=== PATIENT | female | born 1960 | race Caucasian/White ===

== ENCOUNTER 2020-03-23 11:30 | Emergency (ER) | payer OTHER ==
[2020-03-23 12:48] LABS: Urine Blood TRACE (NEG); Urine Glucose 2+ (NEG); Urine Protein 2+ (NEG); Urine Specific Gravity 1.015 (1.005-1.030)
[2020-03-23] MEDS ORDERED: NA CHLORIDE 0.9% 1,000 ML ONE ×2 (13:08→13:22)
[2020-03-23] MEDS ORDERED: INSULIN -REGULAR HUMAN 50 UNIT/0.5 ML ML ONE (13:08)
[2020-03-23] MEDS ORDERED: PROMETHAZINE INJ 25 MG/ML AMP ONE (13:21)
[2020-03-23 13:22] LABS: Urine Bacteria >50 /HPF (<20); Urine Culture Reflex Order NOT NEEDED; Urine RBC <5 /HPF (NONE SEEN)
[2020-03-23] MEDS ORDERED: PANTOPRAZOLE 40 MG INJ ONE (13:22)
[2020-03-23 13:23] LABS: Absolute Lymphocytes (CBC) 1.4 K/uL (0.7-4.9); Basophils % 0.9 % (0-1.3); Hematocrit 51.8 % (36.0-45.0); Lymphocytes % 16.9 % (15.3-44.8); MPV 9.2 fL (7.6-11.3); RBC Red Blood Cell Count 5.63 M/uL (3.86-4.86)
[2020-03-23] MEDS ORDERED: CEFTRIAXONE/SWI 1gm 1 GM/10 ML SYR ONE (13:41)
[2020-03-23 14:01] LABS: Albumin 3.9 g/dL (3.4-5.0); Bilirubin Direct 1.9 mg/dL (0-0.2); Bilirubin Total 2.8 mg/dL (0.2-1.0); Potassium 4.7 mmol/L (3.5-5.1); Protein, Total 9.5 g/dL (6.4-8.2)
--- OUTSIDE RECORDS SUMMARY | 2020-03-23 14:19 | XMS REPORT | Clinical Summary ---
:1960 Author Organization [facility] Address [address] [place] [address] Care Team Providers Name Role Phone Asked, Pcp Primary Care Provider Unavailable Allergies Active Allergy Reactions Severity Noted Date Comments Cyclobenzaprine 04/19/2017 Sulfa (Sulfonamide Antibiotics) 7 Tetracycline 04/19/2017 Abacavir 04/19/2017 Medications Medication Sig Dispensed Refills Start Date End Date Status sitagliptin Take by mouth 0 Acti ve phos/metformin HCl 2 (two) times (JANUMET ORAL) a day. sertraline Take 50 mg by 0 Activ e (ZOLOFT) 25 MG mouth daily. tablet amitriptyline Take 10 mg by 0 Ac tive (ELAVIL) 10 MG mouth daily. tablet Truvada 200-300 mg TAKE ONE 90 tablet 2 02/13/2020 08/11/20 Active per tablet TABLET BY 20 MOUTH ONCE DAILY WITH OR WITHOUT FOOD. STORE IN ORIGINAL CONTAINER AT ROOM TEMPERATURE. Reyataz 300 mg TAKE 1 CAPSULE 90 capsule 2 02/13/2020 05/13/20 Active capsule BY MOUTH DAILY 20 WITH BREAKFAST Norvir 100 mg TAKE ONE 30 tablet 0 03/10/2020 03/10/20 Activ e tablet TABLET BY 21 MOUTH ONCE DAILY WITH A MEAL. DO NOT BREAK, CHEW ORCRUSH TABLET. STORE AT ROOM TEMPERATURE. AVOID HIGH HUMIDITY. REYATAZ 300 mg TAKE 1 CAPSULE 90 capsule 2 02/18/2019 02/13/20 Discontinued capsule BY MOUTH DAILY 20 WITH BREAKFAST TRUVADA 200-300 mg TAKE ONE 90 tablet 2 02/18/2019 02/13/20 Discontinued per tablet TABLET BY 20 MOUTH ONCE DAILY WITH OR WITHOUT FOOD. STORE IN ORIGINAL CONTAINER AT ROOM TEMPERATURE. NORVIR 100 mg TAKE 1 TABLET 90 tablet 1 02/18/2019 10/10/20 D iscontinued tablet BY MOUTH DAILY 19 (Reor yasir) NORVIR 100 mg Take 1 tablet 90 tablet 1 10/10/2019 03/10/20 D iscontinued tablet (100 mg total) 20 by mouth daily for 180 days. Active Problems Problem Noted Date HIV (human immunodeficiency virus infection) 8 Encounters Date Type Specialty Care Team Description 03/19/2020 Travel 03/12/2020 Orders Only Infectious Diseases Danielle Jacobs Asy mptomatic HIV infection (HCC) (Primary Dx); paraffiner mellit us due to underlying condition with unspecified complications (HCC) 03/12/2020 Travel 03/05/2020 Refill Infectious Diseases Leoncio Uribe MD 02/13/2020 Refill Infectious Diseases Leoncio Uribe MD 10/10/2019 Orders Only Infectious Diseases Danielle Jacobs RN after 03/23/2019 Immunizations Name Administration Dates Next Due Influenza, Unspecified 01/06/2016, 09/30/2009, 10/31/2008, 1 , 07/23/2002, 08/05/1998 Pneumococcal Polysaccharide 12/26/2012, 11/15/2006, 07/23/20 02, 12/21/1997 Social History Tobacco Use Types Packs/Day Years Used Date Current Every Day Smoker Alcohol Use Drinks/Week oz/Week Comments Yes occassionally Sex Assigned at Date Recorded Not on file Job Start Date Occupation Industry Not on file Not on file Not on file Travel History Travel Start Travel End No recent travel history available. COVID-19 Exposure Response Date Recorded In the last month, have you been in contact with No / Unsure 03/19/2020 12:28 PM CDT someone who was confirmed or suspected to have Coronavirus / COVID-19? Last Filed Vital Signs Not on file Plan of Treatment Date Type Specialty Care Team Description 03/30/2020 Telemedicine Infectious Diseases Leoncio Uribe MD [address] [place], [place] [address] [phone] Health Maintenance Due Date Last Done Comments DIABETIC RETINAL EYE EXAM 1960 DIABETIC FOOT EXAM 1968 CERVICAL CANCER SCREENING 1979 BREAST CANCER SCREENING 2008 COLONOSCOPY SCREENING 2008 SHINGLES VACCINES (#1) 2008 INFLUENZA VACCINE 05/23/2020 01/06/2016, 09/30/2009, 2008, Additional history exists Procedures Procedure Name Priority Date/Time Associated Diagnosis Comme nts LIPID PANEL Routine 03/18/2020 9:59 Diabetes mellitus due Re sults for this AM CDT to underlying procedure are in condition with the results unspecified section. complications (H CC) Asymptomatic HIV infection (HCC) HIV 1 RNA, Routine 03/18/2020 9:59 Asymptomatic HIV Results for this QUANTITATIVE REAL AM CDT infection (HCC) procedu re are in TIME PCR the results section. COMPREHENSIVE Routine 03/18/2020 9:59 Asymptomatic HIV Result s for this METABOLIC PANEL AM CDT infection (HCC) procedure are in the results section. CBC WITH PLATELET AND Routine 03/18/2020 9:59 Asymptomatic HI V Results for this DIFFERENTIAL AM CDT infection (HCC) procedure ar e in the results section. T CELL LYMPHOCYTE Routine 03/18/2020 9:59 Asymptomatic HIV Re sults for this SUBSET PANEL 4 AM CDT infection (HCC) procedure are in the results section. after 03/23/2019 Results T cell Lymphocyte Subset Panel 4 (03/18/2020 9:59 AM CDT) Pathologist Sig nature CD4% 26 (L) 30 - 61 % [facility] [facility] CD4 absolute count 607 490 - 1,740 [facility] cells/uL [facility] [facility] CD8% 53 (H) 12 - 42 % [facility] [facility] CD8 absolute count 1,232 (H) 180 - 1,170 [facility] cells/uL [facility] [facility] CD4/CD8 ratio 0.49 (L) 0.86 - 5.00 [facility] II Lymphocytes, 2,321 850 - 3,900 [facility] absolute cells/uL [facility] [facility] Specimen Blood Narrative Performed At FASTING:YES [facility] FASTING: YES Resulting Agency Comment Performing Organization Information: Site ID: [id number] Name: [facility] Address: [address] [place] [address] Director: Dr. Vaibhav whittington Performing Organization Address City/State/Zipcode Phone Number [facility] II [address] [place] [address] HIV 1 RNA, QUANTITATIVE REAL TIME PCR (03/18/2020 9:59 AM CDT) [facility] HIV-1 RNA by PCR, 23 (H) NOT DETECTED [facility] copies/mL [facility] [facility] HIV-1 RNA by PCR, 1.36 (H) NOT DETECTED Log [facility] Comment: copies/mL [facility] This test was performed using Real-Time Polymerase Monica in Reaction. Reportable Range: 20 copies/mL to 10,000,000 copies/mL (1.30 log copies/mL to 7.00 log copies/mL). Specimen Narrative Performed At FASTING:YES [facility] FASTING: YES Resulting Agency Comment Performing Organization Information: Site ID: [id number] Name: [facility] Address: [address] [place] [id number] Director: Dr. Vaibhav whittington Performing Organization Address City/State/Zipcode Phone Number JOCE PIERRE[address] [place] [address] CBC with platelet and differential (03/18/2020 9:59 AM CDT) [facility] WBC 9.5 3.8 - 10.8 [facility] Thousand/uL [place] RBC 5.34 (H) 3.80 - 5.10 [facility] Million/uL [place] HGB 16.1 (H) 11.7 - 15.5 [facility] g/dL [place] HCT 47.6 (H) 35.0 - 45.0 % [facility] @Pay [place] MCV 89.1 80.0 - 100.0 fL [facility] MCH 30.1 27.0 - 33.0 pg [facility] [place] MCHC 33.8 32.0 - 36.0 [facility] g/dL [place] RDW 12.1 11.0 - 15.0 % [facility] [place] Platelet count 298 140 - 400 [facility] Thousand/uL [place] MPV 10.5 7.5 - 12.5 fL [facility] Neutrophils, absolute 6,470 1,500 - 7,800 [facility] cells/uL [place] Lymphocytes, absolute 2,176 850 - 3,900 [facility] cells/uL [place] Monocytes, absolute 542 200 - 950 [facility] cells/uL [place] Eosinophils, absolute 209 15 - 500 [facility] cells/uL [place] Basophils, absolute 105 0 - 200 [facility] cells/uL [place] Neutrophils 68.1 % [facility] [place] Lymphocytes 22.9 % [facility] [place] Monocytes 5.7 % [facility] [place] Eosinophils 2.2 % [facility] [place] Basophils + RC 1.1 % [facility] [place] Specimen Blood Narrative Performed At FASTING:YES [facility] FASTING: YES Resulting Agency Comment Performing Organization Information: Site ID: [id number] Name: [facility] [facility] Address: [address] [place] [phone] Director: Vaibhav Cantor Performing Organization Address City/State/Zipcode Phone Number JOCE PIERRE [place] [address] [place], [place] [id number] Lipid panel (03/18/2020 9:59 AM CDT) [facility] Cholesterol, total 204 (H) <200 mg/dL [facility] [place] HDL cholesterol 39 (L) > OR = 50 [facility] mg/dL [place] Triglycerides 259 (H) <150 mg/dL [facility] Comment: [place] If a non-fasting specimen was collected, consider repeat triglyceride testing on a fasting specimen if clinically indicated. Zev et al. J. of Clin. Lipidol. 2015;9:129-169. LDL cholesterol 125 (H) mg/dL (calc) [facility] calculated Comment: [place] Reference range: <100 Desirable range <100 mg/dL for primary prevention; <70 mg/dL for patients with CHD or diabetic patients with > or = 2 CHD risk factors. LDL-C is now calculated using the Carlyle-Rodrigo calculation, which is a validated novel method providi ng better accuracy than the Friedewald equation in the estimation of LDL-C. Carlyle HUANG et al. GALDINO. 2013;310(19): 8219-5295 (http://education.ServiceMax/faq/CCU063) Cholesterol/HDL 5.2 (H) <5.0 (calc) [facility] Non-HDL cholesterol 165 (H) <130 mg/dL [facility] Comment: (calc) [place] For patients with diabetes plus 1 major ASCVD risk factor, treating to a non-HDL-C goal of <100 mg/dL (LDL-C of <70 mg/dL) is considered a therapeutic option. Specimen Blood Narrative Performed At FASTING:YES [facility] FASTING: YES Resulting Agency Comment Performing Organization Information: Site ID: [id number] Name: [facility] Address: [address] [place] [phone] Director: Vaibhav Cantor Performing Organization Address City/State/Zipcode Phone Number [facility] [place] [address] [place] [address] Comprehensive metabolic panel (03/18/2020 9:59 AM CDT) Glucose 390 (H) 65 - 99 [facility] Comment: mg/dL [place] Fasting reference interval For someone without known diabetes, a glucose value >125 mg/dL indicates that they may have diabetes and this should be confirmed with a follow-up test. BUN 11 7 - 25 mg/dL [facility] [place] Creatinine 0.60 0.50 - 0.99 [facility] Comment: mg/dL [place] For patients >49 years of age, the reference limit for Creatinine is approximately 13% higher for people identified as -Kosovan. EGFR Non-Afr. 98 > OR = 60 [facility] [place] mL/min/1.73m [place] 2 EGFR 114 > OR = 60 [facility] [place] mL/min/1.73m [place] 2 BUN/creatinine NOT APPLICABLE 6 - 22 [facility] ratio (calc) [place] Sodium 133 (L) 135 - 146 [facility] mmol/L [place] Potassium 4.6 3.5 - 5.3 [facility] mmol/L [place] Chloride 95 (L) 98 - 110 [facility] mmol/L [place] CO2 25 20 - 32 [facility] mmol/L [place] Calcium 10.2 8.6 - 10.4 [facility] mg/dL [place] Protein 7.8 6.1 - 8.1 [facility] g/dL [place] Albumin, S 4.1 3.6 - 5.1 [facility] g/dL [place] Globulin, total 3.7 1.9 - 3.7 [facility] g/dL (calc) [place] Albumin/globulin 1.1 1.0 - 2.5 [facility] ratio (calc) [place] Total bilirubin 0.9 0.2 - 1.2 [facility] mg/dL [place] Alkaline 498 (H) 37 - 153 U/L [facility] phosphatase [place] AST 118 (H) 10 - 35 U/L [facility] [place] ALT 124 (H) 6 - 29 U/L [facility] [place] Specimen Blood Narrative Performed At FASTING:YES [facility] FASTING: YES Resulting Agency Comment Performing Organization Information: Site ID: [id number] Name: [facility] Address: [address] [place] [address] Director: Vaibhav Cantor Performing Organization Address City/State/Zipcode Phone Number [facility] [place] [address] [place] [address] after 03/23/2019 Insurance Payer Benefit Plan / Subscriber ID Effective Dates Phone Addre ss Type Group MEDICARE MEDICARE PART A xxxxxxxxxxx 2012-Present [facility], [place] Medicare AND B CIGNA CIGNA INDEMNITY xxxxxxxxxxx 2012-Present Indemnity Advance Directives For more information, please contact: [phone] Type Date Recorded Patient Demo Coordinator Explanati on Advance Directives, Living Will and Medical Power of Institutional Research Director
--- OUTSIDE RECORDS SUMMARY | 2020-03-23 14:20 | XMS REPORT ---
:1960 Author Organization [facility] t Address [facility] Vin[address] [place] [address] Care Team Providers Name Role Phone Asked, Pcp Primary Care Physician Unavailable Reynaldo SANTIAGO Attending Clinician Unavailable Edgar Uribe MD Attending Clinician Payers Payer Name Policy Policy Number Effective Expiration Source Type Date Date MEDICAREMEDICARE PART xxxxxxxxxxx 2012 Carlos Patricio AND 00:00:00 Buddhist Omkcyknbjkii85/1/2012 [place] x[facility]xx 2012 [place] INDEMNITYxxxxxxxxxxx1 00:00:00 Met jama 2011-Mago nity Problems Condition Condition Condition Status Onset Resolution Last Treating Co mments Source Name Details Category Date Date Treatment Clinician Date HIV (human HIV (human Disease Active [place] immunodefi immunodefi 04-19 Me thodi ciency ciency 00:00: st 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) Allergies, Adverse Reactions, Alerts Allergy Allergy Status Severity Reaction(s) Onset Inactive Treating Comm ents Source Name Type Date Date Clinician Cycloben Propensi Active [place] zaprine ty to 04-19 Methodi adverse 00:00: st reaction 00 s to drug Sulfa Propensi Active [place] (Sulfona ty to 04-19 Methodi mide adverse 00:00: st Antibiot reaction 00 ics) s to drug Tetracyc Propensi Active [place] line ty to 04-19 Methodi adverse 00:00: st reaction 00 s to drug Abacavir Propensi Active [place] ty to 04-19 Methodi adverse 00:00: st reaction 00 s to drug Social History Social Habit Start Date Stop Date Quantity Comments Source Sex Assigned At [place] Buddhist Exposure to Not sure [place] SARS-CoV-2 Buddhist (event) Alcohol intake 2017-04-19 2017-04-19 Current drinker of [place] 00:00:00 00:00:00 alcohol (finding) Methodi st Alcohol Comment 2017-04-19 2017-04-19 occassionally [place] 00:00:00 00:00:00 Buddhist Smoking Status Start Date Stop Date Source Current every day smoker 2017-04-19 00:00:00 Cynthia ston Buddhist Medications Ordered Filled Start Stop Current Ordering Indication Dosage Frequency Signature Comments Components Source Medication Medication Date Date Medication? Clinician (SIG) Name Name Norvir 100 2020- Yes TAKE ONE [place] mg tablet 5-10 03-19 TABLET BY Meth zackery 00:00: 23:[address] 00 :00 DAILY WITH A MEAL. DO NOT BREAK, CHEW ORCRUSH TABLET. STORE AT ROOM TEMPERATUR E. AVOID HIGH HUMIDITY. Truvada 2019- Yes TAKE ONE [place] 200-300 mg 4-23 10-20 TABLET BY Met hodi per tablet 00:00: 23:[address] 00 :00 DAILY WITH OR WITHOUT FOOD. STORE IN ORIGINAL CONTAINER AT ROOM TEMPERATUR E. Reyataz 300 2019- Yes TAKE 1 Cynthia ston mg capsule 02-12-22 CAPSULE BY Me thodi 00:00: 23:[address] 00 :00 DAILY WITH BREAKFAST NORVIR 100 2018-10- No 100mg QD Take 1 Cynthia ston mg tablet 2-19 tablet Methodi 00:00: 00:00 ([address] 00 :00 total) by mouth daily for 180 days. REYATAZ 300 2019- No TAKE 1 Cynthia ston mg capsule 02-18-23 CAPSULE BY Me thodi 00:00: 00:[address] 00 :00 DAILY WITH BREAKFAST TRUVADA 2019- No TAKE ONE [place] 200-300 mg 4-29 04-23 TABLET BY Met hodi per tablet 00:00: 00:[address] 00 :00 DAILY WITH OR WITHOUT FOOD. STORE IN ORIGINAL CONTAINER AT ROOM TEMPERATUR E. NORVIR 100 2019-0 2019- No TAKE 1 [place] mg tablet 02-1819 TABLET BY Meth zackery 00:00: 00:[address] 00 :00 DAILY sitagliptin Yes Q.5D Take by Cynthia khoury phos/metfor 4-15 mouth 2 Metho di min HCl 11:06: (two) st (JANUMET 50 times a ORAL) day. sertraline Yes 50mg QD Take 50 mg [place] (ZOLOFT) 25 4-15 by mouth Meth zackery MG tablet 11:06: daily. st 50 amitriptyli Yes 10mg QD Take 10 mg Strong ne (ELAVIL) 4-15 by mouth Meth zackery 10 MG 11:06: daily. st tablet 50 Immunizations Ordered Immunization Filled Immunization Date Status Commen ts Source Name Name Influenza, 2016-01-06 Completed [place] Unspecified 00:00:00 Buddhist Pneumococcal 2012-12-26 Completed Strong Polysaccharide 00:00:00 Buddhist Influenza, 2009-09-30 Completed [place] Unspecified 00:00:00 Buddhist Influenza, 2008-10-31 Completed [place] Unspecified 00:00:00 Buddhist Influenza, 2007-08-20 Completed [place] Unspecified 00:00:00 Buddhist Pneumococcal 2006-11-15 Completed [place] Polysaccharide 00:00:00 Buddhist Influenza, 2002-07-23 Completed [place] Unspecified 00:00:00 Buddhist Pneumococcal 2002-07-23 Completed [place] Polysaccharide 00:00:00 Buddhist Influenza, 1998-08-05 Completed [place] Unspecified 00:00:00 Buddhist Pneumococcal 1997-12-21 Completed [place] Polysaccharide 00:00:00 Buddhist Procedures Procedure Date / Time Performed Performing Clinician [facility] e T CELL LYMPHOCYTE SUBSET 2020-03-18 09:59:00 Leoncio Uribe PANEL 4 CBC WITH PLATELET AND 2020-03-18 09:59:00 Leoncio Uribe DIFFERENTIAL COMPREHENSIVE METABOLIC 2020-03-18 09:59:00 Leoncio Uribe PANEL HIV 1 RNA, QUANTITATIVE 2020-03-18 09:59:00 Leoncio Uribe REAL TIME PCR LIPID PANEL 2020-03-18 09:59:00 Leoncio Uribe odist Plan of Care Planned Activity Planned Date Details Comments Source Future Scheduled 2020-05-23 INFLUENZA VACCINE [place] [facility] Test 00:00:00 [code = INFLUENZA VACCINE] Future Scheduled 2008 BREAST CANCER [facility] thodist Test 00:00:00 SCREENING [code = BREAST CANCER SCREENING] Future Scheduled 2008 COLONOSCOPY SCREENING [place] [facility] Test 00:00:00 [code = COLONOSCOPY SCREENING] Future Scheduled 2008 SHINGLES VACCINES [place] [facility] Test 00:00:00 (#1) [code = SHINGLES VACCINES (#1)] Future Scheduled 1979 Screening for [facility] thodist Test 00:00:00 malignant neoplasm of cervix (procedure) [code = 012338250] Future Scheduled 1968 DIABETIC FOOT EXAM [place] Buddhist Test 00:00:00 [code = DIABETIC FOOT EXAM] Future Scheduled 1958 DIABETIC RETINAL EYE Cynthia ston Buddhist Test 00:00:00 EXAM [code = DIABETIC RETINAL EYE EXAM] Results Test Description Test Time Test Comments Results Result Comments Source Comprehensive metabolic panel 2020-03-20 11:16:00 Test Item Value Reference Range Interpretation Comme nts Glucose (test code = 390 mg/dL 65-99 H Fasting 2345-7) reference inter tatum For someone without known diabetes, a glu cosevalue >125 mg/dL [place] cates that they may havedi abetes and this should be confirmed with afollow-up test. BUN (test code = 11 mg/dL 05-16 3094-0) Creatinine (test code = 0.60 mg/dL 0.5-0.99 For patients >49 years of 2160-0) age, the refere nce limitfor Creati nine is approximately 1 3% higher for peopleident ified as -Mary Lou n. EGFR Non-Afr. Libyan 98 > OR = 60 (test code = 2775) mL/min/1.73m2 EGFR 114 > OR = 60 (test code = 21328-7) mL/min/1.73m2 BUN/creatinine ratio NOT APPLICABLE (calc) (test code = 3097-3) Sodium (test code = 133 mmol/L 135-146 L 2951-2) Potassium (test code = 4.6 mmol/L 3.5-5.3 2823-3) Chloride (test code = 95 mmol/L 98-110 L 2074-0) CO2 (test code = 25 mmol/L 20-32 2028-06) Calcium (test code = 10.2 mg/dL 8.6-10.4 26405-7) Protein (test code = 7.8 g/dL 6.1-8.1 5-2) Albumin, S (test code = 4.1 g/dL 3.6-5.1 1750-7) Globulin, total (test 3.7 1.9- 3.7 g/dL code = 61139-5) (calc) Albumin/globulin ratio 1.1 1.0- 2.5 (test code = 1759-0) (calc) Total bilirubin (test 0.9 mg/dL 0.2-1.2 code = 1974-) Alkaline phosphatase 498 U/L 37-153 H (test code = 6768-6) AST (test code = 118 U/L 10-35 H 192-8) ALT (test code = 124 U/L 6-29 H 174-6) JOSE (test code = JOSE) FASTING:YESFASTING: YES RAC (test code = RAC) Performing Organization Information: Site ID: RGA Name: [facility] Lab Address: [address] [place] [phone] Director: Vaibhav Cantor Lab Interpretation Abnormal (test code = 78591-5) [place] MethodistLipid [id number] 11:16:00 Test Item Value Reference Interpretation Comments Range Cholesterol, total 204 mg/dL <200 H (test code = 2092-3) HDL cholesterol 39 mg/dL > OR = 50 L (test code = 2084-9) Triglycerides (test 259 mg/dL <150 H If a no n-fasting code = 2571-8) specimen was collected, considerrepeat triglyceride testing on a fasting specime nif clinically indicated. Kev correa et al. J. of Cl in. Lipidol. 2015;9:129-169. LDL cholesterol 125 mg/dL (calc) H Reference ra nge: calculated (test <100 Desira ble code = 35165-8) range <100 m g/dL for primary prevention; <7 0 mg/dL for patie nts with CHD or diabetic patien ts with > or = 2 C HD risk factors. L DL-C is now calculat ed using the Carlyle-Wallace calculation, wh ich is a validated novel method providing hanna r accuracy than t he Puneet equa tion in the estimati on of LDL-C. Autumn n SS et al. GALDINO. 2013;310(19): 1198-7292 (http://educati on.Basic-Fit .HemaSource /faq/ANP052) Cholesterol/HDL 5.2 <5.0 (calc) H ratio (test code = 9830-1) Non-HDL cholesterol 165 <130 mg/dL H For didier ents with (test code = (calc) diabetes plus 1 54794-9) major ASCVD ris k factor, treatin g to a non-HDL-C goa l of <100 mg/dL (LDL -C of <70 mg/dL) i s considered a therapeutic opt ion. JOSE (test code = FASTING:YESFASTIN JOSE) G: YES RAC (test code = Performing RAC) Organization Information: Site ID: RGA Name: [facility] Address: [address] [place] [id number] Director: Vaibhav Cantor Lab Interpretation Abnormal (test code = 60438-8) [facility] with platelet and [id number] 11:16:00 Test Item Value Reference Range Interpretation Comments WBC (test code = 9.5 3.8- 10.8 6690-2) Thousand/uL RBC (test code = 789-8) 5.34 3.80- 5.10 H Million/uL HGB (test code = 718-7) 16.1 g/dL 11.7-15.5 H HCT (test code = 47.6 % 35-45 H 4544-3) MCV (test code = 787-2) 89.1 fL 80-100 MCH (test code = 785-6) 30.1 pg 27-33 MCHC (test code = 33.8 g/dL 32-36 786-4) RDW (test code = 788-0) 12.1 % 11-15 Platelet count (test 298 140- 400 code = 777-3) Thousand/uL MPV (test code = 776-5) 10.5 fL 7.5-12.5 Neutrophils, absolute 6470 1,500 - 7,800 (test code = 751-8) cells/uL Lymphocytes, absolute 2176 850- 3,900 (test code = 731-0) cells/uL Monocytes, absolute 542 200- 950 cells/uL (test code = 742-7) Eosinophils, absolute 209 15- 500 cells/uL (test code = 711-2) Basophils, absolute 105 0- 200 cells/uL (test code = 704-7) Neutrophils (test code 68.1 % = 770-8) Lymphocytes (test code 22.9 % = 736-9) Monocytes (test code = 5.7 % 5905-5) Eosinophils (test code 2.2 % = 713-8) Basophils + RC (test 1.1 % code = 706-2) JOSE (test code = JOSE) FASTING:YESFASTING: YES RAC (test code = RAC) Performing Organization Information: Site ID: RGA Name: [facility] Lab Address: [address] [place] [address] Director: Vaibhav Cantor Lab Interpretation Abnormal (test code = 83826-1) [place] MethodistHIV 1 RNA, QUANTITATIVE REAL TIME [id number] 11:16:00 Test Item Value Reference Range Interpretation Comments HIV-1 RNA by PCR, Qn 23 NOT DETECTED H (test code = 84193-0) copies/mL HIV-1 RNA by PCR, Qn 1.36 NOT DETECTED H This t est was (test code = 21631-0) Log copies/mL perfo rmed using Real-Time Polymerase ChainReaction. Reportable Range: 20 copies/mL to 10,000,000 copies/mL(1.30 log copies/mL t o 7.00 log copies/mL). JOSE (test code = JOSE) FASTING:YESFASTING : YES RAC (test code = RAC) Performing Organization Information: Site ID: IG Name: [facility] Lab Address: [address] [place] [address] Director: Dr. Vaibhav Cantor Lab Interpretation Abnormal (test code = 48818-7) [place] MethodistT cell Lymphocyte Subset Panel [id number] 11:16:00 Test Item Value Reference Range Interpretation Comments CD4% (test code = 26 % 30-61 L 8123-2) CD4 absolute count 607 490- 1,740 (test code = 27229-4) cells/uL CD8% (test code = 53 % 12-42 H 8101-8) CD8 absolute count 1232 180- 1,170 H (test code = 15181-9) cells/uL CD4/CD8 ratio (test 0.49 0.86-5.00 L code = 68183-1) Lymphocytes, absolute 2321 850- 3,900 (test code = 731-0) cells/uL JOSE (test code = JOSE) FASTING:YESFASTING: YES RAC (test code = RAC) Performing Organization Information: Site ID: IG Name: [facility] Lab Address: [address] [place] [phone] Director: Dr. Vaibhav Cantor Lab Interpretation Abnormal (test code = 43532-0) Tae Barriga
--- NOTE | 2020-03-23 14:53 | RAD REPORT ---
EXAM DESCRIPTION: US - Abdomen Exam Limited - 03/23/2020 2:43 pm CLINICAL HISTORY: ABD PAIN COMPARISON: No comparisons FINDINGS: The gallbladder demonstrates no gallstones. Small amount of gallbladder sludge likely pres ent. No pericholecystic fluid or gallbladder wall thickening. The common bile duct is upper limit of normal measuring 6-7 mm. The liver demonstrates no findings of intrahepatic biliary dilatation. IMPRESSION: Mild gallbladder sludge.
[2020-03-23 15:30] VITALS: TEMP 98.5
[2020-03-23 15:34] VITALS: O2SAT 95
[2020-03-23 15:35] VITALS: BP 137/68
--- NOTE | 2020-03-23 20:10 | ER ---
Nurse's Notes [facility] Name: Alexsandra Mauro Age: 59 yrs Sex: Female : 1960 Arrival Date: 03/23/2020 Time: 11:34 Bed 14 Private MD: Diagnosis: Diabetes mellitus due to underlying condition with hyperglycemia;Volume depletion;Generalized abdominal pain;Urinary tract infection, site not specified;Pancreatitis Presentation: 03/23 11:44 Chief complaint: Patient states: Sent by PCP for further evaluation of dehydration. Pt ss states, "I don't want to stay in the hospital, but she said my gallbladder is bad." Pt c/o abd burning and nausea x 4 days. Coronavirus screen: Proceed with normal triage. Patient denies a cough. Patient denies shortness of breath or difficulty breathing. Patient denies measured and/or subjective temperature greater than 100.4F prior to today's visit. Patient denies travel on a cruise ship or to a country the [facility] currently lists as an affected area. Patient denies contact with known and/or suspected case of COVID-19. Ebola Screen: Patient denies exposure to infectious person. Patient denies travel to an Ebola-affected area in the 21 days before illness onset. Initial Sepsis Screen: Does the patient meet any 2 criteria? No. Patient's initial sepsis screen is negative. Does the patient have a suspected source of infection? No. Patient's initial sepsis screen is negative. Risk Assessment: Do you want to hurt yourself or someone else? Patient reports no desire to harm self or others. Onset of symptoms was March 18, 2020. 11:44 Method Of Arrival: Ambulatory ss 11:44 Acuity: BRITTNY 3 ss Historical: - Allergies: 11:47 Sulfa (Sulfonamide Antibiotics); ss 11:47 TETRACYCLINES; ss - PMHx: 11:47 Diabetes - IDDM; HIV; in remission. 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 - Social history:: Smoking status: Patient reports the use of cigarette tobacco products, smokes two packs cigarettes per day. Screenin:51 Abuse screen: Denies threats or abuse. Nutritional screening: No deficits noted. ll1 Tuberculosis screening: No symptoms or risk factors identified. Fall Risk IV access (20 points). Total Fajardo Fall Scale indicates No Risk (0-24 pts). Assessment: 13:00 General: Appears in no apparent distress. Behavior is calm, cooperative, appropriate ll1 for age. Pain: Complains of pain in left upper quadrant and right upper quadrant Quality of pain is described as aching, Pain began 4 days Is intermittent. Neuro: No deficits noted. Cardiovascular: No deficits noted. Respiratory: No deficits noted. GI: Bowel sounds present X 4 quads. Abd is soft Abdomen is tender to palpation in right upper quadrant and left upper quadrant Reports upper abdominal pain, indigestion, nausea. 14:00 Reassessment: Patient appears in no apparent distress at this time. No changes from ll1 previously documented assessment. Patient and/or family updated on plan of care and expected duration. Pain level reassessed. Patient is alert, oriented x 3, equal unlabored respirations, skin warm/dry/pink. 14:30 Reassessment: Discharge pending ultrasound results. vc 15:00 Reassessment: Patient appears in no apparent distress at this time. Patient and/or vc family updated on plan of care and expected duration. Pain level reassessed. Patient is alert, oriented x 3, equal unlabored respirations, skin warm/dry/pink. Vital Signs: 11:44 BP 104 / 87; Pulse 89; Resp 17; Temp 98.5(TE); Pulse Ox 97% on R/A; Weight 79.38 kg; ss Height 5 ft. 6 in. (167.64 cm); 12:45 BP 151 / 71 LA Supine (auto/reg); Pulse 89; Resp 14; Pulse Ox 96% on R/A; dh3 12:48 BP 146 / 54 LA Sitting (auto/reg); Pulse 90; Resp 14; Pulse Ox 96% on R/A; dh3 12:52 BP 128 / 66 LA Standing (auto/reg); Pulse 104; Resp 14; Pulse Ox 95% on R/A; dh3 13:52 BP 137 / 68; Pulse 98; Resp 18; Pulse Ox 95% ; ll1 11:44 Body Mass Index 28.25 (79.38 kg, 167.64 cm) ED Course: 11:34 Patient arrived in ED. 1 11:45 Triage completed. ss 11:47 Arm band placed on right wrist. ss 11:56 Paz Bobby FNP-C is [facility]. snw 11:56 Luke Brandt MD is Attending Physician. snw 11:56 Ramona Ortega, JACK is Primary Nurse. ll1 12:25 Notified Nurse Practitioner and/or Physician Caustics Loader of POC Blood Sugar Notified 3 primary nurse of point of care results. 12:35 Placed in gown. Bed in low position. Call light in reach. Side rails up X 1. Warm jp3 blanket given. Verbal reassurance given. Pulse ox on. NIBP on. 12:35 Urine collected: clean catch specimen, clear, chas colored. jp3 12:50 Initial lab(s) drawn, by me, sent to lab. Inserted saline lock: 20 gauge in right jp3 antecubital area, using aseptic technique. Blood collected. Patient maintains SpO2 saturation greater than 95% on room air. 14:50 US Abdomen Limited In Process Unspecified. EDMS 15:15 No provider procedures requiring assistance completed. IV discontinued, intact, vc bleeding controlled, No redness/swelling at site. Pressure dressing applied. 15:19 Primary Nurse role handed off by Ramona Ortega RN vc 15:19 Toña Thornton RN is Primary Nurse. vc Administered Medications: 13:08 Drug: Insulin Regular Human 5 units {Co-Signature: zainab (Nery Grossman RN).} Route: Sub-Q; ll1 Site: right lower abdomen; 14:00 Follow up: Response: No adverse reaction; RASS: Alert and Calm (0) ll1 13:10 Drug: NS 0.9% 1000 ml Route: IV; Rate: 1 bolus; Site: right antecubital; ll1 13:58 Follow up: Response: No adverse reaction; RASS: Alert and Calm (0); IV Status: ll1 Completed infusion; IV Intake: 1000ml 13:10 Drug: Insulin Regular Human 5 units {Co-Signature: zainab (Nery Grossman RN).} Route: IVP; ll1 Site: right antecubital; 14:00 Follow up: Response: No adverse reaction; RASS: Alert and Calm (0) ll1 13:24 Drug: NS 0.9% 1000 ml Route: IV; Rate: 1 bolus; Site: right antecubital; ll1 13:25 Drug: ProTONIX 40 mg Route: IVP; Site: right antecubital; 1 14:01 Follow up: Response: No adverse reaction; RASS: Alert and Calm (0) ll1 14:01 Follow up: Response: No adverse reaction ll1 13:25 Drug: Phenergan 6.25 mg Route: IVP; Site: right antecubital; ll1 14:02 Follow up: Response: No adverse reaction 1 13:58 Drug: Rocephin 1 grams Route: IV; Rate: calculated rate; Site: right antecubital; 1 Intake: 13:58 IV: 1000ml; Total: 1000ml. 1 Outcome: 14:10 Discharge ordered by . jacques 15:15 Discharged to home ambulatory. vc 15:15 Condition: good 15:15 Discharge instructions given to patient, Instructed on discharge instructions, follow up and referral plans. medication usage, Demonstrated understanding of instructions, follow-up care, medications, Prescriptions given X 2. 15:19 Patient left the ED. vc Signatures: Dispatcher [employer] EDMS Paz Bobby, CARA-C KITCHEN CLERK-Csnw Raissa Hunt, RN RN Esperanza Phillips [facility] Spike Randall jp3 Toña Thornton RN RN José Miguel Henson fjRamona Zee RN RN [facility] Nery Grossman RN Corrections: (The following items were deleted from the chart) 13:01 12:50 Inserted saline lock: 20 gauge in right antecubital area, using aseptic dh3 technique. Blood collected. [facility] 13:01 12:50 Initial lab(s) drawn, by co, sent to lab. [place] [id number] 13:01 12:50 Patient maintains SpO2 saturation greater than 95% on room air. [email or web address]
--- NOTE | 2020-03-23 20:10 | EDPHYS ---
Physician Documentation [facility] Name: Alexsandra Mauro Age: 59 yrs Sex: Female : 1960 Arrival Date: 03/23/2020 Time: 11:34 Bed 14 Private MD: PRETTY Physician Luke Brandt HPI: 03/23 13:01 This 59 yrs old Female presents to ER via Ambulatory with complaints of snw DEHYDRATION, Abd Pain > 50 y/o. 13:01 Onset: The symptoms/episode began/occurred acutely, 4 day(s) ago, and became snw persistent. Associated signs and symptoms: Pertinent positives: abdominal pain, vomiting. It is unknown whether or not the patient has had similar symptoms in the past. The patient has been recently seen by a physician: the patient's primary care provider, Dr. Delcid. Historical: - Allergies: 11:47 Sulfa (Sulfonamide Antibiotics); ss 11:47 TETRACYCLINES; ss - PMHx: 11:47 Diabetes - IDDM; HIV; in remission. 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 - Social history:: Smoking status: Patient reports the use of cigarette tobacco products, smokes two packs cigarettes per day. ROS: 12:59 Constitutional: Negative for fever, chills, and weight loss, Eyes: Negative for injury, snw pain, redness, and discharge, ENT: Negative for injury, pain, and discharge, Neck: Negative for injury, pain, and swelling, Cardiovascular: Negative for chest pain, palpitations, and edema, Respiratory: Negative for shortness of breath, cough, wheezing, and pleuritic chest pain, Back: Negative for injury and pain, : Negative for injury, bleeding, discharge, and swelling, MS/Extremity: Negative for injury and deformity, Skin: Negative for injury, rash, and discoloration, Neuro: Negative for headache, weakness, numbness, tingling, and seizure, Psych: Negative for depression, anxiety, suicide ideation, homicidal ideation, and hallucinations. 12:59 Abdomen/GI: Positive for abdominal pain, nausea, vomiting, of the right upper quadrant and left upper quadrant. Exam: 12:58 Constitutional: This is a well developed, well nourished patient who is awake, alert, snw and in no acute distress. Head/Face: Normocephalic, atraumatic. Eyes: Pupils equal round and reactive to light, extra-ocular motions intact. Lids and lashes normal. Conjunctiva and sclera are non-icteric and not injected. Cornea within normal limits. Periorbital areas with no swelling, redness, or edema. ENT: Nares patent. No nasal discharge, no septal abnormalities noted. Tympanic membranes are normal and external auditory canals are clear. Oropharynx with no redness, swelling, or masses, exudates, or evidence of obstruction, uvula midline. Mucous membranes moist. Neck: Trachea midline, no thyromegaly or masses palpated, and no cervical lymphadenopathy. Supple, full range of motion without nuchal rigidity, or vertebral point tenderness. No Meningismus. Chest/axilla: Normal chest wall appearance and motion. Nontender with no deformity. No lesions are appreciated. Cardiovascular: Regular rate and rhythm with a normal S1 and S2. No gallops, murmurs, or rubs. Normal PMI, no JVD. No pulse deficits. Respiratory: Lungs have equal breath sounds bilaterally, clear to auscultation and percussion. No rales, rhonchi or wheezes noted. No increased work of breathing, no retractions or nasal flaring. Back: No spinal tenderness. No costovertebral tenderness. Full range of motion. MS/ Extremity: Pulses equal, no cyanosis. Neurovascular intact. Full, normal range of motion. Neuro: Awake and alert, GCS 15, oriented to person, place, time, and situation. Cranial nerves II-XII grossly intact. Motor strength 5/5 in all extremities. Sensory grossly intact. Cerebellar exam normal. Normal gait. Psych: Awake, alert, with orientation to person, place and time. Behavior, mood, and affect are within normal limits. 12:58 Abdomen/GI: Inspection: distension, Bowel sounds: normal, Palpation: moderate abdominal tenderness, in the right upper quadrant and left upper quadrant. 12:58 Skin: Appearance: Color: adina, Temperature: warm, Moisture: dry. Vital Signs: 11:44 BP 104 / 87; Pulse 89; Resp 17; Temp 98.5(TE); Pulse Ox 97% on R/A; Weight 79.38 kg; ss Height 5 ft. 6 in. (167.64 cm); 12:45 BP 151 / 71 LA Supine (auto/reg); Pulse 89; Resp 14; Pulse Ox 96% on R/A; dh3 12:48 BP 146 / 54 LA Sitting (auto/reg); Pulse 90; Resp 14; Pulse Ox 96% on R/A; dh3 12:52 BP 128 / 66 LA Standing (auto/reg); Pulse 104; Resp 14; Pulse Ox 95% on R/A; dh3 13:52 BP 137 / 68; Pulse 98; Resp 18; Pulse Ox 95% ; ll1 11:44 Body Mass Index 28.25 (79.38 kg, 167.64 cm) ss MDM: 11:58 Patient medically screened. tanner 14:11 Data reviewed: vital signs, nurses notes. Data interpreted: Pulse oximetry: on room air snw is 95 %. Interpretation: acceptable. Counseling: I had a detailed discussion with the patient and/or guardian regarding: the historical points, exam findings, and any diagnostic results supporting the discharge/admit diagnosis, the presence of at least one elevated blood pressure reading (>120/80) during this emergency department visit, lab results, the need for outpatient follow up, for definitive care, to return to the emergency department if symptoms worsen or persist or if there are any questions or concerns that arise at home. Response to treatment: the patient's symptoms have mildly improved after treatment. Special discussion: Based on the patient's Hx, exam, and Dx evaluation, there is no indication for emergent surgery or inpatient Tx. It is understood by the patient/guardian that if the Sx's persist or worsen they need to return immediately for re-evaluation. I have referred the patient to see his PCP for further evaluation of high blood pressure. Based on the history and exam findings, there is no indication for further emergent testing or inpatient evaluation. I discussed with the patient/guardian the need to see the primary care provider for further evaluation of the symptoms. 03/23 11:57 Order name: Urine Culture formerly [facility] 03/23 11:57 Order name: Urine Microscopic Only; Complete Time: 13:26 snw 03/23 12:35 Order name: Urine Dipstick--Ancillary (enter results); Complete Time: 12:49 bd 03/23 12:37 Order name: Basic Metabolic Panel; Complete Time: 14:19 snw 03/23 12:37 Order name: CBC with Diff; Complete Time: 13:26 snw 03/23 12:37 Order name: Hepatic Function; Complete Time: 14:19 snw 03/23 12:37 Order name: Lipase; Complete Time: 14:19 snw 03/23 12:40 Order name: Glucose, Ancillary Testing; Complete Time: 12:47 EDMS 03/23 14:09 Order name: Glucose, Ancillary Testing; Complete Time: 14:12 EDMS 03/23 14:19 Order name: US Abdomen Limited snw 03/23 11:57 Order name: Urine Dipstick-Ancillary (obtain specimen); Complete Time: 12:36 snw 03/23 11:57 Order name: Orthostatic Blood Pressure; Complete Time: 13:01 snw 03/23 11:57 Order name: FSBS; Complete Time: 12:36 snw 03/23 12:37 Order name: IV Saline Lock; Complete Time: 13:00 snw 03/23 12:37 Order name: Labs collected and sent; Complete Time: 13:01 snw Administered Medications: 13:08 Drug: Insulin Regular Human 5 units {Co-Signature: [email or web address] (Nery Grossman RN).} Route: Sub-Q; ll1 Site: right lower abdomen; 14:00 Follow up: Response: No adverse reaction; RASS: Alert and Calm (0) ll1 13:10 Drug: NS 0.9% 1000 ml Route: IV; Rate: 1 bolus; Site: right antecubital; ll1 13:58 Follow up: Response: No adverse reaction; RASS: Alert and Calm (0); IV Status: ll1 Completed infusion; IV Intake: 1000ml 13:10 Drug: Insulin Regular Human 5 units {Co-Signature: zainab (Nery Grossman RN).} Route: IVP; ll1 Site: right antecubital; 14:00 Follow up: Response: No adverse reaction; RASS: Alert and Calm (0) ll1 13:24 Drug: NS 0.9% 1000 ml Route: IV; Rate: 1 bolus; Site: right antecubital; ll1 13:25 Drug: ProTONIX 40 mg Route: IVP; Site: right antecubital; ll1 14:01 Follow up: Response: No adverse reaction; RASS: Alert and Calm (0) ll1 14:01 Follow up: Response: No adverse reaction 1 13:25 Drug: Phenergan 6.25 mg Route: IVP; Site: right antecubital; ll1 14:02 Follow up: Response: No adverse reaction 1 13:58 Drug: Rocephin 1 grams Route: IV; Rate: calculated rate; Site: right antecubital; ll1 Disposition: 15:20 Co-signature as Attending Physician, Luke Brandt MD I agree with the assessment and [facility] plan of care. Disposition: 03/23/20 14:10 Discharged to Home. Impression: Diabetes mellitus due to underlying condition with hyperglycemia, Volume depletion, Generalized abdominal pain, Urinary tract infection, site not specified, Pancreatitis. - Condition is Stable. - Discharge Instructions: Abdominal Pain, Adult, Dehydration, Adult, Diabetes and Sick Day Management, Urinary Tract Infection, Adult, Blood Glucose Monitoring, Adult, Rehydration, Adult. - Prescriptions for Augmentin 875- 125 mg Oral Tablet - take 1 tablet by ORAL route every 12 hours for 10 days; 20 tablet. Phenergan 25 mg Rectal Suppository - insert 1 suppository by RECTAL route every 6 hours As needed; 12 suppository. - Work release form, Medication Reconciliation Form, Thank You Letter, Antibiotic Education, Prescription Opioid Use form. - Follow up: Emergency Department; When: As needed; Reason: Worsening of condition. Follow up: Private Physician; When: 1 - 2 days; Reason: Recheck today's complaints, Continuance of care, Re-evaluation by your physician. Signatures: Dispatcher [employer] Luke Nava MD MD cha Therrien, Shelly, JELLY MAKER-C JELLY MAKER-Rossw Raissa Hunt RN RN ss Toña Thornton RN RN vc Lewis, Lynsay, RN RN [facility] Nery Grossman RN Corrections: (The following items were deleted from the chart) 14:53 14:10 03/23/2020 14:10 Discharged to Home. Impression: Diabetes mellitus due to snw underlying condition with hyperglycemia; Volume depletion; Generalized abdominal pain; Urinary tract infection, site not specified. Condition is Stable. Forms are Medication Reconciliation Form, Thank You Letter, Antibiotic Education, Prescription Opioid Use. Follow up: Emergency Department; When: As needed; Reason: Worsening of condition. Follow up: Private Physician; When: 1 - 2 days; Reason: Recheck today's complaints, Continuance of care, Re-evaluation by your physician. [email or web address] 15:19 14:53 03/23/2020 14:10 Discharged to Home. Impression: Diabetes mellitus due to vc underlying condition with hyperglycemia; Volume depletion; Generalized abdominal pain; Urinary tract infection, site not specified; Pancreatitis. Condition is Stable. Discharge Instructions: Abdominal Pain, Adult, Dehydration, Adult, Diabetes and Sick Day Management, Urinary Tract Infection, Adult, Blood Glucose Monitoring, Adult, Rehydration, Adult. Prescriptions for Augmentin 875-125 mg Oral Tablet - take 1 tablet by ORAL route every 12 hours for 10 days; 20 tablet, Phenergan 25 mg Rectal Suppository - insert 1 suppository by RECTAL route every 6 hours As needed; 12 suppository. and Forms are Medication Reconciliation Form, Thank You Letter, Antibiotic Education, Prescription Opioid Use, Work release form. Follow up: Emergency Department; When: As needed; Reason: Worsening of condition. Follow up: Private Physician; When: 1 - 2 days; Reason: Recheck today's complaints, Continuance of care, Re-evaluation by your physician. [email or web address]
== END 2020-03-23 15:19 | disposition home or self-care (01) ==
LOC: ER 11:30
DX: E86.9 Volume depletion, unspecified (principal); N39.0 Urinary tract infection, site not specified; E11.65 Type 2 diabetes mellitus with hyperglycemia; F17.210 Nicotine dependence, cigarettes, uncomplicated; Z21 Asymptomatic human immunodeficiency virus [HIV] infection status; Z88.1 Allergy status to other antibiotic agents; Z88.2 Allergy status to sulfonamides
CPT/HCPCS: 96361; 87088; 85025; 87086; 80048; 36415; 82947 ×2; 80076; 83690; 76705; 96375; 96372; 96374; 99284; J2550; C9113; J0696; J7030 ×2; 81003; 81015

== ENCOUNTER 2020-04-18 07:32 | Inpatient (IN) | payer OTHER ==
--- OUTSIDE RECORDS SUMMARY | 2020-04-18 07:38 | XMS REPORT | Clinical Summary ---
:1960 Author Organization [facility] Address [address] [place] [address] Care Team Providers Name Role Phone MD Farhana Primary Care Provider Allergies Active Allergy Reactions Severity Noted Date Comments Cyclobenzaprine Seizure 04/19/2017 Sulfa (Sulfonamide Unknown Reaction 04/19/2017 Antibiotics) Tetracycline Rash Low 04/19/2017 Tramadol Other (See Comments) 04/06/2020 Seizure s Abacavir Other (See Comments) 04/19/2017 "hospit alized after used first dose " Medications Medication Sig Dispensed Refills Start Date End Date Status ritonavir (NORVIR) Take 100 mg by 0 Active 100 mg tablet mouth daily. atazanavir (Reyataz) Take 300 mg by 0 Active 300 MG capsule mouth daily with breakfast. SITagliptin-metformin Take 1 tablet by 0 Active (Janumet) 50-1,000 mg mouth 2 (two) per tablet times a day with meals. emtricitabine-tenofov Take 1 tablet by 0 Active ir DF (TRUVADA) mouth daily. 200-300 mg per tablet insulin detemir U-100 Inject 30 Units 0 Active (LEVEMIR) 100 unit/mL under the skin injection every morning. multivitamin Take 1 tablet by 0 Active (THERAGRAN) tablet mouth daily. sertraline (ZOLOFT) Take 200 mg by 0 Active 100 MG tablet mouth daily. morPHINE Take 1 tablet (15 60 tablet 0 04/03/2020 05/03/2020 Active immediate-release 15 mg total) by MG tabletIndications: mouth every 4 acute pain (four) hours as needed for severe pain for up to 30 days .acute pain. Max Daily Amount: 90 mg morPHINE (MS Contin) Take 1 tablet (30 60 tablet 0 04/03/2020 05/03/2020 Active 30 MG 12 hr mg total) by tabletIndications: mouth 2 (two) chronic pain times a day for 30 days .chronic pain. Max Daily Amount: 60 mg ondansetron (ZOFRAN) Take 1 tablet (8 30 tablet 5 04/03/2020 0 05/03/2020 Active 8 MG tablet mg total) by mouth every 8 (eight) hours as needed for nausea or vomiting for up to 30 days. promethazine Take 1 tablet 60 tablet 2 04/03/2020 05/03/2020 A ctive (PHENERGAN) 12.5 MG (12.5 mg total) tablet by mouth every 6 (six) hours as needed for nausea or vomiting for up to 30 days. insulin ASPART Inject 6 units 5 pen 6 04/03/2020 Active (NovoLOG Flexpen tid with meals U-100 Insulin) 100 unit/mL (3 mL) insulin pen Additional Information Patient taking differently: Inject 6 units tid with meals (did not start due to insurance problems), Reported on 04/08/2020 11:13 AM pen needle, diabetic Inject 4 times a 100 each 1 04/03/2020 Active 32 gauge x 5/32" day needle aspirin (ECOTRIN) 81 Take 1 tablet 30 tablet 0 04/15/202004/23 4/ Active MG enteric coated (81 mg total) by 2020 tablet mouth daily for 30 days. clopidogreL (PLAVIX) Take 1 tablet 30 tablet 0 04/15/202004/23 4/ Active 75 mg tablet (75 mg total) by 2020 mouth daily for 30 days. amitriptyline Take 2 tablets 60 tablet 2 04/16/202005/16/ Active (ELAVIL) 50 MG (100 mg total) 2020 tablet by mouth nightly as needed for sleep for up to 30 days. gabapentin Take 1 capsule 30 capsule 5 04/16/2020 Ac tive (Neurontin) 100 mg (100 mg total) capsule by mouth nightly. HYDROcodone-acetamin Take 1 tablet by 90 tablet 0 04/17/2020 0 05/17/ Active ophen ([place]) 10-325 mouth every 6 2020 mg per (six) hours as tabletIndications: needed for chronic pain moderate pain for up to 30 days .chronic pain. Max Daily Amount: 4 tablets sitagliptin Take by mouth 2 0 03/25/ Di scontinued (Med phos/metformin HCl (two) times a 2019 List Cleanup) (JANUMET ORAL) day. sertraline (ZOLOFT) Take 50 mg by 0 03/25/ Discontinued (Med 25 MG tablet mouth daily. 2019 List Cleanup) amitriptyline Take 10 mg by 0 03/25/ Di scontinued (Med (ELAVIL) 10 MG mouth daily. [address] Cleanup) tablet REYATAZ 300 mg TAKE 1 CAPSULE 90 capsule 2 02/18/201902/12/ Discontinued capsule BY MOUTH DAILY 2019 WITH BREAKFAST TRUVADA 200-300 mg TAKE ONE TABLET 90 tablet 2 02/18/201901/22 3/ Discontinued per tablet BY MOUTH ONCE 2019 DAILY WITH OR WITHOUT FOOD. STORE IN ORIGINAL CONTAINER AT ROOM TEMPERATURE. NORVIR 100 mg tablet TAKE 1 TABLET BY 90 tablet 1 02/18/2019 1 12/11/ Discontinued MOUTH DAILY 2018 (Reorder ) NORVIR 100 mg tablet Take 1 tablet 90 tablet 1 10/10/2019 05 9/ Discontinued (100 mg total) 2019 by mouth daily for 180 days. Truvada 200-300 mg TAKE ONE TABLET 90 tablet 2 02/13/2020 06/0 3/ Discontinued (Med per tablet BY MOUTH ONCE 2019 List Cleanup) DAILY WITH OR WITHOUT FOOD. STORE IN ORIGINAL CONTAINER AT ROOM TEMPERATURE. Reyataz 300 mg TAKE 1 CAPSULE 90 capsule 2 02/13/2020 0603/ Discontinued (Med capsule BY MOUTH DAILY 2019 List Cleanup) WITH BREAKFAST Norvir 100 mg tablet TAKE ONE TABLET 30 tablet 0 03/10/2020/ Discontinued (Med BY MOUTH ONCE 2019 List C leanup) DAILY WITH A MEAL. DO NOT BREAK, CHEW ORCRUSH TABLET. STORE AT ROOM TEMPERATURE. AVOID HIGH HUMIDITY. amitriptyline Take 100 mg by 0 04/16/ D iscontinued (ELAVIL) 50 MG mouth daily. 2019 (R eorder) tablet HYDROcodone-acetamin Take 1 tablet by 90 tablet 0 04/03/2020 0 04/17/ Discontinued ophen ([place]) 10-325 mouth every 6 2019 (Reorder) mg per (six) hours as tabletIndications: needed for chronic pain moderate pain for up to 30 days .chronic pain. Max Daily Amount: 4 tablets insulin lispro Inject 0-7 Units 10 mL 12 04/03/2020 (Stop (HumaLOG) 100 under the skin 2019 Taking at unit/mL injection (three) times a Discharge) day with meals for 30 days. 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 Abdominal pain 04/09/2020 Respiratory insufficiency 04/05/2020 Malignant neoplasm of pancreas 04/02/2020 Chemotherapy induced neutropenia 04/02/2020 Pancreatic cancer 03/31/2020 History of CVA (cerebrovascular accident) 03/29/2020 Overweight (BMI 25.0-29.9) 03/29/2020 Diabetic ketoacidosis without coma associated with typ e 2 diabetes 03/24/2020 mellitus Acute pancreatitis 03/24/2020 Overview: Added automatically from request for walker sanchez [id number] HIV (human immunodeficiency virus infection) 8 Resolved Problems Problem Noted Date Resolved Date COVID-19 virus detected 04/05/2020 04/09/2020 Encounters Date Type Specialty Care Team Description 04/17/2020 Orders Only Oncology Karissa Alvarado MD 04/16/2020 Orders Only Oncology Karissa Alvarado MD 04/16/2020 Orders Only Oncology El Rahi, Malignant neopl asm Emili, RPH of pancreas, unspecified location of malignancy (HCC ) (Primary Dx) 04/16/2020 Documentation Medical Records Provider, Unknown 04/16/2020 Telephone Oncology Karissa Alvarado MD 04/15/2020 Anesthesia Event Gastroenterology Keysha Canas MD [facility], Owen Alvarado MD 04/15/2020 Surgery Gastroenterology Dax Mendez MD ERCP WITH FLUORO 04/06/2020 Telephone Gastroenterology Malia Stewart MA 04/06/2020 Telephone Oncology César Lugo RN 04/05/2020 Hospital Encounter General Internal Sixto Tyler Ma lignant neoplasm - Medicine DO Julian of pancreas, 04/15/2020 Gracie Julio unspecified MD [place] location of Joglekar, malignancy (HCC ) MD Breana (Primary Dx) 04/05/2020 Intake Access 04/04/2020 Hospital Encounter Hematology and Karissa Alvarado Mal[place] gnant neoplasm of pancreas, unspecified location of malignancy (HCC) (Primary Dx); Oncology Chemotherapy in duced neutropenia (HCC) 04/04/2020 Travel 04/03/2020 Orders Only Oncology Karissa Alvarado MD 03/26/2020 Surgery Gastroenterology Dax Mendez MD UPPER G I TRACT with FNA, ENDOSCOPIC , Eg d with biopsies 03/26/2020 Anesthesia Event Gastroenterology Diamond Washington MD Crawley, Teri, NP 03/24/2020 Hospital Encounter Oncology Kevin, Vaibhav Pancre atic adenocarcinoma (HCC) (Primary Dx); - B., DO Diabetic ketoacidosis without coma assoc iated with type 2 diabetes mellitus (HCC); 04/03/2020 Jean, Acute pancreati tis, unspecified complication status, unspecified pancreatitis type; Dwaine Transaminitis; MD Karen Hyponatremia; Bellglekdomingo, Malignant neopl asm of pancreas, unspecified location of malignancy (HCC) MD Nori Toussaint, Gracie Rodarte MD 03/24/2020 Documentation Infectious Diseases Danielle Jacobs RN 03/19/2020 Travel 03/12/2020 Orders Only Infectious Diseases Stephani Jacobs HIV infection (HCC) (Primary Dx); 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 due to underlying condition with unspecified complications (HCC) 03/12/2020 Travel 03/05/2020 Refill Infectious Diseases Leoncio Uribe MD 02/13/2020 Refill Infectious Diseases Leoncio Uribe MD 10/10/2019 Orders Only Infectious Diseases Danielle Jacobs RN after 04/18/2019 Immunizations Name Administration Dates Next Due Influenza, Unspecified 01/06/2016, 09/30/2009, 10/31/2008, 1 , 07/23/2002, 08/05/1998 Pneumococcal Polysaccharide 12/26/2012, 11/15/2006, 07/23/20 02, 12/21/1997 Family History Medical History Relation Name Comments Diabetes Maternal Grandmother Cervical cancer Mother Diabetes type II Mother Diabetes Son Relation Name Status Comments Maternal Grandmother Mother Son Alive Social History Tobacco Use Types Packs/Day Years Used Date Current Every Day Smoker Cigarettes 2 40 Smokeless Tobacco: Never Used Tobacco Cessation: Ready to Quit: Yes; C ounseling Given: Yes Comments: havs not smoked in 4-5 weeks Alcohol Use Drinks/Week oz/Week Comments Yes occassionally [...] Coronavirus / COVID-19? Last Filed Vital Signs Vital Sign Reading Time Taken Comments Blood Pressure 129/59 04/15/2020 2:55 PM CDT Pulse 84 04/15/2020 2:55 PM CDT Temperature 36.5 C (97.7 F) 04/15/2020 2:55 PM CDT Respiratory Rate 20 04/15/2020 2:55 PM CDT Oxygen Saturation 97% 04/15/2020 2:55 PM CDT Inhaled Oxygen Concentration - - Weight 81.6 kg (180 lb) 04/05/2020 9:00 PM CDT Height 167.6 cm (5' 6") 04/05/2020 9:00 PM CDT Body Mass Index 29.05 04/05/2020 9:00 PM CDT Plan of Treatment Date Type Specialty Care Team Description 04/27/2020 Infusion Oncology Karissa Alvarado MD [address] [address] [phone] 04/29/2020 Nurse Only Oncology Karissa Alvarado MD [address] [address] 0 [phone] Health Maintenance Due Date Last Done Comments DIABETIC RETINAL EYE EXAM 1958 DIABETIC FOOT EXAM 1968 BREAST CANCER SCREENING 2008 COLONOSCOPY SCREENING 2008 SHINGLES VACCINES (#1) 2008 INFLUENZA VACCINE 05/23/2020 01/06/2016, 09/30/2009, 2008, Additional history exists CERVICAL CANCER SCREENING 03/26/2023 03/26/2020, 03/26/2020 Implants Implanted Type Area Audiology Director Device Shelf Model / Identifier Expiration Serial / Date Lot Port Injctbl Smart Port Ct W/ Dtchd Plyurthn Cath 8fr - [id number] Implantable N/A: ANGIODYNAMICS 07/22/2022 [id number] [id number] / Implanted: 03/31/2020 at [facility] (Quantity not on file) Inf usion Ports N/A INC / or Accessories [id number] Stent Bili Advnx Cntrbnd Mode 10fr 7cm - [id number] Surgical N/A: BS ENDOSCOPY 02/24/2022 [id number] / Implanted: 03/26/2020 at [facility] (Quantity not on file) Stents N/A / [id number] Stent Pncrtc Geenen Soft Flex 5fr 3cm W/No Intrnl Flap - [id number] Surgical N/A: COOK ENDOSCOPY 11/12/2022 [id number] / Implanted: 03/26/2020 at [facility] (Quantity not on file) Stents N/A / [id number] Stent Bili Wallflex Mode [id number] Ncvrd - [id number] Surgical N/A: [facility] ENDOSCOPY 02/16/2022 [id number] / Implanted: 04/15/2020 at [facility] (Quantity not on file) Stents N/A / [id number] Procedures Procedure Name Priority Date/Time Associated Diagnosis Comme nts POC GLUCOSE Routine 04/15/2020 2:30 Results for this PM CDT procedure are i n the results section. CA AN ELECTIVE Routine 04/15/2020 1:30 Results f or this ENDOTRACHEAL AIRWAY PM CDT procedur e are in the results section. US UPPER GI TRACT, 04/15/2020 1:21 Malignant neoplasm ENDOSCOPIC PM CDT of pancreas, unspecified location of malignancy (HCC) ERCP WITH FLUORO 04/15/2020 1:21 Malignant neoplasm PM CDT of pancreas, unspecified location of malignancy (HCC) POC GLUCOSE Routine 04/15/2020 12:38 Results for this PM CDT procedure are i n the results section. ESTIMATED GFR Routine 04/15/2020 4:48 Results fo r this AM CDT procedure are i n the results section. BASIC METABOLIC PANEL Routine 04/15/2020 4:48 Re sults for this AM CDT procedure are i n the results section. CBC WITH PLATELET AND Routine 04/15/2020 4:48 Re sults for this DIFFERENTIAL AM CDT procedure are i n the results section. PARTIAL THROMBOPLASTIN Routine 04/15/2020 4:48 R esults for this TIME (PTT) AM CDT procedure are i n the results section. POC GLUCOSE Routine 04/14/2020 8:38 Results for this PM CDT procedure are i n the results section. POC GLUCOSE Routine 04/14/2020 4:20 Results for this PM CDT procedure are i n the results section. POTASSIUM LEVEL Routine 04/14/2020 1:20 Results for this PM CDT procedure are i n the results section. POC GLUCOSE Routine 04/14/2020 12:40 Results for this PM CDT procedure are i n the results section. POC GLUCOSE Routine 04/14/2020 8:55 Results for this AM CDT procedure are i n the results section. PARTIAL THROMBOPLASTIN Routine 04/14/2020 4:37 R esults for this TIME (PTT) AM CDT procedure are i n the results section. ESTIMATED GFR Routine 04/14/2020 4:37 Results fo r this AM CDT procedure are i n the results section. CBC HEMOGRAM Routine 04/14/2020 4:37 Results for this AM CDT procedure are i n the results section. BASIC METABOLIC PANEL Routine 04/14/2020 4:37 Re sults for this AM CDT procedure are i n the results section. MAGNESIUM LEVEL Routine 04/14/2020 4:37 Results for this AM CDT procedure are i n the results section. PARTIAL THROMBOPLASTIN Routine 04/13/2020 10:48 R esults for this TIME (PTT) PM CDT procedure are i n the results section. URINALYSIS, AUTOMATED Routine 04/13/2020 10:15 Re sults for this WITH MICROSCOPY PM CDT procedure ar e in the results section. POC GLUCOSE Routine 04/13/2020 10:08 Results for this PM CDT procedure are i n the results section. POC GLUCOSE Routine 04/13/2020 6:04 Results for this PM CDT procedure are i n the results section. AMMONIA LEVEL Routine 04/13/2020 4:38 Results fo r this PM CDT procedure are i n the results section. PARTIAL THROMBOPLASTIN Routine 04/13/2020 4:30 R esults for this TIME (PTT) PM CDT procedure are i n the results section. POC GLUCOSE Routine 04/13/2020 12:07 Results for this PM CDT procedure are i n the results section. LACTIC ACID LEVEL Routine 04/13/2020 11:31 Result s for this AM CDT procedure are i n the results section. POC GLUCOSE Routine 04/13/2020 8:25 Results for this AM CDT procedure are i n the results section. PARTIAL THROMBOPLASTIN Timed 04/13/2020 8:15 R esults for this TIME (PTT) AM CDT procedure are i n the results section. CBC HEMOGRAM Routine 04/13/2020 8:15 Results for this AM CDT procedure are i n the results section. ESTIMATED GFR Routine 04/13/2020 4:00 Results fo r this AM CDT procedure are i n the results section. BASIC METABOLIC PANEL Routine 04/13/2020 4:00 Re sults for this AM CDT procedure are i n the results section. PARTIAL THROMBOPLASTIN Routine 04/13/2020 12:14 R esults for this TIME (PTT) AM CDT procedure are i n the results section. POC GLUCOSE Routine 04/12/2020 8:48 Results for this PM CDT procedure are i n the results section. POC GLUCOSE Routine 04/12/2020 5:34 Results for this PM CDT procedure are i n the results section. PARTIAL THROMBOPLASTIN Routine 04/12/2020 4:25 R esults for this TIME (PTT) PM CDT procedure are i n the results section. POC GLUCOSE Routine 04/12/2020 12:01 Results for this PM CDT procedure are i n the results section. POC GLUCOSE Routine 04/12/2020 8:38 Results for this AM CDT procedure are i n the results section. POC GLUCOSE Routine 04/12/2020 7:22 Results for this AM CDT procedure are i n the results section. ESTIMATED GFR Routine 04/12/2020 3:46 Results fo r this AM CDT procedure are i n the results section. ANTI XA, LOW MOLECULAR STAT 04/12/2020 3:46 R esults for this WEIGHT AM CDT procedure are i n the results section. MAGNESIUM LEVEL Routine 04/12/2020 3:46 Results for this AM CDT procedure are i n the results section. CBC HEMOGRAM Routine 04/12/2020 3:46 Results for this AM CDT procedure are i n the results section. BASIC METABOLIC PANEL Routine 04/12/2020 3:46 Re sults for this AM CDT procedure are i n the results section. POC GLUCOSE Routine 04/12/2020 1:02 Results for this AM CDT procedure are i n the results section. POC GLUCOSE Routine 04/11/2020 8:54 Results for this PM CDT procedure are i n the results section. POC GLUCOSE Routine 04/11/2020 6:51 Results for this PM CDT procedure are i n the results section. POC GLUCOSE Routine 04/11/2020 6:22 Results for this PM CDT procedure are i n the results section. POC GLUCOSE Routine 04/11/2020 5:41 Results for this PM CDT procedure are i n the results section. POC GLUCOSE Routine 04/11/2020 12:28 Results for this PM CDT procedure are i n the results section. POC GLUCOSE Routine 04/11/2020 7:40 Results for this AM CDT procedure are i n the results section. POC GLUCOSE Routine 04/10/2020 9:13 Results for this PM CDT procedure are i n the results section. POC GLUCOSE Routine 04/10/2020 5:08 Results for this PM CDT procedure are i n the results section. POC GLUCOSE Routine 04/10/2020 4:27 Results for this PM CDT procedure are i n the results section. POC GLUCOSE Routine 04/10/2020 12:15 Results for this PM CDT procedure are i n the results section. POC GLUCOSE Routine 04/10/2020 4:09 Results for this AM CDT procedure are i n the results section. POC GLUCOSE Routine 04/09/2020 10:17 Results for this PM CDT procedure are i n the results section. POC GLUCOSE Routine 04/09/2020 5:04 Results for this PM CDT procedure are i n the results section. POC GLUCOSE Routine 04/09/2020 2:04 Results for this PM CDT procedure are i n the results section. POC GLUCOSE Routine 04/09/2020 9:43 Results for this AM CDT procedure are i n the results section. ESTIMATED GFR Routine 04/09/2020 4:26 Results fo r this AM CDT procedure are i n the results section. HC COMPLETE BLD COUNT Routine 04/09/2020 4:26 Re sults for this W/AUTO DIFF AM CDT procedure are i n the results section. BASIC METABOLIC PANEL Routine 04/09/2020 4:26 Re sults for this AM CDT procedure are i n the results section. POC GLUCOSE Routine 04/08/2020 10:23 Results for this PM CDT procedure are i n the results section. POC GLUCOSE Routine 04/08/2020 9:48 Results for this PM CDT procedure are i n the results section. POC GLUCOSE Routine 04/08/2020 9:12 Results for this PM CDT procedure are i n the results section. POC GLUCOSE Routine 04/08/2020 6:44 Results for this PM CDT procedure are i n the results section. POC GLUCOSE Routine 04/08/2020 4:43 Results for this PM CDT procedure are i n the results section. CT ANGIOGRAM ABDOMEN STAT 04/08/2020 4:04 Res ults for this PELVIS W AND OR WO PM CDT procedure are in CONTRAST the results section. LACTIC ACID LEVEL Routine 04/08/2020 1:44 Result s for this PM CDT procedure are i n the results section. POC GLUCOSE Routine 04/08/2020 12:14 Results for this PM CDT procedure are i n the results section. POC GLUCOSE Routine 04/08/2020 9:04 Results for this AM CDT procedure are i n the results section. CT ABDOMEN PELVIS W Routine 04/08/2020 8:36 Resu lts for this CONTRAST AM CDT procedure are i n the results section. ESTIMATED GFR Routine 04/08/2020 5:08 Results fo r this AM CDT procedure are i n the results section. COMPREHENSIVE METABOLIC Routine 04/08/2020 5:08 Results for this PANEL AM CDT procedure are i n the results section. CBC WITH PLATELET AND Routine 04/08/2020 5:08 Re sults for this DIFFERENTIAL AM CDT procedure are i n the results section. POC GLUCOSE Routine 04/07/2020 9:46 Results for this PM CDT procedure are i n the results section. POC GLUCOSE Routine 04/07/2020 4:43 Results for this PM CDT procedure are i n the results section. POC GLUCOSE Routine 04/07/2020 2:02 Results for this PM CDT procedure are i n the results section. POC GLUCOSE Routine 04/07/2020 12:35 Results for this PM CDT procedure are i n the results section. POC GLUCOSE Routine 04/07/2020 8:31 Results for this AM CDT procedure are i n the results section. POC GLUCOSE Routine 04/07/2020 6:28 Results for this AM CDT procedure are i n the results section. MANUAL DIFFERENTIAL Routine 04/07/2020 5:25 Resu lts for this AM CDT procedure are i n the results section. ESTIMATED GFR Routine 04/07/2020 5:25 Results fo r this AM CDT procedure are i n the results section. COMPREHENSIVE METABOLIC Routine 04/07/2020 5:25 Results for this PANEL AM CDT procedure are i n the results section. CBC WITH PLATELET AND Routine 04/07/2020 5:25 Re sults for this DIFFERENTIAL AM CDT procedure are i n the results section. POC GLUCOSE Routine 04/06/2020 10:49 Results for this PM CDT procedure are i n the results section. POC GLUCOSE Routine 04/06/2020 9:42 Results for this PM CDT procedure are i n the results section. POC GLUCOSE Routine 04/06/2020 6:08 Results for this PM CDT procedure are i n the results section. BLOOD CULTURE, AEROBIC & Routine 04/06/2020 12:40 Results for this ANAEROBIC PM CDT procedure are i n the results section. BLOOD CULTURE, AEROBIC & Routine 04/06/2020 12:30 Results for this ANAEROBIC PM CDT procedure are i n the results section. URINE CULTURE Routine 04/06/2020 12:18 Results fo r this PM CDT procedure are i n the results section. URINALYSIS SCREEN AND Routine 04/06/2020 12:13 Re sults for this MICROSCOPY, WITH REFLEX PM CDT proc edure are in TO CULTURE the results section. CLOSTRIDIUM DIFFICILE Routine 04/06/2020 12:13 Re sults for this TOXIN PM CDT procedure are i n the results section. POC GLUCOSE Routine 04/06/2020 11:00 Results for this AM CDT procedure are i n the results section. HEMOGLOBIN A1C Routine 04/06/2020 10:49 Results f or this AM CDT procedure are i n the results section. POC GLUCOSE Routine 04/06/2020 8:57 Results for this AM CDT procedure are i n the results section. MANUAL DIFFERENTIAL Routine 04/06/2020 4:11 Resu lts for this AM CDT procedure are i n the results section. CBC WITH PLATELET AND Routine 04/06/2020 4:11 Re sults for this DIFFERENTIAL AM CDT procedure are i n the results section. ESTIMATED GFR Routine 04/06/2020 4:00 Results fo r this AM CDT procedure are i n the results section. COMPREHENSIVE METABOLIC Routine 04/06/2020 4:00 Results for this PANEL AM CDT procedure are i n the results section. COVID-19 QUALITATIVE PCR Routine 04/05/2020 11:15 Results for this PM CDT procedure are i n the results section. POC GLUCOSE Routine 04/05/2020 10:47 Results for this PM CDT procedure are i n the results section. XR CHEST 1 VW PORTABLE STAT 04/05/2020 9:47 R esults for this PM CDT procedure are i n the results section. MANUAL DIFFERENTIAL STAT 04/05/2020 9:36 Resu lts for this PM CDT procedure are i n the results section. ESTIMATED GFR STAT 04/05/2020 9:36 Results fo r this PM CDT procedure are i n the results section. TYPE AND SCREEN STAT 04/05/2020 9:36 Results for this PM CDT procedure are i n the results section. FIBRINOGEN STAT 04/05/2020 9:36 Results for this PM CDT procedure are i n the results section. LACTATE DEHYDROGENASE STAT 04/05/2020 9:36 Re sults for this (LD) ISOENZYMES PM CDT procedure ar e in the results section. TRIGLYCERIDES STAT 04/05/2020 9:36 Results fo r this PM CDT procedure are i n the results section. LDH STAT 04/05/2020 9:36 Results for this PM CDT procedure are i n the results section. D-DIMER STAT 04/05/2020 9:36 Results for this PM CDT procedure are i n the results section. FERRITIN LEVEL STAT 04/05/2020 9:36 Results f or this PM CDT procedure are i n the results section. INTERLEUKIN 6 STAT 04/05/2020 9:36 Results fo r this PM CDT procedure are i n the results section. C-REACTIVE PROTEIN STAT 04/05/2020 9:36 Resul ts for this PM CDT procedure are i n the results section. CREATINE KINASE, TOTAL STAT 04/05/2020 9:36 R esults for this (CPK) PM CDT procedure are i n the results section. IGG SUBCLASSES STAT 04/05/2020 9:36 Results f or this PM CDT procedure are i n the results section. PROCALCITONIN STAT 04/05/2020 9:36 Results fo r this PM CDT procedure are i n the results section. MYOGLOBIN STAT 04/05/2020 9:36 Results for this PM CDT procedure are i n the results section. B NATRIURETIC PEPTIDE STAT 04/05/2020 9:36 Re sults for this PM CDT procedure are i n the results section. TROPONIN STAT 04/05/2020 9:36 Results for this PM CDT procedure are i n the results section. PARTIAL THROMBOPLASTIN STAT 04/05/2020 9:36 R esults for this TIME (PTT) PM CDT procedure are i n the results section. PROTHROMBIN TIME WITH STAT 04/05/2020 9:36 Re sults for this INR PM CDT procedure are i n the results section. COMPREHENSIVE METABOLIC STAT 04/05/2020 9:36 Results for this PANEL PM CDT procedure are i n the results section. CBC WITH PLATELET AND STAT 04/05/2020 9:36 Re sults for this DIFFERENTIAL PM CDT procedure are i n the results section. ECG 12-LEAD STAT 04/05/2020 9:18 Results for this PM CDT procedure are i n the results section. POC GLUCOSE Routine 04/03/2020 6:05 Results for this PM CDT procedure are i n the results section. POC GLUCOSE Routine 04/03/2020 11:47 Results for this AM CDT procedure are i n the results section. POC GLUCOSE Routine 04/03/2020 9:23 Results for this AM CDT procedure are i n the results section. ESTIMATED GFR Routine 04/03/2020 4:45 Results fo r this AM CDT procedure are i n the results section. BASIC METABOLIC PANEL Routine 04/03/2020 4:45 Re sults for this AM CDT procedure are i n the results section. HC COMPLETE BLD COUNT Routine 04/03/2020 4:45 Re sults for this W/AUTO DIFF AM CDT procedure are i n the results section. POC GLUCOSE Routine 04/02/2020 8:56 Results for this PM CDT procedure are i n the results section. POC GLUCOSE Routine 04/02/2020 5:02 Results for this PM CDT procedure are i n the results section. POC GLUCOSE Routine 04/02/2020 12:07 Results for this PM CDT procedure are i n the results section. POC GLUCOSE Routine 04/02/2020 8:04 Results for this AM CDT procedure are i n the results section. POC GLUCOSE Routine 04/02/2020 4:50 Results for this AM CDT procedure are i n the results section. TYPE AND SCREEN Routine 04/02/2020 4:45 Results for this AM CDT procedure are i n the results section. HC COMPLETE BLD COUNT Routine 04/02/2020 4:45 Re sults for this W/AUTO DIFF AM CDT procedure are i n the results section. ESTIMATED GFR Routine 04/02/2020 4:37 Results fo r this AM CDT procedure are i n the results section. BASIC METABOLIC PANEL Routine 04/02/2020 4:37 Re sults for this AM CDT procedure are i n the results section. POC GLUCOSE Routine 04/02/2020 2:38 Results for this AM CDT procedure are i n the results section. POC GLUCOSE Routine 04/02/2020 12:39 Results for this AM CDT procedure are i n the results section. POC GLUCOSE Routine 04/01/2020 10:29 Results for this PM CDT procedure are i n the results section. POC GLUCOSE Routine 04/01/2020 8:55 Results for this PM CDT procedure are i n the results section. POC GLUCOSE Routine 04/01/2020 6:58 Results for this PM CDT procedure are i n the results section. POC GLUCOSE Routine 04/01/2020 6:37 Results for this PM CDT procedure are i n the results section. POC GLUCOSE Routine 04/01/2020 4:32 Results for this PM CDT procedure are i n the results section. POC GLUCOSE Routine 04/01/2020 2:34 Results for this PM CDT procedure are i n the results section. POC GLUCOSE Routine 04/01/2020 11:59 Results for this AM CDT procedure are i n the results section. POC GLUCOSE Routine 04/01/2020 11:23 Results for this AM CDT procedure are i n the results section. POC GLUCOSE Routine 04/01/2020 10:31 Results for this AM CDT procedure are i n the results section. POC GLUCOSE Routine 04/01/2020 7:24 Results for this AM CDT procedure are i n the results section. ESTIMATED GFR Routine 04/01/2020 5:15 Results fo r this AM CDT procedure are i n the results section. COMPREHENSIVE METABOLIC Routine 04/01/2020 5:15 Results for this PANEL AM CDT procedure are i n the results section. HC COMPLETE BLD COUNT Routine 04/01/2020 5:15 Re sults for this W/AUTO DIFF AM CDT procedure are i n the results section. POC GLUCOSE Routine 03/31/2020 9:00 Results for this PM CDT procedure are i n the results section. POC GLUCOSE Routine 03/31/2020 5:15 Results for this PM CDT procedure are i n the results section. IR PORT PLACEMENT Routine 03/31/2020 3:49 Result s for this PM CDT procedure are i n the results section. POC GLUCOSE Routine 03/31/2020 2:25 Results for this PM CDT procedure are i n the results section. POC GLUCOSE Routine 03/31/2020 7:56 Results for this AM CDT procedure are i n the results section. ESTIMATED GFR Routine 03/31/2020 6:14 Results fo r this AM CDT procedure are i n the results section. LIPASE LEVEL Routine 03/31/2020 6:14 Results for this AM CDT procedure are i n the results section. COMPREHENSIVE METABOLIC Routine 03/31/2020 6:14 Results for this PANEL AM CDT procedure are i n the results section. POC GLUCOSE Routine 03/30/2020 8:56 Results for this PM CDT procedure are i n the results section. POC GLUCOSE Routine 03/30/2020 6:33 Results for this PM CDT procedure are i n the results section. POC GLUCOSE Routine 03/30/2020 12:25 Results for this PM CDT procedure are i n the results section. POC GLUCOSE Routine 03/30/2020 8:02 Results for this AM CDT procedure are i n the results section. ESTIMATED GFR Routine 03/30/2020 4:00 Results fo r this AM CDT procedure are i n the results section. PHOSPHORUS LEVEL Routine 03/30/2020 4:00 Results for this AM CDT procedure are i n the results section. MAGNESIUM LEVEL Routine 03/30/2020 4:00 Results for this AM CDT procedure are i n the results section. BASIC METABOLIC PANEL Routine 03/30/2020 4:00 Re sults for this AM CDT procedure are i n the results section. POC GLUCOSE Routine 03/29/2020 9:21 Results for this PM CDT procedure are i n the results section. POC GLUCOSE Routine 03/29/2020 6:36 Results for this PM CDT procedure are i n the results section. POC GLUCOSE Routine 03/29/2020 5:17 Results for this PM CDT procedure are i n the results section. POC GLUCOSE Routine 03/29/2020 4:38 Results for this PM CDT procedure are i n the results section. POC GLUCOSE Routine 03/29/2020 1:10 Results for this PM CDT procedure are i n the results section. POC GLUCOSE Routine 03/29/2020 9:48 Results for this AM CDT procedure are i n the results section. POC GLUCOSE Routine 03/29/2020 7:38 Results for this AM CDT procedure are i n the results section. POC GLUCOSE Routine 03/28/2020 8:55 Results for this PM CDT procedure are i n the results section. POC GLUCOSE Routine 03/28/2020 5:56 Results for this PM CDT procedure are i n the results section. POC GLUCOSE Routine 03/28/2020 12:09 Results for this PM CDT procedure are i n the results section. POC GLUCOSE Routine 03/28/2020 8:11 Results for this AM CDT procedure are i n the results section. ESTIMATED GFR Routine 03/28/2020 4:31 Results fo r this AM CDT procedure are i n the results section. COMPREHENSIVE METABOLIC Routine 03/28/2020 4:31 Results for this PANEL AM CDT procedure are i n the results section. HC COMPLETE BLD COUNT Routine 03/28/2020 4:31 Re sults for this W/AUTO DIFF AM CDT procedure are i n the results section. POC GLUCOSE Routine 03/27/2020 8:46 Results for this PM CDT procedure are i n the results section. POC GLUCOSE Routine 03/27/2020 5:42 Results for this PM CDT procedure are i n the results section. POC GLUCOSE Routine 03/27/2020 12:52 Results for this PM CDT procedure are i n the results section. POC GLUCOSE Routine 03/27/2020 12:50 Results for this PM CDT procedure are i n the results section. POC GLUCOSE Routine 03/27/2020 11:09 Results for this AM CDT procedure are i n the results section. POC GLUCOSE Routine 03/27/2020 9:13 Results for this AM CDT procedure are i n the results section. POC GLUCOSE Routine 03/27/2020 8:05 Results for this AM CDT procedure are i n the results section. POC GLUCOSE Routine 03/27/2020 6:05 Results for this AM CDT procedure are i n the results section. COMPREHENSIVE METABOLIC Routine 03/27/2020 5:00 Results for this PANEL AM CDT procedure are i n the results section. ESTIMATED GFR Routine 03/27/2020 5:00 Results fo r this AM CDT procedure are i n the results section. MAGNESIUM LEVEL Routine 03/27/2020 5:00 Results for this AM CDT procedure are i n the results section. PHOSPHORUS LEVEL Routine 03/27/2020 5:00 Results for this AM CDT procedure are i n the results section. LIPASE LEVEL Routine 03/27/2020 5:00 Results for this AM CDT procedure are i n the results section. AMYLASE LEVEL Routine 03/27/2020 5:00 Results fo r this AM CDT procedure are i n the results section. HC COMPLETE BLD COUNT Routine 03/27/2020 5:00 Re sults for this W/AUTO DIFF AM CDT procedure are i n the results section. POC GLUCOSE Routine 03/27/2020 3:51 Results for this AM CDT procedure are i n the results section. POC GLUCOSE Routine 03/27/2020 2:08 Results for this AM CDT procedure are i n the results section. POC GLUCOSE Routine 03/26/2020 11:55 Results for this PM CDT procedure are i n the results section. POC GLUCOSE Routine 03/26/2020 11:08 Results for this PM CDT procedure are i n the results section. POC GLUCOSE Routine 03/26/2020 9:58 Results for this PM CDT procedure are i n the results section. POC GLUCOSE Routine 03/26/2020 9:05 Results for this PM CDT procedure are i n the results section. POC GLUCOSE Routine 03/26/2020 7:48 Results for this PM CDT procedure are i n the results section. POC GLUCOSE Routine 03/26/2020 5:34 Results for this PM CDT procedure are i n the results section. POC GLUCOSE Routine 03/26/2020 4:36 Results for this PM CDT procedure are i n the results section. POC GLUCOSE Routine 03/26/2020 3:39 Results for this PM CDT procedure are i n the results section. POC GLUCOSE Routine 03/26/2020 1:35 Results for this PM CDT procedure are i n the results section. POC GLUCOSE Routine 03/26/2020 12:38 Results for this PM CDT procedure are i n the results section. SURGICAL PATHOLOGY Routine 03/26/2020 11:09 Resul ts for this REQUEST AM CDT procedure are i n the results section. POC GLUCOSE Routine 03/26/2020 10:31 Results for this AM CDT procedure are i n the results section. POC GLUCOSE Routine 03/26/2020 9:30 Results for this AM CDT procedure are i n the results section. POC GLUCOSE Routine 03/26/2020 9:28 Results for this AM CDT procedure are i n the results section. FL > 1 HOUR Routine 03/26/2020 9:18 Acute pancreatitis, Resu lts for this AM CDT unspecified procedure are i n complication status, the res ults unspecified section. pancreatitis type CYTOLOGY Routine 03/26/2020 9:06 Results for this (NON-GYNECOLOGICAL) AM CDT procedur e are in REQUEST the results section. CYTOLOGY Routine 03/26/2020 8:34 Results for this (NON-GYNECOLOGICAL) AM CDT procedur e are in REQUEST the results section. POC GLUCOSE Routine 03/26/2020 8:33 Results for this AM CDT procedure are i n the results section. CA AN ELECTIVE Routine 03/26/2020 8:13 Results f or this ENDOTRACHEAL AIRWAY AM CDT procedur e are in the results section. ERCP WITH STENT 03/26/2020 7:53 Acute pancreatitis, PLACEMENT AM CDT unspecified complication status, unspecified pancreatitis type US UPPER GI TRACT, 03/26/2020 7:53 Acute pancreatitis , ENDOSCOPIC AM CDT unspecified complication status, unspecified pancreatitis type POC GLUCOSE Routine 03/26/2020 7:32 Results for this AM CDT procedure are i n the results section. POC GLUCOSE Routine 03/26/2020 5:33 Results for this AM CDT procedure are i n the results section. PROTHROMBIN TIME WITH Routine 03/26/2020 4:15 Re sults for this INR AM CDT procedure are i n the results section. HC COMPLETE BLD COUNT Routine 03/26/2020 4:15 Re sults for this W/AUTO DIFF AM CDT procedure are i n the results section. ESTIMATED GFR Routine 03/26/2020 4:00 Results fo r this AM CDT procedure are i n the results section. COMPREHENSIVE METABOLIC Routine 03/26/2020 4:00 Results for this PANEL AM CDT procedure are i n the results section. VITAMIN D 25 HYDROXY Routine 03/26/2020 4:00 Res ults for this LEVEL AM CDT procedure are i n the results section. POC GLUCOSE Routine 03/26/2020 3:41 Results for this AM CDT procedure are i n the results section. MRI THORACIC SPINE WO Routine 03/26/2020 3:13 Re sults for this CONTRAST AM CDT procedure are i n the results section. POC GLUCOSE Routine 03/26/2020 2:19 Results for this AM CDT procedure are i n the results section. POC GLUCOSE Routine 03/26/2020 12:22 Results for this AM CDT procedure are i n the results section. POC GLUCOSE Routine 03/25/2020 10:17 Results for this PM CDT procedure are i n the results section. POC GLUCOSE Routine 03/25/2020 8:14 Results for this PM CDT procedure are i n the results section. POC GLUCOSE Routine 03/25/2020 6:28 Results for this PM CDT procedure are i n the results section. POC GLUCOSE Routine 03/25/2020 5:36 Results for this PM CDT procedure are i n the results section. POC GLUCOSE Routine 03/25/2020 4:31 Results for this PM CDT procedure are i n the results section. POC GLUCOSE Routine 03/25/2020 3:06 Results for this PM CDT procedure are i n the results section. POC GLUCOSE Routine 03/25/2020 2:18 Results for this PM CDT procedure are i n the results section. POC GLUCOSE Routine 03/25/2020 1:23 Results for this PM CDT procedure are i n the results section. IONIZED CALCIUM Timed 03/25/2020 12:00 Results for this PM CDT procedure are i n the results section. PHOSPHORUS LEVEL Timed 03/25/2020 12:00 Results for this PM CDT procedure are i n the results section. MAGNESIUM LEVEL Timed 03/25/2020 12:00 Results for this PM CDT procedure are i n the results section. POC GLUCOSE Routine 03/25/2020 11:51 Results for this AM CDT procedure are i n the results section. VITAMIN D 1,25 DIHYDROXY Routine 03/25/2020 11:22 Results for this LEVEL, SERUM AM CDT procedure are i n the results section. HEMOGLOBIN A1C Routine 03/25/2020 11:00 Results f or this AM CDT procedure are i n the results section. POC GLUCOSE Routine 03/25/2020 10:55 Results for this AM CDT procedure are i n the results section. POC GLUCOSE Routine 03/25/2020 10:18 Results for this AM CDT procedure are i n the results section. LIPID PANEL Routine 03/25/2020 9:16 Results for this AM CDT procedure are i n the results section. POC GLUCOSE Routine 03/25/2020 9:02 Results for this AM CDT procedure are i n the results section. POC GLUCOSE Routine 03/25/2020 8:29 Results for this AM CDT procedure are i n the results section. POC GLUCOSE Routine 03/25/2020 8:01 Results for this AM CDT procedure are i n the results section. POC GLUCOSE Routine 03/25/2020 7:27 Results for this AM CDT procedure are i n the results section. POC GLUCOSE Routine 03/25/2020 6:42 Results for this AM CDT procedure are i n the results section. POC GLUCOSE Routine 03/25/2020 5:52 Results for this AM CDT procedure are i n the results section. VENOUS BLOOD GAS Routine 03/25/2020 4:45 Results for this AM CDT procedure are i n the results section. POC GLUCOSE Routine 03/25/2020 4:40 Results for this AM CDT procedure are i n the results section. POC GLUCOSE Routine 03/25/2020 3:46 Results for this AM CDT procedure are i n the results section. ESTIMATED GFR Routine 03/25/2020 3:20 Results fo r this AM CDT procedure are i n the results section. PHOSPHORUS LEVEL Routine 03/25/2020 3:20 Results for this AM CDT procedure are i n the results section. MAGNESIUM LEVEL Routine 03/25/2020 3:20 Results for this AM CDT procedure are i n the results section. BETA HYDROXYBUTYRATE Routine 03/25/2020 3:20 Res ults for this AM CDT procedure are i n the results section. CANCER ANTIGEN 19-9 Routine 03/25/2020 3:20 Resu lts for this AM CDT procedure are i n the results section. CARCINOEMBRYONIC ANTIGEN Routine 03/25/2020 3:20 Results for this (CEA) AM CDT procedure are i n the results section. AMYLASE LEVEL Routine 03/25/2020 3:20 Results fo r this AM CDT procedure are i n the results section. LIPASE LEVEL Routine 03/25/2020 3:20 Results for this AM CDT procedure are i n the results section. LACTIC ACID LEVEL Routine 03/25/2020 3:20 Result s for this AM CDT procedure are i n the results section. COMPREHENSIVE METABOLIC Routine 03/25/2020 3:20 Results for this PANEL AM CDT procedure are i n the results section. HC COMPLETE BLD COUNT Routine 03/25/2020 3:20 Re sults for this W/AUTO DIFF AM CDT procedure are i n the results section. POC GLUCOSE Routine 03/25/2020 3:09 Results for this AM CDT procedure are i n the results section. POC GLUCOSE Routine 03/25/2020 1:47 Results for this AM CDT procedure are i n the results section. POC GLUCOSE Routine 03/25/2020 12:38 Results for this AM CDT procedure are i n the results section. URINALYSIS SCREEN AND STAT 03/25/2020 12:25 Re sults for this MICROSCOPY, WITH REFLEX AM CDT proc edure are in TO CULTURE the results section. URINE CULTURE STAT 03/25/2020 12:25 Results fo r this AM CDT procedure are i n the results section. POC GLUCOSE Routine 03/24/2020 11:43 Results for this PM CDT procedure are i n the results section. ESTIMATED GFR STAT 03/24/2020 11:28 Results fo r this PM CDT procedure are i n the results section. BASIC METABOLIC PANEL STAT 03/24/2020 11:28 Re sults for this PM CDT procedure are i n the results section. POC GLUCOSE Routine 03/24/2020 10:35 Results for this PM CDT procedure are i n the results section. US GALLBLADDER STAT 03/24/2020 9:30 Results f or this PM CDT procedure are i n the results section. POC GLUCOSE Routine 03/24/2020 9:26 Results for this PM CDT procedure are i n the results section. CA CRITICAL CARE, E/M Routine 03/24/2020 9:19 Re sults for this 30-74 MINUTES PM CDT procedure are in the results section. LACTIC ACID LEVEL, Timed 03/24/2020 9:09 Resul ts for this SEPSIS - NOW AND REPEAT PM CDT proc edure are in 2X EVERY 3 HOURS the results section. ESTIMATED GFR STAT 03/24/2020 8:13 Results fo r this PM CDT procedure are i n the results section. BASIC METABOLIC PANEL STAT 03/24/2020 8:13 Re sults for this PM CDT procedure are i n the results section. POC GLUCOSE Routine 03/24/2020 8:12 Results for this PM CDT procedure are i n the results section. POC GLUCOSE Routine 03/24/2020 7:15 Results for this PM CDT procedure are i n the results section. CT ABDOMEN PELVIS W STAT 03/24/2020 6:51 Resu lts for this CONTRAST PM CDT procedure are i n the results section. XR CHEST 1 VW PORTABLE STAT 03/24/2020 5:54 R esults for this PM CDT procedure are i n the results section. POC GLUCOSE Routine 03/24/2020 5:43 Results for this PM CDT procedure are i n the results section. POC GLUCOSE Routine 03/24/2020 5:21 Results for this PM CDT procedure are i n the results section. HEMOGLOBIN A1C STAT 03/24/2020 5:17 Results f or this PM CDT procedure are i n the results section. PHOSPHORUS LEVEL STAT 03/24/2020 5:17 Results for this PM CDT procedure are i n the results section. MAGNESIUM LEVEL STAT 03/24/2020 5:17 Results for this PM CDT procedure are i n the results section. LACTIC ACID LEVEL, Timed 03/24/2020 5:17 Resul ts for this SEPSIS - NOW AND REPEAT PM CDT proc edure are in 2X EVERY 3 HOURS the results section. BLOOD CULTURE, AEROBIC & Routine 03/24/2020 5:00 Results for this ANAEROBIC PM CDT procedure are i n the results section. POC GLUCOSE Routine 03/24/2020 4:35 Results for this PM CDT procedure are i n the results section. VENOUS BLOOD GAS Routine 03/24/2020 4:31 Results for this PM CDT procedure are i n the results section. BETA HYDROXYBUTYRATE STAT 03/24/2020 4:31 Res ults for this PM CDT procedure are i n the results section. LACTIC ACID LEVEL, Timed 03/24/2020 4:31 Resul ts for this SEPSIS - NOW AND REPEAT PM CDT proc edure are in 2X EVERY 3 HOURS the results section. ECG 12-LEAD STAT 03/24/2020 4:23 Results for this PM CDT procedure are i n the results section. ESTIMATED GFR STAT 03/24/2020 3:05 Results fo r this PM CDT procedure are i n the results section. LIPASE LEVEL STAT 03/24/2020 3:05 Results for this PM CDT procedure are i n the results section. COMPREHENSIVE METABOLIC STAT 03/24/2020 3:05 Results for this PANEL PM CDT procedure are i n the results section. HC COMPLETE BLD COUNT STAT 03/24/2020 3:05 Re sults for this W/AUTO DIFF PM CDT procedure are i n the results section. LIPID PANEL Routine 03/18/2020 9:59 Diabetes mellitus Result s for this AM CDT due to underlying procedure are in condition with the results unspecified section. complications (H CC) Asymptomatic HIV infection (HCC) HIV 1 RNA, QUANTITATIVE Routine 03/18/2020 9:59 Asymptomatic HIV Results for this REAL TIME PCR AM CDT infection (HCC) procedure a re in the results section. COMPREHENSIVE METABOLIC Routine 03/18/2020 9:59 Asymptomatic HIV Results for this PANEL AM CDT infection (HCC) procedure ar e in the results section. CBC WITH PLATELET AND Routine 03/18/2020 9:59 Asymptomatic HI V Results for this DIFFERENTIAL AM CDT infection (HCC) procedure ar e in the results section. T CELL LYMPHOCYTE SUBSET Routine 03/18/2020 9:59 Asymptomatic HIV Results for this PANEL 4 AM CDT infection (HCC) procedure ar e in the results section. after 04/18/2019 Results POC glucose (04/15/2020 2:30 PM CDT)Only the most recent of148 resultswithin the time period is included. Pathologist Sig nature POC glucose 194 (H) 65 - 99 mg/dL [facility] Comment: HOSPITAL Stem Shaper Name: Anant Tracie Device ID: [id number] Chartable: [facility] Notified RN Specimen Blood Performing Organization Address City/State/Zipcode Phone Number [facility] DEPARTMENT OF PATHOLOGY AND [address] [place] [address] [phone] GENOMIC MEDICINE [address] [address] Airway (04/15/2020 1:30 PM CDT) Narrative Performed At Keysha Canas MD 04/15/2020 1:31 PM Airway Date/Time: 04/15/2020 1:30 PM Performed by: Keysha Canas MD Authorized by: Keysha Canas MD Location: OR Urgency: Elective Difficult Airway: No Anesthesiologist: Keysha Canas M D Performed by: anesthesiologist Preoxygenated with 100% O2: Yes C-spine Precautions Maintained Throughou t: Yes Mask Ventilation: Not attempted Final Airway Type: Endotracheal airway Final Endotracheal Airway: ETT Cuffed: Yes Technique Used: Direct laryngoscopy Devices/Methods Used in Placement: Int ubating stylet Insertion Site: Oral Blade Type: Marcos Laryngoscope Blade/Videolaryngoscope Sergey de Size: 2 ETT Size (mm): 7.0 Cuff at minimum occlusion pressure: Yes Measured from: Teeth ETT to Teeth (cm): 20 Placement Verified by: CO2 detection, di rect visualization and equal breath sounds Laryngoscopic view: Grade I - full vie w of glottis Rapid Sequence Induction (RSI): No Modified RSI: No Number of Attempts at Approach: 1 THIS CASE OCCURRED DURING THE COVID PANDEMIC. GUMS, TEETH PROTECTED. DENTITION UNCHANGED. Estimated GFR (04/15/2020 4:48 AM CDT)Only the most recent of21 resultswithin the time period is included. Pathologist [facility] Estimated GFR >=90 mL/min/1.73 [facility] Comment: [address] Catergory Units Interpretation G1 >=90 Normal or high G2 60-89 Mildly decreased G3a 45-59 Mildly to moderately decreas ed G3b 30-44 Moderately to severely decre ased G4 15-29 Severely decreased G5 <15 Kidney failure The eGFR was calculated using the Chronic Kidney Disea se Epidemiology Collaboration (CKD-EPI) equation. Interpretation is based on recommendations of the National Kidney Foundation-Kidney Disease Outcomes Reymundo lity Initiative (NKF-KDOQI) published in 2014. Specimen Performing Organization Address City/[facility]/Zipcode Phone Number [facility] DEPARTMENT OF PATHOLOGY AND [address] [place], [place] [address] [phone] [address] Partial thromboplastin time, activated (04/15/2020 4:48 AM CDT)Only the most recent of8 resultswithin the time period is included. [facility] PTT 39.3 (H) 23.0 - 36.0 [facility] Comment: [facility] PTT therapeutic range for unfractionated heparin is 61.0-112.0 seconds which corresponds to Anti-Xa 0.3-0.7 U/ml. Specimen Blood Performing Organization Address City/[facility]/Zipcode Phone Number [facility] DEPARTMENT OF PATHOLOGY AND [address] [place] [address] [phone] [address] CBC with platelet and differential (04/15/2020 4:48 AM CDT)Only the most recent of15 resultswithin the time period is included. [facility] WBC 10.99 4.50 - 11.00 [facility] RBC 4.05 (L) 4.20 - 5.50 [facility] HGB 11.8 (L) 12.0 - 16.0 [facility] g/dL HOSPITAL HCT 37.5 37.0 - 47.0 % MCV 92.6 82.0 - 100.0 [facility] MCH 29.1 27.0 - 34.0 pg MCHC 31.5 31.0 - 37.0 [facility] gdL HOSPITAL RDW - SD 45.7 37.0 - 55.0 [facility] MPV 9.3 8.8 - 13.2 [facility] Platelet count 288 150 - 400 k/uL Nucleated RBC 0.00 /100 WBC Neutrophils 62.4 39.0 - 69.0 % Lymphocytes 24.0 (L) 25.0 - 45.0 % Monocytes 9.3 0.0 - 10.0 % Eosinophils 2.8 0.0 - 5.0 % Basophils 0.5 0.0 - 1.0 % Immature granulocytes 1.0Comment: 0.0 - 1.0 % [facility] "[facility] granulocytes" (promyelocytes , myelocytes, metamyelocytes ) Specimen Blood Performing Organization Address City/State/Zipcode Phone Number [facility] DEPARTMENT OF PATHOLOGY AND [address] [place] [phone] [facility]IC[facility] [address] [address] Basic metabolic panel (04/15/2020 4:48 AM CDT)Only the most recent of10 results within the time period is included. Pathologist Sig nature Sodium 141 135 - 148 mEq/L [facility] L Potassium 3.5 3.5 - 5.0 mEq/L [facility] Chloride 106 98 - 112 mEq/L CO2 21 (L) 24 - 31 mEq/L Anion gap 14@ANIO 7 - 15 mEq/L BUN 5 (L) 8 - 23 mg/dL Creatinine 0.55 0.50 - 0.90 mg/dL [facility] Glucose 94 65 - 99 mg/dL Calcium 7.9 (L) 8.8 - 10.2 mg/dL [facility] Specimen Blood Performing Organization Address [facility] Phone Number [facility] DEPARTMENT OF PATHOLOGY AND [address] [place] [address] [phone] [address] Potassium level (04/14/2020 1:20 PM CDT) Pathologist Sig nature Potassium 3.4 (L) 3.5 - 5.0 mEq/L [facility] Specimen Blood Performing Organization Address [facility] Phone Number [facility] DEPARTMENT OF PATHOLOGY AND [address] [place] [address] [phone] [address] CBC hemogram (04/14/2020 4:37 AM CDT)Only the most recent of3 resultswithin the time period is included. Pathologist Sig nature WBC 10.25 4.50 - 11.00 k/uL RBC 3.97 (L) 4.20 - 5.50 m/uL HGB 11.6 (L) 12.0 - 16.0 g/dL HCT 36.9 (L) 37.0 - 47.0 % MCV 92.9 82.0 - 100.0 fL MCH 29.2 27.0 - 34.0 pg MCHC 31.4 31.0 - 37.0 g/dL RDW - SD 46.4 37.0 - 55.0 fL MPV 9.1 8.8 - 13.2 fL Platelet count 284 150 - 400 k/uL Nucleated RBC 0.00 /100 WBC Specimen Blood Performing Organization Address [facility] Phone Number [facility] DEPARTMENT OF PATHOLOGY AND [address] [place] [address] [phone] [address] Magnesium level (04/14/2020 4:37 AM CDT)Only the most recent of7 resultswithin the time period is included. Pathologist Sig nature Magnesium 1.6 1.6 - 2.4 mg/dL [facility] Specimen Blood Performing Organization Address [facility]/Zipcode Phone Number [facility] DEPARTMENT OF PATHOLOGY AND [address] [place] [address] [phone] [address] Urinalysis, automated with microscopy (04/13/2020 10:15 PM CDT) Pathologist Sig nature Color, UA Yellow Appearance, UA Clear Specific gravity, UA 1.011 1.001 - 1.035 pH, UA 6.0 5.0 - 8.5 Protein, UA Negative Negative Glucose, UA Negative Negative Ketones, UA 1+ (A) Negative Bilirubin, UA Negative Negative Blood, UA Negative Negative Nitrite, UA Negative Negative Urobilinogen, UA <2.0 <2.0 Leukocyte esterase, Negative Negative [facility] Epithelial cells, UA 1 /HPF WBC, UA 2 0 - 4 /HPF RBC, UA 1 0 - 5 /HPF Bacteria, UA None seen None seen Yeast, UA None seen Yeast with None seen [facility] pseudohyphae, [facility] Specimen Urine - Urine, clean catch Performing Organization Address [facility] Phone Number [facility] DEPARTMENT OF PATHOLOGY AND [address] [place] [address] [phone] [address] Ammonia level (04/13/2020 4:38 PM CDT) Pathologist Sig nature Ammonia 29 11 - 51 umol/L Specimen Blood Performing Organization Address City/[facility]/Zipcode Phone Number [facility] DEPARTMENT OF PATHOLOGY AND [address] [place] [address] [phone] [address] Lactic acid level (04/13/2020 11:31 AM CDT)Only the most recent of3 results within the time period is included. Pathologist Sig nature Lactic acid 2.2 0.5 - 2.2 mmol/L [facility] Specimen Blood Performing Organization Address City/[facility]/Zipcode Phone Number [facility] DEPARTMENT OF PATHOLOGY AND [address] [place], [place] [phone] [facility] [address] [place] [address] Anti Xa, low molecular weight (04/12/2020 3:46 AM CDT) Heparin name Haydee Anti Xa, low 0.92 0.60 - 1.00 [facility] molecular weight Comment: U/mL HOSPITAL Specimen must be drawn at least 4 hours post dose foll owing a minimum of 3 doses. Therapeutic Range: 0.60 - 1.00 U/mL Specimen Blood Performing Organization Address City/State/Zipcode Phone Number [facility] DEPARTMENT OF PATHOLOGY AND [address] [place], [place] [phone] [facility] [address] [place] [address] CTA Abdomen Pelvis W And Or Wo Contrast (04/08/2020 4:04 PM CDT) Specimen Narrative Performed At EXAMINATION: CT ANGIOGRAM ABDOMEN PELV IS W AND OR WO CONTRAST RADIANT CLINICAL HISTORY: SMA obstruction TECHNIQUE: Multiple CT angiographic images of the abdo men and pelvis were obtained during intravenous administration of con trast. Multiple computerized reformatted images as well as 3-D volume rendered images were also obtained. Precontrast images of the abdomen were also obtained.Automatic exposure cont rol or iterative reconstruction techniques used to reduce dose. COMPARISON: 03/24/2020 IMPRESSION: Abdomen/Pelvis: 1.Due to CTA technique, solid organs of upper abdomen not fully assessed. Please refer to recent CT abdomen study da haim 04/08/2020 regarding findings including pancreatic uncinate proce ss mass with abnormal soft tissue encasing the SMA, a nd occlusion of the SMV. CTA: 1.Extensive aortoiliac vascular calcifications are not ed. No significant underlying aneurysm or stenosis. Celiac axis is patent with mild proximal stenosis. Bilateral renal arteries are patent without significant proximal narrowing. 2.SMA is also patent without significant proximal sten osis, despite extensive soft tissue encasement. 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 [facility]-[id number] Procedure Note Interface, Radiology Results Incoming - 04/08/2020 4:24 PM CDT EXAMINATION: CT ANGIOGRAM ABDOMEN PELVIS W AND OR WO CONTRAST CLINICAL HISTORY: SMA obstruction TECHNIQUE: Multiple CT angiographic imag es of the abdomen and pelvis were obtained during intravenous administration of contrast. Multiple computerized reformatted images as well as 3-D volume rendered images were also obtained. Precontrast images of the abdomen were also obtained.Automatic exposure control or iterative reconstruction techniques used to reduce dose. COMPARISON: 03/24/2020 IMPRESSION: Abdomen/Pelvis: 1.Due to CTA technique, solid organs of upper abdomen not fully assessed. Please refer to recent CT abdomen study dated 04/08/2020 regarding findings including pancreatic uncinate process mass with abnormal soft tissue encasing the SMA, and occlusion of the SMV. CTA: 1.Extensive aortoiliac vascular calcific ations are noted. No significant underlying aneurysm or stenosis. Celiac axis is patent with mild proximal stenosis. Bilateral renal arteries are patent without significant proximal narrowing. 2.SMA is also patent without significant proximal stenosis, despite extensive soft tissue encasement. 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 [facility]-[id number] Performing Organization Address City/State/Zipcode Phone Number [facility] [address] [place] [address] CT Abdomen Pelvis W Contrast (04/08/2020 8:36 AM CDT)Only the most recent of2 resultswithin the time period is included. 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 Alvarado by Dr. Davila at 04/08/2020 11:03 AM. Narrative Performed At EXAMINATION: CT ABDOMEN PELVIS W CONTR AST [facility] CLINICAL HISTORY: 59 yearsFemale Abd pain gastroente ritis or colitis suspected, pancreatic adenocarcinoma. TECHNIQUE: Multiple axial images of the abdomen and pe lvis were obtained following intravenous administration of iodinated cont rast. Oral contrast was administered. Sagittal and coronal comput erized reformatted images were also obtained. CT imaging wa s performed with iterative reconstruction techniques and /or automated exposure control to reduce radiation dos e. COMPARISON: CT abdomen pelvis 03/24/2020 , 02/03/2005 IMPRESSION: LOWER CHEST: Visualized lower thorax: Lung bases: No significant pleural effusion. Linear atelectasis in the lung bases. Lower mediastinum: Cardiac size is normal. No pericard ial effusion. Atherosclerotic coronary calcification. Partially vi sualized central access catheter at the superior cavoatri al junction. ABDOMEN: Upper abdominal organs: Liver: There is mild focal hypoenhancement in hepatic segment 4B adjacent to the gallbladder fossa, possibly focal fatt y deposition, similar to prior. A common bile duct stent is present. Trace pneumobilia within the central hepatic ducts. Gallbladder: Mild gallbladder wall enhancement and hollie ma. Trace pericholecystic fluid. Spleen: Mildly enlarged, measures 13 cm in craniocaudal dimension. Pancreas: Redemonstrated is an ill-defined hypoenhanci ng mass in the pancreatic head/uncinate process spanning approximatel y 3.5 x 3.2 cm (series 2, image 61). The mass appears to occlude the portosplenic confluence and superior mesenteric vein, similar to prior. Additionally, there is encasement of the sup erior mesenteric artery which is attenuated and possibly occluded (sagi ttal series 602B, image 84), incompletely evaluated on this nonangiograp hic examination. The superior mesenteric artery reconstitutes distally. Increased peripancreatic infla mmatory fat stranding. Adrenal Glands: Normal. Kidneys: 1.4 cm intermediate attenuation lesion in the right anterior superior kidney, likely a cyst. No hydronephrosis. No renal or ureteral calculi. Bowel and mesentery: Large and small bowel are normal in caliber. There is mild increased mesenteric inflammatory fat strandin g throughout the small bowel mesentery extending into the right paracol ic gutter. No significant ascites. No free intraperitoneal gas. Vasculature: Abdominal aorta is of normal caliber. As previously noted, pancreatic mass occludes the portal splenic confluence and central superior mesenteric vein. There is also suspected incr eased encasement of the superior mesenteric artery with possible severe stenosis or occlusion of the superior mesenteric artery (series 2, image 63). Moderate calcified and non-hannah cified atherosclerotic disease of the abdominal aorta and branch vessels. Lymph nodes: No abdominal or retroperito ramona lymphadenopathy. PELVIS: Urinary bladder: Normal. Lymph nodes: No pelvic lymphadenopathy. MUSCULOSKELETAL: No suspicious lytic or blastic osseous lesions. The osuna perficial soft tissues are unremarkable. Age appropriate degenerative changes of the spine. SUMMARY: 1. 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 Increased peripancreatic and mesenteric inflammatory fat stranding may be sequela of pancreati tis, treatment-related changes, or mesenteric ischemia from superior mesenteric artery stenosis/occlusion. Further evaluati on with CT angiogram of the abdomen and pelvis and correlation with serum lactate is recommended, if indicated cli nically. Examination added to critical results queue for report receipt tracking. Findings of possible superior mesenteric artery stenos is or occlusion and recommendation for stat CT angiogram were discusse d by phone with nurse Fanta by Dr. Davila at 04/08/2020 8:45 AM. [facility]-[id number] Procedure Note Hm Interface, Radiology Results Incoming - 04/08/2020 8:59 AM CDT EXAMINATION: CT ABDOMEN PELVIS W CONTRAST CLINICAL HISTORY: 59 yearsFemale Abd elena n gastroenteritis or colitis suspected, pancreatic adenocarcinoma. TECHNIQUE: Multiple axial images of the abdomen and pelvis were obtained following intravenous administration of iodinated contrast. Oral contrast was administered. Sagittal and coronal computerized reformatted images were also obtained. CT imaging was performed with iterative reconstruction techniques and/or automated exposure control to reduce radiation dose. COMPARISON: CT abdomen pelvis 03/24/2020, 02/03/2005 IMPRESSION: LOWER CHEST: Visualized lower thorax: Lung bases: No significant pleural effus ion. Linear atelectasis in the lung bases. Lower mediastinum: Cardiac size is beatrice l. No pericardial effusion. Atherosclerotic coronary calcification. Partially visualized central access catheter at the superior cavoatrial junction. ABDOMEN: Upper abdominal organs: Liver: There is mild focal hypoenhanceme nt in hepatic segment 4B adjacent to the gallbladder fossa, possibly focal fatty deposition, similar to prior. A common bile duct stent is present. Trace pneumobilia within the central hepatic ducts. Gallbladder: Mild gallbladder wall enhan cement and edema. Trace pericholecystic fluid. Spleen: Mildly enlarged, measures 13 cm in craniocaudal dimension. Pancreas: Redemonstrated is an ill-defin ed hypoenhancing mass in the pancreatic head/uncinate process spanning approximately 3.5 x 3.2 cm (series 2, image 61). The mass appears to occlude the portosplenic confluence and superior mesenteric vein, similar to prior. Additionally, there is encasem ent of the superior mesenteric artery which is attenuated and possibly occluded (sagittal series 602B, image 84), incompletely evaluated on this nonangiographic examination. The superior mesenteric artery reconstitutes distally. Increased peripa ncreatic inflammatory fat stranding. Adrenal Glands: Normal. Kidneys: 1.4 cm intermediate attenuation lesion in the right anterior superior kidney, likely a cyst. No hydronephrosis. No renal or ureteral calculi. Bowel and mesentery: Large and small bow el are normal in caliber. There is mild increased mesenteric inflammatory fat stranding throughout the small bowel mesentery extending into the right paracolic gutter. No significant ascites. No free intraperitoneal gas. Vasculature: Abdominal aorta is of beatrice l caliber. As previously noted, pancreatic mass occludes the portal splenic confluence and central superior mesenteric vein. There is also suspected increased encasement of the superior mesenteric artery with possible severe stenosis or occlusion of the superior mesenteric artery (series 2, image 63). Moderate calcified and non-calcified atherosclerotic disease of the abdominal aorta and branch vessels. Lymph nodes: No abdominal or retroperito ramona lymphadenopathy. PELVIS: Urinary bladder: Normal. Lymph nodes: No pelvic lymphadenopathy. MUSCULOSKELETAL: No suspicious lytic or blastic osseous l esions. The superficial soft tissues are unremarkable. Age appropriate degenerative changes of the spine. SUMMARY: 1. 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 Increased peripancreatic and mesenteric inflammatory fat stranding may be sequel a of pancreatitis, treatment-related changes, or mesenteric ischemia from superior mesenteric artery stenosis/occlusion. Further evaluation with CT angiogram of the abdomen and pelvis and correlation with serum lactate is recommended, if indicated cli nically. Examination added to critical results qu eue for report receipt tracking. 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 Davila at 04/08/2020 8:45 AM. [id number] Performing Organization Address City/State/Zipcode Phone Number [facility] [address] [place] [address] Comprehensive metabolic panel (04/08/2020 5:08 AM CDT)Only the most recent of12 resultswithin the time period is included. Sodium 135 135 - 148 [facility] mEq/L [facility] Potassium 3.4 (L) 3.5 - 5.0 [facility] mEq/L [facility] Chloride 99 98 - 112 [facility] mEq/L [facility] CO2 25 24 - 31 mEq/L Anion gap 11@ANIO 7 - 15 mEq/L BUN 6 (L) 8 - 23 mg/dL Creatinine 0.46 (L) 0.50 - 0.90 [facility] mg/dL [facility] Glucose 132 (H) 65 - 99 mg/dL Calcium 8.4 (L) 8.8 - 10.2 [facility] mg/dL [facility] Protein 6.0 (L) 6.3 - 8.3 [facility] Comment: g/dL HOSPITAL - 4.6-7.0 g/dL 1 week 4.4-7.6 g/dL 7 months-1year 5.1-7.3 g/dL 1-2 years 5.6-7.5 g/dL >3 years 6.0-8.0 g/dL 18-150 6.3-8.3 g/dL Albumin 2.2 (L) 3.5 - 5.0 [facility] g/dL [facility] A/G ratio 0.6 (L) 0.7 - 3.8 Alkaline phosphatase 240 (H) 35 - 104 U/L AST 18 10 - 35 U/L ALT 22 5 - 50 U/L Total bilirubin 0.5 0.0 - 1.2 [facility] mg/dL [facility] Specimen Blood Performing Organization Address City/State/Zipcode Phone Number [facility] DEPARTMENT OF PATHOLOGY AND [address] [place], [place] [phone] [facility] [address] [address] Manual differential (04/07/2020 5:25 AM CDT)Only the most recent of3 results within the time period is included. Manual differential PERFORMED Neutrophils 82.0 (H) 39.0 - 69.0 % Lymphocytes 13.0 (L) 25.0 - 45.0 % Monocytes 4.0 0.0 - 10.0 % Eosinophils 1.0 0.0 - 5.0 % Basophils 0.0 0.0 - 1.0 % Metamyelocytes 0 % Promyelocytes 0 % Platelet slide review Joanna adequate Anisocytosis Moderate Specimen Performing Organization Address City/[facility]/Zipcode Phone Number [facility] DEPARTMENT OF PATHOLOGY AND [address] [place] [address] [phone] [address] Blood culture, aerobic & anaerobic (04/06/2020 12:40 PM CDT)Only the most recent of3 resultswithin the time period is included. Blood culture No growth after 5 days of incubation. [facility] JUDAISM isolate Comment: HOSPITAL Specimen Information Specimen Source: Blood Specimen Site: Antecubital, left Specimen Blood - Antecubital, left Performing Organization Address City/[facility] Phone Number [facility] DEPARTMENT OF PATHOLOGY AND [address] [place] [address] [phone] [address] Urine culture (04/06/2020 12:18 PM CDT)Only the most recent of2 resultswithin the time period is included. Pathologist Sig nature Urine culture SEE COMMENTComment: [facility] Bacteriuria screen HOSPITAL negative. Specimen Performing Organization Address City/[facility] Phone Number [facility] DEPARTMENT OF PATHOLOGY AND [address] [place] [address] [phone] [address] Urinalysis screen and microscopy, with reflex to culture (04/06/2020 12:13 PM CDT)Only the most recent of2 resultswithin the time period is included. Specimen site Random void Color, UA Straw Appearance, UA Clear Specific gravity, UA 1.010 1.001 - 1.035 pH, UA 6.0 5.0 - 8.5 Protein, UA Negative Negative Glucose, UA 3+ (A) Negative Ketones, UA Negative Negative Bilirubin, UA Negative Negative Blood, UA Negative Negative Nitrite, UA Negative Negative Urobilinogen, UA <2.0 <2.0 Leukocyte esterase, Negative Negative [facility] Epithelial cells, UA 4 /HPF WBC, UA 1 0 - 4 /HPF RBC, UA 1 0 - 5 /HPF Bacteria, UA Few None seen Yeast, UA None seen Yeast with None seen [facility] pseudohyphae, HOSPITAL Specimen Urine Performing Organization Address City/[facility] Phone Number [facility] DEPARTMENT OF PATHOLOGY AND [address] [place] [phone] C difficile toxin (04/06/2020 12:13 PM CDT) Clostridium No Clostridium difficle toxin present JOHANN GAMBOA JUDAISM difficile toxin Comment: HOSPITAL Specimen Information Specimen Source: Stool Specimen Site: Nonpreserved Specimen Stool - Nonpreserved Performing Organization Address [facility] Phone Number [facility] DEPARTMENT OF PATHOLOGY AND [address] [place] [phone] Hemoglobin A1c (04/06/2020 10:49 AM CDT)Only the most recent of3 resultswithin the time period is included. Hemoglobin A1C 12.2 (H) 4.0 - 5.6 % [facility] Comment: HOSPITAL HbA1c cutoffs for diagnosing diabetes: 4.0% - 5.6% = normal 5.7% - 6.4% = increased risk for diabetes (prediabetes )9 >=6.5% = diabetes9 Goals for glycemic control (ADA 2016) < 7.0% Target for non adults with diabetes. More or less stringent targets may be appropriate for individual patients. <7.5% Target for Children and adolescents with type 1 diabetes. Specimen Performing Organization Address City/[facility]/Zipcode Phone Number [facility] DEPARTMENT OF PATHOLOGY AND [address] [place] [phone] COVID-19 qualitative PCR (04/05/2020 11:15 PM CDT) Interpretation Negative results do not prec lude 2019-nCoV infection and should not be used as the sole basis for treatment or other patient management decisions. Negative results must be combined with clinical observations, patient history, and epidemiological [place] information. [facility] COVID-19 qualitative Not-Detected Not-Detecte [place] PCR [facility] d [facility] See link below for [place] PCR PDF Lab JUDAISM ReportComment: Case HOSPITAL Number: [id number] Specimen Performing Organization Address City/[facility]/Zipcode Phone Number [facility] DEPARTMENT OF PATHOLOGY AND [address] [place], [place] [phone] [facility] [address] [place] [address] XR Chest 1 Vw Portable (04/05/2020 9:47 PM CDT)Only the most recent of2 results within the time period is included. Specimen Narrative Performed At EXAMINATION: XR CHEST 1 VW PORTABLE [facility] CLINICAL HISTORY: COVID COMPARISON: 03/24/2020 IMPRESSION: Cardiomediastinal silhouette is within n ormal limits. Right chest port is in place with tip projecting over superior vena cava. Diffuse hazy interstitial infiltrates are seen, sugges tive of mild to moderate vascular congestion/edema. Hazy airspace opac ity of the lung bases may reflect confluent edema versus areas of supe rimposed infectious or inflammatory pneumonitis. Small left pleural effusion. No pneumothorax. No other significant interval change. [facility]-[id number] Procedure Note Hm Interface, Radiology Results Incoming - 04/05/2020 9:56 PM CDT EXAMINATION: XR CHEST 1 VW PORTABLE CLINICAL HISTORY: COVID- COMPARISON: 03/24/2020 IMPRESSION: Cardiomediastinal silhouette is within n ormal limits. Right chest port is in place with tip pr ojecting over superior vena cava. Diffuse hazy interstitial infiltrates ar e seen, suggestive of mild to moderate vascular congestion/edema. Hazy airspace opacity of the lung bases may reflect confluent edema versus areas of superimposed infectious or inflammatory pneumonitis. Small left pleural effusion. No pneumothorax. No other significant interval change. [facility]-[id number] Performing Organization Address City/[facility]/Zipcode Phone Number [facility] [address] [place] [address] Procalcitonin (04/05/2020 9:36 PM CDT) Procalcitonin 0.08 (H) <=0.07 ng/mL [facility] Comment: INTERPRETIVE INFORMATION: Procalcitonin Procalcitonin > 2.00 ng/mL: Procalcitonin levels above 2.00 ng/mL on the first day of ICU admission represent a high risk for progress ion to severe sepsis and/or septic shock. Procalcitonin < 0.50 ng/mL: Procalcitonin levels below 0.50 ng/mL on the first day of ICU admission represent a low risk for progressi on to severe sepsis and/or septic shock. If the procalcitonin measurement is performed shortly after the systemic infection process has started (usually less t [place] 6 hours), these values may still be low. As various non- infectious conditions are known to induce procalcitonin as well, procalcitonin levels between 0.5 ng/mL and 2.00 ng/mL should be reviewed carefully to take into account the specific c linical background and condition(s) of the individual patient. Performed at: [facility] [address] [facility] [address] Specimen Serum Performing Organization Address City/[facility]/Zipcode Phone Number [facility] [address] [place] [address] [facility] [address] [place] [address] Myoglobin (04/05/2020 9:36 PM CDT) Pathologist Sig nature Myoglobin <21 (A) 21 - 72 ng/mL Specimen Blood Performing Organization Address City/[facility]/Zipcode Phone Number [facility] DEPARTMENT OF PATHOLOGY AND [address] [place], [place] [address] GENOM[address] [address] Troponin (04/05/2020 9:36 PM CDT) Troponin 0.006 0.000 - 0.040 [facility] Comment: ng/mL HOSPITAL In patients suspected of having a myocardial infarctio n, along with all other appropriate clinical measures and actions includ ing ECG and other diagnostics as appropriate, measure Ultra TnI at 0 hrs and at 3 hrs. Myocardial infarction VERY LIKELY The 0 hr TnI level is > 0.10 ng/mL Myocardial infarction LIKELY The 0 hr TnI level is > 0.04 ng/mL and 3 hr level is i ncreased or decreased by at least 0.020 ng/mL Myocardial infarction VERY UNLIKELY Both the 0 hr and 3 hr TnI levels <= 0.04 ng/mL(within normal limits) OR 0 hr is > 0.04 ng/mL and 3 hr is increased OR decreased by less than 0.020 ng/mL Specimen Blood Performing Organization Address City/State/Zipcode Phone Number [facility] DEPARTMENT OF PATHOLOGY AND [address] [place], [place] [address] [address] [place] [address] [address] IgG subclasses (04/05/2020 9:36 PM CDT) Pathologist [facility] Immunoglobulin G 397 240 - 1,118 HM [facility] subclass 1 Comment: mg/dL REFERENCE INTERVAL: Immunoglobulin G Subclass 1 Access complete set of age- and/or gender-specific ref erence intervals for this test in the [facility] Test [employer] ([facility]). Immunoglobulin G 175 124 - 549 HM [facility] subclass 2 Comment: mg/dL REFERENCE INTERVAL: Immunoglobulin G Subclass 2 Access complete set of age- and/or gender-specific ref erence intervals for this test in the [facility] Test [employer] ([facility]). Immunoglobulin G 46 21 - 134 HM [facility] subclass 3 Comment: mg/dL REFERENCE INTERVAL: Immunoglobulin G Subclass 3 Access complete set of age- and/or gender-specific ref erence intervals for this test in the [facility] Test Di rectory ([facility]). Immunoglobulin G 13 1 - 123 HM [facility] subclass 4 Comment: mg/dL The total IgG (mg/dL) can be derived by the sum of the subclasses IgG1, IgG2, IgG3 and IgG4 values. However, a confirmat ory and more precise total IgG is available by the nephelometric me thod of total IgG (Test # [id number]). REFERENCE INTERVAL: Immunoglobulin G Subclass 4 Access complete set of age- and/or gender-specific ref erence intervals for this test in the [facility] Test Di rectory ([facility]). Performed by [facility], [address] [place] [address] [email or web address], Brandan Jack MD, Lab. Director Specimen Serum Performing Organization Address City/[facility]/Zipcode Phone Number [facility] [address] [place] [address] [facility] [address] [place] [address] Interleukin 6 (04/05/2020 9:36 PM CDT) Pathologist [facility] Interleukin 6 52 (H) 0 - 5 pg/mL [facility] Comment: HOSPITAL This test was developed and its performance characteri stics determined by the Department of Pathology and Genomic Medicine, [facility]. Interleukin 6 is tested by [facility] 2 by one-step immunoenzymatic assay. It has not been cleared or appr phyllis by FDA. The laboratory is regulated under CLIA as qualified to per form high-complexity testing. This test is used for clinical purposes. It s hould not be regarded as investigational or for research. Specimen Blood Performing Organization Address City/[facility]/Zipcode Phone Number [facility] DEPARTMENT OF PATHOLOGY AND [address] [place] [address] [phone] [address] Prothrombin time with INR (04/05/2020 9:36 PM CDT)Only the most recent of2 resultswithin the time period is included. Pathologist [facility] Prothrombin time 14.0 11.5 - 14.5 [facility] INR 1.1 [place] Comment: [facility] International Normalized Ratio (INR) is a therapeu [facility] monitoring tool for patients who are stable on oral anticoagulant therapy. An INR of 2.0-3.0 is suggested for deep vein thrombosis/pulmonary embolism. Specimen Blood Performing Organization Address City/[facility]/Zipcode Phone Number [facility] DEPARTMENT OF PATHOLOGY AND [address] [place] [address] [phone] [place] [address] Fibrinogen (04/05/2020 9:36 PM CDT) Pathologist Sig nature Fibrinogen 550 (H) 200 - 450 mg/dL [facility] Specimen Blood Performing Organization Address [facility] Phone Number [facility] DEPARTMENT OF PATHOLOGY AND [address] [place] [address] [phone] [address] D-dimer (04/05/2020 9:36 PM CDT) D-dimer 0.97 (H) 0.00 - 0.40 [facility] Comment: ug/mL [facility]OSPITAL Units are ug/ml Fibrinogen Equivalent Unit. When combined with low clinical probability, D-dimer r esults of less than 0.5 ug/ml FEU have a good negative pred ictive value in excluding PE or DVT. For D-dimer results greater than 0.5 ug/ml FEU furth er testing is indicated if PE or DVT is suspected clini joslyn. Elevated D-dimer results have been reported in DVT, PE , and DIC cases and may indicate the presence of a clot. D-dimer results may be elevated due to old age, pregna ncy, inflammatory diseases, trauma, post-operative states, sepsis, and malignancies. Specimen Blood Performing Organization Address [facility] Phone Number [facility] DEPARTMENT OF PATHOLOGY AND [address] [place] [address] [address] Type and screen (04/05/2020 9:36 PM CDT)Only the most recent of2 resultswithin the time period is included. Pathologist Sig nature ABO grouping O Rh type POS Antibody screen (gel) NEG Specimen Blood Performing Organization Address City/[facility]/Zipcode Phone Number [facility] DEPARTMENT OF PATHOLOGY AND [address] [place] [address] [phone] [address] C-reactive protein (04/05/2020 9:36 PM CDT) Pathologist Sig nature CRP 4.32 (H) 0.00 - 0.50 mg/dL [facility] Specimen Blood Performing Organization Address City/[facility] Phone Number [facility] DEPARTMENT OF PATHOLOGY AND [address] [place] [address] [phone] [address] Triglycerides (04/05/2020 9:36 PM CDT) Pathologist Sig [facility] Triglycerides 107 <150 mg/dL Specimen Blood Performing Organization Address City/[facility] Phone Number [facility] DEPARTMENT OF PATHOLOGY AND [address] [place] [address] [phone] [address] B natriuretic peptide (04/05/2020 9:36 PM CDT) Pathologist [facility] BNP 100 0 - 100 pg/mL Specimen Blood Performing Organization Address [facility] Phone Number [facility] DEPARTMENT OF PATHOLOGY AND [address] [place] [address] [phone] [address] Lactate dehydrogenase (LD) isoenzymes (04/05/2020 9:36 PM CDT) Pathologist Sig [facility] LD total 223 105 - 230 U/L [facility] Comment: This specimen is Hemolyzed. This may cause the results to be falsely increased. LD-1 13 (L) 14 - 27 % HM [facility] LD-2 27 (L) 29 - 42 % HM [facility] LD-3 21 18 - 30 % HM [facility] LD-4 12 8 - 15 % HM [facility] LD-5 27 (H) 6 - 23 % HM [facility] Comment: Performed by [employer] [facility], [address] [place] [address] [email or web address], Brandan Jack MD - Lab. Director Specimen Serum Performing Organization Address [facility] Phone Number [facility] [address] [place] [address] [facility] [address] [place] [address] LDH (04/05/2020 9:36 PM CDT) Pathologist Sig [facility] LDH 304 (H) 87 - 225 U/L Specimen Blood Performing Organization Address City/[facility]/Zipcode Phone Number [facility] DEPARTMENT OF PATHOLOGY AND [address] [place] [phone] [facility] [address] [place] [address] Ferritin level (04/05/2020 9:36 PM CDT) Pathologist Sig nature Ferritin level 538 (H) 13 - 150 ng/mL Specimen Blood Performing Organization Address City/[facility] Phone Number [facility] DEPARTMENT OF PATHOLOGY AND [address] [place] [address] [phone] [address] Creatine kinase, total (CPK) (04/05/2020 9:36 PM CDT) Pathologist Sig [facility] Creatine kinase 76 26 - 192 U/L [facility] Specimen Blood Performing Organization Address [facility] Phone Number [facility] DEPARTMENT OF PATHOLOGY AND [address] [place] [address] [phone] [address] ECG 12 lead (04/05/2020 9:18 PM CDT)Only the most recent of2 resultswithin the time period is included. Pathologist Sig nature Ventricular rate 73 [facility] Atrial rate 73 [facility] CA interval 136 [facility] QRSD interval 98 [facility] QT interval 390 [facility] QTC interval 429 [facility] P axis 1 40 [facility] QRS axis 1 4 [facility] T wave axis 73 [facility] EKG impression Normal sinus HM MUSE rhythm-Normal ECG-In automated comparison with ECG of 24-MAR-2020 16:23,-No significant change was found- Specimen Narrative Performed At This result has an attachment that is no t available. Performing Organization Address [facility] Phone Number [facility] MUSE [address] [place] [address] IR Port Placement (03/31/2020 3:49 PM CDT) Specimen Narrative Performed At Port catheter placement 03/31/2020 [facility] Indication: Chemotherapy Pre-Procedure Diagnosis: Pancreatic canc er Post-procedure Diagnosis: Pancreatic can cer Stem Shaper: Martín Duffy Deputy Fire Marshal: None Anesthesia/Sedation: Level of anesthesia: Moderate Sedation Medications used: Fentanyl and Versed, 1 % Lidocaine Anesthesia administration: Pulse oximetry, heart rate, and blood pressure were continuously monitored by a radiology nu rse and the performing provider. Duration of intra-service lxbq-re-ornk a nesthesia/sedation: 25 minutes Radiation Exposure: 3 mGy (ka, r) Estimate blood loss: <5 mL Blood adminis tered: None Complications: None Implants/Grafts: 8 [employer] Smart Port Specimen: None Procedure: Informed consent was obtained and the patient placed s upine. A timeout was performed. Preliminary ultrasound of the right int ernal jugular was performed (see findings below). The right chest was pr epped and draped in standard sterile fashion. Using real-time ultrasound guidance a 21-gauge needle was used to access the right internal jugular vein. An image was stored i n the electronic medical record. The needle was exchanged for a transit ion sheath under fluoroscopic guidance. A port pocket was created inferior to the right clavic le. The catheter was tunneled from the port pocket to the venous access site. The length to the superior atrial caval junction was measured, an d the catheter cut to length. The catheter was then deployed through a peel-away sheath. Positioning was c onfirmed with fluoroscopy. The catheter was flushed and packed with a heparin (100 units/mL) solution. The port pocket was closed in layers with subcutaneous 3-0 Vicryl suture. The skin was closed with running 4-0 Monocryl suture and dermabond. The venous access site was closed with Derm abond. A sterile dressing was applied. Findings: Patent right internal jugular vein as demonstrated by normal ultrasound compressibility. Impression: Successful right internal jugular vein p ort catheter placement. Procedure Note Interface, Radiology Results Incoming - 03/31/2020 5:20 PM CDT Port catheter placement 03/31/2020 Indication: Chemotherapy Pre-Procedure Diagnosis: Pancreatic canc er Post-procedure Diagnosis: Pancreatic can cer Stem Shaper: Martín Duffy Deputy Fire Marshal: None Anesthesia/Sedation: Level of anesthesia: Moderate Sedation Medications used: Fentanyl and Versed, 1 % Lidocaine Anesthesia administration: Pulse oximetr y, heart rate, and blood pressure were continuously monitored by a radiology nurse and the performing provider. Duration of intra-service niot-wj-caqe a nesthesia/sedation: 25 minutes Radiation Exposure: 3 mGy (ka, r) Estimate blood loss: <5 mL Blood adminis tered: None Complications: None Implants/Grafts: 8 [employer] Smart Port Specimen: None Procedure: Informed consent was obtained and the pa tient placed supine. A timeout was performed. Preliminary ultrasound of the right internal jugular was performed (see findings below). The right chest was prepped and draped in standard sterile fashion. Using real-time ultrasound guidance a 21 -gauge needle was used to access the right internal jugular vein. An image was stored in the electronic medical record. The needle was exchanged for a transition sheath under fluoroscopic guidance. A port pocket was created inferior to th e right clavicle. The catheter was tunneled from the port pocket to the venous access site. The length to the superior atrial caval junction was measured, and the catheter cut to length. The catheter was then deployed through a peel-away sheath. Pos itioning was confirmed with fluoroscopy. The catheter was flushed and packed with a heparin (100 units/mL) solution. The port pocket was closed in layers wit h subcutaneous 3-0 Vicryl suture. The skin was closed with running 4-0 Monocryl suture and dermabond. The venous access site was closed with Dermabond. A sterile dressing was applied. Findings: Patent right internal jugular vein as de monstrated by normal ultrasound compressibility. Impression: Successful right internal jugular vein p ort catheter placement. Performing Organization Address [facility] Phone Number [facility] [address] [place] [address] Lipase level (03/31/2020 6:14 AM CDT)Only the most recent of4 resultswithin the time period is included. Pathologist Sig [facility] Lipase 95 (H) 13 - 60 U/L Specimen Blood Performing Organization Address [facility] Phone Number [facility] DEPARTMENT OF PATHOLOGY AND [address] [place] [phone] GENOMIC [address] [address] Phosphorus level (03/30/2020 4:00 AM CDT)Only the most recent of5 resultswithin the time period is included. Pathologist Sig [facility] Phosphorus 3.0 2.4 - 4.5 mg/dL [facility] Specimen Blood Performing Organization Address [facility]/State/Zipcode Phone Number [facility] DEPARTMENT OF PATHOLOGY AND [address] [place] [address] [phone] [address] Amylase level (03/27/2020 5:00 AM CDT)Only the most recent of2 resultswithin the time period is included. Pathologist Sig nature Amylase 30 28 - 100 U/L Specimen Blood Performing Organization Address City/[facility]/Zipcode Phone Number [facility] DEPARTMENT OF PATHOLOGY AND [address] [place] [phone] Surgical pathology request (03/26/2020 11:09 AM CDT) [facility] DEPARTMENT OF PATHOLOGY AND GENOMIC MEDICINE Surgical pathology See link below [facility] DEPARTMENT OF report for PDF Lab PATHOLOGY AND Report GENOMIC MEDICINE Result status This is Final [facility] DEPARTMENT OF Report for PATHOLOGY AND [id number] GENOMIC MEDICINE Specimen Performing Organization Address [facility] Phone Number [facility] DEPARTMENT OF PATHOLOGY AND [address] [place] [address] 0 GENOMIC MEDICINE [place] > 1 Hour (03/26/2020 9:18 AM CDT) Specimen Narrative Performed At EXAMINATION: [place] > 1 HOUR [facility] LOCATION: [place] [address] ENDOSCOPY ROOM 8 PROCEDURE: ERCP w/STENT PLACEMENT SCHEDULED TIME: 0800 START TIME: 0755 END TIME: 18 FLUORO TIME: 1.5 MINS DOSE (mGy): 17 mGy # OF IMAGES: 11 IMPRESSION: Fluoroscopy was requested in the [facility] Suite. Separate endoscopy report will be issued by the physic lola performing the procedure. Procedure Note Interface, Radiology Results Incoming - 03/30/2020 11:03 AM CDT EXAMINATION: [place] > 1 HOUR LOCATION: [place] [address] ENDOSCOPY ROOM 8 PROCEDURE: ERCP w/STENT PLACEMENT SCHEDULED TIME: 0800 START TIME: 0755 END TIME: 18 FLUORO TIME: 1.5 MINS DOSE (mGy): 17 mGy # OF IMAGES: 11 IMPRESSION: Fluoroscopy was requested in the [facility] Suite. Separate endoscopy report will be issued by the physician performing the procedure. Performing Organization Address City/State/Zipcode Phone Number [facility] [address] [place] [phone] Cytology (non-gynecological) request (03/26/2020 9:06 AM CDT)Only the most recent of2 resultswithin the time period is included. [facility] DEPARTMENT OF PATHOLOGY AND GENOMIC MEDICINE Cytology See link below [facility] DEPARTMENT OF (non-gynecological) for PDF Lab PATHOLOGY AND report Report GENOMIC MEDICINE Result status This is Final [facility] DEPARTMENT OF Report for PATHOLOGY AND [id number] GENOMIC MEDICINE Specimen Performing Organization Address City/State/Zipcode Phone Number [facility] DEPARTMENT OF PATHOLOGY AND [address] [place], [place] [address] GENOMIC MEDICINE Airway (03/26/2020 8:13 AM CDT) Narrative Performed At Diamond Washington MD 03/26/20 8:14 AM Airway Date/Time: 03/26/2020 8:04 AM Performed by: Diamond Washintgon M D Authorized by: Diamond Washington MD Location: Endoscopy Urgency: Elective Difficult Airway: No Anesthesiologist: Diamond Washington MD Performed by: anesthesiologist Preoxygenated with 100% O2: Yes C-spine Precautions Maintained Throughou t: No Mask Ventilation: Not attempted Final Airway Type: Endotracheal airway Final Endotracheal Airway: ETT Cuffed: Yes Technique Used: Direct laryngoscopy Devices/Methods Used in Placement: Int ubating stylet Insertion Site: Oral Blade Type: Kin Laryngoscope Blade/Videolaryngoscope Sergey de Size: 3 ETT Size (mm): 7.0 Cuff at minimum occlusion pressure: Yes Measured from: Lips ETT to Lips (cm): 21 Placement Verified by: CO2 detection, di rect visualization and equal breath sounds Laryngoscopic view: Grade I - full vie w of glottis Rapid Sequence Induction (RSI): No Modified RSI: No Number of Attempts at Approach: 1 Vitamin D 25 hydroxy level (03/26/2020 4:00 AM CDT) Vitamin D, 35.8 30.0 - 150.0 SALE[facility] JUDAISM 25-hydroxy Comment: ng/mL HOSPITAL This assay reports the sum of 25-hydroxy vitamin D3 an d 25-hydroxy vitamin D2. Reference range: 0-17 years: Deficiency: less than 20ng/mL Optimum level: greater than or equal to 20 ng/mL. 18 years and older: Deficiency: less than 20ng/mL Insufficiency: 20-29 ng/mL Optimum Level: 30-80 ng/mL The assay reportable range is 3.4 155.9 ng/mL. Level s higher than 150 ng/mL may be associated with toxicity. If toxicity is clinically suspected and the reported r esult is >155.9 ng/mL,contact lab for alternative methods to obtain a definitive level. If separate quantitation of 25-hydroxy vitamin D3 and 25-hydroxy vitamin D2 is needed, please contact lab for alternative methods. Specimen Blood Performing Organization Address City/State/Zipcode Phone Number [facility] DEPARTMENT OF PATHOLOGY AND [address] [place], [place] [address] GENOMIC MEDICINE [address] [place] [address] MRI Thoracic Spine Wo Contrast (03/26/2020 3:13 AM CDT) Specimen Narrative Performed At This result has an attachment that is no t available. EXAMINATION: MRI THORACIC SPINE WO CONTRAST [facility] CLINICAL HISTORY: t12 fracture COMPARISON: None. FINDINGS: Multiplanar multisequence MR images of t he thoracic spine obtained without IV contrast. There is a chronic compression deformity of the T12 vertebral body with 40% height loss and some slight angulation of the posterior wall. There is no significant canal stenosis at this level. No associated marrow edema. The normal thoracic kyphosis is maintain ed. There are no subluxations. Remaining vertebral body heights within normal limits. No acute marrow signal abnormalities are present. There are some scattered s hallow disc bulges but without canal or foraminal stenosis. The visualized spinal cord is normal in signal and volume. Paravertebral soft tissues are unremarkable. IMPRESSION: Chronic compression fracture of the T12 vertebral body . [id number] Procedure Note Interface, Radiology Results Incoming - 03/26/2020 7:42 AM CDT EXAMINATION: MRI THORACIC SPINE WO CONTRAST CLINICAL HISTORY: t12 fracture COMPARISON: None. FINDINGS: Multiplanar multisequence MR images of t he thoracic spine obtained without IV contrast. There is a chronic compression deformity of the T12 vertebral body with 40% height loss and some slight angulation of the posterior wall. There is no significant canal stenosis at this level. No associated marrow edema. The normal thoracic kyphosis is maintain ed. There are no subluxations. Remaining vertebral body heights within normal limits. No acute marrow signal abnormalities are present. There are some scattered shallow disc bulges but without canal or foraminal stenosis. The visualized spinal cord is normal in signal and volume. Paravertebral soft tissues are unremarkable. IMPRESSION: Chronic compression fracture of the T12 vertebral body. [id number] Performing Organization Address City/[facility]/Zipcode Phone Number [facility] [address] [place] [phone] Ionized calcium (03/25/2020 12:00 PM CDT) Pathologist [facility] nature pH 7.44 Ionized calcium 1.15 1.11 - 1.32 mmol/L Specimen Blood Performing Organization Address [facility]/Zipcode Phone Number [facility] DEPARTMENT OF PATHOLOGY AND [address] [place] [address] [phone] [address] Vitamin D 1,25 dihydroxy level, serum (03/25/2020 11:22 AM CDT) Pathologist [facility] Vit D, 53.57 18.00 - [place] 1,25-Dihydroxy Comment: 78.00 pg/mL JUDAISM This test was developed and its performance lawanda acteristics determined by HOSPITAL the Department of Pathology and Genomic Medicine, [facility]. Serum 1,25 Dihydroxy Vitamin D is tested by LC-MS/MS. It has not been cleared or approved by FDA. The laboratory is reg ulated under CLIA as qualified to perform high-complexity testing. This jennifer t is used for clinical purposes. It should not be regarded as investigational or for research. Specimen Blood Performing Organization Address [facility] Phone Number [facility] DEPARTMENT OF PATHOLOGY AND [address] [place] [address] [phone] [address] Lipid panel (03/25/2020 9:16 AM CDT)Only the most recent of2 resultswithin the time period is included. Cholesterol 188 <200 mg/dL Triglycerides 122 <150 mg/dL HDL cholesterol 51 >40 mg/dL LDL cholesterol 106 (H)Comment: <100 mg/dL [place] Result obtained by JUDAISM direct [facility] measurement [facility] Comment: JUDAISM Total Cholesterol (mg/dL) HOSPIT AL <200 Desirable 200-239 Borderline-high >=240 High Triglycerides (mg/dL) <150 Normal 150-199 Borderline-high 200-499 High >=500 Very high HDL Cholesterol (mg/dL) <40 Low (male) <40 Low (female) LDL Cholesterol (mg/dL) <100 Optimal 100-129 Near or above optimal 130-159 Borderline-high 160-189 High >=190 Very high Risk Catergories that modify LDL goals. Risk Catergories LDL goal (mg/d L) CHD and CHD risk equivalent <100 (10-year risk >20%) Multiple (2+) risk factors <130 (10-year risk =<20%) 0-1 risk factors <160 (<10-year risk) Defining levels of lipids in metabolic syndrome Triglycerides >=150 mg/dL HDL Cholesterol Men <40 mg /dL Women <40 mg/ dL Non-HDL cholesterol is a second target for therapy in persons with high triglycerides (>=200 mg/dL) Specimen Blood Performing Organization Address City/[facility] Phone Number [facility] DEPARTMENT OF PATHOLOGY AND [address] [place] [phone] Venous blood gas (03/25/2020 4:45 AM CDT)Only the most recent of2 resultswithin the time period is included. [facility] pH, venous 7.37 7.32 - 7.42 pCO2, venous 41 (L) 45 - 51 mmHg pO2, venous 41 (H) 25 - 40 mmHg Base excess, venous -1 -2 - 2 meq/L O2 saturation, 79 (H) 40 - 70 % [facility] Bicarbonate, venous 23.3 21.0 - 28.0 [facility] mmol/L HOSPITAL Specimen Blood Performing Organization Address City/[facility] Phone Number [facility] DEPARTMENT OF PATHOLOGY AND [address] [place] [phone] Beta hydroxybutyrate (03/25/2020 3:20 AM CDT)Only the most recent of2 results within the time period is included. [facility] Beta hydroxybutyrate 0.19 0.02 - 0.27 [facility] mmol/L HOSPITAL Specimen Serum Performing Organization Address City/[facility]/Zipcode Phone Number [facility] DEPARTMENT OF PATHOLOGY AND [address] [place] [address] Cancer antigen 19-9 (03/25/2020 3:20 AM CDT) CA 19-9 753 (H) 0 - 35 U/mL [facility] Comment: HOSPITAL The [employer] Dominic 8000 CA19-9 immunoassay was used. Results obtained with different assay methods or kits should not be used interchangeably and may be differen t. Specimen Blood Performing Organization Address [facility] Phone Number [facility] DEPARTMENT OF PATHOLOGY AND [address] [place] [phone] Carcinoembryonic antigen (CEA) (03/25/2020 3:20 AM CDT) CEA 33.3 (H) 0.0 - 3.8 [facility] Comment: ng/mL [facility] Reference range for heavy smokers: 0.0 - 5.5 ng/mL The SYEDA Dominic 8000 CEA immunoassay was used. Results obtained with different assay methods or kits should not be used interchangeably and may be differen t. Specimen Serum Performing Organization Address [facility] Phone Number [facility] DEPARTMENT OF PATHOLOGY AND [address] [place] [phone] US Gallbladder (03/24/2020 9:30 PM CDT) Specimen Narrative Performed At EXAMINATION: US GALLBLADDER [facility] CLINICAL HISTORY: pancreatitis COMPARISON: None. FINDINGS: Gallbladder: The gallbladder is without evidence of ca lculi. The gallbladder wall is not thickened and th ere is no pericholecystic fluid. CBD: 5 mm , within normal limits. Portal vein: The portal vein demonstrates normal hepat opetal flow. The portal vein measures 9 mm. IMPRESSION: Normal gallbladder ultrasound examinatio n. [facility]-[id number] Procedure Note Interface, Radiology Results Incoming - 03/24/2020 9:53 PM CDT EXAMINATION: US GALLBLADDER CLINICAL HISTORY: pancreatitis COMPARISON: None. FINDINGS: Gallbladder: The gallbladder is without evidence of calculi. The gallbladder wall is not thickened and there is no pericholecystic fluid. CBD: 5 mm , within normal limits. Portal vein: The portal vein demonstrate s normal hepatopetal flow. The portal vein measures 9 mm. IMPRESSION: Normal gallbladder ultrasound examinatio dana [facility]-[id number] Performing Organization Address City/[facility]/Zipcode Phone Number [facility] [address] [place] [address] CRITICAL CARE (03/24/2020 9:19 PM CDT) Narrative Performed At Vaibhav Brown DO 03/27/2020 12 :20 PM Critical Care Performed by: Evelyn Andrea PA Authorized by: Vaibhav Brown DO Critical care provider statement: Critical care time (minutes): 35 Critical care time was exclusive of: Separately b illable procedures and treating other patients Critical care was necessary to treat or prevent imminent or life-threatening deterioration of the fo llowing conditions: Metabolic crisis Critical care was time spent personal ly by me on the following activities: Blood draw for specimens, development of treatment plan with patient or surrogate, discussions with p [facility] provider, evaluation of patient's response to treatment, examination of patien t, discussions with consultants, ordering and review of labo ratory studies, ordering and performing treatments and interventions, ordering and review of radiographic studies, pulse oximetry, re-evaluation of patient's condition and review of old charts Cristopher 'yes' if you are taking over critical care for this patient from another provider.: no Lactic acid level, SEPSIS - Now and repeat 2x every 3 hours (03/24/2020 9:09 PM CDT)Only the most recent of3 resultswithin the time period is included. Pathologist Sig nature Lactic acid 1.5 0.5 - 2.2 mmol/L [facility] Specimen Blood Performing Organization Address City/[facility]/Zipcode Phone Number [facility] DEPARTMENT OF PATHOLOGY AND [address] [place], [place] [phone] GENOMIC MEDICINE [address] [address] T cell Lymphocyte Subset Panel 4 (03/18/2020 9:59 AM CDT) Pathologist Sig nature CD4% 26 (L) 30 - 61 % [employer] [facility] CD4 absolute count 607 490 - 1,740 [facility] cells/uL [facility] CD8% 53 (H) 12 - 42 % [facility] CD8 absolute count 1,232 (H) 180 - 1,170 [facility] cells/uL [facility] CD4/CD8 ratio 0.49 (L) 0.86 - 5.00 [facility] Lymphocytes, 2,321 850 - 3,900 [facility] absolute cells/uL [facility] Specimen Blood Narrative Performed At FASTING:YES [facility] FASTING: YES Resulting Agency Comment Performing Organization Information: Site ID: [id number] Name: [facility] Address: [address] [place] [phone] Director: Dr. Vaibhav whittington Performing Organization Address City/[facility]/Zipcode Phone Number [facility] [employer] [facility] [place] [address] HIV 1 RNA, QUANTITATIVE REAL TIME PCR (03/18/2020 9:59 AM CDT) HIV-1 RNA by PCR, 23 (H) NOT [...] Performing Organization Information: Site ID: [id number] Name: [facility] Address: [address] [place] [id number] Director: Dr. 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
--- OUTSIDE RECORDS SUMMARY | 2020-04-18 07:43 | XMS REPORT | Continuity of Care Document ---
:1960 Author Organization [facility] t Address [address] [place] [address] Care Team Providers Name Role Phone Farhana JOHNSON Primary Care Physician Christiano JOHNSON Attending Clinician Cynthia Watkins [facility] Attending Clinician Unavailable Provider Attending Clinician Unavailable Julian Tyler DO Attending Clinician Cayden Julio MD Attending Clinician Dario JOHNSON Attending Clinician Amari Canas MD Attending Clinician Christiano Gomez MD Attending Clinician Andrea JOHNSON Attending Clinician Terry MILLER Attending Clinician Unavailable Parish SANTIAGO Attending Clinician Unavailable Sadie Brown DO Attending Clinician Karen Jean MD Attending Clinician Loretta Washington MD Attending Clinician Erlin MIKE Attending Clinician Reynaldo RN Attending Clinician Unavailable Edgar Uribe MD Attending Clinician JAYSON Admitting Clinician Unavailable BRADY Admitting Clinician Unavailable Payers Payer Name Policy Policy Number Effective Expiration Source Type Date Date MEDICAREMEDICARE PART xxxxxxxxxxx 2012 Carlos Patricio AND 00:00:00 [place] Ucajqsteurer2012 [place] x[place]xx 2001 Tae INDEMNITYxxxxxxxxxxx1 00:00:00 Met yun -Magdi toro Problems Condition Condition Condition Status Onset Resolution Last Treating Co mments Source Name Details Category Date Date Treatment Clinician Date 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 Abdominal Abdominal Disease Active Cynthia ston pain pain 04-09 Methodi 00:00: st 00 Respirator Respirator Disease Active [facility] y y 04-05 Methodi insufficie insufficie 00:00: st ncy ncy 00 Malignant Malignant Disease Active Cynthia ston neoplasm neoplasm 04-02 Method i of of 00:00: st pancreas pancreas 00 Chemothera Chemothera Disease Active [facility] py induced py induced 04-02 Me thodi neutropeni neutropeni 00:00: st a a 00 Pancreatic Pancreatic Disease Active [facility] cancer cancer 03-31 Methodi 00:00: st 00 History of History of Disease Active [facility] CVA CVA 03-29 Methodi (cerebrova (cerebrova 00:00: st scular scular 00 accident) accident) Overweight Overweight Disease Active [facility] (BMI (BMI 03-29 Methodi 25.0-29.9) 25.0-29.9) 00:00: st 00 Diabetic Diabetic Disease Active [place] ketoacidos ketoacidos 03-24 Me thodi is without is without 00:00: st coma coma 00 associated associated with type with type 2 diabetes 2 diabetes mellitus mellitus Acute Acute Disease Active Overview: [place] pancreatit pancreatit 03-24 Added Me thodi is is 00:00: automatic st ally from request for surgery [id number] 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 00:00: st 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) COVID-19 COVID-19 Disease Resolve 2020-04-09 2020-04-09 Strong virus virus d 6- 00:00:00 08:39:44 Method i detected detected 00:00: st 00 Allergies, Adverse Reactions, Alerts Allergy Allergy Status Severity Reaction(s) Onset Inactive Treating Comm ents Source Name Type Date Date Clinician Tramadol Propensi Active Other (See Seizures [place] ty to Comments) 04-06 Methodi adverse 00:00: st reaction 00 s to drug Cycloben Propensi Active Seizure [place] zaprine ty to 04-19 Methodi adverse 00:00: st reaction 00 s to drug Sulfa Propensi Active Unknown [place] (Sulfona ty to Reaction 04-19 Method i mide adverse 00:00: st Antibiot reaction 00 ics) s to drug Tetracyc Propensi Active Rash [place] line ty to 04-19 Methodi adverse 00:00: st reaction 00 s to drug Abacavir Propensi Active Other (See "hospital [place] ty to Comments) 04-19 ized Methodi adverse 00:00: after st reaction 00 used s to first drug dose" Family History Family Member Diagnosis Comments Start Date Stop Date Source Maternal grandmother Diabetes [place]anda[place] Natural mother Cervical cancer [place] Natural mother Diabetes type II [place] Natural son Diabetes [place] Metho dist Social History Social Habit Start Date Stop Date Quantity Comments Source History of Cigarette Smoker [place] tobacco use Mandaen Sex Assigned At [place] Mandaen Exposure to Not sure [place] SARS-CoV-2 Mandaen (event) Cigarettes smoked 2020-04-16 2020-04-16 [place] current (pack per 00:00:00 00:00:[address] day) - Reported Cigarette 2020-04-16 2020-04-16 [place] pack-years 00:00:00 00:00:00 Mandaen Alcohol intake 2020-04-16 2020-04-16 Current drinker of Bright Pattern hugo 00:00:00 00:00:00 alcohol (finding) Methodi st Tobacco Comment 2020-04-15 2020-04-15 havs not smoked in [place] 00:00:00 00:00:00 4-5 weeks Mandaen Alcohol Comment 2017-04-19 2017-04-19 occassionally [place] 00:00:00 00:00:00 Mandaen Smoking Status Start Date Stop Date Source Current every day smoker 2020-04-16 00:00:00 Cynthia ston Mandaen Medications Ordered Filled Start Stop Current Ordering Indication Dosage Frequency Signature Comments Components Source Medication Medication Date Date Medication? Clinician (SIG) Name Name HYDROcodone 2020-0 2020- Yes chronic 1{tbl} Q6H Take 1 Strong -acetaminop 6-26 07-26 pain tablet by Me martin holliday (Branch) 00:00: 23:[address] 10-325 mg 00 :00 every 6 per tablet (six) hours as needed for moderate pain for up to 30 days .chronic pain. Max Daily Amount: 4 tablets amitriptyli 2020-0 2020- No 100mg QD Take 100 Strong ne (ELAVIL) 6-25 06-25 mg by Method i 50 MG 22:43: 00:[address] tablet 41 :00 daily. gabapentin 2020-0 Yes 100mg QD Take 1 [place] (Neurontin) 6-25 capsule Metho di 100 mg 00:00: ([address] capsule 00 total) by mouth nightly. amitriptyli 2020-0 2020- Yes 100mg QD Take 2 Ho usdanae ne (ELAVIL) 6-25 07-25 tablets Meth zackery 50 MG 00:00: 23:59 ([address] tablet 00 :00 total) by mouth nightly as needed for sleep for up to 30 days. ritonavir 2020-0 Yes 100mg QD Take 100 Cynthia ston (NORVIR) 6-24 mg by Methodi 100 mg 18:38: mouth st tablet 45 daily. atazanavir 2020-0 Yes 300mg QD Take 300 [place] (Reyataz) 6-24 mg by Methodi 300 MG 18:38: mouth st capsule 45 daily with breakfast. SITagliptin 2020-0 Yes 1{tbl} Q.5D Take 1 [place] -metformin 6-24 tablet by Meth zackery (Janumet) 18:38: mouth 2 st 50-1,000 mg 45 (two) per tablet times a day with meals. emtricitabi 2020-0 Yes 1{tbl} QD Take 1 [place] ne-tenofovi 6-24 tablet by Met hodi r DF 18:38: mouth st (TRUVADA) 45 daily. 200-300 mg per tablet insulin 2020-0 Yes 30U QD Inject 30 [place] detemir 6-24 Units Methodi U-100 18:38: under the st (LEVEMIR) 45 skin every 100 unit/mL morning. injection multivitami 2020-0 Yes 1{tbl} QD Take 1 [place] n 6-24 tablet by Methodi (THERAGRAN) 18:38: mouth st tablet 45 daily. sertraline 2020-0 Yes 200mg QD Take 200 [place] (ZOLOFT) 6-24 mg by Methodi 100 MG 18:38: mouth st tablet 45 daily. aspirin 2019-0 2020- Yes 81mg QD Take 1 Tae (ECOTRIN) 04-15-24 tablet (81 Met hodi 81 MG 00:00: 23:59 mg total) st enteric 00 :00 by mouth coated daily for tablet 30 days. clopidogreL 2019-0 2020- Yes 75mg QD Take 1 Cynthia ston (PLAVIX) 75 04-15- tablet (75 M ethodi mg tablet 00:00: 23:59 mg total) st 00 :00 by mouth daily for 30 days. insulin 2019-0 Yes Inject 6 [place] ASPART 6-12 units tid Methodi (NovoLOG 00:00: with meals st Flexpen 00 U-100 Insulin) 100 unit/mL (3 mL) insulin pen pen needle, 0 Yes Inject 4 [place] diabetic 32 6-12 times a Metho di gauge x 00:00: day st 5/32" 00 needle morPHINE 2019-0 2019- Yes acute pain 15mg Q4H Take 1 Strong immediate-r 04-03 tablet (15 M ethodi elease 15 00:00: 23:59 mg total) st MG tablet 00 :00 by mouth every 4 (four) hours as needed for severe pain for up to 30 days .acute pain. Max Daily Amount: 90 mg morPHINE 2019-0 2020- Yes chronic 30mg Q.5D Take 1 Cynthia ston (MS Contin) 04-03- pain tablet (30 M ethodi 30 MG 12 hr 00:00: 23:59 mg total) st tablet 00 :00 by mouth 2 (two) times a day for 30 days .chronic pain. Max Daily Amount: 60 mg ondansetron 2019-0 2020- Yes 8mg Q8H Take 1 Cynthia ston (ZOFRAN) 8 04-03- tablet (8 Met hodi MG tablet 00:00: 23:59 mg total) st 00 :00 by mouth every 8 (eight) hours as needed for nausea or vomiting for up to 30 days. promethazin 2019- 2020- Yes 12.5mg Q6H Take 1 [place] e 04-03 tablet Methodi (PHENERGAN) 00:00: 23:59 (12.5 mg s t 12.5 MG 00 :00 total) by tablet mouth every 6 (six) hours as needed for nausea or vomiting for up to 30 days. HYDROcodone 2019- No chronic 1{tbl} Q6H Take 1 Strong -acetaminop 04-03 pain tablet by Me martin holliday (Branch) 00:00: 00:[address] 10-325 mg 00 :00 every 6 per tablet (six) hours as needed for moderate pain for up to 30 days .chronic pain. Max Daily Amount: 4 tablets insulin 2019- No 0U [id number] Inject 0-7 Strong lispro 04-03 [id number] Units Metho di (HumaLOG) 00:00: 00:[address] 100 unit/mL 00 :00 skin 3 injection (three) times a day with meals for 30 days. sertraline 2019- No 50mg QD Take 50 mg Strong (ZOLOFT) 25 03-25 by mouth Met hodi MG tablet 09:05: 00:[address] 49 :00 sitagliptin 2019- 2020- No Q.5D Take by Carlos arias phos/metfor 03-25 mouth 2 Meth zackery min HCl 09:02: 00:00 (two) st (JANUMET 54 :00 times a ORAL) day. amitriptyli 2019-2019- No 10mg QD Take 10 mg Strong ne (ELAVIL) 03-25 by mouth Met hodi 10 MG 09:01: 00:[address] tablet 08 :00 Norvir 100 2019-2019- No TAKE ONE [place] mg tablet 03-10 TABLET BY Meth zackery 00:00: 00:[address] 00 :00 DAILY WITH A MEAL. DO NOT BREAK, CHEW ORCRUSH TABLET. STORE AT ROOM TEMPERATUR E. AVOID HIGH HUMIDITY. Truvada 2019-2019- No TAKE ONE [place] 200-300 mg 02-12 TABLET BY Met rangel per tablet 00:00: 00:[address] 00 :00 DAILY WITH OR WITHOUT FOOD. [facility] 2019- No TAKE 1 Cynthia ston mg capsule 02-12 CAPSULE BY thodi 00:00: 00:[address] 00 :00 DAILY WITH BREAKFAST NORVIR 100 2018-10- No 100mg QD Take 1 Cynthia ston mg tablet 12-11- tablet Methodi 00:00: 00:00 ([address] 00 :00 total) by mouth daily for 180 days. REYATAZ 300 2019- No TAKE 1 Cynthia ston mg capsule 02-18 CAPSULE BY Me salazar 00:00: 00:[address] 00 :00 DAILY WITH BREAKFAST TRUVADA 2019- No TAKE ONE [place] 200-300 mg 02-18 TABLET BY Met rangel per tablet 00:00: 00:[address] 00 :00 DAILY WITH OR WITHOUT FOOD. STORE IN ORIGINAL CONTAINER AT ROOM [facility] E. NORVIR 100 No TAKE 1 [place] mg tablet 02-18 TABLET BY Meth zackery 00:00: 00:[address] 00 :00 DAILY Immunizations Ordered Immunization Filled Immunization Date Status Commen ts Source Name Name Influenza, 2016-01-06 Completed [place] Unspecified 00:00:00 Mandaen Pneumococcal 2012-12-26 Completed [place] Polysaccharide 00:00:00 Mandaen Influenza, 2009-09-30 Completed [place] Unspecified 00:00:00 Mandaen Influenza, 2008-10-31 Completed [place] Unspecified 00:00:00 Mandaen Influenza, 2007-08-20 Completed [place] Unspecified 00:00:00 Mandaen Pneumococcal 2006-11-15 Completed [place] Polysaccharide 00:00:00 Mandaen Influenza, 2002-07-23 Completed [place] Unspecified 00:00:00 Mandaen Pneumococcal 2002-07-23 Completed [place] Polysaccharide 00:00:00 Mandaen Influenza, 1998-08-05 Completed [place] Unspecified 00:00:00 Mandaen Pneumococcal 1997-12-21 Completed [place] Polysaccharide 00:00:00 Mandaen Vital Signs Vital Name Observation Time Observation Value Comments Source Systolic blood 2020-04-15 14:55:00 129 mm[Hg] [place] pressure Diastolic blood 2020-04-15 14:55:00 59 mm[Hg] [place] pressure Heart rate 2020-04-15 14:55:00 84 /min Tae Barriga Body temperature 2020-04-15 14:55:00 36.5 Leidy [place] Respiratory rate 2020-04-15 14:55:00 20 /min [place] Oxygen saturation in 2020-04-15 14:55:00 97 /min Tae Barriga Arterial blood by Pulse oximetry Body height 2020-04-05 21:00:00 167.6 cm Tae Barriga Body weight 2020-04-05 21:00:00 81.647 kg Tae Barriga BMI 2020-04-05 21:00:00 29.05 kg/m2 Tae Barriga Procedures Procedure Date / Time Performing Clinician Source Performed POC GLUCOSE 2020-04-15 14:30:00 Eloise Tyler odist Julian PA AN ELECTIVE ENDOTRACHEAL 2020-04-15 13:30:36 Keysha Canas AIRWAY ERCP WITH FLUORO 2020-04-15 13:21:00 Dax Mendez hodist US UPPER GI TRACT, 2020-04-15 13:21:00 Dax Mendez ethodist ENDOSCOPIC POC GLUCOSE 2020-04-15 12:38:00 Eloise Tyler odist Julian PARTIAL THROMBOPLASTIN TIME 2020-04-15 04:48:00 Gracie Julio (PTT) [place] CBC WITH PLATELET AND 2020-04-15 04:48:00 Jory Smith DIFFERENTIAL Christi BASIC METABOLIC PANEL 2020-04-15 04:48:00 Jory Smith Christi ESTIMATED GFR 2020-04-15 04:48:00 Jory Smith Christi POC GLUCOSE 2020-04-14 20:38:00 Eloise Tyler odist Julian POC GLUCOSE 2020-04-14 16:20:00 Eloise Tyler odist Julian POTASSIUM LEVEL 2020-04-14 13:20:00 Caroline Barriga M ethodist POC GLUCOSE 2020-04-14 12:40:00 Eloise Tylre odist Julian POC GLUCOSE 2020-04-14 08:55:00 Eloise Tyler odlexie Julian MAGNESIUM LEVEL 2020-04-14 04:37:00 Caroline Barriga ethodist BASIC METABOLIC PANEL 2020-04-14 04:37:00 Gracie Julio [place]anda[place] CBC HEMOGRAM 2020-04-14 04:37:00 Gracie Julio odist [place] ESTIMATED GFR 2020-04-14 04:37:00 Gracie Julio Meth odist [place] PARTIAL THROMBOPLASTIN TIME 2020-04-14 04:37:00 Gracie Julio (PTT) [place] PARTIAL THROMBOPLASTIN TIME 2020-04-13 22:48:00 Breana Bishop (PTT) URINALYSIS, AUTOMATED WITH 2020-04-13 22:15:00 Chandni Barriga MICROSCOPY POC GLUCOSE 2020-04-13 22:08:00 Breana Bishop odist POC GLUCOSE 2020-04-13 18:04:00 Breana Bishop odist AMMONIA LEVEL 2020-04-13 16:38:00 Gracie Julio odist [place] PARTIAL THROMBOPLASTIN TIME 2020-04-13 16:30:00 Gracie Julio (PTT) [place] POC GLUCOSE 2020-04-13 12:07:00 Gracie Julio odist [place] LACTIC ACID LEVEL 2020-04-13 11:31:00 Gracie Julio Me thodist [place] POC GLUCOSE 2020-04-13 08:25:00 Gracie Julio Meth odist [place] CBC HEMOGRAM 2020-04-13 08:15:00 Gracie Julio Meth odist [place] PARTIAL THROMBOPLASTIN TIME 2020-04-13 08:15:00 Gracie Julio (PTT) [place] BASIC METABOLIC PANEL 2020-04-13 04:00:00 Gracie Julio Mandaen [place] ESTIMATED GFR 2020-04-13 04:00:00 Gracie Julio Meth odist [place] PARTIAL THROMBOPLASTIN TIME 2020-04-13 00:14:00 Nori, Gracie Strong Mandaen (PTT) [place] POC GLUCOSE 2020-04-12 20:48:00 Nori Gracie Strong Meth odist [place] POC GLUCOSE 2020-04-12 17:34:00 NoriGracie cisneros Strong Meth odist [place] PARTIAL THROMBOPLASTIN TIME 2020-04-12 16:25:00 NoriGracie cisneros Strong Mandaen (PTT) [place] POC GLUCOSE 2020-04-12 12:01:00 Nori Gracie Tae Meth odist [place] POC GLUCOSE 2020-04-12 08:38:00 NoriGracie Strong Meth odist [place] POC GLUCOSE 2020-04-12 07:22:00 Nori Gracie Tae Meth odist [place] BASIC METABOLIC PANEL 2020-04-12 03:46:00 Gracie Julio n [place]anda[place] CBC HEMOGRAM 2020-04-12 03:46:00 Nori Graciekaiser Santana odist [place] MAGNESIUM LEVEL 2020-04-12 03:46:00 Caroline Barriga M ethodist ANTI XA, LOW MOLECULAR 2020-04-12 03:46:00 Gracie Julio on Mandaen WEIGHT [place] ESTIMATED GFR 2020-04-12 03:46:00 Nori Gracie Tae Meth odist [place] POC GLUCOSE 2020-04-12 01:02:00 Nori Gracie Strong Meth odist [place] POC GLUCOSE 2020-04-11 20:54:00 Nori Gracie Tae Meth odist [place] POC GLUCOSE 2020-04-11 18:51:00 Nori Gracie Tae Meth odist [place] POC GLUCOSE 2020-04-11 18:22:00 NoriGracie Strong Meth odist [place] POC GLUCOSE 2020-04-11 17:41:00 Nori Gracie Strong Meth odist [place] POC GLUCOSE 2020-04-11 12:28:00 Nori Gracie Strong Meth odist [place] POC GLUCOSE 2020-04-11 07:40:00 Nori Gracie Strong Meth odist [place] POC GLUCOSE 2020-04-10 21:13:00 Nori Gracie Strong Meth odist [place] POC GLUCOSE 2020-04-10 17:08:00 Gracie Julio Meth odist [place] POC GLUCOSE 2020-04-10 16:27:00 Gracie Julio Meth odist [place] POC GLUCOSE 2020-04-10 12:15:00 Gracie Julio Meth odist [place] POC GLUCOSE 2020-04-10 04:09:00 Gracie Julio Meth odist [place] POC GLUCOSE 2020-04-09 22:17:00 Gracie Julio Meth odist [place] POC GLUCOSE 2020-04-09 17:04:00 Gracie Julio Meth odist [place] POC GLUCOSE 2020-04-09 14:04:00 Gracie Julio Meth odist [place] POC GLUCOSE 2020-04-09 09:43:00 Gracie Julio Meth odist [place] BASIC METABOLIC PANEL 2020-04-09 04:26:00 Eloise Tyler Mandaen Julian HC COMPLETE BLD COUNT 2020-04-09 04:26:00 Eloise Tyler W/AUTO DIFF Julian ESTIMATED GFR 2020-04-09 04:26:00 Eloise Tyler Meth odist Julian POC GLUCOSE 2020-04-08 22:23:00 Eloise Tyler Meth odist Julian POC GLUCOSE 2020-04-08 21:48:00 Eloise Tyler Meth odist Julian POC GLUCOSE 2020-04-08 21:12:00 Eloise Tyler Meth odist Julian POC GLUCOSE 2020-04-08 18:44:00 Eloise Tyler Meth odist Julian POC GLUCOSE 2020-04-08 16:43:00 Eloise Tyler Meth odist Julian CT ANGIOGRAM ABDOMEN PELVIS 2020-04-08 16:04:06 Eloise Tyler W AND OR WO CONTRAST Julian LACTIC ACID LEVEL 2020-04-08 13:44:00 Eloise Tyler Me thodist Julian POC GLUCOSE 2020-04-08 12:14:00 Eloise Tyler Meth odist Julian POC GLUCOSE 2020-04-08 09:04:00 Eloise Tyler Meth odist Julian CT ABDOMEN PELVIS W 2020-04-08 08:36:39 Harmony Davenport CONTRAST CBC WITH PLATELET AND 2020-04-08 05:08:00 Marybel Thomason Mandaen DIFFERENTIAL COMPREHENSIVE METABOLIC 2020-04-08 05:08:00 Marybel Thomason Mandaen PANEL ESTIMATED GFR 2020-04-08 05:08:00 Marybel Thomason BetinaRosalio Strong Me thodist POC GLUCOSE 2020-04-07 21:46:00 Jayson Eloise Tae Meth odist Julian POC GLUCOSE 2020-04-07 16:43:00 Jayson Eloise Strong Meth odist Julian POC GLUCOSE 2020-04-07 14:02:00 Jayson Eloise Strong Meth odist Julian POC GLUCOSE 2020-04-07 12:35:00 Jayson Eloise Strong Meth odist Julian POC GLUCOSE 2020-04-07 08:31:00 Jayson Eloise Strong Meth odist Julian POC GLUCOSE 2020-04-07 06:28:00 Jayson Eloise Tae Meth odist Julian CBC WITH PLATELET AND 2020-04-07 05:25:00 Marybel Thomason Mandaen DIFFERENTIAL COMPREHENSIVE METABOLIC 2020-04-07 05:25:00 Marybel Thomason Mandaen PANEL ESTIMATED GFR 2020-04-07 05:25:00 Marybel Thomason Me thodist MANUAL DIFFERENTIAL 2020-04-07 05:25:00 Marybel Thomason Mandaen POC GLUCOSE 2020-04-06 22:49:00 Eloise Tyler Meth odist Julian POC GLUCOSE 2020-04-06 21:42:00 Eloise Tyler Meth odist Julian POC GLUCOSE 2020-04-06 18:08:00 Eloise Tyler Meth odist Julian BLOOD CULTURE, AEROBIC & 2020-04-06 12:40:00 Cynthia Shaver ANAEROBIC Mela Pacheco BLOOD CULTURE, AEROBIC & 2020-04-06 12:30:00 Cynthia Shaver ANAEROBIC Mela Pacheco URINE CULTURE 2020-04-06 12:18:00 Tae Shaver CLOSTRIDIUM DIFFICILE TOXIN 2020-04-06 12:13:00 Tae Shaver URINALYSIS SCREEN AND 2020-04-06 12:13:00 Lavell Shaver MICROSCOPY, WITH REFLEX TO Mela Pacheco CULTURE POC GLUCOSE 2020-04-06 11:00:00 Eloise Tyler Meth odist Julian HEMOGLOBIN A1C 2020-04-06 10:49:00 Marybel Thomason Me thodist POC GLUCOSE 2020-04-06 08:57:00 Eloise Tyler Meth odist Julian CBC WITH PLATELET AND 2020-04-06 04:11:00 Marybel Thomason Mandaen DIFFERENTIAL MANUAL DIFFERENTIAL 2020-04-06 04:11:00 Marybel Thomason Mandaen COMPREHENSIVE METABOLIC 2020-04-06 04:00:00 Marybel Thomason Mandaen PANEL ESTIMATED GFR 2020-04-06 04:00:00 Marybel Thomason Me thodist COVID-19 QUALITATIVE PCR 2020-04-05 23:15:00 Marybel Thomasonston Mandaen POC GLUCOSE 2020-04-05 22:47:00 Eloise Tyler Meth odist Julian XR CHEST 1 VW PORTABLE 2020-04-05 21:47:21 Marybel Thomason Mandaen CBC WITH PLATELET AND 2020-04-05 21:36:00 Marybel Thomason Mandaen DIFFERENTIAL COMPREHENSIVE METABOLIC 2020-04-05 21:36:00 Marybel Thomason Mandaen PANEL PROTHROMBIN TIME WITH INR 2020-04-05 21:36:00 Marybel Thomason Mandaen PARTIAL THROMBOPLASTIN TIME 2020-04-05 21:36:00 Marybel Thomason (PTT) TROPONIN 2020-04-05 21:36:00 Marybel Thomason Me thodist B NATRIURETIC PEPTIDE 2020-04-05 21:36:00 Marybel Thomason Mandaen MYOGLOBIN 2020-04-05 21:36:00 Marybel Thomason Me thodist PROCALCITONIN 2020-04-05 21:36:00 Marybel Thomaosn Me thodist IGG SUBCLASSES 2020-04-05 21:36:00 Marybel Thomason Me thodist CREATINE KINASE, TOTAL 2020-04-05 21:36:00 Marybel Thomasonmichael Barriga (CPK) C-REACTIVE PROTEIN 2020-04-05 21:36:00 Marybel Thomason Mandaen INTERLEUKIN 6 2020-04-05 21:36:00 Marybel Thomason Me thodist FERRITIN LEVEL 2020-04-05 21:36:00 Marybel Thomason Me thodist D-DIMER 2020-04-05 21:36:00 Marybel Thomason Me thodist LDH 2020-04-05 21:36:00 Marybel Thomason Me thodist TRIGLYCERIDES 2020-04-05 21:36:00 Marybel Thomason Ms thodist LACTATE DEHYDROGENASE (LD) 2020-04-05 21:36:00 Marybel Thomason Mandaen ISOENZYMES FIBRINOGEN 2020-04-05 21:36:00 Marybel Thomason Me thodist TYPE AND SCREEN 2020-04-05 21:36:00 Marybel Thomason Ms thodist ESTIMATED GFR 2020-04-05 21:36:00 Marybel Thomason Me thodist MANUAL DIFFERENTIAL 2020-04-05 21:36:00 Marybel ThomasonRosalio Barriga ECG 12-LEAD 2020-04-05 21:18:20 Marybel Thomason Me thodist POC GLUCOSE 2020-04-03 18:05:00 Gracie Julio odlexie [place] POC GLUCOSE 2020-04-03 11:47:00 Gracie Julio Meth odist [place] POC GLUCOSE 2020-04-03 09:23:00 Gracie Julio odlexie Rodarte HC COMPLETE BLD COUNT 2020-04-03 04:45:00 Gracie Julio W/AUTO DIFF [place] BASIC METABOLIC PANEL 2020-04-03 04:45:00 Gracie Julio ESTIMATED GFR 2020-04-03 04:45:00 NoriGracie cisneros Meth odist [place] POC GLUCOSE 2020-04-02 20:56:00 Gracie Julio Meth odist [place] POC GLUCOSE 2020-04-02 17:02:00 Gracie Julio Meth odist [place] POC GLUCOSE 2020-04-02 12:07:00 Gracie Julio Meth odist [place] POC GLUCOSE 2020-04-02 08:04:00 Dario Breana Strong Meth odist POC GLUCOSE 2020-04-02 04:50:00 Dario Breana Santana odist HC COMPLETE BLD COUNT 2020-04-02 04:45:00 Breana Bishop W/AUTO DIFF TYPE AND SCREEN 2020-04-02 04:45:00 Dario Breana Strong Meth odist BASIC METABOLIC PANEL 2020-04-02 04:37:00 Breana Bishop ESTIMATED GFR 2020-04-02 04:37:00 Dario Breana Strong Meth odist POC GLUCOSE 2020-04-02 02:38:00 DarioBreana Meth odist POC GLUCOSE 2020-04-02 00:39:00 Dario Breana Strong Meth odist POC GLUCOSE 2020-04-01 22:29:00 Dario Breana Strong Meth odist POC GLUCOSE 2020-04-01 20:55:00 DarioBreana Meth odist POC GLUCOSE 2020-04-01 18:58:00 Dario Breana Strong Meth odist POC GLUCOSE 2020-04-01 18:37:00 Ariel Jeandebbie Strong Met hodist Natvarlal POC GLUCOSE 2020-04-01 16:32:00 Ariel Jeanhernanreena Strong Met hodist Natvarlal POC GLUCOSE 2020-04-01 14:34:00 Dwaine Jean Met hodist Natvarlal POC GLUCOSE 2020-04-01 11:59:00 Dwaine Jean Met hodist Natvarlal POC GLUCOSE 2020-04-01 11:23:00 Dwaine Jean Met hodist Natvarlal POC GLUCOSE 2020-04-01 10:31:00 Dwaine Jean Met hodist Natvarlal POC GLUCOSE 2020-04-01 07:24:00 Dwaine Jean Met hodist Natvarlal HC COMPLETE BLD COUNT 2020-04-01 05:15:00 Dwaine Jean on Mandaen W/AUTO DIFF Natvarlal COMPREHENSIVE METABOLIC 2020-04-01 05:15:00 Dwaine Jean Cynthia khoury Mandaen PANEL Natvarlal ESTIMATED GFR 2020-04-01 05:15:00 Dwaine Jean Met hodist Natvarlal POC GLUCOSE 2020-03-31 21:00:00 Dwaine Jean Met hodist Natvarlal POC GLUCOSE 2020-03-31 17:15:00 Dwaine Jean Met hodist Natvarlal IR PORT PLACEMENT 2020-03-31 15:49:00 Christiano Harmony Strong Me thodist POC GLUCOSE 2020-03-31 14:25:00 Dwaine Jean Met hodist Natvarlal POC GLUCOSE 2020-03-31 07:56:00 Dwaine Jean Met hodist Natvarlal COMPREHENSIVE METABOLIC 2020-03-31 06:14:00 Dwaine Jeanmichael khoury Mandaen PANEL Natvarlal LIPASE LEVEL 2020-03-31 06:14:00 Dwaine Jean Met hodist Natvarlal ESTIMATED GFR 2020-03-31 06:14:00 Dwaine Jean Met hodist Natvarlal POC GLUCOSE 2020-03-30 20:56:00 Dwaine Jean Met hodist Natvarlal POC GLUCOSE 2020-03-30 18:33:00 Dwaine Jean Met hodist Natvarlal POC GLUCOSE 2020-03-30 12:25:00 Dwaine Jean Met hodist Natvarlal POC GLUCOSE 2020-03-30 08:02:00 Dwaine Jean Met hodist Natvarlal BASIC METABOLIC PANEL 2020-03-30 04:00:00 Caden Villasenor Mandaen MAGNESIUM LEVEL 2020-03-30 04:00:00 Caden Villasenor Meth odist PHOSPHORUS LEVEL 2020-03-30 04:00:00 Caden Villasenor Met hodist ESTIMATED GFR 2020-03-30 04:00:00 Caden Villasenor Meth odist POC GLUCOSE 2020-03-29 21:21:00 Dwaine Jean Met hodist Natvarlal POC GLUCOSE 2020-03-29 18:36:00 Dwaine Jean Met hodist Natvarlal POC GLUCOSE 2020-03-29 17:17:00 Dwaine Jean Met hodist Natvarlal POC GLUCOSE 2020-03-29 16:38:00 Dwaine Jean Met hodist Natvarlal POC GLUCOSE 2020-03-29 13:10:00 Dwaine Jean Met hodist Natvarlal POC GLUCOSE 2020-03-29 09:48:00 Dwaine Jean Met hodist Natvarlal POC GLUCOSE 2020-03-29 07:38:00 Dwaine Jean Strong Met hodist Natvarlal POC GLUCOSE 2020-03-28 20:55:00 Dwaine Jean Strong Met hodist Natvarlal POC GLUCOSE 2020-03-28 17:56:00 Dwaine Jean Met hodist Natvarlal POC GLUCOSE 2020-03-28 12:09:00 Dwaine Jean Met hodist Natvarlal POC GLUCOSE 2020-03-28 08:11:00 Dwaine Jean Strong Met hodist Natvarlal HC COMPLETE BLD COUNT 2020-03-28 04:31:00 Jean, Dwaine agarwal Mandaen W/AUTO DIFF Natvarlal COMPREHENSIVE METABOLIC 2020-03-28 04:31:00 Dwaine Jean ston Mandaen PANEL Natvarlal ESTIMATED GFR 2020-03-28 04:31:00 Dwaine Jean Strong Met [facility]odist Natvarlal POC GLUCOSE 2020-03-27 20:46:00 JeanDwaine marie Strong Met hodist Natvarlal POC GLUCOSE 2020-03-27 17:42:00 Dwaine Jean Met hodist Natvarlal POC GLUCOSE 2020-03-27 12:52:00 Dwaine Jean Met hodist Natvarlal POC GLUCOSE 2020-03-27 12:50:00 Dwaine Jean Met hodist Natvarlal POC GLUCOSE 2020-03-27 11:09:00 Dwaine Jean Met hodist Natvarlal POC GLUCOSE 2020-03-27 09:13:00 Dwaine Jean Met hodist Natvarlal POC GLUCOSE 2020-03-27 08:05:00 Dwaine Jean Met [facility]odist Natvarlal POC GLUCOSE 2020-03-27 06:05:00 Vaibhav Brown ethodist HC COMPLETE BLD COUNT 2020-03-27 05:00:00 JeanDwaine marie Lisa on Mandaen W/AUTO DIFF Natvarlal AMYLASE LEVEL 2020-03-27 05:00:00 Jus Kade Sumnerchang Strong Eren ethodist LIPASE LEVEL 2020-03-27 05:00:00 Kade Luu Eren ethodist PHOSPHORUS LEVEL 2020-03-27 05:00:00 Caden Villasenor Met hodist MAGNESIUM LEVEL 2020-03-27 05:00:00 Caden Villasenor Meth odist ESTIMATED GFR 2020-03-27 05:00:00 Caden Villasenor Meth odist COMPREHENSIVE METABOLIC 2020-03-27 05:00:00 Caden iVllasenor Mandaen PANEL POC GLUCOSE 2020-03-27 03:51:00 Dwaine Jean Met hodist Natvarlal POC GLUCOSE 2020-03-27 02:08:00 Dwaine Jean Met hodist Natvarlal POC GLUCOSE 2020-03-26 23:55:00 Dwaine Jean Met hodist Natvarlal POC GLUCOSE 2020-03-26 23:08:00 Dwaine Jean Met hodist Natvarlal POC GLUCOSE 2020-03-26 21:58:00 Dwaine Jean Met hodist Natvarlal POC GLUCOSE 2020-03-26 21:05:00 Dwaine Jean Met hodist Natvarlal POC GLUCOSE 2020-03-26 19:48:00 Dwaine Jean Met hodist Natvarlal POC GLUCOSE 2020-03-26 17:34:00 Dwaine Jean Met hodist Natvarlal POC GLUCOSE 2020-03-26 16:36:00 Dwaine Jean Met hodist Natvarlal POC GLUCOSE 2020-03-26 15:39:00 Dwaine Jean Met hodist Natvarlal POC GLUCOSE 2020-03-26 13:35:00 Dwaine Jean Met hodist Natvarlal POC GLUCOSE 2020-03-26 12:38:00 Dwaine Jean Met hodist Natvarlal SURGICAL PATHOLOGY REQUEST 2020-03-26 11:09:00 Dwaine Jean Mandaen Natvarlal POC GLUCOSE 2020-03-26 10:31:00 Dwaine Jean Met hodist Natvarlal POC GLUCOSE 2020-03-26 09:30:00 Dwaine Jean Met hodist Natvarlal POC GLUCOSE 2020-03-26 09:28:00 Dwaine Jean Met hodist Natvarlal FL > 1 HOUR 2020-03-26 09:18:00 Dwaine Jean Met hodist Natvarlal CYTOLOGY 2020-03-26 09:06:00 Vaibhav Brown ethodist (NON-GYNECOLOGICAL) REQUEST CYTOLOGY 2020-03-26 08:34:00 Dwaine Jean Met [facility]odist (NON-GYNECOLOGICAL) REQUEST Natvarlal POC GLUCOSE 2020-03-26 08:33:00 Dwaine Jean Met hodist Natvarlal PA AN ELECTIVE ENDOTRACHEAL 2020-03-26 08:13:16 Guillermo [place] AIRWAY Loretta US UPPER GI TRACT, 2020-03-26 07:53:00 Dax Mendez ethodist ENDOSCOPIC ERCP WITH STENT PLACEMENT 2020-03-26 07:53:00 Dax Mendez uston Mandaen POC GLUCOSE 2020-03-26 07:32:00 Dwaine Jean Met hodist Natvarlal POC GLUCOSE 2020-03-26 05:33:00 Vaibhav Brown ethodist HC COMPLETE BLD COUNT 2020-03-26 04:15:00 Brady Dwaine Gonzalez on Mandaen W/AUTO DIFF Natvarlal PROTHROMBIN TIME WITH INR 2020-03-26 04:15:00 Jory Smith Mandaen Christi VITAMIN D 25 HYDROXY LEVEL 2020-03-26 04:00:00 Stacie Booth Mandaen COMPREHENSIVE METABOLIC 2020-03-26 04:00:00 Brady Dwaine Gonzalezu ston Mandaen PANEL Natvarlal ESTIMATED GFR 2020-03-26 04:00:00 Stacie Booth Met hodist POC GLUCOSE 2020-03-26 03:41:00 Vaibhav Brown ethodist MRI THORACIC SPINE WO 2020-03-26 03:13:00 Dwaine Jean on Mandaen CONTRAST Natvarlal POC GLUCOSE 2020-03-26 02:19:00 Brady Dwaine Strong Met hodist Natvarlal POC GLUCOSE 2020-03-26 00:22:00 Jean, Dwaine Strong Met hodist Natvarlal POC GLUCOSE 2020-03-25 22:17:00 Jean, Dwaine Strong Met hodist Natvarlal POC GLUCOSE 2020-03-25 20:14:00 Brady Amandoreena Strong Met hodist Natvarlal POC GLUCOSE 2020-03-25 18:28:00 Dwaine Jean Met hodist Natvarlal POC GLUCOSE 2020-03-25 17:36:00 Brady Arielhernanreena Strong Met hodist Natvarlal POC GLUCOSE 2020-03-25 16:31:00 Brady Arielhernanreena Strong Met hodist Natvarlal POC GLUCOSE 2020-03-25 15:06:00 Brady Arielhernanreena Strong Met hodist Natvarlal POC GLUCOSE 2020-03-25 14:18:00 Vaibhav Brown ethodist POC GLUCOSE 2020-03-25 13:23:00 Vaibhav Brown ethodist MAGNESIUM LEVEL 2020-03-25 12:00:00 Cristian George ethodist Cindy PHOSPHORUS LEVEL 2020-03-25 12:00:00 Cristian George Mandaen Cindy IONIZED CALCIUM 2020-03-25 12:00:00 Cristian George ethodist Cindy POC GLUCOSE 2020-03-25 11:51:00 Dwaine Jean Met hodist Natvarlal VITAMIN D 1,25 DIHYDROXY 2020-03-25 11:22:00 [facility] LEV[facility], SERUM Natvarlal HEMOGLOBIN A1C 2020-03-25 11:00:00 Dwaine Jean Met hodist Natvarlal POC GLUCOSE 2020-03-25 10:55:00 Dwaine Jean Strong Met hodist Natvarlal POC GLUCOSE 2020-03-25 10:18:00 Dwaine Jean Met hodist Natvarlal LIPID PANEL 2020-03-25 09:16:00 Dwaine Jean Strong Met hodist Natvarlal POC GLUCOSE 2020-03-25 09:02:00 Dwaine Jean Met hodist Natvarlal POC GLUCOSE 2020-03-25 08:29:00 Dwaine Jean Strong Met hodist Natvarlal POC GLUCOSE 2020-03-25 08:01:00 Dwaine Jean Met hodist Natvarlal POC GLUCOSE 2020-03-25 07:27:00 Dwaine Jean Met hodist Natvarlal POC GLUCOSE 2020-03-25 06:42:00 Dwaine Jean Strong Met hodist Natvarlal POC GLUCOSE 2020-03-25 05:52:00 Vaibhav Brown ethodist VENOUS BLOOD GAS 2020-03-25 04:45:00 Tae Wagner Met hodist [place] POC GLUCOSE 2020-03-25 04:40:00 Vaibhav Brown ethodist POC GLUCOSE 2020-03-25 03:46:00 Vaibhav Brown ethodist HC COMPLETE BLD COUNT 2020-03-25 03:20:00 Laith Monk W/AUTO DIFF COMPREHENSIVE METABOLIC 2020-03-25 03:20:00 Laith Monk Tae Mandaen PANEL LACTIC ACID LEVEL 2020-03-25 03:20:00 Holger Monkdejah Meehantierney Lisa on Mandaen LIPASE LEVEL 2020-03-25 03:20:00 Holger Monkdejah Meehantierney Tae Mandaen AMYLASE LEVEL 2020-03-25 03:20:00 Laith Monk Eddiehéctor Tae Mandaen CARCINOEMBRYONIC ANTIGEN 2020-03-25 03:20:00 Dax Mendez Mandaen (CEA) CANCER ANTIGEN 19-9 2020-03-25 03:20:00 Dax Mendez Mandaen BETA HYDROXYBUTYRATE 2020-03-25 03:20:00 Tae Wagner Mandaen [place] MAGNESIUM LEVEL 2020-03-25 03:20:00 Tae Wagner Meth odist Santane PHOSPHORUS LEVEL 2020-03-25 03:20:00 Tae Wagner Met hodlexie Waite ESTIMATED GFR 2020-03-25 03:20:00 LachoHolgerdejah Strong Mandaen POC GLUCOSE 2020-03-25 03:09:00 Vaibhav Brown ethodist POC GLUCOSE 2020-03-25 01:47:00 Dwaine Jean Met hodist Natvarlal POC GLUCOSE 2020-03-25 00:38:00 Dwaine Jean Met hodist Natvarlal URINE CULTURE 2020-03-25 00:25:00 Vaibhav Brown ethodist URINALYSIS SCREEN AND 2020-03-25 00:25:00 Vaibhav Brown Mandaen MICROSCOPY, WITH REFLEX TO CULTURE POC GLUCOSE 2020-03-24 23:43:00 Dwaine Jean Met hodist Natvarlal BASIC METABOLIC PANEL 2020-03-24 23:28:00 Dwaine Jean on Mandaen Natvarlal ESTIMATED GFR 2020-03-24 23:28:00 Dwaine Jean Met hodist Natvarlal POC GLUCOSE 2020-03-24 22:35:00 Vaibhav Brown ethodist US GALLBLADDER 2020-03-24 21:30:00 Evelyn Andrea Meth odist [place] POC GLUCOSE 2020-03-24 21:26:00 Dwaine Jean Met jama Natsrinivas PA CRITICAL CARE, E/M 30-74 2020-03-24 21:19:39 Evelyn Andrea MINUTES [place] LACTIC ACID LEVEL, SEPSIS - 2020-03-24 21:09:00 Evelyn Andrea NOW AND REPEAT 2X EVERY 3 [place] HOURS BASIC METABOLIC PANEL 2020-03-24 20:13:00 Vaibhav Brown ESTIMATED GFR 2020-03-24 20:13:00 Vaibhav Brown ethodist POC GLUCOSE 2020-03-24 20:12:00 Dwaine Jean Met jama Natvarlal POC GLUCOSE 2020-03-24 19:15:[address] ABDOMEN PELVIS W 2020-03-24 18:51:40 Evelyn Andrea CONTRAST [place] XR CHEST 1 VW PORTABLE 2020-03-24 17:54:30 Evelyn Andreaist [place] POC GLUCOSE 2020-03-24 17:43:00 Vaibhav Brown ethodist POC GLUCOSE 2020-03-24 17:21:00 Vaibhav Brown ethodist LACTIC ACID LEVEL, SEPSIS - 2020-03-24 17:17:00 Evelyn Andrea NOW AND REPEAT 2X EVERY 3 [place] HOURS MAGNESIUM LEVEL 2020-03-24 17:17:00 Evelyn Andrea odist [place] PHOSPHORUS LEVEL 2020-03-24 17:17:00 Evelyn Andrea Met jama [place] HEMOGLOBIN A1C 2020-03-24 17:17:00 Evelyn Andrea odist [place] BLOOD CULTURE, AEROBIC & 2020-03-24 17:00:00 Evelyn Andrea ANAEROBIC [place] POC GLUCOSE 2020-03-24 16:35:00 Vaibhav Brown ethodist LACTIC ACID LEVEL, SEPSIS - 2020-03-24 16:31:00 Evelyn Andrea NOW AND REPEAT 2X EVERY 3 [place] HOURS BETA HYDROXYBUTYRATE 2020-03-24 16:31:00 Evelyn Andrea VENOUS BLOOD GAS 2020-03-24 16:31:00 Evelyn Andrea ECG 12-LEAD 2020-03-24 16:23:40 Vaibhav Brown ethodist HC COMPLETE BLD COUNT 2020-03-24 15:05:00 Vaibhav Brown W/AUTO DIFF COMPREHENSIVE METABOLIC 2020-03-24 15:05:00 Vaibhav Brown [place] Manda[place] PANEL LIPASE LEVEL 2020-03-24 15:05:00 Vaibhav Brown ethodist ESTIMATED GFR 2020-03-24 15:05:00 Vaibhav Brown T CELL LYMPHOCYTE SUBSET 2020-03-18 09:59:00 Leoncio Uribe Mandaen PANEL 4 CBC WITH PLATELET AND 2020-03-18 09:59:00 Leoncio Uribe Mandaen DIFFERENTIAL COMPREHENSIVE METABOLIC 2020-03-18 09:59:00 Leoncio Uribe Mandaen PANEL HIV 1 RNA, QUANTITATIVE 2020-03-18 09:59:00 Leoncio Uribe REAL TIME PCR LIPID PANEL 2020-03-18 09:59:00 Leoncio Uribe odlexie Plan of Care Planned Activity Planned Date Details Comments Source Future Scheduled 2023-03-26 Screening for [facility] thodist Test 00:00:00 malignant neoplasm of cervix (procedure) [code = 677302141] Future Scheduled 2020-05-23 [place] VACCINE [place] 00:00:00 [code = INFLUENZA VACCINE] Future Scheduled 2008 BREAST CANCER [facility] thodist Test 00:00:00 SCREENING [code = BREAST CANCER SCREENING] Future Scheduled 2008 COLONOSCOPY SCREENING [facility] Mandaen Test 00:00:00 [code = COLONOSCOPY SCREENING] Future Scheduled 2008 SHINGLES VACCINES [place] Test 00:00:00 (#1) [code = SHINGLES VACCINES (#1)] Future Scheduled 1968 DIABETIC FOOT EXAM [place]anda[place] Test 00:00:00 [code = DIABETIC FOOT EXAM] Future Scheduled 1958 DIABETIC RETINAL EYE Cynthia ston Mandaen Test 00:00:00 EXAM [code = DIABETIC RETINAL EYE EXAM] Encounters Start End Encounter Admission Attending Care Care Encounter Source Date/Time Date/Time Type Type Clinicians Facility Department ID 2020-04-05 2020-04-15 Inpatient MCCARTAN, [facility] [id number] [place] 00:00:00 00:00:00 ELOISE [address] 2020-04-04 2020-04-04 Outpatient DAVENPORT, [facility] [id number] [place] 00:00:00 00:00:00 HARMONY [address] 2020-03-24 2020-04-03 Inpatient NORI, [facility] 012 [id number] [place] 00:00:00 00:00:00 GRACIE [address] Results Test Description Test Time Test Comments Results Result Comments Source POC glucose 2020-04-15 14:31:28 Test Item Value Reference Range Interpretation [facility]me [facility] POC glucose (test code = 194 mg/dL 65-99 H Ope rator Name: Anant Quispe 94884-6) ID: [id number] hartable: REPLACED BY [facility] Notified cmm programmer Interpretation (test code = Abnormal 37565-0) [place] [id number] 13:30:36Keysha Canas MD 04/15/2020 1:31 PMAirwayDate/Time: 04/15/2020 1:30 PMPerformed by: Keysha Canas MDAuthorized by: Keysha Canas MD Location: ORUrgency: ElectiveDifficult Airway: No Anesthesiologist: Keysha Canas, MDPerformed by: anesthesiologistPreoxygenated with 100% O2: Yes C-spine Precautions Maintained Throughout: Yes Mask Ventilation: Not attemptedFinal Airway Type: Endotracheal airwayFinal Endotracheal Airway: ETTCuffed: Yes Technique Used: Direct laryngoscopyDevices/Methods Used in Placement: Intubating styletInsertion Site: OralBlade Type: MillerLaryngoscope Blade/Videolaryngoscope Blade Size: 2ETT Size (mm): 7.0Cuff at minimum occlusion pressure: Yes Measured from: TeethETT to Teeth (cm): 20Placement Verified by: CO2 detection, direct visualization and equal breath sounds Laryngoscopic view: Grade I - full view of glottisRapid Sequence Induction (RSI): No Modified RSI: No Number of Attempts at Approach: 1 THIS CASE OCCURRED DURING THECOVID PANDEMIC. GUMS, TEETH PROTECTED. DENTITION UNCHANGED. Strong MethodistBasic metabolic [id number] 07:37:53 Test Item Value Reference Range Interpretation Comments Sodium (test code = 2951-2) 141 135- 148 mEq/L Potassium (test code = 2823-3) 3.5 3.5- 5.0 mEq/L Chloride (test code = 2075-0) 106 98- 112 mEq/L CO2 (test code = 2027-9) 21 24- 31 mEq/L L Anion gap (test code = 75846-1) 14@ANIO 7- 15 mEq/L BUN (test code = 3094-0) 5 mg/dL 8-23 L Creatinine (test code = 2160-0) 0.55 mg/dL 0.5-0.9 Glucose (test code = 2345-7) 94 mg/dL 65-99 Calcium (test code = 17015-3) 7.9 mg/dL 8.8-10.2 L Lab Interpretation (test code = Abnormal 71370-3) Strong MethodistEstimated [id number] 07:37:52 Test Item Value Reference Range Interpretation Comments Estimated GFR (test >=90 mL/min/1.73 m2 Caterg ory Units code = 5488) InterpretationG 1 >=90 Normal or highG2 60-89 Mildly njsifpskdS6k 45-59 Mildly to mode rately rdbjsghlyW7r 30-44 Moderately to severely decreasedG4 15-29 Severely decre asedG5 <15 Kidn ey failureThe eGFR was calculated layo g the Chronic Kidney Disease Epidemiology Co llaboration (CKD-EPI) equat ion. Interpretation is based on recommendations of the National Kidney Foundation-Kidn ey Disease Outcomes Qualit y Initiative (NKF-KDOQI) pub lished in 2014. Tae MethodistPartial thromboplastin time, [id number] 06:32:29 Test Item Value Reference Range Interpretation Comments PTT (test code = 39.3 23.0- 36.0 sec H PTT thera peutic range 04812-3) for unfractiona haim heparin is61.0- 112.0 seconds which corresponds to Anti-Xa0.3-0.7 U/ml. Lab Interpretation Abnormal (test code = 80605-6) Tae MethodistCBC with platelet and [id number] 06:19:20 Test Item Value Reference Range Interpretation Comments WBC (test code = 99353-5) 10.99 4.50- 11.00 k/uL RBC (test code = 32880-5) 4.05 m/uL 4.2-5.5 L HGB (test code = 718-7) 11.8 g/dL 12-16 L HCT (test code = 4544-3) 37.5 % 37-47 MCV (test code = 787-2) 92.6 fL 82-100 MCH (test code = 785-6) 29.1 pg 27-34 MCHC (test code = 786-4) 31.5 g/dL 31-37 RDW - SD (test code = 45.7 fL 37-55 86045-8) MPV (test code = 00938-0) 9.3 fL 8.8-13.2 Platelet count (test code 288 150- 400 k/uL = 81551-6) Nucleated RBC (test code 0.00 /100 WBC = 41758-1) Neutrophils (test code = 62.4 % 39-69 24218-2) Lymphocytes (test code = 24.0 % 25-45 L 41562-1) Monocytes (test code = 9.3 % 0-10 08993-7) Eosinophils (test code = 2.8 % 0-5 99212-6) Basophils (test code = 0.5 % 0-1 61742-5) Immature granulocytes 1.0 % 0-1 "Immat ure (test code = 77833-2) granul ocytes" (promyelocytes, myelocytes, metamyelocytes) Lab Interpretation (test Abnormal code = 61616-9) Tae MethodistPotassium [id number] 15:28:20 Test Item Value Reference Range Interpretation Comments Potassium (test code = 2823-3) 3.4 3.5- 5.0 mEq/L L Lab Interpretation (test code = Abnormal 53888-8) Tae MethodistMagnesium [id number] 06:11:07 Test Item Value Reference Range Interpretation Comments Magnesium (test code = 78935-9) 1.6 mg/dL 1.6-2.4 [facility] [id number] 05:29:25 Test Item Value Reference Range Interpretation Comments WBC (test code = 03846-9) 10.25 4.50- 11.00 k/uL RBC (test code = 40065-5) 3.97 m/uL 4.2-5.5 L HGB (test code = 718-7) 11.6 g/dL 12-16 L HCT (test code = 4544-3) 36.9 % 37-47 L MCV (test code = 787-2) 92.9 fL 82-100 MCH (test code = 785-6) 29.2 pg 27-34 MCHC (test code = 786-4) 31.4 g/dL 31-37 RDW - SD (test code = 92309-5) 46.4 fL 37-55 MPV (test code = 69663-8) 9.1 fL 8.8-13.2 Platelet count (test code = 284 150- 400 k/uL 23501-9) Nucleated RBC (test code = 0.00 /100 WBC 06986-3) Lab Interpretation (test code = Abnormal 89489-1) Gust[facility] MethodistUrinalysis, automated with gmzdnlesnt1372-12-16 23:47:36 Test Item Value Reference Range Interpretation Comments Color, UA (test code = 5778-6) Yellow Appearance, UA (test code = 5767-9) Clear Specific gravity, UA (test code = 1.011 1.001-1.035 5811-5) pH, UA (test code = 5803-2) 6.0 5.0-8.5 Protein, UA (test code = 14792-3) Negative Negative Glucose, UA (test code = 77002-5) Negative Negative Ketones, UA (test code = 2514-8) 1+ Negative A Bilirubin, UA (test code = 5770-3) Negative Negative Blood, UA (test code = 5794-3) Negative Negative Nitrite, UA (test code = 5802-4) Negative Negative Urobilinogen, UA (test code = <2.0 <2.0 01724-3) Leukocyte esterase, UA (test code = Negative Negative 5799-2) Epithelial cells, UA (test code = 1 /HPF 5787-7) WBC, UA (test code = 5821-4) 2 0- 4 /HPF RBC, UA (test code = 02970-4) 1 0- 5 /HPF Bacteria, UA (test code = 97485-3) None seen None seen Yeast, UA (test code = 35050-6) None seen Yeast with pseudohyphae, UA (test None seen code = 49810-7) Lab Interpretation (test code = Abnormal 05164-4) Strong MethodistAmmonia [id number] 17:57:31 Test Item Value Reference Range Interpretation Comments Ammonia (test code = 1841-6) 29 umol/L 11-51 Guston MethodistLactic acid [id number] 17:16:11 Test Item Value Reference Range Interpretation Comments Lactic acid (test code = 94222-7) 2.2 mmol/L 0.5-2.2 Guston MethodistAnti Xa, low molecular [id number] 05:04:32 Test Item Value Reference Range Interpretation Comments Heparin name (test Lovenox code = 87417-6) Anti Xa, low molecular 0.92 U/mL 0.6-1 Speci men must be drawn weight (test code = at least 4 hours post 04512-0) dose following aminimum of 3 doses.Therapeut ic Range: 0.60 - 1.00 U/mL Guston MethodistBlood culture, aerobic & [id number] 15:03:04 Test Item Value Reference Range Interpretation Comments Blood culture No growth Specimen isolate (test after 5 days InformationSpe [facility] code = 600-7) of Source: BloodS pecimen incubation. Site: Antecubit al, left Guston MethodistCTA Abdomen Pelvis W And Or Wo [id number] 16:21:06Hm Interface, Radiology Results 04/08/2020 4:24 PM CDTEXAMINATION: CT ANGIOGRAM ABDOMENPELVIS W AND OR WO CONTRASTCLINICAL HISTORY: SMA obstructionTECHNIQUE: Multiple CT angiographic images of the abdomen and pelvis were obtained during intravenous administration of contrast. Multiple co mputerized reformatted images as well as 3-D volume rendered images were also obtained. Precontrastimages of the abdomen were also obtained.Automatic exposure control or iterative reconstruction techniques used to reduce dose.COMPARISON: 03/24/2020IMPRESSION:Abdomen/Pelvis:1.Due to CTA technique, fuentes d organs of upper abdomen not fully assessed. Please refer to recent CT abdomen study dated 04/08/2020 regarding findings including pancreatic uncinate process mass with abnormal soft tissue encasing the SMA, and occlusion of the SMV.CTA: 1.Extensive aortoiliac vascular calcifications are noted. No significant underlying aneurysm or stenosis. Celiac axis is patent with mild proximal stenosis. Bilateral renal arteries are patent without significant proximal narrowing.2.SMA is also patent without significant proximal stenosis, despite extensive soft tissue encasement. 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 [facility]-[id number] MethodistCT Abdomen Pelvis W Contrast 2020-04-08 08:56:46Addendum by Barbara Davila MD on 04/08/2020 11:04 AM ADDENDUM #1 Findings ofpossible superior mesenteric artery stenosis or occlusion and recommendation for CT angiogram were discussed by phone with Dr. Davenport by Dr. Davila at 04/08/2020 11:03 AM. [facility], Radiology Results 04/08/2020 8:59 AM CDTEXAMINATION: CT ABDOMEN PELVIS W CONTRASTCLINICAL HISTORY: 59 yearsFemale Abd pain gastroenteritis or colitis suspected, pancreatic adenocarcinoma.TECHNIQUE: Multipleaxial images of the abdomen and pelvis were obtained following intravenous administration of iodinated contrast. Oral contrast was administered. Sagittal and coronal computerized reformatted images were also obtained. CT imaging was performed with iterative reconstruction techniques and/or automated exposure control to reduce radiation dose. COMPARISON: CT abdomen pelvis 03/24/2020, 02/03/2005IMPRESSION:LOWER CHEST:Visualized lower thorax:Lung bases: No significant pleural effusion. Linear atelectasis in the lung bases.Lower mediastinum: Cardiac size is normal. No pericardial effusion. Atherosclerotic coronary calcification. Partially visualized central access catheter at the superior cavoatrial junction.ABDOMEN:Upper abdominal organs: Liver: There is mild focal hypoenhancement in hepatic ubhorfv2D adjacent to the gallbladder fossa, possibly focal fatty deposition, similar to prior. A common bile duct stent is present. Trace pneumobilia within the central hepatic ducts.Gallbladder: Mild gallbladder wall enhancement and edema. Trace pericholecystic fluid. Spleen: Mildly enlarged, measures 13 cm in craniocaudal dimension.Pancreas: Redemonstrated is an ill-defined hypoenhancing mass in the pancreatic head/uncinate process spanning approximately 3.5 x 3.2 cm (series 2, image 61). The mass appears to occlude the portosplenic confluence and superior mesenteric vein, similar to prior. Additionally, there is encasement of the superior mesenteric artery which is attenuated and possibly occluded (sagittal series 602B, image 84), incompletely evaluated on this nonangiographic examination. The superior mesenteric artery reconstitutes distally. Increased peripancreatic inflammatory fat stranding.Adrenal Glands: Normal.Kidneys: 1.4 cm intermediate attenuation lesion in the right anterior superior kidney, likely a cyst. No hydronephrosis. No renal or ureteral calculi.Bowel and mesentery: Large and small bowel are normal in caliber. There is mild increased mesenteric inflammatory fat stranding throughout the small bowel mesentery extending into the right paracolic gutter. No significant ascites. Nofree intraperitoneal gas.Vasculature: Abdominal aorta is of normal caliber. As previously noted, panc reatic mass occludes the portal splenic confluence and central superior mesenteric vein. There is also suspected increased encasement of the superior mesenteric artery with possible severe stenosis or occlusion of the superior mesenteric artery (series 2, image 63). Moderate calcified and non-calcified atherosclerotic disease of the abdominal aorta and branch vessels.Lymph nodes: No abdominal or retroperitoneal lymphadenopathy. PELVIS:Urinary bladder: Normal.Lymph nodes: No pelvic lymphadenopathy.MUSCULOSKELETAL: No suspicious lytic or blastic osseous lesions. The superficial soft tissues are unremarkable. Age appropriate degenerative changes of the spine.SUMMARY:1. 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 Increased peripancreatic and mes enteric inflammatory fat stranding may be sequela of pancreatitis, treatment- related changes, or mesenteric ischemia from superior mesenteric artery stenosis/occlusion. Further evaluation with CT angiogram of the abdomen and pelvis and correlation with serum lactate is recommended, if indicated clinica lly.Examination added to critical results queue for report receipt tracking. 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 Davila at 04/08/2020 8:45 AM.[facility]-[id number] MethodistComprehensive metabolic [id number] 06:42:47 Test Item Value Reference Range Interpretation Comments Sodium (test code = 135 135- 148 mEq/L 2951-2) Potassium (test code = 3.4 3.5- 5.0 mEq/L L 2823-3) Chloride (test code = 99 98- 112 mEq/L 2075-0) CO2 (test code = 2027-9) 25 24- 31 mEq/L Anion gap (test code = 11@ANIO 7- 15 mEq/L 11825-0) BUN (test code = 3094-0) 6 mg/dL 8-23 L Creatinine (test code = 0.46 mg/dL 0.5-0.9 L 2160-0) Glucose (test code = 132 mg/dL 65-99 H 2345-7) Calcium (test code = 8.4 mg/dL 8.8-10.2 L 87747-0) Protein (test code = 6.0 g/dL 6.3-8.3 L -[place] n 2885-2) 4.6-7.0 g/dL1 week 4.4-7 .6 g/dL7 months-1y ear 5.1-7 .3 g/dL1-2 years 5.6-7 .5 g/dL>3 years 6.0-8 .0 g/jP35-538 6.3-8 .3 g/dL Albumin (test code = 2.2 g/dL 3.5-5 L 1751-7) A/G ratio (test code = 0.6 0.7-3.8 L 1759-0) Alkaline phosphatase 240 U/L 35-104 H (test code = 6768-6) AST (test code = 1920-8) 18 U/L 10-35 ALT (test code = 1742-6) 22 U/L 5-50 Total bilirubin (test 0.5 mg/dL 0-1.2 code = 1975-2) Lab Interpretation (test Abnormal code = 24380-5) Strong MethodistLactate dehydrogenase (LD) escampopcm9032-82-63 00:50:01 Test Item Value Reference Range Interpretation Comments LD total (test code = 223 U/L 105-230 [place] [address]-0) Hemolyzed. This may cause the resul ts to be falsely increased. LD-1 (test code = 2536-1) 13 % 14-27 L LD-2 (test code = 2539-5) 27 % 29-42 L LD-3 (test code = 2542-9) 21 % 18-30 LD-4 (test code = 2545-2) 12 % 8-15 LD-5 (test code = 2548-6) 27 % 6-23 H Pe rformed by [facility], [address] [place] [id number] [email or web address] , Brandan Jack MD - Lab. Director Lab Interpretation (test Abnormal code = 90704-5) [facility] hbskrgcagg3288-77-80 16:01:20 Test Item Value Reference Range Interpretation Comments Immunoglobulin G 397 mg/dL 240-1118 REFERENCE I NTERVAL: subclass 1 (test code Immuno globulin G = 2466-1) Subclass 1Acces s complete set of age- and/or gender-s pecific reference inter vals for this test i n the [facility] Test Directory (gamigo). Immunoglobulin G 175 mg/dL 124-549 REFERENCE I NTERVAL: subclass 2 (test code Immuno globulin G = 2467-9) Subclass 2Acces s complete set of age- and/or gender-s pecific reference inter vals for this test i n the [facility] (gamigo). Immunoglobulin G 46 mg/dL 21-134 REFERENCE I NTERVAL: subclass 3 (test code Immuno globulin G = 2468-7) Subclass 3Acces s complete set of age- and/or gender-s pecific reference inter vals for this test i n the [facility] Test [facility] (gamigo). Immunoglobulin G 13 mg/dL 1-123 The total I gG (mg/dL) subclass 4 (test code can be derived by the = 2469-5) sum of the subc lasses IgG1, IgG2, IgG 3 and IgG4 values. Carlos johnston, a confirmatory and more precise to trev IgG is available by the nephelometric m ethod of total IgG (T est # [id number]).REFER ENCE INTERVAL: Immunoglobulin G Subclass 4Acces s complete set of age- and/or gender-s pecific reference inter vals for this test i n the [facility] Test Directory (gamigo).Dinorah chowdary by [facility],[address] [place], [place] [address] cld .[email or web address].[facility], Brandan Cantu MD, Lab. Direct or Tae MethodistManual hevrgkfnwjle2360-31-84 10:08:49 Test Item Value Reference Range Interpretation Comments Manual differential (test code = PERFORMED 62585-5) Neutrophils (test code = 82.0 % 39-69 H 48876-3) Lymphocytes (test code = 13.0 % 25-45 L 00179-2) Monocytes (test code = 95326-5) 4.0 % 0-10 Eosinophils (test code = 1.0 % 0-5 71812-1) Basophils (test code = 27375-8) 0.0 % 0-1 Metamyelocytes (test code = 0 % 740-1) Promyelocytes (test code = 0 % 783-1) Platelet slide review (test code Joanna adequate = 68029-8) Anisocytosis (test code = 702-1) Moderate Lab Interpretation (test code = Abnormal 57456-9) Guston JnpuvmfciXegqubbuswyny1661-64-18 08:42:01 Test Item Value Reference Interpretation Comments Range Procalcitonin 0.08 ng/mL <=0.07 H INTERPRETIVE I NFORMATION: (test code = ProcalcitoninPr ocalcitonin > 31011-6) 2.00 ng/mL: Pr ocalcitonin levels above 2. 00 ng/mL on the first day of ICU admission repre sent a high risk for progre ssion to severe sepsis a nd/or septic shock.Procalcit onin < 0.50 ng/mL: Procalc itonin levels below 0.50 ng/m L on the first day of ICU adm ission represent a low risk for progression to severe sepsis and/or septic s hock.If the procalcitonin m easurement is performed short ly after the systemic infect ion process has started (us ually less than 6 hours), these values may still be lo w. As various non-infectious conditions are known to induce procalcitonin as well, procal citonin levels between 0.5 ng/ mL and 2.00 ng/mL should be reviewed carefully to ta ke into account the [facility] clinical background and condition(s) of the huiu al patient.Perform ed at: [facility] [address] [facility] [address] Lab Interpretation Abnormal (test code = 56765-9) [facility] difficile agzas0543-91-69 01:02:03 Test Item Value Reference Interpretation Comments Range Clostridium No Clostridium Specimen difficile toxin difficle toxin Informatio nSpecimen (test code = present Source: StoolSp ecimen 1085) Site: Nonpreser alee Guston MethodistUrinalysis screen and microscopy, with reflex to culture 2020-04-06 16:22:44 Test Item Value Reference Range Interpretation Comments Specimen site (test code = Random void 0158795) Color, UA (test code = 5778-6) Straw Appearance, UA (test code = Clear 5767-9) Specific gravity, UA (test code = 1.010 1.001-1.035 5811-5) pH, UA (test code = 5803-2) 6.0 5.0-8.5 Protein, UA (test code = 41992-8) Negative Negative Glucose, UA (test code = 72032-4) 3+ Negative A Ketones, UA (test code = 2514-8) Negative Negative Bilirubin, UA (test code = Negative Negative 5770-3) Blood, UA (test code = 5794-3) Negative Negative Nitrite, UA (test code = 5802-4) Negative Negative Urobilinogen, UA (test code = <2.0 <2.0 17174-8) Leukocyte esterase, UA (test code Negative Negative = 5799-2) Epithelial cells, UA (test code = 4 /HPF 5787-7) WBC, UA (test code = 5821-4) 1 0- 4 /HPF RBC, UA (test code = 35390-9) 1 0- 5 /HPF Bacteria, UA (test code = Few None seen 13812-1) Yeast, UA (test code = 58283-2) None seen Yeast with pseudohyphae, UA (test None seen code = 24216-6) Lab Interpretation (test code = Abnormal 07984-5) Tae OdonnellistUrine jyzpqaj4732-82-62 16:03:24 Test Item Value Reference Range Interpretation Comments Urine culture (test SEE COMMENT Bacteriu jeff screen code = 1941460) negative. Tae OdonnellistInterleukin 15:42:36 Test Item Value Reference Range Interpretation Comments Interleukin 6 (test 52 pg/mL 0-5 H This jennifer t was developed code = 28136-6) and its perf ormance characteristics determined by arun reyes Department of P athology and [facility] critical access hospital, [facility]. Inter leukin 6 is tested by simplify[employer] Access 2 by one-step immunoenzymatic assay. It has not been cleared or approved by FDA. The laboratory is r egulated under CLIA as q ualified to perform high-complexity testing. This t est is used for clinic al purposes. It sh ould not be regarded as investigational or for research. Lab Interpretation Abnormal (test code = 34715-5) Tae BarrigaHemoglobin [id number] 12:11:29 Test Item Value Reference Range Interpretation Comments Hemoglobin A1C (test 12.2 % 4-5.6 H HbA1c c utoffs for code = 36816-5) diagnosing diabetes:4.0% - 5.6% = normal5.7% - 6.4% = increased risk for diabetes (prediabetes)9> =6.5% = skdlhokg8Akfa s for glycemic contro l (ADA 2016)< 7.0% Ta rget for non adults with peg betes. More or less stringent targe ts may be appropriate for individual didier ents. <7.5% Target for Children and adolescents wit h type 1 diabetes. Lab Interpretation (test Abnormal code = 07932-2) Strong BlasistCOVID-19 qualitative [id number] 04:35:13 Test Item Value Reference Range Interpretation Comments Interpretation (test Negative results do code = 8098017) not preclude 2019-nCoV infection and should not be used as the sole basis for treatment or other patient management decisions. Negative results must be combined with clinical observations, patient history, and epidemiological information. COVID-19 qualitative Not-Detected Not-Detected PCR result (test code = 34034-3) COVID-19 qualitative See link below for C ase Number: PCR (test code = PDF Lab Report [id number]) Guston MethodistType and hdvprz8930-88-03 23:09:00 Test Item Value Reference Range Interpretation Comments ABO grouping (test code = 883-9) O Rh type (test code = 99909-6) POS Antibody screen (gel) (test code = NEG 890-4) Guston OfltqgwbgNypfkdrsb3475-41-44 22:57:36 Test Item Value Reference Range Interpretation Comments Myoglobin (test code = 2639-3) <21 21-72 A Lab Interpretation (test code = Abnormal 08547-7) Guston MethodistB natriuretic vspqdqq5287-96-27 22:52:03 Test Item Value Reference Range Interpretation Comments BNP (test code = 21596-4) 100 pg/mL 0-100 Guston XlflfsrghGpewxyvn4815-74-14 22:51:48 Test Item Value Reference Range Interpretation Comments Troponin (test code 0.006 ng/mL 0-0.04 In patie nts suspected = 92705-0) of having a leigh cardial infarction, boo gee with all other appro priate clinical measur es and actions includi ng ECG and other diagn ostics as appropriate, measure Ultra TnI at 0 hrs and at 3 hrs.Myocar dial infarction VERY LIKELYThe 0 hr TnI level is > 0.10 ng/mL -------- -------- -------- --------Myocard ial infarction LIKE LYThe 0 hr TnI level is > 0.04 ng/mL and 3 hr level is increased or de creased by at least 0.0 20 ng/mL -------- -------- -------- ---Myocardial infarction VERY UNLIKELYBoth th e 0 hr and 3 hr TnI le vels <= 0.04 ng/mL(with in normal limits) OR 0 hr is > 0.04 ng/mL and 3 hr is increased OR decreased by le ss than 0.020 ng/mL Guston MethodistFerritin adjtz4330-16-90 22:50:46 Test Item Value Reference Range Interpretation Comments Ferritin level (test code = 2276-4) 538 ng/mL 13-150 H Lab Interpretation (test code = Abnormal 51817-3) Srtong TbqlvadivWRK9982-25-02 22:43:51 Test Item Value Reference Range Interpretation Comments LDH (test code = 46599-6) 304 U/L 87-225 H Lab Interpretation (test code = Abnormal 99556-3) Guston ClmwjnqjbBkswjdqnmntjz1376-57-91 22:43:51 Test Item Value Reference Range Interpretation Comments Triglycerides (test code = 2571-8) 107 mg/dL <150 Guston BlasistC-reactive wcgqzba7938-72-22 22:43:51 Test Item Value Reference Range Interpretation Comments CRP (test code = 1988-5) 4.32 mg/dL 0-0.5 H Lab Interpretation (test code = Abnormal 72860-5) Guston MethodistCreatine kinase, total (CPK)2020-04-05 22:43:49 Test Item Value Reference Range Interpretation Comments Creatine kinase (test code = 2157-6) 76 U/L 26-192 Guston ZirwtjkkvBahuixxbme5329-01-88 22:36:01 Test Item Value Reference Range Interpretation Comments Fibrinogen (test code = 85087-4) 550 mg/dL 200-450 H Lab Interpretation (test code = Abnormal 13743-2) Guston UbfhchkqrB-zyrfi3642-57-14 22:34:09 Test Item Value Reference Range Interpretation Comments D-dimer (test code = 0.97 0.00- 0.40 ug/mL H Uni ts are ug/ml 22759-6) FEU Fibrinogen Equivalent Unit .When combined with l ow clinical probability, D- dimer results of less than 0.5 ug/ml FEU h ave a good negative predictive valu e in excluding PE or DVT. For D-dimer re sults greater than 0. 5 ug/ml FEU furth er testing is [place] cated if PE or DVT is suspected clinically.Elev ated D-dimer results have been reported i n DVT, PE, and DI C cases and may indicate the presence of a c lot. D-dimer results may be elevated due to old age, pregna ncy, inflammatory diseases, traum a, post-operative states, sepsis, and malignancies. Lab Interpretation Abnormal (test code = 52788-0) Strong MethodistProthrombin time with [id number] 22:30:59 Test Item Value Reference Range Interpretation Comments Prothrombin time (test 14.0 11.5- 14.5 sec code = 5902-2) INR (test code = 1.1 [facility] 28424-9) Normalized Rati o (INR) is a therapeutic m onitoring tool for patien ts who are stable on oral anticoagulant t herapy. An INR of 2.0-3.0 is suggested for d eep vein thrombosis/pulm onary embolism. Strong MethodistECG 12 hgjw6616-37-39 22:10:04 Test Item Value Reference Range Interpretation Comments Ventricular rate (test 73 code = 253) Atrial rate (test code 73 = 255) PA interval (test code 136 = 266) QRSD interval (test 98 code = 260) QT interval (test code 390 = 264) QTC interval (test code 429 = 265) P axis 1 (test code = 40 267) QRS axis 1 (test code = 4 268) T wave axis (test code 73 = 270) EKG impression (test Normal sinus code = 273) rhythm-Normal ECG-In automated comparison with ECG of 24-MAR-2020 16:23,-No significant change was found- Tae BarrigaXR Chest 1 Vw Cvcppilr7597-53-83 21:53:02Hm Interface, Radiology Results Incoming - 04/05/2020 9:56 PM CDTEXAMINATION: XR CHEST 1 VW PORTABLECLINICAL HISTORY: COVID-19COMPARISON: 03/24/2020IMPRESSION:Cardiomediastinal silhouette is within normal limits.Right chest port is in place with tip projecting over superior vena cava.Diffuse hazy interstitial infiltrates are seen, suggestive of mild to moderate vascular congestion/edema. Hazy airspace opacity of the lung bases may reflect confluent edema versus areas of superimposed infectious or inflammatory pneumonitis. Small left pleural effusion. No pneumothorax.No other significant interval janett flores.[facility]-[id number] MethodistIR Port Ucglbnfbd4639-13-10 17:17:30Hm Interface, Radiology Results 03/31/2020 5:20 PM CDTPort catheter placement 03/31/2020Indication: ChemotherapyPre-Procedure Diagnosis: Pancreatic cancerPost-procedure Diagnosis: Pancreatic cancerOperator: Martín DuffySchedule Supervisor: NoneAnesthesia/Sedation:Level of anesthesia: Moderate Sedation Medications used: Fentanyl and Versed, 1% LidocaineAnesthesia administration: Pulse oximetry, heart rate, and blood pressure were continuously monitored by a radiology nurse and the performing provider.Duration of intra-service ehja-qh-guay anesthesia/sedation: 25 minutesRadiation Exposure: 3 mGy (ka, r)Estimate blood loss: <5 mL Blood administered: NoneComplications: NoneImplants/Grafts: 8 FrenchAngioDynamics Smart PortSpecimen: NoneProcedure:Informed consent was obtained and the patient placedsupine. A timeout was performed. Preliminary ultrasound of the right internal jugular was performed (see findings below). The right chest was prepped and draped in standard sterile fashion.Using real-time ultrasound guidance a 21-gauge needle was used to access the right internal jugular vein. An image was stored in the electronic medical record. The needle was exchanged for a transition sheath underfluoroscopic guidance.A port pocket was created inferior to the right clavicle. The catheter was tunneled from the port pocket to the venous access site. The length to the superior atrial caval junction was measured, and the catheter cut to length. The catheter was then deployed through a peel-away she ath. Positioning was confirmed with fluoroscopy. The catheter was flushed and packed with a heparin (100 units/mL) solution.The port pocket was closed in layers with subcutaneous 3-0 Vicryl suture. Theskin was closed with running 4-0 Monocryl suture and dermabond. The venous access site was closed with Dermabond. A sterile dressing was applied.Findings:Patent right internal jugular vein as demonstrated by normal ultrasound compressibility.Impression:Successful right internal jugular vein port catheter placement.Tae MethodistCytology (non- gynecological) dvcjgxi3091-02-68 11:14:45 Test Item Value Reference Range Interpretation Comments Case number (test code = [id number]) Cytology See link below for (non-gynecological) PDF Lab Report report (test code = 1178) Result status (test code This is Final Report = [id number]) for [id number] Tae MethodistLipase ojlzo5823-48-35 08:13:26 Test Item Value Reference Range Interpretation Comments Lipase (test code = 3040-3) 95 U/L 13-60 H Lab Interpretation (test code = Abnormal 69257-5) Tae OdonnellistFL > 1 [id number] 11:00:31Hm Interface, Radiology Results 03/30/2020 11:03 AM CDTEXAMINATION: FL > 1 HOURLOCATION: [facility] ENDOSCOPY ROOM 8PROCEDURE: ERCP w/STENT PLACEMENTSCHEDULED TIME: 0800START TIME: 0755END TIME: 0918FLUORO TIME: 1.5 MINSDOSE (mGy): 17 mGy# OF IMAGES: 11IMPRESSION:Fluoroscopy was requested in the Endoscopy Suite. Separate endoscopy report will be issued by the physician performing the procedure.Tae BarrigaPhosphorus [id number] 06:04:51 Test Item Value Reference Range Interpretation Comments Phosphorus (test code = 2777-1) 3.0 mg/dL 2.4-4.5 Guston BlasistSurgical pathology npmeefx8103-23-32 13:58:24 Test Item Value Reference Range Interpretation Comments Case number (test code = [id number]) Surgical pathology See link below for report (test code = PDF Lab Report [id number]) Result status (test code This is Final Report = [id number]) for [id number] Tae MethodistVitamin D 1,25 dihydroxy level, dhhpz7749-69-30 12:31:13 Test Item Value Reference Range Interpretation Comments Vit D, 53.57 pg/mL This test was d eveloped 1,25-Dihydroxy and its perfo rmance (test code = characteristics determined 50090-9) by the [facility] nt [facility] Pathology [facility]. Serum 1,25 Dihydroxy Vitamin D is tested by LC -MS/MS. It has not been cl eared or approved by FDA . The laboratory is r egulated under CLIA as q ualified to perform high-co mplexity testing. This t est is used for clinical pu rposes. It should not be r egarded as investigational or for research. Tae OdonnellistAmylase [id number] 06:34:37 Test Item Value Reference Range Interpretation Comments Amylase (test code = 1798-8) 30 U/L 28-100 Tae OdonnellZzozimrojBogcgk3851-60-29 08:13:16Diamond Washington MD 03/26/2020 8:14 AMAirwayDate/Time: 03/26/2020 8:04 AMPerformed by: Diamond Washington MDAuthorized by: Diamond Washington MD Location: EndoscopyUrgency: ElectiveDifficult Airway: No Anesthesiologist: Diamond Washington MDPerformed by: anesthesiologistPreoxygenated with 100% O2: Yes C-spine Precautions Maintained Throughout: No Mask Ventilation: Not attemptedFinal Airway Type: Endotracheal airwayFinal Endotracheal Airway: ETTCuffed: Yes Technique Used: Direct laryngoscopyDevices/Methods Used in Placement: Intubating styletInsertion Site: OralBlade Type: MacintoshLaryngoscope Blade/Videolaryngoscope Blade Size: 3ETT Size (mm): 7.0Cuff at minimum occlusion pressure: Yes Measured from: LipsETT to Lips (cm): 21Placement Verified by:CO2 detection, direct visualization and equal breath sounds Laryngoscopic view: Grade I - full view of glottisRapid Sequence Induction (RSI): No Modified RSI: No Number of Attempts at Approach: [address] [place] [address] BlasistMRI Thoracic Spine Wo Nzsllblu7720-28-64 07:39:22Hm Interface, Radiology Results 03/26/2020 7:42 AM CDTEXAMINATION: MRI THORACIC SPINE WO CONTRASTCLINICAL HISTORY: t12 fractureCOMPARISON: None.FINDINGS:Multiplanar multisequence MR images of the thoracic spine obtained without IV contrast.There is a chronic compression deformity of theT12 vertebral body with 40% height loss and some slight angulation of the posterior wall. There is no significant canal stenosis at this level. No associated marrow edema.The normal thoracic kyphosis is maintained. There are no subluxations. Remaining vertebral body heights within normal limits. No acute marrow signal abnormalities are present. There are some scattered shallow disc bulges but withoutcanal or foraminal stenosis. The visualized spinal cord is normal in signal and volume. Paravertebral soft tissues are unremarkable.IMPRESSION:Chronic compression fracture of the T12 vertebral body.HMTW-[id number] MethodistVitamin D 25 hydroxy lhcvu7389-34-06 06:27:57 Test Item Value Reference Range Interpretation Comments Vitamin D, 35.8 ng/mL 30-150 This assay repo rts the 25-hydroxy (test sum of 25-h ydroxy code = 1988-12) vitamin D3 an d 25-hydroxy kwaku min D2. Reference range :0-17 years:Deficienc y: less than 20ng/mLOpt imum level: greater than or equal to 20 ng/ mL.18 years and older:Deficienc y: less than 20ng/mLInsuffic iency: 20-29 ng/mLOpti mum Level: 30-80 ng /mLThe assay reportabl e range is 3.4 155.9 n g/mL. Levels higher t [place] 150 ng/mL may be as sociated with toxicity.I f toxicity is cli nically suspected and t he reported result is >155.9 ng/mL,co ntact lab for alternative methods to obtain a def initive level.If separa te quantitation of 25-hydroxy kwaku min D3 and 25-hydroxy vitamin D2 is needed, p flores contact lab for alternative met hods. Tae MethodistIonized wsvmlah7884-48-69 13:24:10 Test Item Value Reference Range Interpretation Comments pH (test code = 2753-2) 7.44 Ionized calcium (test code = 1.15 mmol/L 1.11-1.32 ) Guston MethodistLipid eowuq7255-11-78 11:45:20 Test Item Value Reference Interpretation Comments Range Cholesterol (test 188 mg/dL <200 code = 2092-3) Triglycerides (test 122 mg/dL <150 code = 2571-8) HDL cholesterol 51 mg/dL >40 (test code = 2084-9) LDL cholesterol 106 mg/dL <100 H Result obtai stevie by direct (test code = 2088-1) LDL juanjo surement Lipid panel SeeBelow Total Cholester ol (mg/dL) interpretation (test < 200 code = 15622-0) Desirable 200-239 Borderline -high >=240 Hi gh Triglyceri john (mg/dL) <150 No rmal 150-199 Borderline-high 200-499 High >=500 Very high HDL Choles terol (mg/dL) <40 Low (male) < 40 Low (female) L DL Cholesterol (mg /dL) <100 Optimal 1 00-129 Near or above o ptimal 130-159 Borderline-high 160-189 High >=190 Very high Risk Cat ergories that modify LDL goals.Risk Catergories LDL goal (mg/dL )CHD and CHD risk equiva lent <100 (10-year risk >20%)Multiple ( 2+) risk factors < 130 (10-year risk = <20%)0-1 risk factors <160 (<10-ye ar risk) Defining levels of lipids in metabolic syndromeTriglyc erides > =150 mg/dLHDL Choles terol Men <40 mg/dL Women <40 mg/dL Non-HDL cholest kareem is a second target f or therapy in personswith high triglycerides ( >=200 mg/dL) Lab Interpretation Abnormal (test code = 35294-8) Guston MethodistVenous blood [id number] 04:51:14 Test Item Value Reference Range Interpretation Comments pH, venous (test code = 2746-6) 7.37 7.32-7.42 pCO2, venous (test code = 2020-) 41 45- 51 mmHg L pO2, venous (test code = 2705-2) 41 25- 40 mmHg H Base excess, venous (test code = -1 meq/L -2-2 1927-3) O2 saturation, venous (test code 79 % 40-70 H = 2711-0) Bicarbonate, venous (test code = 23.3 mmol/L 21-28 04474-8) Lab Interpretation (test code = Abnormal 33092-4) [facility] CenterCarcinoembryonic antigen (CEA)2020-03-25 04:22:30 Test Item Value Reference Range Interpretation Comments CEA (test code = 33.3 ng/mL 0-3.8 H Reference r piedad for 2039-03) heavy smokers: 0.0 - 5.5 ng/mLThe TopCoderas 8000 CEA immunoassay was used. Results obtaine d with different assay methods or kits should not be used interchangeably and may be differen t. Lab Interpretation Abnormal (test code = 11968-9) Tae OdonnellistCancer antigen [id number] 04:21:41 Test Item Value Reference Range Interpretation Comments CA 19-9 (test code = 753 U/mL 0-35 H The Bravo he Dominic 8000 1006) CA19-9 immunoas say was used. Results o btained with different assay methods or kits should not be used interchangeably and may be different. Lab Interpretation Abnormal (test code = 88103-7) Tae MethodistBeta lqltuxfrxnxwnma7272-69-60 04:15:39 Test Item Value Reference Range Interpretation Comments Beta hydroxybutyrate (test code = 0.19 mmol/L 0.02-0.27 6873-4) Guston MandaenLactic acid level, SEPSIS - Now and repeat 2x every 3 hours 2020-03-25 04:09:21 Test Item Value Reference Range Interpretation Comments Lactic acid (test code = 97454-7) 1.5 mmol/L 0.5-2.2 Strong BlasistUS Hhhrunhjyyq4768-27-36 21:50:05Hm Interface, Radiology Results 03/24/2020 9:53 PM CDTEXAMINATION: US GALLBLADDERCLINICAL HISTORY: pancreatitisCOMPARISON: None.FINDINGS:Gallbladder: The gallbladder is without evidence of calculi. The gallbladder wall is not thickened and there is no pericholecystic fluid.CBD: 5 mm , within normal limits.Portal vein: The portal vein demonstrates normal hepatopetal flow. The portal vein measures 9 mm.IMPRESSION:Normal gallbladder ultrasound examination.[facility]-7DS0821YBLWtrzndu MethodistCRITICAL HSIA1988-56-44 21:19:39Vaibhav Brown DO 03/27/2020 12:20 PMCritical CarePerformed by: Evelyn Andrea, PAAuthorized by: Vaibhav Brown DO Critical care provider statement: Critical care time (minutes): 35 Critical care time was exclusive of: Separately billable procedures and treating other patients Critical care was necessary to treat or prevent imminent or life-threatening deterioration of the following conditions: Metabolic crisis Critical care was time spent personally by me on the following activities: Blood draw for specimens, development of treatment plan with patient or surrogate, discussions with primary provider, evaluation of patient's response to treatment, examination of patient, discussions with consultants, ordering and review of laboratory studies, ordering and performing treatments and interventions, ordering and review of radiographic studies, pulse oximetry, re-evaluation of patient's condition and review of old charts Cristopher 'yes' if you are taking over critical care for this patient from another provider.: Almaz BarrigaHIV 1 RNA, QUANTITATIVE REAL TIME [id number] 11:16:00 Test Item Value Reference Range Interpretation Comments HIV-1 RNA by PCR, Qn 23 NOT DETECTED H (test code = 16905-5) copies/mL HIV-1 RNA by PCR, Qn 1.36 NOT DETECTED H This t est was (test code = 48695-8) Log copies/mL perfo rmed using Real-Time Polymerase ChainReaction. Reportable Range: 20 copies/mL to 10,000,000 copies/mL(1.30 log copies/mL t o 7.00 log copies/mL). JOSE (test code = JOSE) FASTING:YESFASTING : YES RAC (test code = RAC) Performing Organization Information: Site ID: [id number] Name: [facility] Address: [address] [place] [id number] Director: Dr. Vaibhav Cantor Lab Interpretation Abnormal (test code = 59233-1) [facility] cell Lymphocyte Subset Panel [id number] 11:16:00 Test Item Value Reference Range Interpretation Comments CD4% (test code = 26 % 30-61 L 8123-2) CD4 absolute count 607 490- 1,740 (test code = 64340-6) cells/uL CD8% (test code = 53 % 12-42 H 8101-8) CD8 absolute count 1232 180- 1,170 H (test code = 76140-4) cells/uL CD4/CD8 ratio (test 0.49 0.86-5.00 L code = 02596-4) Lymphocytes, absolute 2321 850- 3,900 (test code = 731-0) cells/uL JOSE (test code = JOSE) FASTING:YESFASTING: YES RAC (test code = RAC) Performing Organization Information: Site ID: [id number] Name: [facility] Address: [address] [place] [id number] Director: Dr. Vaibhav Cantor Lab Interpretation Abnormal (test code = 65734-1) Guston Mandaen
[2020-04-18 08:16] LABS: Urine Blood NEGATIVE (NEG); Urine Glucose NEGATIVE (NEG); Urine Protein NEGATIVE (NEG); Urine Specific Gravity 1.015 (1.005-1.030); Urine pH 6.5 (5.0-7.0)
[2020-04-18 08:16] LABS: Absolute Lymphocytes (CBC) 1.5 K/uL (0.7-4.9); Basophils % 0.2 % (0-1.3); Hematocrit 38.5 % (36.0-45.0); Lymphocytes % 12.1 % (15.3-44.8); MPV 7.2 fL (7.6-11.3); RBC Red Blood Cell Count 4.33 M/uL (3.86-4.86)
[2020-04-18] MEDS ORDERED: NA CHLORIDE 0.9% 500 ML ONE ×2 (08:49→09:55)
[2020-04-18 09:03] LABS: Urine Bacteria <20 /HPF (<20); Urine RBC <5 /HPF (NONE SEEN)
[2020-04-18 09:04] LABS: Urine Culture Reflex Order NOT NEEDED
[2020-04-18 09:14] LABS: BUN Blood Urea Nitrogen 13 mg/dL (7-18); Bicarbonate 28 mmol/L (21-32); Glucose Level 88 mg/dL (74-106); Sodium Level 137 mmol/L (136-145)
[2020-04-18 09:16] LABS: Potassium 2.4 mmol/L (3.5-5.1)
[2020-04-18] MEDS ORDERED: D50W 25 GM/50 ML SYRINGE/VIAL IV ONE (10:00)
[2020-04-18] MEDS ORDERED: POTASSIUM CL SA 10 MEQ TAB PO ONE ×2 (10:06→21:35)
[2020-04-18] MEDS ORDERED: KCL 20 MEQ/100 mL IVPB 20 MEQ/100 ML BAG IV ONE (10:06)
--- NOTE | 2020-04-18 11:19 | RAD REPORT ---
EXAM DESCRIPTION: RAD - Chest Single View - 04/18/2020 9:13 am CLINICAL HISTORY: hypoglycemia, weakness Chest pain. COMPARISON: No comparisons FINDINGS: Portable technique limits examination quality. Mild bilateral interstitial lung opacities are present. The heart is normal in size. Right port joni ter has tip in the SVC. IMPRESSION: Mild to moderate bilateral interstitial pneumonia versus interstitial pulmonary edema.
--- NOTE | 2020-04-18 11:33 | ER ---
Nurse's Notes [facility] Name: Alexsandra Mauro Age: 59 yrs Sex: Female : 1960 Arrival Date: 04/18/2020 Time: 07:31 Bed 6 Private MD: Diagnosis: Pneumonia, unspecified organism;Chronic obstructive pulmonary disease, unspecified;Hypoglycemia, unspecified Presentation: 04/18 07:00 Chief complaint: EMS states: Toned out by family for low blood sugar, BGL read low on jl7 arrival, gave 1 amp and came up to 138. Coronavirus screen: Proceed with normal triage. Patient denies a cough. Patient reports shortness of breath or difficulty breathing. Patient denies measured and/or subjective temperature greater than 100.4F prior to today's visit. Patient denies travel on a cruise ship or to a country the [facility] currently lists as an affected area. Patient denies contact with known and/or suspected case of COVID-19. Ebola Screen: No symptoms or risks identified at this time. Initial Sepsis Screen: Does the patient meet any 2 criteria? No. Patient's initial sepsis screen is negative. Does the patient have a suspected source of infection? No. Patient's initial sepsis screen is negative. Risk Assessment: Do you want to hurt yourself or someone else? Patient reports no desire to harm self or others. Onset of symptoms was April 18, 2020. Transition of care: patient was not received from another setting of care. 07:00 Method Of Arrival: EMS: [place] [address] 07:00 Acuity: BRITTNY 3 jl7 Triage Assessment: 16:11 General: Appears. jl7 Historical: - Allergies: 08:16 Sulfa (Sulfonamide Antibiotics); jl7 08:16 TETRACYCLINES; jl7 - Home Meds: 17:24 aspirin 81 mg Oral TbEC [Active]; Novolog 100 unit/mL Sub-Q soln [Active]; Truvada oral jl7 oral [Active]; Levemir 100 unit/mL subcutaneous soln [Active]; Janumet oral oral [Active]; Reyataz oral oral [Active]; Norvir Soft Gelatin Oral [Active]; sertraline oral oral [Active]; [place]bee Oral [Active]; clopidogrel oral oral [Active]; Amitriptyline Oral [Active]; - PMHx: 08:16 Depression; Diabetes - IDDM; HIV; in remission. Wants to keep completely confidential; jl7 pancreatic cancer; - PSHx: 08:16 c section; fibrous tumors removed from neck; Hernia repair; jl7 - Immunization history:: Adult Immunizations unknown. - Social history:: Smoking status: unknown. - Family history:: not pertinent. - Hospitalizations: : No recent hospitalization is reported. Screenin:00 Abuse screen: Denies threats or abuse. Denies injuries from another. Nutritional jl7 screening: No deficits noted. Tuberculosis screening: No symptoms or risk factors identified. Fall Risk Fall in past 12 months (25 points). No secondary diagnosis (0 pts). IV access (20 points). Ambulatory Aid- None/Bed Rest/Nurse Assist (0 pts). Gait- Weak (10 pts.). Mental Status- Overestimates/Forgets Limitations (15 pts.). Total Fajardo Fall Scale indicates High Risk Score (45 or more points). Fall prevention measures have been instituted. Side Rails Up X 2 Placed Close to Nursing Station Frequent Obs/Assessments Occuring As available patient and family educated on Fall Prevention Program and Strategies. Assessment: 08:00 Reassessment: bedbug noted in bed with pt, bedbug placed in cup, pt clothes removed and jl7 placed in belongings bad, bed sheets changed. 08:47 Reassessment: Pt provided juice, cracker and peanut butter. at bedside. jl7 10:45 Reassessment: Diet tray delivered. jl7 12:00 Reassessment: Patient appears in no apparent distress at this time. No changes from jl7 previously documented assessment. Patient and/or family updated on plan of care and expected duration. Pain level reassessed. Patient is alert, oriented x 3, equal unlabored respirations, skin warm/dry/pink. 13:02 Reassessment: Patient appears in no apparent distress at this time. Patient and/or jl7 family updated on plan of care and expected duration. Pain level reassessed. Patient is alert, oriented x 3, equal unlabored respirations, skin warm/dry/pink. Patient states feeling better. 14:00 Reassessment: Patient appears in no apparent distress at this time. Patient and/or jl7 family updated on plan of care and expected duration. Pain level reassessed. Patient is alert, oriented x 3, equal unlabored respirations, skin warm/dry/pink. Patient states feeling better. 14:00 Pain: Denies pain. jl7 15:45 Reassessment: FSBS 78, ERD notified, see MAR for orders. jl7 15:55 Reassessment: JACK Murillo in ICU requesting to hold the pt in ER until they clear the 7 private room in ICU out for the pt to have a private room due to the bedbug noted this morning. JACK Murillo reports she will call when the room is ready. 17:00 Reassessment: Pt requesting pain medication, reports pain "In my back and abdomen where jl7 the cancer is." ERP notified, see MAR for orders. Vital Signs: 07:00 BP 100 / 52; Pulse 70; Resp 15; Temp 97.2; Pulse Ox 89% on R/A; jl7 07:30 BP 96 / 46; Pulse 63; Resp 17; Pulse Ox 94% on 3 lpm NC; jl7 08:18 BP 129 / 59; Pulse 68; Resp 16 S; Pulse Ox 93% on 3 lpm NC; jl7 08:47 BP 147 / 63; Pulse 70; Resp 15 S; Pulse Ox 93% on 3 lpm NC; jl7 09:30 BP 103 / 60; Pulse 64; Resp 15 S; Pulse Ox 99% on R/A; jl7 10:22 BP 114 / 55; Pulse 65; Resp 15; Pulse Ox 99% ; jl7 11:00 BP 114 / 65; Pulse 78; Resp 15; Pulse Ox 98% 3 lpm ; jl7 12:00 BP 125 / 71; Pulse 77; Resp 15 S; Pulse Ox 100% on 3 lpm NC; jl7 12:25 Temp 97.6(O); dh3 13:00 BP 119 / 59; Pulse 67; Resp 14; Pulse Ox 100% ; jl7 14:00 BP 121 / 61; Pulse 68; Resp 16 S; Pulse Ox 99% on 3 lpm NC; jl7 15:00 BP 122 / 58; Pulse 75; Resp 20 S; Pulse Ox 97% on 3 lpm NC; jl7 15:33 BP 129 / 62; Pulse 91; Resp 19 S; Pulse Ox 99% on 3 lpm NC; jl7 16:11 BP 125 / 51; Pulse 81; Resp 15; Pulse Ox 100% on 3 lpm NC; jl7 17:00 BP 125 / 63; Pulse 80; Resp 21; Pulse Ox 96% ; jl7 17:39 BP 122 / 54; Pulse 76; Resp 22; Pulse Ox 97% on 3 lpm NC; jl7 ED Course: 07:30 Patient has correct armband on for positive identification. Placed in gown. Bed in low jl7 position. Call light in reach. Side rails up X2. site monitor on. Pulse ox on. NIBP on. Warm blanket given. Cleaned of incontinence. Linen changed. 07:30 One-on-one care X 30 minutes. jl7 07:30 Initial lab(s) drawn, by ED staff, sent to lab. Urine collected: straight cath jl7 specimen, cloudy. Straight cath inserted, using sterile technique, 14 Fr. Specimen obtained. Returned cloudy urine. Patient tolerated well. Maintain EMS IV. Dressing intact. Good blood return noted. Site clean \\T\\ dry. Gauge \\T\\ site: 20 left AC. 07:31 Patient arrived in ED. iw 07:33 Nahid Mae MD is Attending Physician. rn 08:02 Mariia Flor RN is Primary Nurse. jl7 08:15 Triage completed. jl7 08:16 Arm band placed on right wrist. jl7 09:13 Chest Single View XRAY In Process Unspecified. EDMS 10:17 Inserted saline lock: 22 gauge in left forearm, using aseptic technique. jl7 11:31 Prince Abdul MD is Hospitalizing Provider. rn 15:00 No provider procedures requiring assistance completed. jl7 15:37 Patient admitted, IV remains in place. intact, No redness/swelling at site. jl7 Administered Medications: 08:47 Drug: NS 0.9% 500 ml Route: IV; Rate: bolus; Site: left antecubital; jl7 09:15 Follow up: Response: No adverse reaction; IV Intake: 500ml jl7 09:30 Follow up: Response: No adverse reaction; IV Status: Completed infusion; IV Intake: jl7 500ml 10:14 Drug: Potassium Chloride 20 mEq Route: IV; Rate: calculated rate; Site: left forearm; jl7 11:15 Follow up: Response: No adverse reaction; IV Status: Completed infusion jl7 10:14 Drug: NS 0.9% 500 ml Route: IV; Rate: bolus; Site: right forearm; jl7 11:00 Follow up: Response: No adverse reaction; IV Status: Completed infusion; IV Intake: jl7 500ml 10:15 Drug: D50W 50 ml Route: IVP; Site: left forearm; jl7 11:00 Follow up: Response: Blood sugar is elevated jl7 12:00 Drug: Potassium Chloride 40 mEq Route: PO; jl7 13:00 Follow up: Response: No adverse reaction jl7 14:15 Drug: LevaQUIN 750 mg Volume: 150 ml; Route: IVPB; Infused Over: 90 mins; Site: left jl7 forearm; 15:55 Follow up: Response: No adverse reaction; IV Status: Completed infusion jl7 16:00 Drug: D5-1/2 NS 1000 ml Route: IV; Rate: 150 ml/hr; Site: left forearm; jl7 16:59 Follow up: Response: No adverse reaction; IV Status: Infusion continued upon admission jl7 16:59 Drug: Higbee 5 mg-325 mg 1 tabs Route: PO; jl7 17:27 Follow up: Response: No adverse reaction; Pain is decreased jl7 Intake: 09:15 IV: 500ml; Total: 500ml. jl7 09:30 IV: 500ml; Total: 1000ml. jl7 11:00 IV: 500ml; Total: 1500ml. jl7 Outcome: 11:32 Decision to Hospitalize by Provider. rn 18:06 Admitted to ICU accompanied by nurse, accompanied by tech, via stretcher, room 8, with jl7 oxygen, on monitor, with chart, Report called to JACK Murillo 18:06 Condition: stable 18:06 Discharge instructions given to patient, family, Instructed on the need for admit, Demonstrated understanding of instructions. 18:07 Patient left the ED. jl7 Signatures: Dispatcher [employer] EDMS Belen Epps RN RN iw Nieto, Roman, MD MD rn Leal, Jahala, RN RN jl7 Herrera, [facility] Corrections: (The following items were deleted from the chart) 08:18 07:30 BP 129 / 59; Pulse 68bpm; Resp 16bpm; Spontaneous; Pulse Ox 93% 3 lpm Nasal jl7 Cannula; jl7 16:11 15:33 BP 129 / 6; Pulse 91bpm; Resp 19bpm; Spontaneous; Pulse Ox 99% 3 lpm Nasal jl7 Cannula; jl7
--- NOTE | 2020-04-18 11:33 | EDPHYS ---
Physician Documentation [facility] Name: Alexsandra Mauro Age: 59 yrs Sex: Female : 1960 Arrival Date: 04/18/2020 Time: 07:31 Bed 6 Private MD: ED Physician Nahid Mae HPI: 04/18 07:44 This 59 yrs old Female presents to ER via Unassigned with complaints of low rn blood sugar. 07:44 The patient or guardian reports hypoglycemia. Onset: The symptoms/episode rn began/occurred this morning. Current symptoms: In the emergency department the patient's symptoms have improved. The patient has experienced similar episodes in the past. Per EMS, 911 called by family for decreased responsiveness and appeared like having trouble breathing, glucose read "low", given 1 amp glucose, improved mental status and now more alert. Patient undergoing treatment for recently diagnosed pancreatic cancer, and denies any new pain or symptoms regarding that. Reports has had numerous episodes of low blood sugar in past, takes insulin, and not eating as much lately. . Historical: - Allergies: 08:16 Sulfa (Sulfonamide Antibiotics); jl7 08:16 TETRACYCLINES; jl7 - Home Meds: 17:24 aspirin 81 mg Oral TbEC [Active]; Novolog 100 unit/mL Sub-Q soln [Active]; Truvada oral jl7 oral [Active]; Levemir 100 unit/mL subcutaneous soln [Active]; Janumet oral oral [Active]; Reyataz oral oral [Active]; Norvir Soft Gelatin Oral [Active]; sertraline oral oral [Active]; [place] Oral [Active]; clopidogrel oral oral [Active]; Amitriptyline Oral [Active]; - PMHx: 08:16 Depression; Diabetes - IDDM; HIV; in remission. Wants to keep completely confidential; jl7 pancreatic cancer; - PSHx: 08:16 c section; fibrous tumors removed from neck; Hernia repair; jl7 - Immunization history:: Adult Immunizations unknown. - Social history:: Smoking status: unknown. - Family history:: not pertinent. - Hospitalizations: : No recent hospitalization is reported. ROS: 07:44 Constitutional: Negative for fever, chills, and weight loss, Eyes: Negative for injury, rn pain, redness, and discharge, Neck: Negative for injury, pain, and swelling, Cardiovascular: Negative for chest pain, palpitations, and edema, Respiratory: Negative for shortness of breath, cough, wheezing, and pleuritic chest pain, Abdomen/GI: Negative for vomiting, diarrhea, and constipation, MS/Extremity: Negative for injury and deformity, Skin: Negative for injury, rash, and discoloration, Neuro: Negative for headache, numbness, tingling, and seizure. Exam: 07:44 Constitutional: This is a well developed, well nourished patient who is awake, alert, rn and in no acute distress. Head/Face: Normocephalic, atraumatic. ENT: dry MM Cardiovascular: Regular rate and rhythm. No pulse deficits. Respiratory: + tachypnea with diminished breath sounds at bases Abdomen/GI: soft, mild epigastric tenderness, no rebound Skin: Warm, dry, no evidence of cellulitis. MS/ Extremity: Pulses equal, no cyanosis. Neurovascular intact. Full, normal range of motion. Equal circumference. Neuro: Awake and alert, GCS 15, oriented to person, place, time, and situation. 08:02 ECG was reviewed by the Attending Physician. rn Vital Signs: 07:00 BP 100 / 52; Pulse 70; Resp 15; Temp 97.2; Pulse Ox 89% on R/A; jl7 07:30 BP 96 / 46; Pulse 63; Resp 17; Pulse Ox 94% on 3 lpm NC; jl7 08:18 BP 129 / 59; Pulse 68; Resp 16 S; Pulse Ox 93% on 3 lpm NC; jl7 08:47 BP 147 / 63; Pulse 70; Resp 15 S; Pulse Ox 93% on 3 lpm NC; jl7 09:30 BP 103 / 60; Pulse 64; Resp 15 S; Pulse Ox 99% on R/A; jl7 10:22 BP 114 / 55; Pulse 65; Resp 15; Pulse Ox 99% ; jl7 11:00 BP 114 / 65; Pulse 78; Resp 15; Pulse Ox 98% 3 lpm ; jl7 12:00 BP 125 / 71; Pulse 77; Resp 15 S; Pulse Ox 100% on 3 lpm NC; jl7 12:25 Temp 97.6(O); dh3 13:00 BP 119 / 59; Pulse 67; Resp 14; Pulse Ox 100% ; jl7 14:00 BP 121 / 61; Pulse 68; Resp 16 S; Pulse Ox 99% on 3 lpm NC; jl7 15:00 BP 122 / 58; Pulse 75; Resp 20 S; Pulse Ox 97% on 3 lpm NC; jl7 15:33 BP 129 / 62; Pulse 91; Resp 19 S; Pulse Ox 99% on 3 lpm NC; jl7 16:11 BP 125 / 51; Pulse 81; Resp 15; Pulse Ox 100% on 3 lpm NC; jl7 17:00 BP 125 / 63; Pulse 80; Resp 21; Pulse Ox 96% ; jl7 17:39 BP 122 / 54; Pulse 76; Resp 22; Pulse Ox 97% on 3 lpm NC; 7 MDM: 07:33 Patient medically screened. rn 09:47 ED course: Pt eating, feels better, more alert, getting potassium and fluids, will rn recheck glucose, family member in room states looks better, at baseline. . 11:29 Differential diagnosis: hypoglycemic episode, viral syndrome, COVID, pneumonia, COPD. rn 11:30 Data reviewed: vital signs, nurses notes, lab test result(s), EKG, radiologic studies, rn plain films, and as a result, I will admit patient. Counseling: I had a detailed discussion with the patient and/or guardian regarding: the historical points, exam findings, and any diagnostic results supporting the discharge/admit diagnosis, lab results, radiology results, the need for further work-up and treatment in the hospital. Response to treatment: the patient's symptoms have mildly improved after treatment, and as a result, I will admit patient. Admission orders: after a detailed discussion of the patient's condition and case, the admit orders are written by me. ED course: Pt with bilateral infiltrates on CXR, elevated WBC, increased oxygen requirement, admitted to [facility] for Pneumonia, hypoglycemia. . 11:33 ED course: Pt states tested for COVID 1 week ago and neg.. rn 04/18 07:36 Order name: CBC with Diff; Complete Time: 08:34 rn 04/18 07:36 Order name: Basic Metabolic Panel; Complete Time: 09:46 rn 04/18 07:36 Order name: Urine Microscopic Only; Complete Time: 09:16 rn 04/18 07:43 Order name: glucometer results - FOR PT WITH NO ID; Complete Time: 14:49 ds4 04/18 08:09 Order name: Urine Dipstick--Ancillary (enter results); Complete Time: 08:34 eb 04/18 10:08 Order name: Glucose, Ancillary Testing; Complete Time: 11:00 EDFL 04/18 08:35 Order name: Chest Single View XRAY; Complete Time: 11:21 04/18 11:15 Order name: Glucose, Ancillary Testing; Complete Time: 11:21 EDFL 04/18 11:29 Order name: COVID-19 04/18 11:29 Order name: Blood Culture Adult (2) 04/18 14:46 Order name: CT; Complete Time: 14:49 EDMS 04/18 16:00 Order name: Glucose, Ancillary Testing [facility] 04/18 17:48 Order name: Hemoglobin A1c [facility] 04/18 07:36 Order name: IV Start; Complete Time: 08:39 04/18 07:36 Order name: Urine Dipstick-Ancillary (obtain specimen); Complete Time: 08:39 04/18 07:36 Order name: Glucose Level; Complete Time: 07:40 04/18 07:36 Order name: EKG; Complete Time: 07:36 04/18 07:36 Order name: EKG - Nurse/Tech; Complete Time: 08:39 04/18 07:36 Order name: PO challenge; Complete Time: 08:47 04/18 09:53 Order name: Diet Regular; Complete Time: 09:53 jl7 EC:02 Rate is 68 beats/min. Rhythm is regular. QRS [place] is Normal. [place] interval is normal. QRS rn interval is normal. QT interval is normal. No Q waves. T waves are Normal. No ST changes noted. Clinical impression: NSR w/ Non-specific ST/T Changes. Interpreted by me. Reviewed by me. Administered Medications: 08:47 Drug: NS 0.9% 500 ml Route: IV; Rate: bolus; Site: left antecubital; jl7 09:15 Follow up: Response: No adverse reaction; IV Intake: 500ml jl7 09:30 Follow up: Response: No adverse reaction; IV Status: Completed infusion; IV Intake: jl7 500ml 10:14 Drug: Potassium Chloride 20 mEq Route: IV; Rate: calculated rate; Site: left forearm; jl7 11:15 Follow up: Response: No adverse reaction; IV Status: Completed infusion jl7 10:14 Drug: NS 0.9% 500 ml Route: IV; Rate: bolus; Site: right forearm; jl7 11:00 Follow up: Response: No adverse reaction; IV Status: Completed infusion; IV Intake: jl7 500ml 10:15 Drug: D50W 50 ml Route: IVP; Site: left forearm; jl7 11:00 Follow up: Response: Blood sugar is elevated jl7 12:00 Drug: Potassium Chloride 40 mEq Route: PO; jl7 13:00 Follow up: Response: No adverse reaction jl7 14:15 Drug: LevaQUIN 750 mg Volume: 150 ml; Route: IVPB; Infused Over: 90 mins; Site: left jl7 forearm; 15:55 Follow up: Response: No adverse reaction; IV Status: Completed infusion jl7 16:00 Drug: D5-1/2 NS 1000 ml Route: IV; Rate: 150 ml/hr; Site: left forearm; jl7 16:59 Follow up: Response: No adverse reaction; IV Status: Infusion continued upon admission jl7 16:59 Drug: [place] 5 mg-325 mg 1 tabs Route: PO; jl7 17:27 Follow up: Response: No adverse reaction; Pain is decreased jl Disposition: 04/18/20 11:32 Hospitalization ordered by Prince Chantell for Inpatient Admission. Preliminary diagnosis are Pneumonia, unspecified organism, Chronic obstructive pulmonary disease, unspecified, Hypoglycemia, unspecified. - Bed requested for Intensive Care Unit. - Status is Inpatient Admission. 7 - Condition is Stable. - Problem is new. - Symptoms have improved. Signatures: Dispatcher [employer] EDOtto Norwood, RN RN Nahid Haro MD MD rn Leal, Jahala, RN RN jl7 Botello, Elizabeth eb Corrections: (The following items were deleted from the chart) 11:30 07:44 Constitutional: This is a well developed, well nourished patient who is awake, rn alert, and in no acute distress. Head/Face: Normocephalic, atraumatic. ENT: dry MM Cardiovascular: Regular rate and rhythm. No pulse deficits. Respiratory: No increased work of breathing, no retractions or nasal flaring. Abdomen/GI: soft, mild epigastric tenderness, no rebound Skin: Warm, dry, no evidence of cellulitis. MS/ Extremity: Pulses equal, no cyanosis. Neurovascular intact. Full, normal range of motion. Equal circumference. Neuro: Awake and alert, GCS 15, oriented to person, place, time, and situation. rn 12:01 11:32 Hospitalization Ordered by Prince Chantell JOHNSON for Inpatient Admission. Preliminary eb diagnosis is Pneumonia, unspecified organism; Chronic obstructive pulmonary disease, unspecified; Hypoglycemia, unspecified. Bed requested for Telemetry/MedSurg (Inpatient). Status is Inpatient Admission. Condition is Stable. Problem is new. Symptoms have improved. rn 12:26 12:01 04/18/2020 11:32 Hospitalization Ordered by Prince Chantell JOHNSON for Inpatient eb Admission. Preliminary diagnosis is Pneumonia, unspecified organism; Chronic obstructive pulmonary disease, unspecified; Hypoglycemia, unspecified. Bed requested for Telemetry/MedSurg (Inpatient). Status is Inpatient Admission. Condition is Stable. Problem is new. Symptoms have improved. eb 14:55 12:26 04/18/2020 11:32 Hospitalization Ordered by Prince Chantell JOHNSON for Inpatient em Admission. Preliminary diagnosis is Pneumonia, unspecified organism; Chronic obstructive pulmonary disease, unspecified; Hypoglycemia, unspecified. Bed requested for Telemetry/MedSurg (Inpatient). Status is Inpatient Admission. Condition is Stable. Problem is new. Symptoms have improved. eb 15:11 14:55 04/18/2020 11:32 Hospitalization Ordered by Prince Chantell JOHNSON for Inpatient eb Admission. Preliminary diagnosis is Pneumonia, unspecified organism; Chronic obstructive pulmonary disease, unspecified; Hypoglycemia, unspecified. Bed requested for Intensive Care Unit. Status is Inpatient Admission. Condition is Stable. Problem is new. Symptoms have improved. em 18:07 15:11 04/18/2020 11:32 Hospitalization Ordered by Prince Chantell JOHNSON for Inpatient jl7 Admission. Preliminary diagnosis is Pneumonia, unspecified organism; Chronic obstructive pulmonary disease, unspecified; Hypoglycemia, unspecified. Bed requested for Intensive Care Unit. Status is Inpatient Admission. Condition is Stable. Problem is new. Symptoms have improved. eb
[2020-04-18] MEDS ORDERED: Levofloxacin 750mg IV 750 MG/150 ML BAG IV ONE (11:48)
--- NOTE | 2020-04-18 14:02 | P.HP ---
Certification for Inpatient Patient admitted to: Inpatient With expected LOS: >2 Midnights Practitioner: I am a practitioner with admitting privileges, knowledge of patient current condition, hospital course, and medical plan of care. Services: Services provided to patient in accordance with Admission requirements found in Title 42 Section 412.3 of the Code of Federal Regulations Patient History Date of Service: 04/18/20 Reason for admission: altered mental status History of Present Illness: Patient is a 59 year old female known past medical history of HIV (TO KEEP STRICTLY CONFIDENTIAL), type 2 diabetes mellitus, COPD and a recent diagnosis of pancreatic cancer 3 weeks ago during a hospitalization at [facility]. She presented with abdominal pain at the time. She underwent chemotherapy the following week. She presents to the ER after she became a minimally responsive the morning of admission. Patient went to bed last night slightly lethargic. Her blood glucose at the time was 60. She was fed and went back to sleep. She woke up this morning very lethargic. She was mainly moaning and groaning. EMS was called and she was brought to the ER. She takes Levemir 30 units in the morning. I talked to the son who is very knowledgeable about her medical condition. He states that patient is no longer on 6 units of Rupal Log pre meals. Son (Sal) can be contacted at [phone]. Patient is also being tested for Corvette 19. She tested positive 3 weeks ago but a subsequent test (rapid test) during her hospitalization at [facility] was negative. Allergies Sulfa (Sulfonamide Antibiotics) Allergy (Verified 04/18/20 14:10) Hives tetracycline Allergy (Verified 04/18/20 14:10) Hives Review of Systems is unable to be obtained Physical Examination - Physical Exam General: Confused, Obese, Other (Severely lethargic, very pale) HEENT: Atraumatic, Normocephalic, EOMI Neck: Supple Respiratory: Crackles/rales, Other (Bilateral crackles. No wheezing.) Cardiovascular: Normal pulses, Regular rate/rhythm, Normal S1 S2 Gastrointestinal: Normal bowel sounds, Soft and benign, Non-distended, No ascites Musculoskeletal: No clubbing, No swelling, No contractures, No erythema, No tenderness, No warmth Integumentary: Other (Cold extremities bilaterally) - Studies Laboratory Data (last 24 hrs) 04/18/20 07:30: Sodium 137, Potassium 2.4 L*, BUN 13, Creatinine 0.48 L, Glucose 88 04/18/20 07:30: WBC 12.2 H, Hgb 12.6, Hct 38.5, Plt Count 418 H Assessment and Plan - Problems (Diagnosis) (1) Metabolic encephalopathy Current Visit: Yes Status: Acute (2) Hypoglycemia Current Visit: Yes Status: Acute (3) Pancreatic cancer Current Visit: Yes Status: Acute (4) Type 2 diabetes mellitus Current Visit: Yes Status: Acute (5) COPD (chronic obstructive pulmonary disease) Current Visit: Yes Status: Acute - Advance Directives Does patient have a Living Will: No Does patient have a Durable POA for Healthcare: No Physician Review Additional Text: ASSESSMENT 59-year-old female with unknown past medical history of type 2 diabetes mellitus, COPD and recent diagnosis of pancreatic cancer status post chemotherapy. She presents to the hospital with metabolic encephalopathy secondary to hypoglycemia. She received dextrose challenge in the ER which brought up her blood glucose in the low 100s. She still very lethargic and was unable to contribute to the HPI portion of this note during our encounter. She is being retested for covert 19. Her chest x-ray showed bilateral interstitial infiltrates. Doing well on room air. Metabolic encephalopathy Persistent hypoglycemia Type 2 diabetes mellitus on Levemir Pancreatic cancer on chemotherapy Status post vascular stent in Plavix Recent diagnosis of cold at 19 Plan: Admit to ICU for frequent blood glucose check Start cautious D 10 infusion Avoid excessive volume repletion due to possible diagnosis of COVID 19 CT CHEST AND ABDOMEN to assess progression of pancreatic cancer Recommend oncology consult. I discussed with oncologist Dr. ford. Nothing to do. Recommends managing her condition as in non-cancerous patient Resume home medication including Plavix Swallow evaluation, physical therapy, occupational therapy
--- NOTE | 2020-04-18 14:45 | RAD REPORT ---
EXAM DESCRIPTION: CT - Chest Abdomen Pelvis W Cont - 04/18/2020 2:25 pm CLINICAL HISTORY: Chest and abdomen pain. Pancreatic cancer with obstruction COMPARISON: Abdomen Exam Limited dated 03/23/2020; Chest Single View dated 04/18/2020; Lumbar Spine Wo Con dated 08/26/2019 TECHNIQUE: Approximately 100 mL nonionic IV contrast was administered to the patient. All CT scans are performed using dose optimization technique as appropriate and may include automated exposure control or mA/KV adjustment according to patient size. FINDINGS: Moderate interstitial lung opacities are present bilaterally.Minimal pleural fluid seen.No intrathoracic adenopathy. Advanced fatty liver is noted. Pneumobilia is seen with near the gallbladder which appears contracted . A stent is present in the common duct. The spleen, adrenal glands and kidneys show no acute process . Irregular pancreatic mass is present in the region of the pancreatic head/ uncinate process measuri ng 2.5 x 2.6 cm abutting the superior mesenteric artery. The superior mesenteric vein appears attenua haim. Mild free fluid is seen surrounding the liver splenic margins. Small amount of fluid is also present inferior pelvis. No bowel obstruction evident. No free intraperitoneal air. Normal appendix. No lytic or blastic bone lesion. IMPRESSION: Moderate bilateral interstitial lung opacities are present suggesting interstitial pneum onia. Irregular mass involving the pancreas compatible with malignancy. Common bile duct stent is in place with mild pneumobilia present. Prominent diffuse fatty liver. No significant biliary obstruction. Mild free fluid in the upper abdomen.
[2020-04-18] MEDS ORDERED: D50W 25 GM/50 ML SYRINGE/VIAL IV PRN (15:42)
[2020-04-18] MEDS ORDERED: D5 0.45 NS 1,000 ML IV ONE (15:59)
[2020-04-18] MEDS ORDERED: HYDROCODONE/APAP 5/325 MG TAB ONE (17:03)
[2020-04-18] MEDS: DEXTROSE 10%-WATER 500 ML IV SCH ×2 (18:27→23:01)
[2020-04-19] MEDS: HYDROCODONE/APAP 10/325 TAB PO PRN ×2 (03:05→10:25)
[2020-04-19] MEDS: PROMETHAZINE 25 MG TABLET PO PRN ×2 (03:06→10:25)
[2020-04-19 05:13] VITALS: BMI 29.8
[2020-04-19] MEDS ORDERED: POTASSIUM CL SA 10 MEQ TAB PO ONE ×2 (06:01→09:00)
--- NOTE | 2020-04-19 07:53 | P.PN ---
Subjective Date of Service: 04/19/20 Chief Complaint: altered mental status Subjective: No new changes Physical Examination - Vital Signs Temperature: 98.3 F Blood Pressure: 115/57 Pulse: 73 Respirations: 17 Pulse Ox (%): 95 - Physical Exam General: Alert, In no apparent distress HEENT: Atraumatic, Normocephalic Neck: Supple, 2+ carotid pulse no bruit Respiratory: Clear to auscultation bilaterally, Normal air movement Cardiovascular: Normal pulses, Regular rate/rhythm, Normal S1 S2 Gastrointestinal: Normal bowel sounds, Non-distended Musculoskeletal: No clubbing, No swelling - Studies Laboratory Data (last 24 hrs) 04/18/20 07:30: Sodium 137, Potassium 2.4 L*, BUN 13, Creatinine 0.48 L, Glucose 88 04/18/20 07:30: WBC 12.2 H, Hgb 12.6, Hct 38.5, Plt Count 418 H Assessment And Plan Physician Review: Patient Assessed, Agree with Above Assessment and Plan Physician Review Additional Text: ASSESSMENT 59-year-old female with unknown past medical history of type 2 diabetes mellitus, COPD and recent diagnosis of pancreatic cancer status post chemotherapy. She presents to the hospital with metabolic encephalopathy secondary to hypoglycemia. She received dextrose challenge in the ER which brought up her blood glucose in the low 100s. She still very lethargic and was unable to contribute to the HPI portion of this note during our encounter. She is being retested for covert 19. Her chest x-ray showed bilateral interstitial infiltrates. Doing well on room air. Metabolic encephalopathy Persistent hypoglycemia Type 2 diabetes mellitus on Levemir Pancreatic cancer on chemotherapy Status post vascular stent in Plavix Recent diagnosis of covid 19 Hypokalemia Plan:
[2020-04-19 09:04] LABS: BUN Blood Urea Nitrogen 5 mg/dL (7-18); Bicarbonate 28 mmol/L (21-32); Glucose Level 177 mg/dL (74-106); Potassium 3.8 mmol/L (3.5-5.1); Sodium Level 136 mmol/L (136-145)
[2020-04-19 09:11] VITALS: O2SAT 99
--- NOTE | 2020-04-19 10:20 | EKG ---
Test Date: 2020-04-18 Test Time: 07:57:35 Topper Packer: BART MEASUREMENT RESULTS: Intervals: Rate: 68 AK: 130 QRSD: 124 QT: 426 QTc: 452 [place]: P: 2 AK: 130 QRS: 5 T: 124 INTERPRETIVE STATEMENTS: Normal sinus rhythm Nonspecific intraventricular conduction delay Nonspecific ST and T wave abnormality Abnormal ECG No previous ECG available for comparison Electronically Signed On 04-19-20 10:19:05 CDT by En Mckeon
--- NOTE | 2020-04-19 12:01 | P.DS ---
Admission Date: 04/18/20 Discharge Date: 04/19/20 Reason for Admission: altered mental status Brief History of Present Illness: istory of Present Illness: Patient is a 59 year old female known past medical history of HIV (TO KEEP STRICTLY CONFIDENTIAL), type 2 diabetes mellitus, COPD and a recent diagnosis of pancreatic cancer 3 weeks ago during a hospitalization at [facility]. She presented with abdominal pain at the time. She underwent chemotherapy the following week. She presents to the ER after she became a minimally responsive the morning of admission. Patient went to bed last night slightly lethargic. Her blood glucose at the time was 60. She was fed and went back to sleep. She woke up this morning very lethargic. She was mainly moaning and groaning. EMS was called and she was brought to the ER. She takes Levemir 30 units in the morning. I talked to the son who is very knowledgeable about her medical condition. He states that patient is no longer on 6 units of NovoLog pre meals. Son (Sal) can be contacted at [phone]. Patient is also being tested for Corvette 19. She tested positive 3 weeks ago but a subsequent test (rapid test) during her hospitalization at [facility] was negative. Hospital Course: Patient with history of HIV on medication, recently diagnosed pancreatic cancer on chemotherapy, admits to a history of chronic diarrhea, poor appetite since been started on chemo; presented for hypoglycemia with altered mental status. She received D 10 and glucose improved. She admits to taking double dose of Levemir which was discontinued. She will be restarted on a Janumet. Need for close glucose monitoring was discussed. She was also started on Megace as well as potassium supplementation as she presented with severely low potassium on presentation. Patient is doing much better will be discharged home today. Vital Signs/Physical Exam: Temp Pulse Resp BP Pulse Ox 98.3 F 75 16 105/46 L 96 04/19/20 07:53 04/19/20 08:00 04/19/20 10:25 04/19/20 08:00 04/19/20 10:25 General: Alert, In no apparent distress, Oriented x3 HEENT: Atraumatic, Normocephalic Neck: Supple, 2+ carotid pulse no bruit, JVD not distended Respiratory: Clear to auscultation bilaterally, Normal air movement Cardiovascular: No edema, Normal pulses, Regular rate/rhythm, Normal S1 S2 Gastrointestinal: Normal bowel sounds, Soft and benign, Non-distended Musculoskeletal: No clubbing, No swelling Integumentary: No breakdown, No significant lesion, No tenderness/swelling Neurological: Normal speech, Normal strength at 5/5 x4 extr Laboratory Data at Discharge: WBC 12.2 K/uL (4.3-10.9) H 04/18/20 07:30 Hgb 12.6 g/dL (12.0-15.0) 04/18/20 07:30 Hct 38.5 % (36.0-45.0) 04/18/20 07:30 Plt Count 418 K/uL (152-406) H 04/18/20 07:30 Sodium 136 mmol/L (136-145) 04/19/20 08:44 Potassium 3.8 mmol/L (3.5-5.1) 04/19/20 08:44 BUN 5 mg/dL (7-18) L 04/19/20 08:44 Creatinine 0.42 mg/dL (0.55-1.3) L 04/19/20 08:44 Glucose 177 mg/dL (74-106) H 04/19/20 08:44 Home Medications: Amitriptyline [Elavil*] 50 mg PO BID 04/18/20 Aspirin [Aspirin EC 81 MG] 81 mg PO DAILY 04/18/20 Atazanavir Sulfate [Reyataz] 300 mg PO DAILY 04/18/20 Cholecalciferol (Vitamin D3) [Vitamin D3] 50,000 unit PO DAILY 04/18/20 Clopidogrel Bisulfate [Plavix] 75 mg PO DAILY 04/18/20 Hydrocodone 10/APAP 325 [[place] 10/325*] 1 tab PO Q6H PRN 04/18/20 Imodium 2 tab PO Q6HP PRN 04/18/20 Multivitamin [Daily Multiple Vitamin] 1 tab PO DAILY 04/18/20 Omeprazole Magnesium [Prilosec Otc] 1 tab PO DAILY 04/18/20 Promethazine Suppos [Phenergan] 2 supp RC Q6H 04/18/20 Ritonavir [Norvir] 100 mg PO DAILY 04/18/20 Sertraline [Zoloft*] 100 mg PO BID 04/18/20 Sitagliptin Phos/Metformin HCl [Janumet 50-1,000 mg Tablet] 1 each PO BID 04/18/20 Travadol 1 tab PO DAILY 04/18/20 Megestrol [Megace] 40 mg PO BID #60 tab 04/19/20 Potassium Chloride 10 meq PO DAILY #10 tablet.er 04/19/20 New Medications: Megestrol [Megace] 40 mg PO BID #60 tab Potassium Chloride 10 meq PO DAILY #10 tablet.er Patient Discharge Instructions: follow with PCP in 1 week. -monitor glucose closely Diet: Regular Activity: Ad tej Time spent managing pt's care (in minutes): 35
[2020-04-19 12:36] VITALS: BP 109/48
[2020-04-19 13:15] VITALS: TEMP 98.1
[2020-04-20 12:56] LABS: C.diff Antigen/Toxin Ag neg : Tox neg (NEG : NEG)
== END 2020-04-19 13:00 | disposition home health service (06) | DRG 917 ==
LOC: ER 07:32 → ERHOLD 11:33 → 3RD-ICU 15:46
PROVIDERS: ADMIT Internal Medicine; ATTEND Internal Medicine
DX: T38.3X1A Poisoning by insulin and oral hypoglycemic [antidiabetic] drugs, accidental (unintentional), initial encounter (principal); G93.41 Metabolic encephalopathy; C25.9 Malignant neoplasm of pancreas, unspecified; E11.649 Type 2 diabetes mellitus with hypoglycemia without coma; E87.6 Hypokalemia; E66.9 Obesity, unspecified; J44.9 Chronic obstructive pulmonary disease, unspecified; Z86.19 Personal history of other infectious and parasitic diseases; Z88.1 Allergy status to other antibiotic agents; Z68.29 Body mass index [BMI] 29.0-29.9, adult; Z79.82 Long term (current) use of aspirin; Z79.02 Long term (current) use of antithrombotics/antiplatelets; Z79.891 Long term (current) use of opiate analgesic; Z79.4 Long term (current) use of insulin; Z11.59 Encounter for screening for other viral diseases
CPT/HCPCS: 36415; 51702; 71045; 71260; 74177; 80048; 81003; 81015; 82947; 83036; 84132; 85025; 87040; 87324; 87449; 93005; 96361; 96365; 96366; 96367; 96375; 97112; 97116; 97161; 97530; 99285; J7040; J7799; Q0169; Q9967; U0002

== ENCOUNTER 2020-07-02 06:52 | Emergency (ER) | payer OTHER ==
--- OUTSIDE RECORDS SUMMARY | 2020-07-02 06:57 | XMS REPORT | Clinical Summary ---
:1960 Author Organization [facility] Address [address] [place] [address] Care Team Providers Name Role Phone MD Farhana Primary Care Provider Allergies Active Allergy Reactions Severity Noted Date Comments Cyclobenzaprine Seizure 04/19/2017 Sulfa (Sulfonamide Unknown Reaction 04/19/2017 Antibiotics) Tetracycline Rash Low 04/19/2017 Tramadol Other (See Comments) 04/06/2020 Seizure s Abacavir Other (See Comments) 04/19/2017 "hospit alized after used first dose " Medications Medication Sig Dispensed Refills Start Date End Date Status ritonavir (NORVIR) 100 Take 100 mg by 0 Active mg tablet mouth daily. multivitamin Take 1 tablet by 0 Active (THERAGRAN) tablet mouth daily. insulin ASPART (NovoLOG Inject 6 units 5 pen 6 04/03/2020 Active Flexpen U-100 Insulin) tid with meals 100 unit/mL (3 mL) insulin pen Additional Information Patient taking differently: Inject 6 units tid with meals (did not start due to insurance problems), Reported on 04/08/2020 11:13 AM pen needle, Inject 4 times a 100 each 1 04/03/2020 Active diabetic 32 gauge x day " needle gabapentin Take 1 capsule 30 capsule 5 04/16/2020 Ac tive (Neurontin) 100 mg (100 mg total) by capsule mouth nightly. pantoprazole Take 1 tablet (40 60 tablet 1 05/09/2020 Active (Protonix) 40 MG EC mg total) by mouth tablet 2 (two) times a day. pancrelipase, Take 1 capsule by 90 capsule 5 05/19/202005/19/ Active itmcix-spabutir-kcj mouth 3 (three) 2020 lase, (Creon) times a day with 24,000-76,000 meals. -120,000 unit capsule,delayed release(DR/EC) capsule insulin detemir Inject 18 Units 10 mL 3 05/26/2020 Active U-100 (LEVEMIR) 100 under the skin unit/mL every morning. injectionIndication s: Type 2 diabetes mellitus without complication, with long-term current use of insulin (HCC) potassium chloride Take 1 tablet (20 60 tablet 11 05/27/2020/ Active (K-DUR) 20 MEQ CR mEq total) by 2020 tabletIndications: mouth 2 (two) Edema, unspecified times a day. type furosemide (Lasix) Take 1 tablet (40 30 tablet 2 06/02/2020 Active 40 mg tablet mg total) by mouth daily. HYDROcodone-acetami Take 1 tablet by 90 tablet 0 06/02/2020/ Active nophen ([place]) mouth every 2019 10-325 mg per (six) hours as tabletIndications: needed for chronic pain moderate pain for up to 30 days .chronic pain. Max Daily Amount: 4 tablets atazanavir Take 1 capsule 30 capsule 2 06/02/202008/31/ Ac tive (Reyataz) 300 MG (300 mg total) by 2019 capsule mouth daily with breakfast for 90 days. emtricitabine-tenof Take 1 tablet by 30 tablet 2 06/02/2020/ Active ovir DF (TRUVADA) mouth daily for 0 200-300 mg per days. tablet SITagliptin-metform Take 1 tablet by 180 tablet 3 06/02/2020 0 06/02/ Active in (Janumet) 50-500 mouth 2 (two) 2020 mg per times a day with tabletIndications: meals. Type 2 diabetes mellitus without complication, with long-term current use of insulin (HCC) furosemide (LASIX) TAKE 1 TABLET BY 20 tablet 0 06/14/2020 Active 20 mg MOUTH EVERY DAY tabletIndications: Edema, unspecified type apixaban (Eliquis) Take 1 tablet (5 60 tablet 5 06/23/2020 Active 5 mg tablet mg total) by mouth 2 (two) times a day. sertraline (ZOLOFT) Take 2 tablets 60 tablet 11 06/27/2020 Active 100 MG tablet (200 mg total) by mouth daily. sitagliptin Take by mouth 2 0 03/25/ Di scontinued (Med phos/metformin HCl (two) times a day. 20 20 List Cleanup) (JANUMET ORAL) sertraline (ZOLOFT) Take 50 mg by 0 03/25/ Discontinued (Med 25 MG tablet mouth daily. 2019 List Cleanup) amitriptyline Take 10 mg by 0 03/25/ Di scontinued (Med (ELAVIL) 10 MG mouth daily. [address] Cleanup) tablet REYATAZ 300 mg TAKE 1 CAPSULE BY 90 capsule 2 02/18/201902/12 / Discontinued capsule MOUTH DAILY WITH 2019 BREAKFAST TRUVADA 200-300 mg TAKE ONE TABLET BY 90 tablet 2 02/18/2019 0 02/12/ Discontinued per tablet MOUTH ONCE DAILY 2019 WITH OR WITHOUT FOOD. STORE IN ORIGINAL CONTAINER AT ROOM TEMPERATURE. NORVIR 100 mg TAKE 1 TABLET BY 90 tablet 1 02/18/201910/10/ Discontinued tablet MOUTH DAILY 2018 (Reorder ) NORVIR 100 mg Take 1 tablet (100 90 tablet 1 10/10/201903/10/ Discontinued tablet mg total) by mouth 2019 daily for 180 days. Truvada 200-300 mg TAKE ONE TABLET BY 90 tablet 2 02/13/2020 0 03/25/ Discontinued (Med per tablet MOUTH ONCE DAILY [address] Cleanup) WITH OR WITHOUT FOOD. STORE IN ORIGINAL CONTAINER AT ROOM TEMPERATURE. Reyataz 300 mg TAKE 1 CAPSULE BY 90 capsule 2 02/13/202003/25 / Discontinued (Med capsule MOUTH DAILY WITH 2019 Lis t Cleanup) BREAKFAST Norvir 100 mg TAKE ONE TABLET BY 30 tablet 0 03/10/202003/25/ Discontinued (Med tablet MOUTH ONCE DAILY 2019 Lis t Cleanup) WITH A MEAL. DO NOT BREAK, CHEW ORCRUSH TABLET. STORE AT ROOM TEMPERATURE. AVOID HIGH HUMIDITY. amitriptyline Take 100 mg by 0 04/16/ D iscontinued (ELAVIL) 50 MG mouth daily. 2020 (R eorder) tablet atazanavir Take 300 mg by 0 06/02/ Disc ontinued (Reyataz) 300 MG mouth daily with 2020 (Reorder) capsule breakfast. SITagliptin-metform Take 1 tablet by 0 / Discontinued in (Janumet) mouth 2 (two) 2019 50-1,000 mg per times a day with tablet meals. emtricitabine-tenof Take 1 tablet by 0 / Discontinued ovir DF (TRUVADA) mouth daily. 2019 (Reorder) 200-300 mg per tablet insulin detemir Inject 30 Units 0 Discontinued U-100 (LEVEMIR) 100 under the skin 2020 (Reorder) unit/mL injection every morning. sertraline (ZOLOFT) Take 200 mg by 0 06/23 / Discontinued 100 MG tablet mouth daily. 2019 (Re order) morPHINE Take 1 tablet (15 60 tablet 0 04/03/202005/09/ D iscontinued immediate-release mg total) by mouth 202 0 (Stop Taking at 15 MG every 4 (four) Disch arge) tabletIndications: hours as needed acute pain for severe pain for up to 30 days .acute pain. Max Daily Amount: 90 mg HYDROcodone-acetami Take 1 tablet by 90 tablet 0 04/03/2020 Discontinued nophen ([place]) mouth every 6 2019 ( Reorder) 10-325 mg per (six) hours as tabletIndications: needed for chronic pain moderate pain for up to 30 days .chronic pain. Max Daily Amount: 4 tablets morPHINE (MS Take 1 tablet (30 60 tablet 0 04/03/202005/09/ Discontinued Contin) 30 MG 12 hr mg total) by mouth 2 020 (Stop Taking at tabletIndications: 2 (two) times a Discharge) chronic pain day for 30 days .chronic pain. Max Daily Amount: 60 mg ondansetron Take 1 tablet (8 30 tablet 5 04/03/2020 Discontinued (ZOFRAN) 8 MG mg total) by mouth 2019 (Stop Taking at tablet every 8 (eight) Disc harge) hours as needed for nausea or vomiting for up to 30 days. promethazine Take 1 tablet 60 tablet 2 04/03/2020 Di scontinued (PHENERGAN) 12.5 MG (12.5 mg total) by 2 020 (Stop Taking at tablet mouth every 6 Discha rge) (six) hours as needed for nausea or vomiting for up to 30 days. insulin lispro Inject 0-7 Units 10 mL 12 04/03/2020 Discontinued (HumaLOG) 100 under the skin 2019 (Stop Taking at unit/mL injection (three) times a Discharge) day with meals for 30 days. aspirin (ECOTRIN) Take 1 tablet (81 30 tablet 0 04/15/2020/ Discontinued 81 MG enteric mg total) by mouth 2019 (Stop Taking at coated tablet daily for 30 days. Discharge) clopidogreL Take 1 tablet (75 30 tablet 0 04/15/202005/09/ Discontinued (PLAVIX) 75 mg mg total) by mouth 2019 (Stop Taking at tablet daily for 30 days. D ischarge) amitriptyline Take 2 tablets 60 tablet 2 04/16/202005/09/ Discontinued (ELAVIL) 50 MG (100 mg total) by 2019 (Stop Taking at tablet mouth nightly as Dis charge) needed for sleep for up to 30 days. HYDROcodone-acetami Take 1 tablet by 90 tablet 0 04/17/2020/ Discontinued nophen ([place]) mouth every 6 2019 ( Reorder) 10-325 mg per (six) hours as tabletIndications: needed for chronic pain moderate pain for up to 30 days .chronic pain. Max Daily Amount: 4 tablets linaCLOtide Take 145 mcg by 0 05/19/ Di scontinued (LINZESS) 145 mcg mouth daily before 0 capsule breakfast. tiZANidine Take 2 mg by mouth 0 05/19/ Discontinued (ZANAFLEX) 2 MG every 8 (eight) 2019 (Reorder) tablet hours as needed for muscle spasms. potassium chloride Take by mouth 0 05/26/ Discontinued (KAYCIEL) 20 mEq/15 daily. 2020 mL solution amoxicillin Take 250 mg by 0 05/09/ Dis continued (AMOXIL) 250 MG mouth 3 (three) 2019 (Stop Taking at capsule times a day. Dischar ge) megestroL (MEGACE) Take 20 mg by 0 05/19/ Discontinued 20 MG tablet mouth daily. [address] 1 patch on 30 patch 0 05/10/202006/03/ Di scontinued (LIDODERM) 5 % the skin daily for 2019 30 days. Remove & Discard patch within 12 hours or as directed by QUEtiapine Take 1 tablet (25 30 tablet 0 05/09/202006/08/ (SEROqueL) 25 MG mg total) by mouth 2020 tablet nightly for 30 days. apixaban (Eliquis follow package 74 tablet 0 05/09/202006/23/ Discontinued DVT-PE Treat 30D instructions 2020 Start) 5 mg (74 tabs) tablets,dose pack insulin detemir Inject 25 Units 7.5 mL 0 05/09/2020 Discontinued U-100 (LEVEMIR) 100 under the skin 2019 (Reorder) unit/mL injection every morning for 30 days. tiZANidine Take 1 tablet (2 60 tablet 2 05/19/202005/19/ D iscontinued (ZANAFLEX) 2 MG mg total) by mouth 2019 tablet every 8 (eight) hours as needed for muscle spasms. tiZANidine Take 1 tablet (4 60 tablet 2 05/19/202006/18/ E xpired (Zanaflex) 4 MG mg total) by mouth 2019 tablet every 8 (eight) hours as needed for muscle spasms for up to 30 days. furosemide (Lasix) Take 1 tablet (20 20 tablet 0 05/26/2020/ Discontinued 20 mg tablet mg total) by mouth 2019 (Reorder) daily. potassium chloride Take 1 tablet (20 60 tablet 11 05/26/2020/ Discontinued (K-DUR) 20 MEQ CR mEq total) by 2019 (Reorder) tablet mouth 2 (two) times a day. SITagliptin-metform Take 1 tablet by 180 tablet 3 05/26/2020 0 Discontinued in (Janumet) 50-500 mouth 2 (two) 2019 (Reorder) mg per times a day with tabletIndications: meals. Type 2 diabetes mellitus without complication, with long-term current use of insulin (HCC) furosemide (Lasix) Take 1 tablet (20 20 tablet 0 05/27/2020/ Discontinued 20 mg mg total) by mouth 2019 tabletIndications: daily. Edema, unspecified type sertraline (ZOLOFT) Take 2 tablets 60 tablet 11 06/23/2020 090 5/ Discontinued 100 MG tablet (200 mg total) by 2019 (Reorder) mouth daily. Hospital, Clinic, or Ordered Dose Route Frequency Start Date End D ate Status Other Facility Administered Medication potassium chloride 20 mEq oral once 05/19/2020 05/19/2020 Ended (K-DUR) CR tablet 20 mEqIndications: Malignant neoplasm of pancreas, unspecified location of malignancy (HCC) potassium chloride 20 20 mEq IV every 1 hour 06/02/202005/23 Ended mEq in 100 mL IVPB (FOR CENTRAL LINE ONLY)Indications: Hypokalemia Active Problems Problem Noted Date Type 2 diabetes mellitus, with long-term current use o f insulin 05/26/2020 Duodenal stenosis 05/04/2020 Overview: Added automatically from request for walker sanchez [id number] Occlusion of superior mesenteric artery 04/09/2020 Abdominal pain 04/09/2020 Respiratory insufficiency 04/05/2020 Malignant neoplasm of pancreas 04/02/2020 Chemotherapy induced neutropenia 04/02/2020 Pancreatic cancer 03/31/2020 History of CVA (cerebrovascular accident) 03/29/2020 Overweight (BMI 25.0-29.9) 03/29/2020 Acute pancreatitis 03/24/2020 Overview: Added automatically from request for walker sanchez [id number] HIV (human immunodeficiency virus infection) 8 Resolved Problems Problem Noted Date Resolved Date Dehydration 05/04/2020 05/09/2020 COVID-19 virus detected 04/05/2020 04/09/2020 DKA (diabetic ketoacidoses) 03/24/2020 05/09/2020 Encounters Date Type Specialty Care Team Description 07/02/2020 Hospital Encounter Radiology Harmony Davenport MD 07/01/2020 Travel 06/25/2020 Nurse Only Oncology Harmony Davenport Malignant ne oplasm MD of pancreas, unspecified location of malignancy (HCC ) (Primary Dx) 06/25/2020 Travel 06/24/2020 Social Work Oncology Lucia Mercado, MAX 06/23/2020 Hospital Encounter Hematology and Harmony Davenport Canc eled (Patient) Oncology 06/23/2020 Office Visit Oncology Harmony Davenport Malignant ne oplasm MD of pancreas, unspecified location of malignancy (HCC ) (Primary Dx) 06/23/2020 Infusion Oncology Harmony Davenport Malignant ne gerber of pancreas, unspecified location of malignancy (HCC) (Primary Dx); Chemotherapy in duced neutropenia (HCC) 06/23/2020 Travel 06/22/2020 Travel 06/16/2020 Travel 06/14/2020 Refill Oncology Hramony Davenport, Edema, unspe cified MD type 06/10/2020 Orders Only Oncology Harmony Davenport Malignant ne gerber JOHNSON of pancreas, unspecified location of malignancy (HCC ) (Primary Dx) 06/10/2020 Travel 06/10/2020 Telephone Oncology César Lugo RN 06/04/2020 Nurse Only Oncology Harmony Davenport, Malignant ne oplasm MD of pancreas, unspecified location of malignancy (HCC ) (Primary Dx) 06/04/2020 Telephone Gastroenterology Denisha Gustafson MA 06/04/2020 Telephone Oncology Harmony Davenport MD 06/04/2020 Travel 06/03/2020 Orders Only Oncology Harmony Davenport, Malignant ne oplasm MD of pancreas, unspecified location of malignancy (HCC ) (Primary Dx) 06/03/2020 Social Work Oncology Lucia Mercado LCSW 06/02/2020 Hospital Encounter Procedural Cardiology Arturo Davenport, Abnormal findings on diagnostic imaging of limbs ; Malignant neopl asm of pancreas, unspecified location of malignancy (HCC); Edema, unspecif ied type 06/02/2020 Office Visit Oncology Harmony Davenport Malignant ne oplasm MD of pancreas, unspecified location of malignancy (HCC ) (Primary Dx) 06/02/2020 Infusion Oncology Harmony Davenport Malignant ne oplasm of pancreas, unspecified location of malignancy (HCC) (Primary Dx); Hypokalemia; Chemotherapy in duced neutropenia (HCC) 06/02/2020 Orders Only Internal Medicine Xavier, Type 2 peg Arthur MA mellitus withou t complication, w ith long-term curre nt use of insulin (HCC) 06/02/2020 Orders Only Infectious Diseases Danielle Jacobs RN 06/02/2020 Oncology Oncology Denice Lin RN 06/02/2020 Refill Oncology Harmony Davenport MD 06/02/2020 Orders Only Oncology Harmony Davenport MD 06/02/2020 Travel 05/27/2020 Orders Only Oncology Parish, Abdiaziz, unspecif ied JACK Lindsey type (Primary D x) 05/26/2020 Telephone Consult Endocrinology Dany Type 2 di abetes Nallely mellitus withou t [place] complication, w ith long-term curre nt use of insulin (HCC) (Primary Dx) 05/26/2020 Nurse Triage Endocrinology Patti Strong MA 05/26/2020 Travel 05/26/2020 Telephone Oncology Harmony Davenport MD 05/26/2020 Orders Only Oncology Harmony Davenport, Malignant ne oplasm of pancreas, unspecified location of malignancy (HCC) (Primary Dx); Edema, unspecif ied type; Abnormal findin gs on diagnostic imaging of limbs 05/26/2020 Orders Only Oncology Harmony Davenport MD 05/21/2020 Nurse Only Oncology Harmony Davenport, Malignant ne oplasm MD of pancreas, unspecified location of malignancy (HCC ) (Primary Dx) 05/21/2020 Travel 05/20/2020 Telephone Consult Gastroenterology Dax Mendez MD Malig nant neoplasm of other parts of pancreas (HCC) (Primary Dx); Duodenal stenos is; Epigastric pain 05/20/2020 Orders Only Infectious Diseases Danielle Jacobs RN 05/20/2020 Orders Only Oncology Harmony Davenport MD 05/20/2020 Orders Only Oncology Harmony Davenport, Malignant ne oplasm MD of pancreas, unspecified location of malignancy (HCC ) (Primary Dx) 05/19/2020 Office Visit Oncology Harmony Davenport, Malignant ne oplasm MD of pancreas, unspecified location of malignancy (HCC ) (Primary Dx) 05/19/2020 Infusion Oncology Harmony Davenport, Malignant ne oplasm of pancreas, unspecified location of malignancy (HCC) (Primary Dx); Chemotherapy in duced neutropenia (HCC) 05/19/2020 Telephone Endocrinology Gopi Hernandez MD 05/19/2020 Orders Only Oncology César Lugo, RN 05/19/2020 Oncology Oncology Denice Lin, JACK 05/19/2020 Orders Only Oncology Harmony Davenport Malignant ne oplasm MD of pancreas, unspecified location of malignancy (HCC ) (Primary Dx) 05/19/2020 Travel 05/18/2020 Orders Only Oncology Claire Patterson, [facility] 05/15/2020 Telephone Oncology Harmony Davenport MD 05/15/2020 Travel 05/14/2020 Orders Only Oncology Emili Leblanc, [facility] 05/14/2020 Telephone Oncology Harmony Davenport MD 05/13/2020 Telephone Oncology Harmony Davenport MD 05/12/2020 Travel 05/11/2020 Telephone Gastroenterology Malia Stewart MA 05/10/2020 Telephone Endocrinology Nallely Saenz 05/08/2020 Surgery Gastroenterology Hamlet Vivar, EGD WITH Dinorah TIWARI MD ENTEROSCOPY 05/08/2020 Anesthesia Event Gastroenterology precious, Owen Davenport MD 05/07/2020 Telephone Oncology Harmony Davenport MD 05/04/2020 Hospital Encounter General Internal Alvaro Bauman, Diab etic ketoacidosis without coma associated with type 2 diabetes mellitus (HCC) (Primary Dx); - Medicine MD Duodenal stenosis; 05/09/2020 Augie Argueta, Malignant neop lasm of pancreas, unspecified location of malignancy (HCC) 05/04/2020 Travel 05/04/2020 Telephone Oncology César Lugo RN 05/04/2020 Orders Only Oncology César Lugo RN 04/30/2020 Nurse Only Oncology Harmony Davenport Malignant ne gerber JOHNSON of pancreas, unspecified location of malignancy (HCC ) (Primary Dx) 04/29/2020 Nurse Only Oncology Harmony Davenport MD 04/29/2020 Travel 04/28/2020 Nurse Only Oncology Harmony Davenport MD 04/28/2020 Oncology Oncology Delia, Survivorship JACK Myers 04/28/2020 Orders Only Oncology Parish Malignant neopl lalitha Lindsey RN of pancreas, unspecified location of malignancy (HCC ) (Primary Dx) 04/27/2020 Office Visit Oncology Harmony Davenport Malignant ne gerber JOHNSON of pancreas, unspecified location of malignancy (HCC ) (Primary Dx) 04/27/2020 Infusion Oncology Harmony Davenport Malignant ne gerber JOHNSON of pancreas, unspecified location of malignancy (HCC ) (Primary Dx) 04/27/2020 Oncology Oncology Delia, Survivorship Lucia, JACK 04/27/2020 Social Work Oncology Lucia Mercado, MAX 04/27/2020 Travel 04/27/2020 Orders Only Oncology Harmony Davenport Malignant ne gerber JOHNSON of pancreas, unspecified location of malignancy (HCC ) (Primary Dx) 04/25/2020 Orders Only Pharmacy Annalisa Grimes RPH 04/20/2020 Telephone Oncology Harmony Davenport MD 04/17/2020 Orders Only Oncology Harmony Davenport MD 04/16/2020 Orders Only Oncology Harmony Davenport MD 04/16/2020 Orders Only Oncology Tato Watkins Malignant neopl asm Emili, RPH of pancreas, unspecified location of malignancy (HCC ) (Primary Dx) 04/16/2020 Documentation Medical Records Provider, Unknown 04/16/2020 Telephone Oncology Harmony Davenport MD 04/15/2020 Anesthesia Event Gastroenterology Keysha Canas MD [facility], Owen Davenport MD 04/15/2020 Surgery Gastroenterology Dax Mendez MD ERCP WITH FLUORO 04/06/2020 Telephone Gastroenterology Malia Stewart MA 04/06/2020 Telephone Oncology César Lugo RN 04/05/2020 Hospital Encounter General Internal Sixto Tyler Ma lignuzma neoplasm - Medicine Julian DO of pancreas, 04/15/2020 Gracie Julio unspecified MD [place] location of Joglekar, malignancy (HCC ) MD Breana (Primary Dx) 04/05/2020 Intake Access 04/04/2020 Hospital Encounter Hematology and Harmony Davenport Mali gnuzma neoplasm of pancreas, unspecified location of malignancy (HCC) (Primary Dx); Oncology Chemotherapy in duced neutropenia (HCC) 04/04/2020 Travel 04/03/2020 Orders Only Oncology Harmony Davenport MD 03/26/2020 Surgery Gastroenterology Dax Mendez MD US UPPER G I TRACT with FNA, ENDOSCOPIC , Eg d with biopsies 03/26/2020 Anesthesia Event Gastroenterology Diamond Washington MD Crawley, Teri, NP 03/24/2020 Hospital Encounter Oncology Vaibhav Brown Pancre atic adenocarcinoma (HCC) (Primary Dx); - B., DO Diabetic ketoacidosis without coma assoc iated with type 2 diabetes mellitus (HCC); 04/03/2020 Jean, Acute pancreati tis, unspecified complication status, unspecified pancreatitis type; Amitkumar Transaminitis; MD Karen Hyponatremia; Joglekar, Malignant neopl asm of pancreas, unspecified location of malignancy (HCC) MD Nori Toussaint Rekha Srinivas, MD 03/24/2020 Documentation Infectious Diseases Danielle Jacobs RN 03/19/2020 Travel 03/12/2020 Orders Only Infectious Diseases Readlisa, Asymptom atic HIV infection (HCC) (Primary Dx); JACK Santostechnical designer mellit us due to underlying condition with unspecified complications (HCC) 03/12/2020 Travel 03/05/2020 Refill Infectious Diseases Leoncio Uribe MD 02/13/2020 Refill Infectious Diseases Leoncio Uribe MD 10/10/2019 Orders Only Infectious Diseases Danielle Jacobs, RN after 07/02/2019 Immunizations Name Administration Dates Next Due Influenza, [...] Never Used Tobacco Cessation: Ready to Quit: No; Co unseling Given: Yes Comments: havs not smoked in 4-5 weeks Alcohol Use Drinks/Week oz/Week Comments Not Currently occassionally Sex Assigned at Date Recorded Not on file Job Start Date Occupation Industry Not on file Not on file Not on file Travel History Travel Start Travel End No recent travel history available. COVID-19 Exposure Response Date Recorded In the last month, have you been in contact Unable to assess 07/01/2020 10:26 AM CDT with someone who was confirmed or suspected to have Coronavirus / COVID-19? Last Filed Vital Signs Vital Sign Reading Time Taken Comments Blood Pressure 98/53 06/25/2020 12:54 PM CDT Pulse 108 06/25/2020 12:54 PM CDT Temperature 36.1 C (96.9 F) 06/25/2020 12:54 PM CDT Respiratory Rate 19 06/25/2020 12:54 PM CDT Oxygen Saturation 93% 06/25/2020 12:54 PM CDT Inhaled Oxygen Concentration - - Weight 71.7 kg (158 lb 1.6 oz) 06/25/2020 12:54 PM CDT Height 160 cm (5' 3") 06/25/2020 12:54 PM CDT Body Mass Index 28.01 06/25/2020 12:54 PM CDT Plan of Treatment Date Type Specialty Care Team Description 07/02/2020 Hospital Encounter Radiology Arturo Davenport MD [address] [address] [phone] 07/07/2020 Infusion Oncology Harmony Davenport MD [address] [address] [phone] 07/07/2020 Office Visit Oncology Harmony Davenport MD [address] [address] [phone] 07/09/2020 Nurse Only Oncology Harmony Davenport MD [address] [address] [phone] 08/25/2020 Telephone Consult Endocrinology Nae Saenz [address] [facility] [address] [place], [place] [address] [phone] Health Maintenance Due Date Last Done Comments DIABETIC RETINAL EYE EXAM 1958 DIABETIC FOOT EXAM 1968 BREAST CANCER SCREENING 2008 COLONOSCOPY SCREENING 2008 SHINGLES VACCINES (#1) 2008 INFLUENZA VACCINE 07/23/2020 01/06/2016, 09/30/2009, 2008, Additional history exists CERVICAL CANCER SCREENING 03/26/2023 03/26/2020, 03/26/2020 Implants Implanted Type Area Nurse Midwife/Clinical Instructor Device Shelf Model / Identifier Expiration Serial / Date Lot Port Injctbl Smart Port Ct W/ Dtchd Plyurthn Cath 8fr - [id number] Implantable N/A: ANGIODYNAMICS 07/22/2022 [id number] / Implanted: 03/31/2020 at [facility] (Quantity not on file) Inf usion Ports N/A INC / or Accessories [id number] Stent Bili Advnx Cntrbnd Mode 10fr 7cm - [id number] Surgical N/A: [facility] ENDOSCOPY 02/24/2022 [id number] / Implanted: 03/26/2020 at [facility] (Quantity not on file) Stents N/A / [id number] Stent Pncrtc Geenen Soft Flex 5fr 3cm W/No Intrnl Flap - Log [id number] Surgical N/A: [facility] ENDOSCOPY 11/12/2022 [id number] / Implanted: 03/26/2020 at [facility] (Quantity not on file) Stents N/A / [id number] Stent Bili Wallflex Mode [id number] Ncvrd - [id number] Surgical N/A: [facility] 02/16/2022 [id number] / Implanted: 04/15/2020 at [facility] (Quantity not on file) Stents N/A / [id number] Procedures Procedure Name Priority Date/Time Associated Comments Diagnosis ESTIMATED GFR STAT 06/23/2020 Results for 10:11 AM CDT this procedure are in the results section. MAGNESIUM LEVEL STAT 06/23/2020 Malignant neoplasm Result s for 10:11 AM CDT of pancreas, this unspecified procedure are location of in the malignancy (HCC) results section. HC COMPLETE BLD COUNT W/AUTO STAT 06/23/2020 Malignant ne oplasm Results for DIFF 10:11 AM CDT of pancreas, this unspecified procedure are location of in the malignancy (HCC) results section. COMPREHENSIVE METABOLIC PANEL STAT 06/23/2020 Malignant n eoplasm Results for 10:11 AM CDT of pancreas, this unspecified procedure are location of in the malignancy (HCC) results section. CANCER ANTIGEN 19-9 STAT 06/23/2020 Malignant neoplasm Re sults for 10:11 AM CDT of pancreas, this unspecified procedure are location of in the malignancy (HCC) results section. TTE COMPLETE, W CONTRAST, W Routine 06/02/2020 Abnormal find ings Results for DOPPLER ([id number]) 4:34 PM CDT on diagnostic this imaging of limbs procedure are Malignant neoplasm in the of pancreas, results unspecified section. location of malignancy (HCC) Edema, unspecified type ESTIMATED GFR STAT 06/02/2020 Results for 9:05 AM CDT this procedure are in the results section. MAGNESIUM LEVEL STAT 06/02/2020 Malignant neoplasm Result s for 9:05 AM CDT of pancreas, this unspecified procedure are location of in the malignancy (HCC) results section. HC COMPLETE BLD COUNT W/AUTO STAT 06/02/2020 Malignant ne oplasm Results for DIFF 9:05 AM CDT of pancreas, this unspecified procedure are location of in the malignancy (HCC) results section. COMPREHENSIVE METABOLIC PANEL STAT 06/02/2020 Malignant n eoplasm Results for 9:05 AM CDT of pancreas, this unspecified procedure are location of in the malignancy (HCC) results section. CANCER ANTIGEN 19-9 STAT 06/02/2020 Malignant neoplasm Re sults for 9:05 AM CDT of pancreas, this unspecified procedure are location of in the malignancy (HCC) results section. ESTIMATED GFR STAT 05/19/2020 Results for 10:18 AM CDT this procedure are in the results section. MAGNESIUM LEVEL STAT 05/19/2020 Malignant neoplasm Result s for 10:18 AM CDT of pancreas, this unspecified procedure are location of in the malignancy (HCC) results section. HC COMPLETE BLD COUNT W/AUTO STAT 05/19/2020 Malignant ne oplasm Results for DIFF 10:18 AM CDT of pancreas, this unspecified procedure are location of in the malignancy (HCC) results section. COMPREHENSIVE METABOLIC PANEL STAT 05/19/2020 Malignant n eoplasm Results for 10:18 AM CDT of pancreas, this unspecified procedure are location of in the malignancy (HCC) results section. CANCER ANTIGEN 19-9 STAT 05/19/2020 Malignant neoplasm Re sults for 10:18 AM CDT of pancreas, this unspecified procedure are location of in the malignancy (HCC) results section. POC GLUCOSE Routine 05/09/2020 Results for 4:27 PM CDT this procedure are in the results section. POC GLUCOSE Routine 05/09/2020 Results for 12:40 PM CDT this procedure are in the results section. XR ABDOMEN 1 VW PORTABLE Routine 05/09/2020 Res ults for 9:38 AM CDT this procedure are in the results section. POC GLUCOSE Routine 05/09/2020 Results for 8:28 AM CDT this procedure are in the results section. POC GLUCOSE Routine 05/09/2020 Results for 5:26 AM CDT this procedure are in the results section. POC GLUCOSE Routine 05/09/2020 Results for 1:50 AM CDT this procedure are in the results section. POC GLUCOSE Routine 05/08/2020 Results for 9:16 PM CDT this procedure are in the results section. POC GLUCOSE Routine 05/08/2020 Results for 5:32 PM CDT this procedure are in the results section. POC GLUCOSE Routine 05/08/2020 Results for 4:28 PM CDT this procedure are in the results section. FL > 1 HOUR Routine 05/08/2020 Malignant neoplasm Results f or 4:17 PM CDT of pancreas, this unspecified procedure are location of in the malignancy (HCC) results section. NH AN ELECTIVE ENDOTRACHEAL Routine 05/08/2020 Results for AIRWAY 3:43 PM CDT this procedure are in the results section. ERCP WITH FLUORO 05/08/2020 Duodenal stenos is 3:02 PM CDT Malignant neoplasm of pancreas, unspecified location of malignancy (HCC) ESOPHAGOGASTRODUODENOSCOPY 05/08/2020 Duode nal stenosis (EGD) 3:02 PM CDT Malignant neoplasm of pancreas, unspecified location of malignancy (HCC) POC PANEL 4 Routine 05/08/2020 Results for 2:06 PM CDT this procedure are in the results section. POTASSIUM LEVEL STAT 05/08/2020 Results for 12:40 PM CDT this procedure are in the results section. POC GLUCOSE Routine 05/08/2020 Results for 12:20 PM CDT this procedure are in the results section. POC GLUCOSE Routine 05/08/2020 Results for 8:39 AM CDT this procedure are in the results section. ESTIMATED GFR Routine 05/08/2020 Results for 5:00 AM CDT this procedure are in the results section. PHOSPHORUS LEVEL Routine 05/08/2020 Results for 5:00 AM CDT this procedure are in the results section. MAGNESIUM LEVEL Routine 05/08/2020 Results for 5:00 AM CDT this procedure are in the results section. PROTHROMBIN TIME WITH INR Routine 05/08/2020 Re sults for 5:00 AM CDT this procedure are in the results section. COMPREHENSIVE METABOLIC PANEL Routine 05/08/2020 Results for 5:00 AM CDT this procedure are in the results section. HC COMPLETE BLD COUNT W/AUTO Routine 05/08/2020 Results for DIFF 5:00 AM CDT this procedure are in the results section. POC GLUCOSE Routine 05/07/2020 Results for 11:59 PM CDT this procedure are in the results section. POC GLUCOSE Routine 05/07/2020 Results for 10:09 PM CDT this procedure are in the results section. XR ABDOMEN 1 VW PORTABLE STAT 05/07/2020 Res ults for 6:12 PM CDT this procedure are in the results section. POC GLUCOSE Routine 05/07/2020 Results for 4:34 PM CDT this procedure are in the results section. POC GLUCOSE Routine 05/07/2020 Results for 12:10 PM CDT this procedure are in the results section. POC GLUCOSE Routine 05/07/2020 Results for 8:12 AM CDT this procedure are in the results section. POC GLUCOSE Routine 05/07/2020 Results for 6:12 AM CDT this procedure are in the results section. HC COMPLETE BLD COUNT W/AUTO Routine 05/07/2020 Results for DIFF 6:00 AM CDT this procedure are in the results section. HEPATIC FUNCTION PANEL Routine 05/07/2020 Resul ts for 4:00 AM CDT this procedure are in the results section. ESTIMATED GFR Routine 05/07/2020 Results for 4:00 AM CDT this procedure are in the results section. BASIC METABOLIC PANEL Routine 05/07/2020 Result s for 4:00 AM CDT this procedure are in the results section. POC GLUCOSE Routine 05/06/2020 Results for 11:24 PM CDT this procedure are in the results section. CT CHEST W CONTRAST ABDOMEN W Routine 05/06/2020 Results for CONTRAST PELVIS W CONTRAST 4:21 PM CDT t his procedure are in the results section. POC GLUCOSE Routine 05/06/2020 Results for 12:34 PM CDT this procedure are in the results section. URINALYSIS SCREEN AND Routine 05/06/2020 Result s for MICROSCOPY, WITH REFLEX TO 11:37 AM CDT t his CULTURE procedure are in the results section. URINE CULTURE Routine 05/06/2020 Results for 11:35 AM CDT this procedure are in the results section. POC GLUCOSE Routine 05/06/2020 Results for 8:17 AM CDT this procedure are in the results section. ESTIMATED GFR Routine 05/06/2020 Results for 4:19 AM CDT this procedure are in the results section. BASIC METABOLIC PANEL Routine 05/06/2020 Result s for 4:19 AM CDT this procedure are in the results section. HC COMPLETE BLD COUNT W/AUTO Routine 05/06/2020 Results for DIFF 4:19 AM CDT this procedure are in the results section. POC GLUCOSE Routine 05/06/2020 Results for 4:14 AM CDT this procedure are in the results section. POC GLUCOSE Routine 05/06/2020 Results for 1:30 AM CDT this procedure are in the results section. POC GLUCOSE Routine 05/05/2020 Results for 8:06 PM CDT this procedure are in the results section. ESTIMATED GFR Timed 05/05/2020 Results for 7:13 PM CDT this procedure are in the results section. BASIC METABOLIC PANEL Timed 05/05/2020 Result s for 7:13 PM CDT this procedure are in the results section. DKA ELECTROLYTES AND GLUCOSE Timed 05/05/2020 Results for TEST 7:13 PM CDT this procedure are in the results section. POC GLUCOSE Routine 05/05/2020 Results for 6:41 PM CDT this procedure are in the results section. POC GLUCOSE Routine 05/05/2020 Results for 5:41 PM CDT this procedure are in the results section. POC GLUCOSE Routine 05/05/2020 Results for 4:03 PM CDT this procedure are in the results section. POC GLUCOSE Routine 05/05/2020 Results for 2:57 PM CDT this procedure are in the results section. POC GLUCOSE Routine 05/05/2020 Results for 1:18 PM CDT this procedure are in the results section. ESTIMATED GFR Timed 05/05/2020 Results for 12:20 PM CDT this procedure are in the results section. BASIC METABOLIC PANEL Timed 05/05/2020 Result s for 12:20 PM CDT this procedure are in the results section. POC GLUCOSE Routine 05/05/2020 Results for 12:06 PM CDT this procedure are in the results section. POC GLUCOSE Routine 05/05/2020 Results for 11:21 AM CDT this procedure are in the results section. POC GLUCOSE Routine 05/05/2020 Results for 10:05 AM CDT this procedure are in the results section. POC GLUCOSE Routine 05/05/2020 Results for 9:18 AM CDT this procedure are in the results section. DKA ELECTROLYTES AND GLUCOSE Timed 05/05/2020 Results for TEST 8:30 AM CDT this procedure are in the results section. DKA ELECTROLYTES AND GLUCOSE Timed 05/05/2020 Results for TEST 8:30 AM CDT this procedure are in the results section. POC GLUCOSE Routine 05/05/2020 Results for 8:08 AM CDT this procedure are in the results section. POC GLUCOSE Routine 05/05/2020 Results for 6:39 AM CDT this procedure are in the results section. ESTIMATED GFR Timed 05/05/2020 Results for 5:15 AM CDT this procedure are in the results section. ESTIMATED GFR Timed 05/05/2020 Results for 5:15 AM CDT this procedure are in the results section. BASIC METABOLIC PANEL Timed 05/05/2020 Result s for 5:15 AM CDT this procedure are in the results section. HEPATIC FUNCTION PANEL Timed 05/05/2020 Resul ts for 5:15 AM CDT this procedure are in the results section. BASIC METABOLIC PANEL Timed 05/05/2020 Result s for 5:15 AM CDT this procedure are in the results section. HC COMPLETE BLD COUNT W/AUTO Timed 05/05/2020 Results for DIFF 5:15 AM CDT this procedure are in the results section. POC GLUCOSE Routine 05/05/2020 Results for 5:09 AM CDT this procedure are in the results section. POC GLUCOSE Routine 05/05/2020 Results for 4:18 AM CDT this procedure are in the results section. POC GLUCOSE Routine 05/05/2020 Results for 3:04 AM CDT this procedure are in the results section. POC GLUCOSE Routine 05/05/2020 Results for 1:57 AM CDT this procedure are in the results section. POC GLUCOSE Routine 05/05/2020 Results for 12:22 AM CDT this procedure are in the results section. POC GLUCOSE Routine 05/04/2020 Results for 11:22 PM CDT this procedure are in the results section. POC GLUCOSE Routine 05/04/2020 Results for 10:25 PM CDT this procedure are in the results section. ESTIMATED GFR STAT 05/04/2020 Results for 9:25 PM CDT this procedure are in the results section. PHOSPHORUS LEVEL STAT 05/04/2020 Results for 9:25 PM CDT this procedure are in the results section. MAGNESIUM LEVEL STAT 05/04/2020 Results for 9:25 PM CDT this procedure are in the results section. COMPREHENSIVE METABOLIC PANEL STAT 05/04/2020 Results for 9:25 PM CDT this procedure are in the results section. LACTIC ACID LEVEL STAT 05/04/2020 Results fo r 9:25 PM CDT this procedure are in the results section. BASIC METABOLIC PANEL Timed 05/04/2020 9:25 PM CDT POC GLUCOSE Routine 05/04/2020 Results for 9:19 PM CDT this procedure are in the results section. DKA ELECTROLYTES AND GLUCOSE STAT 05/04/2020 Results for TEST 8:25 PM CDT this procedure are in the results section. ARTERIAL BLOOD GAS STAT 05/04/2020 Results f or 8:25 PM CDT this procedure are in the results section. POC GLUCOSE Routine 05/04/2020 Results for 8:16 PM CDT this procedure are in the results section. POC GLUCOSE Routine 05/04/2020 Results for 6:18 PM CDT this procedure are in the results section. ECG 12-LEAD STAT 05/04/2020 Results for 6:05 PM CDT this procedure are in the results section. POC GLUCOSE Routine 05/04/2020 Results for 5:54 PM CDT this procedure are in the results section. XR ABDOMEN 1 VW PORTABLE Routine 05/04/2020 Res ults for 5:38 PM CDT this procedure are in the results section. XR CHEST 1 VW PORTABLE Routine 05/04/2020 Resul ts for 5:37 PM CDT this procedure are in the results section. COVID-19 QUALITATIVE PCR Routine 05/04/2020 Res ults for 5:20 PM CDT this procedure are in the results section. POC GLUCOSE Routine 05/04/2020 Results for 5:11 PM CDT this procedure are in the results section. HEMOGLOBIN A1C STAT 05/04/2020 Results for 5:10 PM CDT this procedure are in the results section. BETA HYDROXYBUTYRATE STAT 05/04/2020 Results for 5:10 PM CDT this procedure are in the results section. ESTIMATED GFR STAT 05/04/2020 Results for 5:10 PM CDT this procedure are in the results section. HEMOGLOBIN A1C Routine 05/04/2020 Results for 5:10 PM CDT this procedure are in the results section. LACTIC ACID LEVEL Routine 05/04/2020 Results fo r 5:10 PM CDT this procedure are in the results section. BASIC METABOLIC PANEL STAT 05/04/2020 Result s for 5:10 PM CDT this procedure are in the results section. BETA HYDROXYBUTYRATE STAT 05/04/2020 Results for 5:10 PM CDT this procedure are in the results section. BLOOD CULTURE, AEROBIC & Routine 05/04/2020 Res ults for ANAEROBIC 5:00 PM CDT this procedure are in the results section. BLOOD CULTURE, AEROBIC & Routine 05/04/2020 Res ults for ANAEROBIC 5:00 PM CDT this procedure are in the results section. POC GLUCOSE Routine 05/04/2020 Results for 3:09 PM CDT this procedure are in the results section. ESTIMATED GFR Routine 05/04/2020 Results for 3:00 PM CDT this procedure are in the results section. BILIRUBIN DIRECT Routine 05/04/2020 Results for 3:00 PM CDT this procedure are in the results section. URIC ACID LEVEL Routine 05/04/2020 Results for 3:00 PM CDT this procedure are in the results section. PHOSPHORUS LEVEL Routine 05/04/2020 Results for 3:00 PM CDT this procedure are in the results section. MAGNESIUM LEVEL Routine 05/04/2020 Results for 3:00 PM CDT this procedure are in the results section. LDH Routine 05/04/2020 Results for 3:00 PM CDT this procedure are in the results section. COMPREHENSIVE METABOLIC PANEL Routine 05/04/2020 Results for 3:00 PM CDT this procedure are in the results section. HC COMPLETE BLD COUNT W/AUTO Routine 05/04/2020 Results for DIFF 3:00 PM CDT this procedure are in the results section. ESTIMATED GFR STAT 04/27/2020 Results for 10:21 AM CDT this procedure are in the results section. MAGNESIUM LEVEL STAT 04/27/2020 Malignant neoplasm Result s for 10:21 AM CDT of pancreas, this unspecified procedure are location of in the malignancy (HCC) results section. HC COMPLETE BLD COUNT W/AUTO STAT 04/27/2020 Malignant ne oplasm Results for DIFF 10:21 AM CDT of pancreas, this unspecified procedure are location of in the malignancy (HCC) results section. COMPREHENSIVE METABOLIC PANEL STAT 04/27/2020 Malignant n eoplasm Results for 10:21 AM CDT of pancreas, this unspecified procedure are location of in the malignancy (HCC) results section. CANCER ANTIGEN 19-9 STAT 04/27/2020 Malignant neoplasm Re sults for 10:21 AM CDT of pancreas, this unspecified procedure are location of in the malignancy (HCC) results section. FL > 1 HOUR Routine 04/15/2020 Malignant neoplasm Results f or 2:34 PM CDT of pancreas, this unspecified procedure are location of in the malignancy (HCC) results section. POC GLUCOSE Routine 04/15/2020 Results for 2:30 PM CDT this procedure are in the results section. NH AN ELECTIVE ENDOTRACHEAL Routine 04/15/2020 Results for AIRWAY 1:30 PM CDT this procedure are in the results section. US UPPER GI TRACT, ENDOSCOPIC 04/15/2020 Malignant n eoplasm 1:21 PM CDT of pancreas, unspecified location of malignancy (HCC) ERCP WITH FLUORO 04/15/2020 Malignant neoplasm 1:21 PM CDT of pancreas, unspecified location of malignancy (HCC) POC GLUCOSE Routine 04/15/2020 Results for 12:38 PM CDT this procedure are in the results section. ESTIMATED GFR Routine 04/15/2020 Results for 4:48 AM CDT this procedure are in the results section. BASIC METABOLIC PANEL Routine 04/15/2020 Result s for 4:48 AM CDT this procedure are in the results section. CBC WITH PLATELET AND Routine 04/15/2020 Result s for DIFFERENTIAL 4:48 AM CDT this procedure are in the results section. PARTIAL THROMBOPLASTIN TIME Routine 04/15/2020 Results for (PTT) 4:48 AM CDT this procedure are in the results section. POC GLUCOSE Routine 04/14/2020 Results for 8:38 PM CDT this procedure are in the results section. POC GLUCOSE Routine 04/14/2020 Results for 4:20 PM CDT this procedure are in the results section. POTASSIUM LEVEL Routine 04/14/2020 Results for 1:20 PM CDT this procedure are in the results section. POC GLUCOSE Routine 04/14/2020 Results for 12:40 PM CDT this procedure are in the results section. POC GLUCOSE Routine 04/14/2020 Results for 8:55 AM CDT this procedure are in the results section. PARTIAL THROMBOPLASTIN TIME Routine 04/14/2020 Results for (PTT) 4:37 AM CDT this procedure are in the results section. ESTIMATED GFR Routine 04/14/2020 Results for 4:37 AM CDT this procedure are in the results section. CBC HEMOGRAM Routine 04/14/2020 Results for 4:37 AM CDT this procedure are in the results section. BASIC METABOLIC PANEL Routine 04/14/2020 Result s for 4:37 AM CDT this procedure are in the results section. MAGNESIUM LEVEL Routine 04/14/2020 Results for 4:37 AM CDT this procedure are in the results section. PARTIAL THROMBOPLASTIN TIME Routine 04/13/2020 Results for (PTT) 10:48 PM CDT this procedure are in the results section. URINALYSIS, AUTOMATED WITH Routine 04/13/2020 R esults for MICROSCOPY 10:15 PM CDT this procedure are in the results section. POC GLUCOSE Routine 04/13/2020 Results for 10:08 PM CDT this procedure are in the results section. POC GLUCOSE Routine 04/13/2020 Results for 6:04 PM CDT this procedure are in the results section. AMMONIA LEVEL Routine 04/13/2020 Results for 4:38 PM CDT this procedure are in the results section. PARTIAL THROMBOPLASTIN TIME Routine 04/13/2020 Results for (PTT) 4:30 PM CDT this procedure are in the results section. POC GLUCOSE Routine 04/13/2020 Results for 12:07 PM CDT this procedure are in the results section. LACTIC ACID LEVEL Routine 04/13/2020 Results fo r 11:31 AM CDT this procedure are in the results section. POC GLUCOSE Routine 04/13/2020 Results for 8:25 AM CDT this procedure are in the results section. PARTIAL THROMBOPLASTIN TIME Timed 04/13/2020 Results for (PTT) 8:15 AM CDT this procedure are in the results section. CBC HEMOGRAM Routine 04/13/2020 Results for 8:15 AM CDT this procedure are in the results section. ESTIMATED GFR Routine 04/13/2020 Results for 4:00 AM CDT this procedure are in the results section. BASIC METABOLIC PANEL Routine 04/13/2020 Result s for 4:00 AM CDT this procedure are in the results section. PARTIAL THROMBOPLASTIN TIME Routine 04/13/2020 Results for (PTT) 12:14 AM CDT this procedure are in the results section. POC GLUCOSE Routine 04/12/2020 Results for 8:48 PM CDT this procedure are in the results section. POC GLUCOSE Routine 04/12/2020 Results for 5:34 PM CDT this procedure are in the results section. PARTIAL THROMBOPLASTIN TIME Routine 04/12/2020 Results for (PTT) 4:25 PM CDT this procedure are in the results section. POC GLUCOSE Routine 04/12/2020 Results for 12:01 PM CDT this procedure are in the results section. POC GLUCOSE Routine 04/12/2020 Results for 8:38 AM CDT this procedure are in the results section. POC GLUCOSE Routine 04/12/2020 Results for 7:22 AM CDT this procedure are in the results section. ESTIMATED GFR Routine 04/12/2020 Results for 3:46 AM CDT this procedure are in the results section. ANTI XA, LOW MOLECULAR WEIGHT STAT 04/12/2020 Results for 3:46 AM CDT this procedure are in the results section. MAGNESIUM LEVEL Routine 04/12/2020 Results for 3:46 AM CDT this procedure are in the results section. CBC HEMOGRAM Routine 04/12/2020 Results for 3:46 AM CDT this procedure are in the results section. BASIC METABOLIC PANEL Routine 04/12/2020 Result s for 3:46 AM CDT this procedure are in the results section. POC GLUCOSE Routine 04/12/2020 Results for 1:02 AM CDT this procedure are in the results section. POC GLUCOSE Routine 04/11/2020 Results for 8:54 PM CDT this procedure are in the results section. POC GLUCOSE Routine 04/11/2020 Results for 6:51 PM CDT this procedure are in the results section. POC GLUCOSE Routine 04/11/2020 Results for 6:22 PM CDT this procedure are in the results section. POC GLUCOSE Routine 04/11/2020 Results for 5:41 PM CDT this procedure are in the results section. POC GLUCOSE Routine 04/11/2020 Results for 12:28 PM CDT this procedure are in the results section. POC GLUCOSE Routine 04/11/2020 Results for 7:40 AM CDT this procedure are in the results section. POC GLUCOSE Routine 04/10/2020 Results for 9:13 PM CDT this procedure are in the results section. POC GLUCOSE Routine 04/10/2020 Results for 5:08 PM CDT this procedure are in the results section. POC GLUCOSE Routine 04/10/2020 Results for 4:27 PM CDT this procedure are in the results section. POC GLUCOSE Routine 04/10/2020 Results for 12:15 PM CDT this procedure are in the results section. POC GLUCOSE Routine 04/10/2020 Results for 4:09 AM CDT this procedure are in the results section. POC GLUCOSE Routine 04/09/2020 Results for 10:17 PM CDT this procedure are in the results section. POC GLUCOSE Routine 04/09/2020 Results for 5:04 PM CDT this procedure are in the results section. POC GLUCOSE Routine 04/09/2020 Results for 2:04 PM CDT this procedure are in the results section. POC GLUCOSE Routine 04/09/2020 Results for 9:43 AM CDT this procedure are in the results section. ESTIMATED GFR Routine 04/09/2020 Results for 4:26 AM CDT this procedure are in the results section. HC COMPLETE BLD COUNT W/AUTO Routine 04/09/2020 Results for DIFF 4:26 AM CDT this procedure are in the results section. BASIC METABOLIC PANEL Routine 04/09/2020 Result s for 4:26 AM CDT this procedure are in the results section. POC GLUCOSE Routine 04/08/2020 Results for 10:23 PM CDT this procedure are in the results section. POC GLUCOSE Routine 04/08/2020 Results for 9:48 PM CDT this procedure are in the results section. POC GLUCOSE Routine 04/08/2020 Results for 9:12 PM CDT this procedure are in the results section. POC GLUCOSE Routine 04/08/2020 Results for 6:44 PM CDT this procedure are in the results section. POC GLUCOSE Routine 04/08/2020 Results for 4:43 PM CDT this procedure are in the results section. CT ANGIOGRAM ABDOMEN PELVIS W STAT 04/08/2020 Results for AND OR WO CONTRAST 4:04 PM CDT this procedure are in the results section. LACTIC ACID LEVEL Routine 04/08/2020 Results fo r 1:44 PM CDT this procedure are in the results section. POC GLUCOSE Routine 04/08/2020 Results for 12:14 PM CDT this procedure are in the results section. POC GLUCOSE Routine 04/08/2020 Results for 9:04 AM CDT this procedure are in the results section. CT ABDOMEN PELVIS W CONTRAST Routine 04/08/2020 Results for 8:36 AM CDT this procedure are in the results section. ESTIMATED GFR Routine 04/08/2020 Results for 5:08 AM CDT this procedure are in the results section. COMPREHENSIVE METABOLIC PANEL Routine 04/08/2020 Results for 5:08 AM CDT this procedure are in the results section. CBC WITH PLATELET AND Routine 04/08/2020 Result s for DIFFERENTIAL 5:08 AM CDT this procedure are in the results section. POC GLUCOSE Routine 04/07/2020 Results for 9:46 PM CDT this procedure are in the results section. POC GLUCOSE Routine 04/07/2020 Results for 4:43 PM CDT this procedure are in the results section. POC GLUCOSE Routine 04/07/2020 Results for 2:02 PM CDT this procedure are in the results section. POC GLUCOSE Routine 04/07/2020 Results for 12:35 PM CDT this procedure are in the results section. POC GLUCOSE Routine 04/07/2020 Results for 8:31 AM CDT this procedure are in the results section. POC GLUCOSE Routine 04/07/2020 Results for 6:28 AM CDT this procedure are in the results section. MANUAL DIFFERENTIAL Routine 04/07/2020 Results for 5:25 AM CDT this procedure are in the results section. ESTIMATED GFR Routine 04/07/2020 Results for 5:25 AM CDT this procedure are in the results section. COMPREHENSIVE METABOLIC PANEL Routine 04/07/2020 Results for 5:25 AM CDT this procedure are in the results section. CBC WITH PLATELET AND Routine 04/07/2020 Result s for DIFFERENTIAL 5:25 AM CDT this procedure are in the results section. POC GLUCOSE Routine 04/06/2020 Results for 10:49 PM CDT this procedure are in the results section. POC GLUCOSE Routine 04/06/2020 Results for 9:42 PM CDT this procedure are in the results section. POC GLUCOSE Routine 04/06/2020 Results for 6:08 PM CDT this procedure are in the results section. BLOOD CULTURE, AEROBIC & Routine 04/06/2020 Res ults for ANAEROBIC 12:40 PM CDT this procedure are in the results section. BLOOD CULTURE, AEROBIC & Routine 04/06/2020 Res ults for ANAEROBIC 12:30 PM CDT this procedure are in the results section. URINE CULTURE Routine 04/06/2020 Results for 12:18 PM CDT this procedure are in the results section. URINALYSIS SCREEN AND Routine 04/06/2020 Result s for MICROSCOPY, WITH REFLEX TO 12:13 PM CDT t his CULTURE procedure are in the results section. CLOSTRIDIUM DIFFICILE TOXIN Routine 04/06/2020 Results for 12:13 PM CDT this procedure are in the results section. POC GLUCOSE Routine 04/06/2020 Results for 11:00 AM CDT this procedure are in the results section. HEMOGLOBIN A1C Routine 04/06/2020 Results for 10:49 AM CDT this procedure are in the results section. POC GLUCOSE Routine 04/06/2020 Results for 8:57 AM CDT this procedure are in the results section. MANUAL DIFFERENTIAL Routine 04/06/2020 Results for 4:11 AM CDT this procedure are in the results section. CBC WITH PLATELET AND Routine 04/06/2020 Result s for DIFFERENTIAL 4:11 AM CDT this procedure are in the results section. ESTIMATED GFR Routine 04/06/2020 Results for 4:00 AM CDT this procedure are in the results section. COMPREHENSIVE METABOLIC PANEL Routine 04/06/2020 Results for 4:00 AM CDT this procedure are in the results section. COVID-19 QUALITATIVE PCR Routine 04/05/2020 Res ults for 11:15 PM CDT this procedure are in the results section. POC GLUCOSE Routine 04/05/2020 Results for 10:47 PM CDT this procedure are in the results section. XR CHEST 1 VW PORTABLE STAT 04/05/2020 Resul ts for 9:47 PM CDT this procedure are in the results section. MANUAL DIFFERENTIAL STAT 04/05/2020 Results for 9:36 PM CDT this procedure are in the results section. ESTIMATED GFR STAT 04/05/2020 Results for 9:36 PM CDT this procedure are in the results section. TYPE AND SCREEN STAT 04/05/2020 Results for 9:36 PM CDT this procedure are in the results section. FIBRINOGEN STAT 04/05/2020 Results for 9:36 PM CDT this procedure are in the results section. LACTATE DEHYDROGENASE (LD) STAT 04/05/2020 R esults for ISOENZYMES 9:36 PM CDT this procedure are in the results section. TRIGLYCERIDES STAT 04/05/2020 Results for 9:36 PM CDT this procedure are in the results section. LDH STAT 04/05/2020 Results for 9:36 PM CDT this procedure are in the results section. D-DIMER STAT 04/05/2020 Results for 9:36 PM CDT this procedure are in the results section. FERRITIN LEVEL STAT 04/05/2020 Results for 9:36 PM CDT this procedure are in the results section. INTERLEUKIN 6 STAT 04/05/2020 Results for 9:36 PM CDT this procedure are in the results section. C-REACTIVE PROTEIN STAT 04/05/2020 Results f or 9:36 PM CDT this procedure are in the results section. CREATINE KINASE, TOTAL (CPK) STAT 04/05/2020 Results for 9:36 PM CDT this procedure are in the results section. IGG SUBCLASSES STAT 04/05/2020 Results for 9:36 PM CDT this procedure are in the results section. PROCALCITONIN STAT 04/05/2020 Results for 9:36 PM CDT this procedure are in the results section. MYOGLOBIN STAT 04/05/2020 Results for 9:36 PM CDT this procedure are in the results section. B NATRIURETIC PEPTIDE STAT 04/05/2020 Result s for 9:36 PM CDT this procedure are in the results section. TROPONIN STAT 04/05/2020 Results for 9:36 PM CDT this procedure are in the results section. PARTIAL THROMBOPLASTIN TIME STAT 04/05/2020 Results for (PTT) 9:36 PM CDT this procedure are in the results section. PROTHROMBIN TIME WITH INR STAT 04/05/2020 Re sults for 9:36 PM CDT this procedure are in the results section. COMPREHENSIVE METABOLIC PANEL STAT 04/05/2020 Results for 9:36 PM CDT this procedure are in the results section. CBC WITH PLATELET AND STAT 04/05/2020 Result s for DIFFERENTIAL 9:36 PM CDT this procedure are in the results section. ECG 12-LEAD STAT 04/05/2020 Results for 9:18 PM CDT this procedure are in the results section. POC GLUCOSE Routine 04/03/2020 Results for 6:05 PM CDT this procedure are in the results section. POC GLUCOSE Routine 04/03/2020 Results for 11:47 AM CDT this procedure are in the results section. POC GLUCOSE Routine 04/03/2020 Results for 9:23 AM CDT this procedure are in the results section. ESTIMATED GFR Routine 04/03/2020 Results for 4:45 AM CDT this procedure are in the results section. BASIC METABOLIC PANEL Routine 04/03/2020 Result s for 4:45 AM CDT this procedure are in the results section. HC COMPLETE BLD COUNT W/AUTO Routine 04/03/2020 Results for DIFF 4:45 AM CDT this procedure are in the results section. POC GLUCOSE Routine 04/02/2020 Results for 8:56 PM CDT this procedure are in the results section. POC GLUCOSE Routine 04/02/2020 Results for 5:02 PM CDT this procedure are in the results section. POC GLUCOSE Routine 04/02/2020 Results for 12:07 PM CDT this procedure are in the results section. POC GLUCOSE Routine 04/02/2020 Results for 8:04 AM CDT this procedure are in the results section. POC GLUCOSE Routine 04/02/2020 Results for 4:50 AM CDT this procedure are in the results section. TYPE AND SCREEN Routine 04/02/2020 Results for 4:45 AM CDT this procedure are in the results section. HC COMPLETE BLD COUNT W/AUTO Routine 04/02/2020 Results for DIFF 4:45 AM CDT this procedure are in the results section. ESTIMATED GFR Routine 04/02/2020 Results for 4:37 AM CDT this procedure are in the results section. BASIC METABOLIC PANEL Routine 04/02/2020 Result s for 4:37 AM CDT this procedure are in the results section. POC GLUCOSE Routine 04/02/2020 Results for 2:38 AM CDT this procedure are in the results section. POC GLUCOSE Routine 04/02/2020 Results for 12:39 AM CDT this procedure are in the results section. POC GLUCOSE Routine 04/01/2020 Results for 10:29 PM CDT this procedure are in the results section. POC GLUCOSE Routine 04/01/2020 Results for 8:55 PM CDT this procedure are in the results section. POC GLUCOSE Routine 04/01/2020 Results for 6:58 PM CDT this procedure are in the results section. POC GLUCOSE Routine 04/01/2020 Results for 6:37 PM CDT this procedure are in the results section. POC GLUCOSE Routine 04/01/2020 Results for 4:32 PM CDT this procedure are in the results section. POC GLUCOSE Routine 04/01/2020 Results for 2:34 PM CDT this procedure are in the results section. POC GLUCOSE Routine 04/01/2020 Results for 11:59 AM CDT this procedure are in the results section. POC GLUCOSE Routine 04/01/2020 Results for 11:23 AM CDT this procedure are in the results section. POC GLUCOSE Routine 04/01/2020 Results for 10:31 AM CDT this procedure are in the results section. POC GLUCOSE Routine 04/01/2020 Results for 7:24 AM CDT this procedure are in the results section. ESTIMATED GFR Routine 04/01/2020 Results for 5:15 AM CDT this procedure are in the results section. COMPREHENSIVE METABOLIC PANEL Routine 04/01/2020 Results for 5:15 AM CDT this procedure are in the results section. HC COMPLETE BLD COUNT W/AUTO Routine 04/01/2020 Results for DIFF 5:15 AM CDT this procedure are in the results section. POC GLUCOSE Routine 03/31/2020 Results for 9:00 PM CDT this procedure are in the results section. POC GLUCOSE Routine 03/31/2020 Results for 5:15 PM CDT this procedure are in the results section. IR PORT PLACEMENT Routine 03/31/2020 Results fo r 3:49 PM CDT this procedure are in the results section. POC GLUCOSE Routine 03/31/2020 Results for 2:25 PM CDT this procedure are in the results section. POC GLUCOSE Routine 03/31/2020 Results for 7:56 AM CDT this procedure are in the results section. ESTIMATED GFR Routine 03/31/2020 Results for 6:14 AM CDT this procedure are in the results section. LIPASE LEVEL Routine 03/31/2020 Results for 6:14 AM CDT this procedure are in the results section. COMPREHENSIVE METABOLIC PANEL Routine 03/31/2020 Results for 6:14 AM CDT this procedure are in the results section. POC GLUCOSE Routine 03/30/2020 Results for 8:56 PM CDT this procedure are in the results section. POC GLUCOSE Routine 03/30/2020 Results for 6:33 PM CDT this procedure are in the results section. POC GLUCOSE Routine 03/30/2020 Results for 12:25 PM CDT this procedure are in the results section. POC GLUCOSE Routine 03/30/2020 Results for 8:02 AM CDT this procedure are in the results section. ESTIMATED GFR Routine 03/30/2020 Results for 4:00 AM CDT this procedure are in the results section. PHOSPHORUS LEVEL Routine 03/30/2020 Results for 4:00 AM CDT this procedure are in the results section. MAGNESIUM LEVEL Routine 03/30/2020 Results for 4:00 AM CDT this procedure are in the results section. BASIC METABOLIC PANEL Routine 03/30/2020 Result s for 4:00 AM CDT this procedure are in the results section. POC GLUCOSE Routine 03/29/2020 Results for 9:21 PM CDT this procedure are in the results section. POC GLUCOSE Routine 03/29/2020 Results for 6:36 PM CDT this procedure are in the results section. POC GLUCOSE Routine 03/29/2020 Results for 5:17 PM CDT this procedure are in the results section. POC GLUCOSE Routine 03/29/2020 Results for 4:38 PM CDT this procedure are in the results section. POC GLUCOSE Routine 03/29/2020 Results for 1:10 PM CDT this procedure are in the results section. POC GLUCOSE Routine 03/29/2020 Results for 9:48 AM CDT this procedure are in the results section. POC GLUCOSE Routine 03/29/2020 Results for 7:38 AM CDT this procedure are in the results section. POC GLUCOSE Routine 03/28/2020 Results for 8:55 PM CDT this procedure are in the results section. POC GLUCOSE Routine 03/28/2020 Results for 5:56 PM CDT this procedure are in the results section. POC GLUCOSE Routine 03/28/2020 Results for 12:09 PM CDT this procedure are in the results section. POC GLUCOSE Routine 03/28/2020 Results for 8:11 AM CDT this procedure are in the results section. ESTIMATED GFR Routine 03/28/2020 Results for 4:31 AM CDT this procedure are in the results section. COMPREHENSIVE METABOLIC PANEL Routine 03/28/2020 Results for 4:31 AM CDT this procedure are in the results section. HC COMPLETE BLD COUNT W/AUTO Routine 03/28/2020 Results for DIFF 4:31 AM CDT this procedure are in the results section. POC GLUCOSE Routine 03/27/2020 Results for 8:46 PM CDT this procedure are in the results section. POC GLUCOSE Routine 03/27/2020 Results for 5:42 PM CDT this procedure are in the results section. POC GLUCOSE Routine 03/27/2020 Results for 12:52 PM CDT this procedure are in the results section. POC GLUCOSE Routine 03/27/2020 Results for 12:50 PM CDT this procedure are in the results section. POC GLUCOSE Routine 03/27/2020 Results for 11:09 AM CDT this procedure are in the results section. POC GLUCOSE Routine 03/27/2020 Results for 9:13 AM CDT this procedure are in the results section. POC GLUCOSE Routine 03/27/2020 Results for 8:05 AM CDT this procedure are in the results section. POC GLUCOSE Routine 03/27/2020 Results for 6:05 AM CDT this procedure are in the results section. COMPREHENSIVE METABOLIC PANEL Routine 03/27/2020 Results for 5:00 AM CDT this procedure are in the results section. ESTIMATED GFR Routine 03/27/2020 Results for 5:00 AM CDT this procedure are in the results section. MAGNESIUM LEVEL Routine 03/27/2020 Results for 5:00 AM CDT this procedure are in the results section. PHOSPHORUS LEVEL Routine 03/27/2020 Results for 5:00 AM CDT this procedure are in the results section. LIPASE LEVEL Routine 03/27/2020 Results for 5:00 AM CDT this procedure are in the results section. AMYLASE LEVEL Routine 03/27/2020 Results for 5:00 AM CDT this procedure are in the results section. HC COMPLETE BLD COUNT W/AUTO Routine 03/27/2020 Results for DIFF 5:00 AM CDT this procedure are in the results section. POC GLUCOSE Routine 03/27/2020 Results for 3:51 AM CDT this procedure are in the results section. POC GLUCOSE Routine 03/27/2020 Results for 2:08 AM CDT this procedure are in the results section. POC GLUCOSE Routine 03/26/2020 Results for 11:55 PM CDT this procedure are in the results section. POC GLUCOSE Routine 03/26/2020 Results for 11:08 PM CDT this procedure are in the results section. POC GLUCOSE Routine 03/26/2020 Results for 9:58 PM CDT this procedure are in the results section. POC GLUCOSE Routine 03/26/2020 Results for 9:05 PM CDT this procedure are in the results section. POC GLUCOSE Routine 03/26/2020 Results for 7:48 PM CDT this procedure are in the results section. POC GLUCOSE Routine 03/26/2020 Results for 5:34 PM CDT this procedure are in the results section. POC GLUCOSE Routine 03/26/2020 Results for 4:36 PM CDT this procedure are in the results section. POC GLUCOSE Routine 03/26/2020 Results for 3:39 PM CDT this procedure are in the results section. POC GLUCOSE Routine 03/26/2020 Results for 1:35 PM CDT this procedure are in the results section. POC GLUCOSE Routine 03/26/2020 Results for 12:38 PM CDT this procedure are in the results section. SURGICAL PATHOLOGY REQUEST Routine 03/26/2020 R esults for 11:09 AM CDT this procedure are in the results section. POC GLUCOSE Routine 03/26/2020 Results for 10:31 AM CDT this procedure are in the results section. POC GLUCOSE Routine 03/26/2020 Results for 9:30 AM CDT this procedure are in the results section. POC GLUCOSE Routine 03/26/2020 Results for 9:28 AM CDT this procedure are in the results section. FL > 1 HOUR Routine 03/26/2020 Acute Results for 9:18 AM CDT pancreatitis, this unspecified procedure are complication in the status, results unspecified section. pancreatitis type CYTOLOGY (NON-GYNECOLOGICAL) Routine 03/26/2020 Results for REQUEST 9:06 AM CDT this procedure are in the results section. CYTOLOGY (NON-GYNECOLOGICAL) Routine 03/26/2020 Results for REQUEST 8:34 AM CDT this procedure are in the results section. POC GLUCOSE Routine 03/26/2020 Results for 8:33 AM CDT this procedure are in the results section. NH AN ELECTIVE ENDOTRACHEAL Routine 03/26/2020 Results for AIRWAY 8:13 AM CDT this procedure are in the results section. ERCP WITH STENT PLACEMENT 03/26/2020 Acute 7:53 AM CDT pancreatitis, unspecified complication status, unspecified pancreatitis type US UPPER GI TRACT, ENDOSCOPIC 03/26/2020 Acute 7:53 AM CDT pancreatitis, unspecified complication status, unspecified pancreatitis type POC GLUCOSE Routine 03/26/2020 Results for 7:32 AM CDT this procedure are in the results section. POC GLUCOSE Routine 03/26/2020 Results for 5:33 AM CDT this procedure are in the results section. PROTHROMBIN TIME WITH INR Routine 03/26/2020 Re sults for 4:15 AM CDT this procedure are in the results section. HC COMPLETE BLD COUNT W/AUTO Routine 03/26/2020 Results for DIFF 4:15 AM CDT this procedure are in the results section. ESTIMATED GFR Routine 03/26/2020 Results for 4:00 AM CDT this procedure are in the results section. COMPREHENSIVE METABOLIC PANEL Routine 03/26/2020 Results for 4:00 AM CDT this procedure are in the results section. VITAMIN D 25 HYDROXY LEVEL Routine 03/26/2020 R esults for 4:00 AM CDT this procedure are in the results section. POC GLUCOSE Routine 03/26/2020 Results for 3:41 AM CDT this procedure are in the results section. MRI THORACIC SPINE WO CONTRAST Routine 03/26/2020 Results for 3:13 AM CDT this procedure are in the results section. POC GLUCOSE Routine 03/26/2020 Results for 2:19 AM CDT this procedure are in the results section. POC GLUCOSE Routine 03/26/2020 Results for 12:22 AM CDT this procedure are in the results section. POC GLUCOSE Routine 03/25/2020 Results for 10:17 PM CDT this procedure are in the results section. POC GLUCOSE Routine 03/25/2020 Results for 8:14 PM CDT this procedure are in the results section. POC GLUCOSE Routine 03/25/2020 Results for 6:28 PM CDT this procedure are in the results section. POC GLUCOSE Routine 03/25/2020 Results for 5:36 PM CDT this procedure are in the results section. POC GLUCOSE Routine 03/25/2020 Results for 4:31 PM CDT this procedure are in the results section. POC GLUCOSE Routine 03/25/2020 Results for 3:06 PM CDT this procedure are in the results section. POC GLUCOSE Routine 03/25/2020 Results for 2:18 PM CDT this procedure are in the results section. POC GLUCOSE Routine 03/25/2020 Results for 1:23 PM CDT this procedure are in the results section. IONIZED CALCIUM Timed 03/25/2020 Results for 12:00 PM CDT this procedure are in the results section. PHOSPHORUS LEVEL Timed 03/25/2020 Results for 12:00 PM CDT this procedure are in the results section. MAGNESIUM LEVEL Timed 03/25/2020 Results for 12:00 PM CDT this procedure are in the results section. POC GLUCOSE Routine 03/25/2020 Results for 11:51 AM CDT this procedure are in the results section. VITAMIN D 1,25 DIHYDROXY LEVEL, Routine 03/25/2020 Results for SERUM 11:22 AM CDT this procedure are in the results section. HEMOGLOBIN A1C Routine 03/25/2020 Results for 11:00 AM CDT this procedure are in the results section. POC GLUCOSE Routine 03/25/2020 Results for 10:55 AM CDT this procedure are in the results section. POC GLUCOSE Routine 03/25/2020 Results for 10:18 AM CDT this procedure are in the results section. LIPID PANEL Routine 03/25/2020 Results for 9:16 AM CDT this procedure are in the results section. POC GLUCOSE Routine 03/25/2020 Results for 9:02 AM CDT this procedure are in the results section. POC GLUCOSE Routine 03/25/2020 Results for 8:29 AM CDT this procedure are in the results section. POC GLUCOSE Routine 03/25/2020 Results for 8:01 AM CDT this procedure are in the results section. POC GLUCOSE Routine 03/25/2020 Results for 7:27 AM CDT this procedure are in the results section. POC GLUCOSE Routine 03/25/2020 Results for 6:42 AM CDT this procedure are in the results section. POC GLUCOSE Routine 03/25/2020 Results for 5:52 AM CDT this procedure are in the results section. VENOUS BLOOD GAS Routine 03/25/2020 Results for 4:45 AM CDT this procedure are in the results section. POC GLUCOSE Routine 03/25/2020 Results for 4:40 AM CDT this procedure are in the results section. POC GLUCOSE Routine 03/25/2020 Results for 3:46 AM CDT this procedure are in the results section. ESTIMATED GFR Routine 03/25/2020 Results for 3:20 AM CDT this procedure are in the results section. PHOSPHORUS LEVEL Routine 03/25/2020 Results for 3:20 AM CDT this procedure are in the results section. MAGNESIUM LEVEL Routine 03/25/2020 Results for 3:20 AM CDT this procedure are in the results section. BETA HYDROXYBUTYRATE Routine 03/25/2020 Results for 3:20 AM CDT this procedure are in the results section. CANCER ANTIGEN 19-9 Routine 03/25/2020 Results for 3:20 AM CDT this procedure are in the results section. CARCINOEMBRYONIC ANTIGEN (CEA) Routine 03/25/2020 Results for 3:20 AM CDT this procedure are in the results section. AMYLASE LEVEL Routine 03/25/2020 Results for 3:20 AM CDT this procedure are in the results section. LIPASE LEVEL Routine 03/25/2020 Results for 3:20 AM CDT this procedure are in the results section. LACTIC ACID LEVEL Routine 03/25/2020 Results fo r 3:20 AM CDT this procedure are in the results section. COMPREHENSIVE METABOLIC PANEL Routine 03/25/2020 Results for 3:20 AM CDT this procedure are in the results section. HC COMPLETE BLD COUNT W/AUTO Routine 03/25/2020 Results for DIFF 3:20 AM CDT this procedure are in the results section. POC GLUCOSE Routine 03/25/2020 Results for 3:09 AM CDT this procedure are in the results section. POC GLUCOSE Routine 03/25/2020 Results for 1:47 AM CDT this procedure are in the results section. POC GLUCOSE Routine 03/25/2020 Results for 12:38 AM CDT this procedure are in the results section. URINALYSIS SCREEN AND STAT 03/25/2020 Result s for MICROSCOPY, WITH REFLEX TO 12:25 AM CDT t his CULTURE procedure are in the results section. URINE CULTURE STAT 03/25/2020 Results for 12:25 AM CDT this procedure are in the results section. POC GLUCOSE Routine 03/24/2020 Results for 11:43 PM CDT this procedure are in the results section. ESTIMATED GFR STAT 03/24/2020 Results for 11:28 PM CDT this procedure are in the results section. BASIC METABOLIC PANEL STAT 03/24/2020 Result s for 11:28 PM CDT this procedure are in the results section. POC GLUCOSE Routine 03/24/2020 Results for 10:35 PM CDT this procedure are in the results section. US GALLBLADDER STAT 03/24/2020 Results for 9:30 PM CDT this procedure are in the results section. POC GLUCOSE Routine 03/24/2020 Results for 9:26 PM CDT this procedure are in the results section. NH CRITICAL CARE, E/M 30-74 Routine 03/24/2020 Results for MINUTES 9:19 PM CDT this procedure are in the results section. LACTIC ACID LEVEL, SEPSIS - NOW Timed 03/24/2020 Results for AND REPEAT 2X EVERY 3 HOURS 9:09 PM CDT this procedure are in the results section. ESTIMATED GFR STAT 03/24/2020 Results for 8:13 PM CDT this procedure are in the results section. BASIC METABOLIC PANEL STAT 03/24/2020 Result s for 8:13 PM CDT this procedure are in the results section. POC GLUCOSE Routine 03/24/2020 Results for 8:12 PM CDT this procedure are in the results section. POC GLUCOSE Routine 03/24/2020 Results for 7:15 PM CDT this procedure are in the results section. CT ABDOMEN PELVIS W CONTRAST STAT 03/24/2020 Results for 6:51 PM CDT this procedure are in the results section. XR CHEST 1 VW PORTABLE STAT 03/24/2020 Resul ts for 5:54 PM CDT this procedure are in the results section. POC GLUCOSE Routine 03/24/2020 Results for 5:43 PM CDT this procedure are in the results section. POC GLUCOSE Routine 03/24/2020 Results for 5:21 PM CDT this procedure are in the results section. HEMOGLOBIN A1C STAT 03/24/2020 Results for 5:17 PM CDT this procedure are in the results section. PHOSPHORUS LEVEL STAT 03/24/2020 Results for 5:17 PM CDT this procedure are in the results section. MAGNESIUM LEVEL STAT 03/24/2020 Results for 5:17 PM CDT this procedure are in the results section. LACTIC ACID LEVEL, SEPSIS - NOW Timed 03/24/2020 Results for AND REPEAT 2X EVERY 3 HOURS 5:17 PM CDT this procedure are in the results section. BLOOD CULTURE, AEROBIC & Routine 03/24/2020 Res ults for ANAEROBIC 5:00 PM CDT this procedure are in the results section. POC GLUCOSE Routine 03/24/2020 Results for 4:35 PM CDT this procedure are in the results section. VENOUS BLOOD GAS Routine 03/24/2020 Results for 4:31 PM CDT this procedure are in the results section. BETA HYDROXYBUTYRATE STAT 03/24/2020 Results for 4:31 PM CDT this procedure are in the results section. LACTIC ACID LEVEL, SEPSIS - NOW Timed 03/24/2020 Results for AND REPEAT 2X EVERY 3 HOURS 4:31 PM CDT this procedure are in the results section. ECG 12-LEAD STAT 03/24/2020 Results for 4:23 PM CDT this procedure are in the results section. ESTIMATED GFR STAT 03/24/2020 Results for 3:05 PM CDT this procedure are in the results section. LIPASE LEVEL STAT 03/24/2020 Results for 3:05 PM CDT this procedure are in the results section. COMPREHENSIVE METABOLIC PANEL STAT 03/24/2020 Results for 3:05 PM CDT this procedure are in the results section. HC COMPLETE BLD COUNT W/AUTO STAT 03/24/2020 Results for DIFF 3:05 PM CDT this procedure are in the results section. LIPID PANEL Routine 03/18/2020 Diabetes mellitus Results fo r 9:59 AM CDT due to underlying this condition with procedure are unspecified in the complications results (HCC) section. Asymptomatic HIV infection (HCC) HIV 1 RNA, QUANTITATIVE REAL Routine 03/18/2020 Asymptomatic HIV Results for TIME PCR 9:59 AM CDT infection (HCC) this procedure are in the results section. COMPREHENSIVE METABOLIC PANEL Routine 03/18/2020 Asymptomati c HIV Results for 9:59 AM CDT infection (HCC) this procedure are in the results section. CBC WITH PLATELET AND Routine 03/18/2020 Asymptomatic HIV Re sults for DIFFERENTIAL 9:59 AM CDT infection (HCC) this procedure are in the results section. T CELL LYMPHOCYTE SUBSET PANEL Routine 03/18/2020 Asymptomat ic HIV Results for 4 9:59 AM CDT infection (HCC) this procedure are in the results section. after 07/02/2019 Results Estimated GFR (06/23/2020 10:11 AM CDT)Only the most recent of35 resultswithin the time period is included. Estimated GFR >=90 mL/min/1.73 [facility] Comment: [facility] Catergory Units Interpretation G1 >=90 Normal or [...] published in 2014. Specimen Performing Organization Address City/State/Zipcode Phone Number [facility] DEPARTMENT OF PATHOLOGY AND [address] [place], [place] [address] [facility] [address] [place] [address] Cancer antigen 19-9 (06/23/2020 10:11 AM CDT)Only the most recent of5 results within the time period is included. CA 19-9 561 (H) 0 - 35 U/mL [facility] Comment: HOSPITAL The Syeda Dominic 8000 CA19-9 immunoassay was used. Results obtained with different assay methods or kits should not be used interchangeably and may be differen t. Specimen Blood Performing Organization Address City/State/Zipcode Phone Number [facility] DEPARTMENT OF PATHOLOGY AND [address], [place] [address] [facility] [address] [place] [address] CBC with platelet and differential (06/23/2020 10:11 AM CDT)Only the most recent of24 resultswithin the time period is included. Pathologist Sig nature WBC 11.60 (H) 4.50 - 11.00 k/uL [facility] RBC 3.57 (L) 4.20 - 5.50 m/uL [facility] HGB 10.0 (L) 12.0 - 16.0 g/dL [facility] HCT 31.3 (L) 37.0 - 47.0 % [facility] MCV 87.7 82.0 - 100.0 fL [facility] MCH 28.0 27.0 - 34.0 pg [facility] MCHC 31.9 31.0 - 37.0 g/dL [facility] RDW - SD 53.6 37.0 - 55.0 fL [facility] MPV 8.7 (L) 8.8 - 13.2 fL [facility] Platelet count 444 (H) 150 - 400 k/uL [facility] Neutrophils 71.3 (H) 39.0 - 69.0 % [facility] Lymphocytes 21.1 (L) 25.0 - 45.0 % [facility] Monocytes 7.0 0.0 - 10.0 % [facility] Eosinophils 0.4 0.0 - 5.0 % [facility] Basophils 0.2 0.0 - 1.0 % [facility] Specimen Blood Performing Organization Address City/[facility]/Zipcode Phone Number [facility] DEPARTMENT OF PATHOLOGY AND [address] [place], [place] [address] [facility] MEDICINE [facility] [address] [place] [address] Magnesium level (06/23/2020 10:11 AM CDT)Only the most recent of14 resultswithin the time period is included. Pathologist Sig nature Magnesium 1.9 1.6 - 2.4 mg/dL [facility] OUTPATI E[facility] CENTER Specimen Blood Performing Organization Address City/[facility]/Zipcode Phone Number [facility] DEPARTMENT OF PATHOLOGY AND [address], [place] [address] [facility] [address] [place] [address] Comprehensive metabolic panel (06/23/2020 10:11 AM CDT)Only the most recent of19 resultswithin the time period is included. Sodium 135 135 - 148 [facility] mEq/L [facility] Potassium 3.9 3.5 - 5.0 [facility] mEq/L [facility] Chloride 100 98 - 112 [facility] mEq/L [facility] CO2 27 24 - 31 mEq/L [facility] Anion gap 8@ANIO 7 - 15 mEq/L [facility] BUN 10 8 - 23 mg/dL [facility] Creatinine 0.50 0.50 - 0.90 [facility] mg/dL OUTPAT[facility] CENTER Glucose 63 (L) 65 - 99 mg/dL [facility] Calcium 8.3 (L) 8.8 - 10.2 [facility] mg/dL OUT[facility]ENTER Protein 5.8 (L) 6.3 - 8.3 [facility] Comment: g/dL OUTPATIENT CENTER - 4.6-7.0 g/dL 1 week 4.4-7.6 g/dL 7 months-1year 5.1-7.3 g/dL 1-2 years 5.6-7.5 g/dL >3 years 6.0-8.0 g/dL 18-150 6.3-8.3 g/dL Albumin 2.3 (L) 3.5 - 5.0 [facility] g/dL OUTPATIENT CENTER A/G ratio 0.7 0.7 - 3.8 [facility] Alkaline phosphatase 385 (H) 35 - 104 U/L [facility] AST 68 (H) 10 - 35 U/L [facility] ALT 35 5 - 50 U/L [facility] Total bilirubin 0.3 0.0 - 1.2 [facility] mg/dL OUTPATIENT CENTER Specimen Blood Performing Organization Address City/State/Zipcode Phone Number [facility] DEPARTMENT OF PATHOLOGY AND [address], [place] [address] GENOMIC MEDICINE [facility] [address] [place] [address] Transthoracic Echocardiogram Complete, (w Contrast, Strain and 3D if needed) (06/02/2020 4:34 PM CDT) Specimen Narrative Performed At [facility] Echo cardiography Report [address] [facility] [address], [place] [address] Pat.Name: ALEXSANDRA TORRES Pat.ID: [id number] .Date: 06/02/2020 Refer.MD: HARMONY DAVENPORT MD Exam Time: 3:05:00 PM Study Type:R outine Echo Height: 63in Weight: 178lb BSA: 1.84 m2 Ag e: 1960,59Y Sex: FEMALE BP: 125/79 HR: 76 bpm Sonogr phr: CONNOR Hi Pat. Stat.:Outpatient Study Status :Final Echo Event ID:[id number] Order ID: [id number] Reason for Study:Abnormal findings on di agnostic imaging of limbs [R93.6 (ICD-10-CM)]; Malignant neoplasm of pancreas, unspecified locati on of malignancy; Edema, unspecified type Procedures: 2D Echo, Colorflow Doppler, Strain, Intravenous Definity Contrast Race: C SUMMARY: LV EF is normal. Biplane LV ejection fra ction= 62%. Normal average LV global longitudinal strain at -20%. RV systolic function is normal. LA volume is severely enlarged. Normal diastolic function adjusted for a ge; normal LV filling pressures. FINDINGS: LV: LV size is normal. Biplane LV ejection fraction= 62% Normal average LV global longitu dinal strain at -20%. LV EF is normal. Overall wall bryant on is normal. RV: RV size is normal. RV systo lic function is normal. LA: LA volume is severely enlar ged. RA: RA volume is normal. A cath eter is seen. AO: Aortic root diameter is nor mal. LISANDRA: No pericardial effusion. AV: Focal calcification of AV l eaflets. MV: No structural MV abnormalit ies noted. PV: No structural PV abnormalit ies noted. TV: No structural TV abnormalit ies noted. Anderson: Normal diastolic function ad justed for age; normal LV filling pressures. Other: Insufficient TR jet to estim ate PA systolic pressure. MEASUREMENTS: 2D Parasternal Long Preston Ao An 2.4 cm LVPWd 0.73 cm Ao Rtd 2.9 cm Index 1.6 cm/m2 LA Ds 4.7 cm IVSd 0.65 cm RWT 0.28 LVIDd 5.2 cm Index 2.8 cm/m2 LV Mass 122 g (87-12 9) LVIDs 3.2 cm LVM In dex 66 g/m LV%fs 39 % LVOT 2.1 cm LV EF Biplane LVEDV 125 ml (59-136) Index 68 ml/m2 LV CI 3.3 l/m/m LVESV 48 ml Index 26 ml/m2 LV SV 77 ml LV EF 62 % (55-75) HR 79 bpm LV CO 6.1 l/min LA Sng Plane LA Area 26 cm (8.8-23.4)* LA Vol 93 ml Index 50 ml/m2 LA LngAx 6.1 cm LVOT LVOT Area 3.5 cm DOPPLER LVOT Stroke Vol & Cardiac Out LVOT TVI 20 cm HR 73 bpm LVOT LVOT SV 68 ml LVOT CO 5 l/min SVi 37 ml/m LVOT C I 2.7 l/m/m Signed 06/03/2020 06:55 AM Vanna Neumann MD Procedure Note Interface, Radiology Results In - 2019 6:56 AM CDT Echocardiography Report [address] [place] [address] Pat.Name: ALEXSANDRA TORRES Pat.I D: [id number] St.Date: 06/02/2020 Refer .MD: HARMONY DAVENPORT MD Exam Time: 3:05:00 PM Study Type:Routine Echo Height: 63in Weigh t: 178lb BSA: 1.84 m2 Age: 10 1960,59Y Sex: FEMALE BP: 125/79 HR: 76 bpm Sonog rphr: CONNOR Hi Pat. Stat.:Outpatient Study Status:Final Echo Event ID:[id number] Order ID: [id number] Reason for Study:Abnormal findings on di agnostic imaging of limbs [R93.6 (ICD-10-CM)]; Malignant neoplasm of pancreas, unspecified locati on of malignancy; Edema, unspecified type Procedures: 2D Echo, Colorflow Doppler, Strain, Intravenous Definity Contrast Race: C SUMMARY: LV EF is normal. Biplane LV ejection fra ction= 62%. Normal average LV global longitudinal strain at -20%. RV systolic function is normal. LA volume is severely enlarged. Normal diastolic function adjusted for a ge; normal LV filling pressures. FINDINGS: LV: LV size is normal. Biplane LV ejection fraction= 62% Normal average LV global longitudinal strain at -20%. LV EF is normal. Overall wall motion is normal. RV: RV size is normal. RV systolic function is normal. LA: LA volume is severely enlarged . RA: RA volume is normal. A cathete r is seen. AO: Aortic root diameter is normal . LISANDRA: No pericardial effusion. AV: Focal calcification of AV leaf lets. MV: No structural MV abnormalities noted. PV: No structural PV abnormalities noted. TV: No structural TV abnormalities noted. Anderson: Normal diastolic function adju sted for age; normal LV filling pressures. Other: Insufficient TR jet to estimat e PA systolic pressure. MEASUREMENTS: 2D Parasternal Long Preston Ao An 2.4 cm LVPW d 0.73 cm Ao Rtd 2.9 cm Inde x 1.6 cm/m2 LA Ds 4.7 cm IVSd 0.65 cm RWT 0.28 LVIDd 5.2 cm Inde x 2.8 cm/m2 LV Mass 122 g (87-129) LVIDs 3.2 cm LVM Index 66 g/m LV%fs 39 % LVOT 2.1 cm LV EF Biplane LVEDV 125 ml (59-136) Inde x 68 ml/m2 LV CI 3.3 l/m/m LVESV 48 ml Inde x 26 ml/m2 LV SV 77 ml LV EF 62 % (55-75) HR 79 bpm LV CO 6.1 l/min LA Sng Plane LA Area 26 cm (8.8-23.4)* LA Vol 93 ml Index 50 ml/m2 LA LngAx 6.1 cm LVOT LVOT Area 3.5 cm DOPPLER LVOT Stroke Vol & Cardiac Out LVOT TVI 20 cm HR 73 bpm LVOT LVOT SV 68 ml LVOT CO 5 l/min SVi 37 ml/m LVO T CI 2.7 l/m/m Signed 06/03/2020 06:55 AM Vanna Neumann MD Performing Organization Address City/State/Zipcode Phone Number [facility] [address] [place] [address] POC glucose (05/09/2020 4:27 PM CDT)Only the most recent of194 resultswithin the time period is included. Pathologist Sig nature POC glucose 67 65 - 99 mg/dL [facility] Comment: HOSPITAL Bearing Machine Operator Name: Charisma Sher Device ID: [id number] Chartable: [facility] Notified RN Specimen Blood Performing Organization Address City/[facility] Mex[facility]ode Phone Number [facility] DEPARTMENT OF PATHOLOGY AND [address] [place], [place] [address] GENOMIC MEDICINE [address] [address] XR Abdomen 1 Vw Portable (05/09/2020 9:38 AM CDT)Only the most recent of3 resultswithin the time period is included. Specimen Narrative Performed At Abdomen one view, 05/09/[address] [facility] Clinical history: Status post duodenal s tent placement. Technique: AP abdomen Comparison: 05/07/2020 Findings: See impression. Impression: 1.A metallic common bile duct stent is w ithin the expected location. 2.There is no conspicuous duodenal stent . 3.The bowel gas pattern is nonobstructive. There is en teric contrast within a normal caliber colon. Procedure Note Interface, Radiology Results Incoming - 05/09/2020 10:41 AM CDT Abdomen one view, 05/09/2020 Clinical history: Status post duodenal s tent placement. Technique: AP abdomen Comparison: 05/07/2020 Findings: See impression. Impression: 1.A metallic common bile duct stent is w ithin the expected location. 2.There is no conspicuous duodenal stent . 3.The bowel gas pattern is nonobstructiv e. There is enteric contrast within a normal caliber colon. Performing Organization Address City/[facility]/Zipcode Phone Number [facility] [address] [place] [address] [place] > 1 Hour (05/08/2020 4:17 PM CDT)Only the most recent of3 resultswithin the time period is included. Specimen Narrative Performed At EXAMINATION: [place] > [address] [facility] LOCATION: [facility] ENDOSCOPY ROOM 9 PROCEDURE: egd SCHEDULED TIME: 1400 START TIME: 1505 END TIME: 1611 FLUORO TIME: 5.7 MINS DOSE (mGy): 163mGy # OF IMAGES: 11 IMPRESSION: Fluoroscopy was requested in the Endos[facility] py Suite. Separate endoscopy report will be issued by the physic lola performing the procedure. Procedure Note Hm Interface, Radiology Results Incoming - 05/11/2020 10:46 AM CDT EXAMINATION: [place] > 1 HOUR LOCATION: [place] [address] ENDOSCOPY ROOM 9 PROCEDURE: egd SCHEDULED TIME: 1400 START TIME: 1505 END TIME: 1611 FLUORO TIME: 5.7 MINS DOSE (mGy): 163mGy # OF IMAGES: 11 IMPRESSION: Fluoroscopy was requested in the [facility] py Suite. Separate endoscopy report will be issued by the physician performing the procedure. Performing Organization Address City/State/[facility] Mexicocode Phone Number [facility] [address] [place] [address] Airway (05/08/2020 3:43 PM CDT) Narrative Performed At Owen Gomez MD 05/08 3:44 PM Airway Date/Time: 05/08/2020 3:17 PM Performed by: Owen Gomez MD Authorized by: Owen Gomez MD Urgency: Elective Difficult Airway: No Preoxygenated with 100% O2: Yes C-spine Precautions Maintained Throughou t: Yes Mask Ventilation: Not attempted Final Airway Type: Endotracheal airway Final Endotracheal Airway: ETT Cuffed: Yes Technique Used: Direct laryngoscopy Blade Type: Marcos Laryngoscope Blade/Videolaryngoscope Sergey de Size: 2 ETT Size (mm): 7.0 Cuff at minimum occlusion pressure: Yes Measured from: Lips ETT to Lips (cm): 21 Placement Verified by: CO2 detection, di rect visualization and equal breath sounds Laryngoscopic view: Grade I - full vie w of glottis Rapid Sequence Induction (RSI): Yes Number of Attempts at Approach: 1 POC panel 4 (05/08/2020 2:06 PM CDT) POC sodium 132 (L) 135 - 148 [facility] mmol/L [facility] POC potassium 3.8 3.5 - 5.0 [facility] mmol/L [facility] POC hematocrit 36 (L) 37 - 47 % [facility] POC glucose 220 (H) 65 - 99 mg/dL [facility] Comment: HOSPITAL Bearing Machine Operator Name: Cindi Eduardo Device ID: [id number] Specimen Performing Organization Address City/[facility]/Zipcode Phone Number [facility] DEPARTMENT OF PATHOLOGY AND [address] [place] [address] [place] [address] Potassium level (05/08/2020 12:40 PM CDT)Only the most recent of2 resultswithin the time period is included. Pathologist Sig nature Potassium 4.1 3.5 - 5.0 mEq/L [facility] Specimen Blood Performing Organization Address City/[facility] Mex[facility]ode Phone Number [facility] DEPARTMENT OF PATHOLOGY AND [address] [place] [address] [place] [address] Prothrombin time with INR (05/08/2020 5:00 AM CDT)Only the most recent of3 resultswithin the time period is included. Prothrombin time 14.5 11.5 - 14.5 [facility] INR 1.1 [facility] Comment: [facility] International Normalized Ratio (INR) is a therapeu [facility] monitoring tool for patients who are stable on oral anticoagulant therapy. An INR of 2.0-3.0 is suggested for deep vein thrombosis/pulmonary embolism. Specimen Blood Performing Organization Address [facility] Mex[facility]ond Phone Number [facility] DEPARTMENT OF PATHOLOGY AND [address] [place] [address] Phosphorus level (05/08/2020 5:00 AM CDT)Only the most recent of8 resultswithin the time period is included. Pathologist Sig nature Phosphorus 2.2 (L) 2.4 - 4.5 mg/dL [facility] Specimen Blood Performing Organization Address City/[facility]/Zipcode Phone Number [facility] DEPARTMENT OF PATHOLOGY AND [address] [place] [address] Hepatic function panel (05/07/2020 4:00 AM CDT)Only the most recent of2 results within the time period is included. Albumin 2.2 (L) 3.5 - 5.0 [facility] g/[facility] Total bilirubin 1.1 0.0 - 1.2 [facility] mg/dL HOSPITAL Bilirubin direct 0.3 0.0 - 0.3 [facility] mg/dL HOSPITAL Alkaline phosphatase 341 (H) 35 - 104 U/L [facility] Protein 6.2 (L) 6.3 - 8.3 [facility] Comment: g/dL HOSPITAL - 4.6-7.0 g/dL 1 week 4.4-7.6 g/dL 7 months-1year 5.1-7.3 g/dL 1-2 years 5.6-7.5 g/dL >3 years 6.0-8.0 g/dL 18-150 6.3-8.3 g/dL ALT 93 (H) 5 - 50 U/L [facility] AST 95 (H) 10 - 35 U/L [facility] Specimen Narrative Performed At [facility] per Dr. Mo at 05/07/2020 [facility] DEPARTMENT OF PATHOLOGY AND GENOMIC [address] [facility]. MEDICINE Performing Organization Address City/[facility] Mex[facility]ocode Phone Number [facility] DEPARTMENT OF PATHOLOGY AND [address] [place] [address] [address] [address] Basic metabolic panel (05/07/2020 4:00 AM CDT)Only the most recent of17 results within the time period is included. Pathologist Sig nature Sodium 134 (L) 135 - 148 mEq/L [facility] Potassium 3.4 (L) 3.5 - 5.0 mEq/L [facility] Chloride 90 (L) 98 - 112 mEq/L [facility] CO2 27 24 - 31 mEq/L [facility] Anion gap 17@ANIO (H) 7 - 15 mEq/L [facility] BUN 12 8 - 23 mg/dL [facility] Creatinine 0.48 (L) 0.50 - 0.90 mg/dL [facility] Glucose 267 (H) 65 - 99 mg/dL [facility] Calcium 8.2 (L) 8.8 - 10.2 mg/dL [facility] Specimen Blood Performing Organization Address City/[facility]/Zipcode Phone Number [facility] DEPARTMENT OF PATHOLOGY AND [address] [place] [address] [address] [address] [address] Chest W Contrast Abdomen W Contrast Pelvis W Contrast (05/06/2020 4:21 PM CDT) Specimen Narrative Performed At EXAMINATION: CT CHEST W CONTRAST ABDOM EN W CONTRAST PELVIS W CONTRAST HM [facility] HISTORY: reevaluate pancreatic cancer TECHNIQUE: CT examination of the chest, abdomen, and p horacio was performed following intravenous administration of iodi nated contrast. Sagittal and coronal computerized reformatted images w ere obtained. CT imaging was performed with iterative reconstruction techniques and/or automated exposure co ntrol to reduce radiation dose. COMPARISON: Prior CTs dating 03/24/2020, . IMPRESSION: CHEST: Devices: Right IJ central line with tip overlying supe rior cavoatrial junction. Lungs: New suspicious focal lung lesion. Moderate para septal emphysema with more fine areas of subpleural reticulation which may represent additional early emphysema versus fibros is. Pleura: No pleural effusion or pneumotho rax. Mediastinum/Nodes: No lymphadenopathy. Cardiovascular: Heart within normal limits of size. No pericardial effusion. There is severe calcified coronary artery di sease. There is extensive aortic annular/valvular calcif ication. Other: None. ABDOMEN: Liver: There is hepatic steatosis. There is no discrete liver lesion. Gallbladder/Biliary: There is pneumobilia and gas with in the gallbladder related to the biliary stent. There is a metallic comm on bile duct stent in place, in expected position. It measures approximat braden 5.5 x 3.7 cm, and is inseparable from the descending duodenum, partially partially encasing the common bile duct and IVC, completely encasing the SMA, an d obliterating the SMV. Spleen: The splenic vein remains patent. Spleen is unremarkable. Pancreas: There is no significant change in the pancre atic head mass, although ill-defined margins precludes accurate measur ement. There is upstream pancreatic atrophy and mild parekh creatic ductal dilatation. Adrenal: Unremarkable. Kidneys: No change and a few renal cysts measuring up to 1.2 cm at the right interpolar region. No hydronephros is. Vascular: No aortic aneurysm. 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 The IVC is inseparable from the pancreatic mass. Nodes: No new lymphadenopathy. Bowel: Increasing gaseous distention down to the level of the descending duodenum, with the pancreatic mass revealed invasive o r at least tethering. No evidence of complete bowel obstruction. Distal to this, the bowel is relatively normal. Fluid collections/Other: No ascites or fluid collectio ns. No peritoneal nodularity. PELVIS: Urogenital: Urinary bladder is unremarkable. Uterus is unremarkable. No adnexal mass. Other: No mass, fluid collection or sign ificant adenopathy. MUSCULOSKELETAL: Greater thoracic procedure normal in caliber. The bone s are demineralized. There are multiple healed left anterior upper rib fractures. There is transitional lumbosacral anatomy, with lumbarization of S1. Unchanged chronic T12 compression fracture with moderate vertebral body height loss. No new aggressive osseous lesion. SUMMARY: 1.No appreciable change in size of the locally advance d pancreatic head mass, which obliterates the SMV, and encases the SMA a nd likely common bile duct. There may be duodenal invasio n. 2.Increasing gastric distention, which may relate to tethering/involvement of the descending duodenum. 3.Common bile duct stent in expected position without evidence of stent failure. 4.New thrombosis of the right internal jugular vein just upstream of the port catheter insertion site. 5.Increased conspicuity of hepatic steat osis. 6.No evidence of new metastatic disease. [facility]-[id number] Procedure Note Interface, Radiology Results Incoming - 05/06/2020 4:51 PM CDT EXAMINATION: CT CHEST W CONTRAST ABDOMEN W CONTRAST PELVIS W CONTRAST HISTORY: reevaluate pancreatic cancer TECHNIQUE: CT examination of the chest, abdomen, and pelvis was performed following intravenous administration of iodinated contrast. Sagittal and coronal computerized reformatted images were obtained. CT imaging was performed with iterative reconstruction techniques and/or automat ed exposure control to reduce radiation dose. COMPARISON: Prior CTs dating 03/24/2020, . IMPRESSION: CHEST: Devices: Right IJ central line with tip overlying superior cavoatrial junction. Lungs: New suspicious focal lung lesion. Moderate paraseptal emphysema with more fine areas of subpleural reticulation which may represent additional early emphysema versus fibrosis. Pleura: No pleural effusion or pneumotho rax. Mediastinum/Nodes: No lymphadenopathy. Cardiovascular: Heart within normal limi ts of size. No pericardial effusion. There is severe calcified coronary artery disease. There is extensive aortic annular/valvular calcification. Other: None. ABDOMEN: Liver: There is hepatic steatosis. There is no discrete liver lesion. Gallbladder/Biliary: There is pneumobili a and gas within the gallbladder related to the biliary stent. There is a metallic common bile duct stent in place, in expected position. It measures approximately 5.5 x 3.7 cm, and is inseparable from the descending duodenum, partially partially encasing the common bile duct and IVC, completely encasing the SMA, and obliterating the SMV. Spleen: The splenic vein remains patent. Spleen is unremarkable. Pancreas: There is no significant change in the pancreatic head mass, although ill-defined margins precludes accurate measurement. There is upstream pancreatic atrophy and mild pancreatic ductal dilatation. Adrenal: Unremarkable. Kidneys: No change and a few renal cysts measuring up to 1.2 cm at the right interpolar region. No hydronephrosis. Vascular: No aortic aneurysm. 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 The IVC is inseparable from the pancreatic mass. Nodes: No new lymphadenopathy. Bowel: Increasing gaseous distention trent n to the level of the descending duodenum, with the pancreatic mass revealed invasive or at least tethering. No evidence of complete bowel obstruction. Distal to this, the bowel is relatively normal. Fluid collections/Other: No ascites or f luid collections. No peritoneal nodularity. PELVIS: Urogenital: Urinary bladder is unremarka ble. Uterus is unremarkable. No adnexal mass. Other: No mass, fluid collection or sign ificant adenopathy. MUSCULOSKELETAL: Greater thoracic procedure normal in hannah iber. The bones are demineralized. There are multiple healed left anterior upper rib fractures. There is transitional lumbosacral anatomy, with lumbarization of S1. Unchanged chronic T12 compression fracture with moderate vertebral body height loss. No new aggressive osseous lesion. SUMMARY: 1.No appreciable change in size of the l ocally advanced pancreatic head mass, which obliterates the SMV, and encases the SMA and likely common bile duct. There may be duodenal invasion. 2.Increasing gastric distention, which m ay relate to tethering/involvement of the descending duodenum. 3.Common bile duct stent in expected pos ition without evidence of stent failure. 4.New thrombosis of the right internal j ugular vein just upstream of the port catheter insertion site. 5.Increased conspicuity of hepatic steat osis. 6.No evidence of new metastatic disease. [facility]-[id number] [facility] Organization Address City/State/Zipcode Phone Number [facility] [address] [place] [address] Urinalysis screen and microscopy, with reflex to culture (05/06/2020 11:37 AM CDT)Only the most recent of3 resultswithin the time period is included. Specimen site Clean catch [facility] Color, UA Straw [facility] Appearance, UA Clear [facility] Specific gravity, UA 1.010 1.001 - 1.035 [facility] pH, UA 6.0 5.0 - 8.5 [facility] Protein, UA Negative Negative [facility] Glucose, UA 2+ (A) Negative [facility] Ketones, UA Trace (A) Negative [facility] Bilirubin, UA Negative Negative [facility] Blood, UA Negative Negative [facility] Nitrite, UA Negative Negative [facility] Urobilinogen, UA <2.0 <2.0 [facility] Leukocyte esterase, Negative Negative [facility] Epithelial cells, UA <1 /HPF [facility] WBC, UA 1 0 - 4 /HPF [facility] RBC, UA None seen 0 - 5 /HPF [facility] Bacteria, UA Few None seen [facility] Yeast, UA None seen [facility] Yeast with None seen [facility] pseudohyphae, HOSPITAL Amorphous crystals Few [facility] Hyaline casts, UA 8 /LPF [facility] Specimen Urine Performing Organization Address City/[facility]/Zipcode Phone Number [facility] DEPARTMENT OF PATHOLOGY AND [address] [place] [phone] [facility] [address] [address] Urine culture (05/06/2020 11:35 AM CDT)Only the most recent of3 resultswithin the time period is included. Pathologist Sig nature Urine culture SEE COMMENTComment: [facility] Bacteriuria screen HOSPITAL negative. Specimen Performing Organization Address City/[facility]/Zipcode Phone Number [facility] DEPARTMENT OF PATHOLOGY AND [address] [place] [address] [phone] [address] DKA electrolytes and glucose test (05/05/2020 7:13 PM CDT)Only the most recent of4 resultswithin the time period is included. Pathologist Sig nature Sodium, whole blood 133 (L) 135 - 148 mEq/L [facility] Potassium, whole 3.6 3.5 - 5.0 mEq/L [facility] Chloride, whole 100 98 - 112 mEq/L [facility] CO2 calculated, 33 (H) 24 - 31 mEq/L [facility] Anion gap, whole 0 (L) 5 - 20 mEq/L [facility] Glucose, whole blood 79 65 - 99 mg/dL [facility] Specimen Blood Performing Organization Address [facility] Phone Number [facility] DEPARTMENT OF PATHOLOGY AND [address] [place] [address] Lactic acid level (05/04/2020 9:25 PM CDT)Only the most recent of5 results within the time period is included. Pathologist Sig counts include 234 beds at the [facility] Lactic acid 2.2 0.5 - 2.2 mmol/L [facility] AL Specimen Blood Performing Organization Address [facility] Phone Number [facility] DEPARTMENT OF PATHOLOGY AND [address] [place] [address] Arterial blood gas (05/04/2020 8:25 PM CDT) Pathologist Sig counts include 234 beds at the [facility] pH, arterial 7.46 (H) 7.35 - 7.45 [facility] pCO2, arterial 29 (L) 35 - 45 mmHg [facility] pO2, arterial 70 (L) 80 - 90 mmHg [facility] Bicarbonate, 20.3 (L) 21.0 - 28.0 [facility] mmol/L HOSPITAL Base excess, -2 -2 - 2 mEq/L [facility] O2 saturation, 96 95 - 100 % [facility] Specimen Blood Performing Organization Address [facility] Phone Number [facility] DEPARTMENT OF PATHOLOGY AND [address] [place], [place] [id number] ECG 12 lead (05/04/2020 6:05 PM CDT)Only the most recent of3 resultswithin the time period is included. Pathologist Sig nature Ventricular rate 123 [facility] Atrial rate 123 [facility] NH interval 124 [facility] QRSD interval 98 [facility] QT interval 332 [facility] QTC interval 475 [facility] P axis 1 50 [facility] QRS axis 1 -2 [facility] T wave axis 141 [facility] EKG impression Sinus tachycardia with guzman ture atrial complexes-Possible Left atrial enlargement-Left ventricular hypertrophy ( Maxime product , Romhilt- Rivas )-Nonspecific ST and T wave abnormality-Abnormal ECG-In automated comparison with ECG of 05-APR-2020 [facility] MUSE 21:18,-Significant changes h ave occurred- Specimen Narrative Performed At This result has an attachment that is no t available. Performing Organization Address City/[facility] Phone Number [facility] MUSE [address] [place] [address] XR Chest 1 Vw Portable (05/04/2020 5:37 PM CDT)Only the most recent of3 results within the time period is included. Specimen Narrative Performed At EXAMINATION: XR CHEST 1 VW PORTABLE [facility] CLINICAL HISTORY: 59 years Female coug h COMPARISON: April 05 IMPRESSION: Cardiomediastinal silhouette is unchange d. The lungs are clear Age related changes in the osseous struc tures. Support lines are in satisfactory positi on, and unchanged from prior. . Procedure Note Interface, Radiology Results Incoming - 05/04/2020 5:41 PM CDT EXAMINATION: XR CHEST 1 VW PORTABLE CLINICAL HISTORY: 59 years Female cough COMPARISON: April 05 IMPRESSION: Cardiomediastinal silhouette is unchange d. The lungs are clear Age related changes in the osseous struc tures. Support lines are in satisfactory positi on, and unchanged from prior. . Performing Organization Address City/[facility] Phone Number [facility] [address] [place] [address] COVID-19 qualitative PCR (05/04/2020 5:20 PM CDT)Only the most recent of2 resultswithin the time period is included. Interpretation Negative results do not prec lude 2019-nCoV infection and should not be used as the sole basis for treatment or other patient management decisions. Negative results must be combined with clinical observations, patient history, and epidemiological [facility] information. [facility] COVID-19 qualitative Not-Detected Not-Detecte [facility] PCR result d [facility] COVID-19 qualitative See link below for [facility] PCR PDF Lab [facility] ReportComment: Case HOSPITAL Number: [id number] Specimen Nasopharyngeal swab Performing Organization Address City/State/Zipcode Phone Number [facility] DEPARTMENT OF PATHOLOGY AND [address] [place] [address] [phone] [address] [facility] Beta hydroxybutyrate (05/04/2020 5:10 PM CDT)Only the most recent of4 results within the time period is included. Pathologist [facility] Beta hydroxybutyrate 4.52 (H) 0.02 - 0.27 [facility] mmol/L HOSPITAL Specimen Serum Performing Organization Address City/[facility]/Zipcode Phone Number [facility] DEPARTMENT OF PATHOLOGY AND [address] [place] [address] [phone] [address] Hemoglobin A1c (05/04/2020 5:10 PM CDT)Only the most recent of5 resultswithin the time period is included. Pathologist [facility] Hemoglobin A1C 11.4 (H) 4.0 - 5.6 % [facility] Comment: HOSPITAL HbA1c cutoffs for diagnosing diabetes: 4.0% - 5.6% = normal 5.7% - 6.4% = increased risk for diabetes (prediabetes )9 >=6.5% = diabetes9 Goals for glycemic control (ADA 2016) < 7.0% Target for non adults with diabetes. More or less stringent targets may be appropriate for individual patients. <7.5% Target for Children and adolescents with type 1 diabetes. Specimen Blood Narrative Performed At IMELDA Lam results called to and read back by [facility] DEPARTME NT OF PATHOLOGY AND GENOMIC [facility] KERRIE/[place](name/location)at 05/04/2020 22:22 (date/time) by AMISH. Performing Organization Address City/State/Zipcode Phone Number [facility] DEPARTMENT OF PATHOLOGY AND [address] [place] [address] [phone] [address] Blood culture, aerobic & anaerobic (05/04/2020 5:00 PM CDT)Only the most recent of5 resultswithin the time period is included. [facility] Blood culture No growth after 5 days of incubation. HO SALMA [facility] isolate Comment: HOSPITAL Specimen Information Specimen Source: Blood Specimen Site: Line, port-a-cath Specimen Blood - Line, port-a-cath Performing Organization Address City/State/Zipcode Phone Number [facility] DEPARTMENT OF PATHOLOGY AND [address] [place] [address] [place] [phone] Uric acid level (05/04/2020 3:00 PM CDT) Pathologist Sig nature Uric acid 7.7 (H) 2.4 - 5.7 mg/dL [facility] L Specimen Blood Narrative Performed At CO2,GLU results called to and read back by [facility] DEPART ENT OF PATHOLOGY AND [facility](name/location) at _ 05/04/2020 15:54 (date/time) by [email or web address]. Performing Organization Address City/[facility]/Zipcode Phone Number [facility] DEPARTMENT OF PATHOLOGY AND [address] [place] [address] LDH (05/04/2020 3:00 PM CDT)Only the most recent of2 resultswithin the time period is included. Pathologist Sig nature LDH 255 (H) 87 - 225 U/L [facility] Specimen Blood Narrative Performed At CO2,GLU results called to and read back by [facility] DEPART ENT OF PATHOLOGY AND [facility]ENN[facility]/WT14(name/location) at _ 05/04/2020 15:54 (date/time) by [email or web address]. Performing Organization Address City/State/Zipcode Phone Number [facility] DEPARTMENT OF PATHOLOGY AND [address] [place] [phone] [place] [address] Bilirubin direct (05/04/2020 3:00 PM CDT) Pathologist Sig nature Bilirubin direct <0.2 0.0 - 0.3 mg/dL [facility] Specimen Performing Organization Address City/[facility]/Zipcode Phone Number [facility] DEPARTMENT OF PATHOLOGY AND [address] [place] [address] [phone] [address] Airway (04/15/2020 1:30 PM CDT) Narrative Performed [...] COVID PANDEMIC. GUMS, TEETH PROTECTED. DENTITION UNCHANGED. Partial thromboplastin time, activated (04/15/2020 4:48 AM CDT)Only the most recent of8 resultswithin the time period is included. PTT 39.3 (H) 23.0 - 36.0 [facility] Comment: [facility] PTT therapeutic range for unfractionated heparin is 61.0-112.0 seconds which corresponds to Anti-Xa 0.3-0.7 U/ml. Specimen Blood Performing Organization Address City/State/Zipcode Phone Number [facility] DEPARTMENT OF PATHOLOGY AND [address], [place] [address] GENOMIC MEDICINE [facility] [address] [place] [address] CBC hemogram (04/14/2020 4:37 AM CDT)Only the most recent of3 resultswithin the time period is included. Pathologist Sig nature WBC 10.25 4.50 - 11.00 k/uL [facility] RBC 3.97 (L) 4.20 - 5.50 m/uL [facility] HGB 11.6 (L) 12.0 - 16.0 g/dL [facility] HCT 36.9 (L) 37.0 - 47.0 % [facility] MCV 92.9 82.0 - 100.0 fL [facility] MCH 29.2 27.0 - 34.0 pg [facility] MCHC 31.4 31.0 - 37.0 g/dL [facility] RDW - SD 46.4 37.0 - 55.0 fL [facility] MPV 9.1 8.8 - 13.2 fL [facility] Platelet count 284 150 - 400 k/uL [facility] Nucleated RBC 0.00 /100 WBC [facility] Specimen Blood Performing Organization Address City/[facility] Phone Number [facility] DEPARTMENT OF PATHOLOGY AND [address] [place] [address] [phone] [address] Urinalysis, automated with microscopy (04/13/2020 10:15 PM CDT) Pathologist Sig nature Color, UA Yellow [facility] Appearance, UA Clear [facility] Specific gravity, UA 1.011 1.001 - 1.035 [facility] pH, UA 6.0 5.0 - 8.5 [facility] Protein, UA Negative Negative [facility] Glucose, UA Negative Negative [facility] Ketones, UA 1+ (A) Negative [facility] Bilirubin, UA Negative Negative [facility] Blood, UA Negative Negative [facility] Nitrite, UA Negative Negative [facility] Urobilinogen, UA <2.0 <2.0 [facility] Leukocyte esterase, Negative Negative [facility] Epithelial cells, UA 1 /HPF [facility] WBC, UA 2 0 - 4 /HPF [facility] RBC, UA 1 0 - 5 /HPF [facility] Bacteria, UA None seen None seen [facility] Yeast, UA None seen [facility] Yeast with None seen [facility] pseudohyphae, [facility] Specimen Urine - Urine, clean catch Performing Organization Address City/[facility] Phone Number [facility] DEPARTMENT OF PATHOLOGY AND [address] [place] [address] [phone] [place] [address] Ammonia level (04/13/2020 4:38 PM CDT) Pathologist Sig nature Ammonia 29 11 - 51 umol/L [facility] Specimen Blood Performing Organization Address City/State/Zipcode Phone Number [facility] DEPARTMENT OF PATHOLOGY AND [address] [place] [address] [phone] [address] Anti Xa, low molecular weight (04/12/2020 3:46 AM CDT) Heparin name Lovenox [facility] Anti Xa, low 0.92 0.60 - 1.00 [facility] molecular weight Comment: U/mL HOSPITAL Specimen must be drawn at least 4 hours post dose foll owing a minimum of 3 doses. Therapeutic Range: 0.60 - 1.00 U/mL Specimen Blood Performing Organization Address [facility] Phone Number [facility] DEPARTMENT OF PATHOLOGY AND [address] [place] [address] [phone] [address] CTA Abdomen Pelvis W And Or Wo [...] mesenteric edema likely secondary to SMV occlusion. [facility]-[id number] Procedure Note Hm Interface, Radiology Results Incoming - 04/08/2020 4:24 [...] mesenteric edema likely secondary to SMV occlusion. [facility]-[id number] Performing Organization Address City/State/Zipcode Phone Number [facility] [address] [place] [address] CT Abdomen Pelvis W Contrast (04/08/2020 8:36 AM CDT)Only the most recent of2 resultswithin the time period is included. 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 Davenport by Dr. Davila at 04/08/2020 11:03 AM. Narrative Performed At EXAMINATION: CT ABDOMEN PELVIS W CONTR AST [facility] CLINICAL HISTORY: 59 yearsFemale Abd pain gastroente [...] by Dr. Davila at 04/08/2020 8:45 AM. [facility]-[id number] Performing Organization Address City/[facility]ode Phone Number [facility] [address] [place] [address] Manual differential (04/07/2020 5:25 AM CDT)Only the most recent of3 results within the time period is included. Manual differential PERFORMED [facility] Neutrophils 82.0 (H) 39.0 - 69.0 % [facility] Lymphocytes 13.0 (L) 25.0 - 45.0 % [facility] Monocytes 4.0 0.0 - 10.0 % [facility] Eosinophils 1.0 0.0 - 5.0 % [facility] Basophils 0.0 0.0 - 1.0 % [facility] Metamyelocytes 0 % [facility] Promyelocytes 0 % [facility] Platelet slide review Joanna adequate [facility] Anisocytosis Moderate [facility] Specimen Performing Organization Address City/[facility] Phone Number [facility] DEPARTMENT OF PATHOLOGY AND [address], [place] [address] GEN[address]ICINE [address] [address] C difficile toxin (04/06/2020 12:13 PM CDT) Clostridium No Clostridium difficle toxin present JOH[facility] STON [facility] difficile toxin Comment: HOSPITAL Specimen Information Specimen Source: Stool Specimen Site: Nonpreserved Specimen Stool - Nonpreserved Performing Organization Address City/[facility]/Zipcode Phone Number [facility] DEPARTMENT OF PATHOLOGY AND [address], [place] [address] [place] [phone] [place] [address] Procalcitonin (04/05/2020 9:36 PM CDT) Procalcitonin 0.08 (H) <=0.07 ng/mL [facility] Comment: INTERPRETIVE INFORMATION: Procalcitonin Procalcitonin [...] condition(s) of the individual patient. Performed at: [facility] [address] Specimen Serum Performing Organization Address City/[facility]/Zipcode Phone Number [facility] [address] [place] [address] [facility] REF LAB [address] [place] [address] Myoglobin (04/05/2020 9:36 PM CDT) Pathologist Sig nature Myoglobin <21 (A) 21 - 72 ng/mL [facility] Specimen Blood Performing Organization Address City/State/Zipcode Phone Number [facility] DEPARTMENT OF PATHOLOGY AND [address], [place] [address] [place] [phone] [place] [address] Troponin (04/05/2020 9:36 PM CDT) Troponin 0.006 0.000 - 0.040 [facility] Comment: ng/mL HOSPITAL In patients suspected of [...] Blood Performing Organization Address City/State/Zipcode Phone Number [facility] DEPARTMENT OF PATHOLOGY AND [address], [place] [address] GENOMIC MEDICINE [address] [address] IgG subclasses (04/05/2020 9:36 PM CDT) Immunoglobulin G 397 240 - 1,118 [facility] RE[facility] LAB subclass 1 Comment: mg/dL REFERENCE INTERVAL: Immunoglobulin G Subclass 1 Access complete set of age- and/or gender-specific ref erence intervals for this test in the [facility] Test Di rectory ([facility]). Immunoglobulin G 175 124 - 549 [facility] subclass 2 Comment: mg/dL REFERENCE INTERVAL: Immunoglobulin G Subclass 2 Access complete set of age- and/or gender-specific ref erence intervals for this test in the [facility] Test Di [facility] ([facility]). Immunoglobulin G 46 21 - 134 [facility] REF LAB subclass 3 Comment: mg/dL REFERENCE INTERVAL: Immunoglobulin G Subclass 3 Access complete set of age- and/or gender-specific ref erence intervals for this test in the [facility] Test Di [facility] ([facility]). Immunoglobulin G 13 1 - 123 [facility] subclass 4 Comment: mg/dL The total IgG (mg/dL) can be derived by the sum of the subclasses IgG1, IgG2, IgG3 and IgG4 values. However, a confirmat ory and more precise total IgG is available by the nephelometric me thod of total IgG (Test # [id number]). REFERENCE INTERVAL: Immunoglobulin G Subclass 4 Access complete set of age- and/or gender-specific ref erence intervals for this test in the [facility] Test Di [facility] ([facility]). Performed by [facility], [address] [place] [address] [email or web address] Jack MD, Lab. Director Specimen Serum Performing Organization Address [facility] Phone Number [facility] [address] [place] [address] [facility] REF LAB [address] [place] [address] Interleukin 6 (04/05/2020 9:36 PM CDT) Interleukin 6 52 (H) 0 - 5 pg/mL [facility] Comment: HOSPITAL This test was developed and its performance characteri stics determined by the Department of Pathology and Genomic Medicine, [facility]. Interleukin 6 is tested by [employer] A ccess 2 by one-step immunoenzymatic assay. It has not been cleared or appr phyllis by FDA. The laboratory is regulated under CLIA as qualified to per form high-complexity testing. This test is used for clinical purposes. It s hould not be regarded as investigational or for research. Specimen Blood Performing Organization Address City/[facility]/Zipcode Phone Number [facility] DEPARTMENT OF PATHOLOGY AND [address], [place] [address] GENOMIC MEDICINE [address] [address] Fibrinogen (04/05/2020 9:36 PM CDT) Pathologist Sig nature Fibrinogen 550 (H) 200 - 450 mg/dL [facility] Specimen Blood Performing Organization Address City/[facility]/Zipcode Phone Number [facility] DEPARTMENT OF PATHOLOGY AND [address] [place] [address] [address] D-dimer (04/05/2020 9:36 PM CDT) D-dimer 0.97 (H) 0.00 - 0.40 [facility] Comment: ug/mL [facility] Units are ug/ml [...] and malignancies. Specimen Blood Performing Organization Address City/[facility]/Zipcode Phone Number [facility] DEPARTMENT OF PATHOLOGY AND [address] [place] [phone] Type and screen (04/05/2020 9:36 PM CDT)Only the most recent of2 resultswithin the time period is included. Pathologist Sig nature ABO grouping O [facility] Rh type POS [facility] Antibody screen (gel) NEG [facility] Specimen Blood Performing Organization Address City/[facility]/Zipcode Phone Number [facility] DEPARTMENT OF PATHOLOGY AND [address] [place] [address] [address] C-reactive protein (04/05/2020 9:36 PM CDT) Pathologist Sig nature CRP 4.32 (H) 0.00 - 0.50 mg/dL [facility] Specimen Blood Performing Organization Address City/[facility]/Zipcode Phone Number [facility] DEPARTMENT OF PATHOLOGY AND [address] [place] [address] [address] [address] Triglycerides (04/05/2020 9:36 PM CDT) Pathologist Sig nature Triglycerides 107 <150 mg/dL [facility] Specimen Blood Performing Organization Address City/[facility]/Zipcode Phone Number [facility] DEPARTMENT OF PATHOLOGY AND [address] [place] [address] [place] [address] B natriuretic peptide (04/05/2020 9:36 PM CDT) [facility] BNP 100 0 - 100 pg/mL [facility] Specimen Blood Performing Organization Address City/[facility] Phone Number [facility] DEPARTMENT OF PATHOLOGY AND [address] [place] [address] [address] [address] Lactate dehydrogenase (LD) isoenzymes (04/05/2020 9:36 PM CDT) Pathologist [facility] LD total 223 105 - 230 U/L [...] [facility] Comment: Performed by [facility], [address] [place] [phone] [email or web address] MD - Lab. Director Specimen Serum Performing Organization Address [facility] Phone Number [facility] [address] [place] [address] [facility] [address] [place] [address] Ferritin level (04/05/2020 9:36 PM CDT) [facility] Ferritin level 538 (H) 13 - 150 ng/mL [facility] Specimen Blood Performing Organization Address [facility] Phone Number [facility] DEPARTMENT OF PATHOLOGY AND [address] [place] [address] [address] [address] Creatine kinase, total (CPK) (04/05/2020 9:36 PM CDT) Pathologist Sig nature Creatine kinase 76 26 - 192 U/L [facility] L Specimen Blood Performing Organization Address City/State/Zipcode Phone Number [facility] DEPARTMENT OF PATHOLOGY AND [address] [place], [place] [address] GENOMIC MEDICINE [facility] [address] [place] [address] IR Port Placement (03/31/2020 3:49 PM CDT) Specimen Narrative Performed At Port catheter placement 03/31/2020 [facility] Indication: Chemotherapy Pre-Procedure Diagnosis: Pancreatic canc er Post-procedure Diagnosis: Pancreatic can cer Bearing Machine Operator: Martín Duffy Integrated Logistics Support Manager: None Anesthesia/Sedation: Level of anesthesia: Moderate Sedation Medications used: Fentanyl and Versed, 1 % Lidocaine Anesthesia administration: Pulse oximetry, heart rate, and blood pressure were continuously monitored by a radiology nu rse and the performing provider. Duration of intra-service [id number] a nesthesia/sedation: 25 minutes Radiation Exposure: 3 mGy (ka, r) Estimate blood loss: <5 mL Blood adminis tered: None Complications: None Implants/Grafts: 8 [employer] Smart Port Specimen: None Procedure: Informed [...] vein p ort catheter placement. Procedure Note Hm Interface, Radiology Results Incoming - 03/31/2020 5:20 PM CDT Port catheter placement 03/31/2020 Indication: Chemotherapy Pre-Procedure Diagnosis: Pancreatic canc er Post-procedure Diagnosis: Pancreatic can cer Bearing Machine Operator: Martín Duffy Integrated Logistics Support Manager: Michelle Anesthesia/Sedation: Level of anesthesia: Moderate Sedation Medications used: Fentanyl and Versed, 1 % Lidocaine Anesthesia administration: Pulse oximetr y, heart rate, and blood pressure were continuously monitored by a radiology nurse and the performing provider. Duration of intra-service [id number]-fp-rkmk a nesthesia/sedation: 25 minutes Radiation Exposure: 3 mGy (ka, r) Estimate blood loss: <5 mL Blood adminis tered: None Complications: None Implants/Grafts: 8 [place] Smart Port Specimen: None Procedure: Informed [...] p ort catheter placement. Performing Organization Address City/State/Zipcode Phone Number [facility] [address] [place] [address] Lipase level (03/31/2020 6:14 AM CDT)Only the most recent of4 resultswithin the time period is included. Pathologist Sig nature Lipase 95 (H) 13 - 60 U/L [facility] Specimen Blood Performing Organization Address City/State/Zipcode Phone Number [facility] DEPARTMENT OF PATHOLOGY AND [address] [place] [phone] GEN[address] [address] Amylase level (03/27/2020 5:00 AM CDT)Only the most recent of2 resultswithin the time period is included. Pathologist Sig nature Amylase 30 28 - 100 U/L [facility] Specimen Blood Performing Organization Address City/State/Zipcode Phone Number [facility] DEPARTMENT OF PATHOLOGY AND [address] [place] [address] [address] [address] Surgical pathology request (03/26/2020 11:09 AM CDT) [facility] DEPARTMENT OF PATHOLOGY AND GENOMIC MEDICINE Surgical pathology See link below [facility] DEPARTMENT OF report for PDF Lab PATHOLOGY AND Report GENOMIC MEDICINE Result status This is Final [facility] DEPARTMENT OF Report for PATHOLOGY AND [id number] GENOMIC MEDICINE Specimen Performing Organization Address City/[facility]ode Phone Number [facility] DEPARTMENT OF PATHOLOGY AND [address] [place] [address] GENOMIC MEDICINE Cytology (non-gynecological) request (03/26/2020 9:06 AM CDT)Only the most recent of2 resultswithin the time period is included. [facility] DEPARTMENT OF PATHOLOGY AND GENOMIC MEDICINE Cytology See link below [facility] DEPARTMENT OF (non-gynecological) for PDF Lab PATHOLOGY AND report Report GENOMIC MEDICINE Result status This is Final [facility] DEPARTMENT OF Report for PATHOLOGY AND [id number] GENOMIC MEDICINE Specimen Performing Organization Address City/[facility]/Zipcode Phone Number [facility] DEPARTMENT OF PATHOLOGY AND [address] [place] [phone] GENOMIC MEDICINE Airway (03/26/2020 8:13 AM CDT) Narrative Performed At Diamond Washington MD 03/26/20 8:14 AM Airway Date/Time: 03/26/2020 8:04 AM Performed by: Diamond Washington M D Authorized by: Diamond Washington MD [...] CDT) Vitamin D, 35.8 30.0 - 150.0 [facility] 25-hydroxy Comment: ng/mL HOSPITAL This assay reports [...] Blood Performing Organization Address City/State/Zipcode Phone Number [facility] DEPARTMENT OF PATHOLOGY AND [address] [place], [place] [address] [address] [address] MRI Thoracic Spine Wo Contrast (03/26/2020 3:13 AM CDT) Specimen Narrative Performed At This result has an attachment that is no t available. EXAMINATION: MRI THORACIC SPINE WO CONTRAST HM [facility] CLINICAL HISTORY: t12 fracture COMPARISON: None. [...] fracture of the T12 vertebral body . [id number] Procedure Note Interface, Radiology Results Incoming - [...] compression fracture of the T12 vertebral body. [id number] Performing Organization Address City/[facility]/Zipcode Phone Number [facility] [address] [place] [address] Ionized calcium (03/25/2020 12:00 PM CDT) Pathologist Sig nature pH 7.44 [facility] Ionized calcium 1.15 1.11 - 1.32 mmol/L [facility] Specimen Blood Performing Organization Address City/State/Zipcode Phone Number [facility] DEPARTMENT OF PATHOLOGY AND [address] [place], [place] [address] GENOMIC MEDICINE [place] [id number] [place] [address] Vitamin D 1,25 dihydroxy level, serum (03/25/2020 11:22 AM CDT) Vit D, 53.57 18.00 - [place] 1,25-Dihydroxy Comment: 78.00 pg/mL [facility] This test was developed and its performance lawanda acteristics determined by HOSPITAL the Department of Pathology and Genomic Medicine, [facility]. Serum 1,25 Dihydroxy Vitamin D is tested by LC-MS/MS. It has not been cleared or approved by FDA. The laboratory is reg ulated under CLIA as qualified to perform high-complexity testing. This jennifer t is used for clinical purposes. It should not be regarded as investigational or for research. Specimen Blood Performing Organization Address City/State/Zipcode Phone Number [facility] DEPARTMENT OF PATHOLOGY AND [address] [place], [place] [address] GENOMIC MEDICINE [facility] [address] [place] [address] Lipid panel (03/25/2020 9:16 AM CDT)Only the most recent of2 resultswithin the time period is included. Cholesterol 188 <200 mg/dL [facility] Triglycerides 122 <150 mg/dL [facility] HDL cholesterol 51 >40 mg/dL [facility] LDL cholesterol 106 (H)Comment: <100 mg/dL [facility] Result obtained by [facility]ISH direct [facility] measurement Lipid panel [facility] interpretation Comment: [facility]EWISH Total Cholesterol (mg/dL) [facility] <200 Desirable 200-239 Borderline-high >=240 High [...] (>=200 mg/dL) Specimen Blood Performing Organization Address [facility] Phone Number [facility] DEPARTMENT OF PATHOLOGY AND [address] [place] [address] Venous blood gas (03/25/2020 4:45 AM CDT)Only the most recent of2 resultswithin the time period is included. Pathologist Sig nature pH, venous 7.37 7.32 - 7.42 [facility] pCO2, venous 41 (L) 45 - 51 mmHg [facility] pO2, venous 41 (H) 25 - 40 mmHg [facility] Base excess, venous -1 -2 - 2 meq/L [facility] O2 saturation, 79 (H) 40 - 70 % [facility] Bicarbonate, venous 23.3 21.0 - 28.0 [facility] mmol/L HOSPITAL Specimen Blood Performing Organization Address [facility] Phone Number [facility] DEPARTMENT OF PATHOLOGY AND [address] [place] [address] Carcinoembryonic antigen (CEA) (03/25/2020 3:20 AM CDT) CEA 33.3 (H) 0.0 - 3.8 [facility] Comment: ng/mL [facility] Reference range for heavy smokers: 0.0 - 5.5 ng/mL The SY[employer] Dominic 8000 CEA immunoassay was used. Results obtained with different assay methods or kits should not be used interchangeably and may be differen t. Specimen Serum Performing Organization Address [facility] Phone Number [facility] DEPARTMENT OF PATHOLOGY AND [address] [place] [address] [place] Gallbladder (03/24/2020 9:30 PM CDT) Specimen [...] mm. IMPRESSION: Normal gallbladder ultrasound examinatio n. [id number] Procedure Note Hm Interface, Radiology Results Incoming - 03/24/2020 9:53 [...] mm. IMPRESSION: Normal gallbladder ultrasound examinatio n. [facility]-[id number] Performing Organization Address City/[facility]/Zipcode Phone Number [facility] [address] [place] [address] CRITICAL CARE (03/24/2020 9:19 PM CDT) Narrative [...] plan with patient or surrogate, discussions with [facility] provider, evaluation of patient's response to treatment, [...] Lactic acid 1.5 0.5 - 2.2 mmol/L [facility] Specimen Blood Performing Organization Address [facility]/Zipcode Phone Number [facility] DEPARTMENT OF PATHOLOGY AND [address] [place] [phone] GENOMIC MEDICINE [address] [place] [address] T cell Lymphocyte Subset Panel 4 (03/18/2020 9:59 AM CDT) Pathologist Sig nature CD4% 26 (L) 30 - 61 % [facility] CD4 absolute count [phone] [...] Performing Organization Information: Site ID: [id number] Name: [facility] Address: [address] [place] [id number] Director: Dr. Vaibhav whittington Performing Organization Address [facility] Mex[facility]ode Phone Number [facility] [address] [place] [address] HIV 1 RNA, QUANTITATIVE REAL TIME PCR [...] Performing Organization Information: Site ID: [id number] Name: [facility] Address: [address] [place] [id number] Director: Dr. 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
--- OUTSIDE RECORDS SUMMARY | 2020-07-02 06:59 | XMS REPORT | Continuity of Care Document ---
:1960 Author Organization [facility] t Address [address] [place] [address] Care Team Providers Name Role Phone Farhana JOHNSON Primary Care Physician Christiano JOHNSON Attending Clinician Jess SANTANA Attending Clinician Unavailable Parish SANTIAGO Attending Clinician Unavailable Sj MILLER Attending Clinician Unavailable Xavier MILLER Attending Clinician Unavailable Reynaldo SANTIAGO Attending Clinician Unavailable Delia SANTIAGO Attending Clinician Unavailable Kevin Saenz Attending Clinician Bunny Strong MA Attending Clinician Unavailable Andrea JOHNSON Attending Clinician Pancho Hernandez MD Attending Clinician [phone] Leonardo [facility]ending Clinician Unavailable Tato Watkins [facility] Attending Clinician Unavailable Terry MILLER Attending Clinician Unavailable Sadie Bauman MD Attending Clinician Kendall JOHNSON Attending Clinician Christiano Gomez MD Attending Clinician Cb JOHNSON Attending Clinician Sydney [facility] Attending Clinician Unavailable Provider Attending Clinician Unavailable Julian Tyler DO Attending Clinician Cayden Julio MD Attending Clinician Dario JOHNSON Attending Clinician Amari Canas MD Attending Clinician Sadie Brown DO Attending Clinician Karen Jean MD Attending Clinician Loretta Washington MD Attending Clinician Erlin MIKE Attending Clinician Edgar Uribe MD Attending Clinician JUNE Admitting Clinician Unavailable KAROLINA Admitting Clinician Unavailable BRADY Admitting Clinician Unavailable Payers Payer Name Policy Policy Number Effective Expiration Source Type Date Date MEDICAREMEDICARE PART xxxxxxxxxxx 2012 [place] A AND 00:00:00 Denominational Pfeqbhgftmhq97/1/2012 [place] 2001 [place] INDEMNITYxxxxxxxxxxx1 00:00:00 Met yun /10/2001-[place] it[place] Problems Condition Condition Condition Status Onset Resolution Last Treating Co mments Source Name Details Category Date Date Treatment Clinician Date Type 2 Type 2 Disease Active [place] diabetes diabetes 8-04 Method i mellitus, mellitus, 00:00: st with with 00 long-term long-term current current use of use of insulin insulin Duodenal Duodenal Disease Active Overview: [place] stenosis stenosis 7-13 Added Method i 00:00: automatic st 00 ally from request for surgery [id number] 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 Abdominal Abdominal Disease Active Cynthia ston pain pain 618 Methodi 00:00: st 00 Respirator Respirator Disease Active 2020- [facility] y y 6-14 Methodi insufficie insufficie 00:00: st ncy ncy 00 Malignant Malignant Disease Active 2019- Cynthia ston neoplasm neoplasm 611 Method i of of 00:00: st pancreas pancreas 00 Chemothera Chemothera Disease Active 2019- [facility] py induced py induced 6-11 Me [facility]odi neutropeni neutropeni 00:00: st a a 00 Pancreatic Pancreatic Disease Active 2020-0 [facility] cancer cancer 6-09 Methodi 00:00: st 00 History of History of Disease Active 2019- [facility] CVA CVA 6-07 Methodi (cerebrova (cerebrova 00:00: st scular scular 00 accident) accident) Overweight Overweight Disease Active [place] (BMI (BMI 03-29 Methodi 25.0-29.9) 25.0-29.9) 00:00: st 00 Acute Acute Disease Active Overview: [place] pancreatit pancreatit 03-24 Added Me th[facility] is is 00:00: automatic st 00 ally from request for surgery [id number] 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 [facility] ciency ciency 00:00: st 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) Dehydratio Dehydratio Disease Resolve 2020-05-09 2020-05-09 Tae n n d 7-13 00:00:00 12:55:03 Method i 00:00: st 00 COVID-19 COVID-19 Disease Resolve 2020-04-09 2020-04-09 [place] virus virus d 6-14 00:00:00 08:39:44 Method i detected detected 00:00: st 00 History of Past Illness Condition Condition Condition Status Onset Resolution Last Treating Co mments Source Name Details Category Date Date Treatment Clinician Date DKA DKA Disease Resolve 2020-05-09 2020-05-09 [place] (diabetic (diabetic d 03-24 00:00:00 12:55:01 Methodi ketoacidos ketoacidos 00:00: st es) es) 00 Allergies, Adverse Reactions, Alerts Allergy Allergy Status Severity Reaction(s) Onset Inactive Treating Comm ents Source Name Type Date Date Clinician Tramadol Propensi Active Other (See Seizures [place] ty to Comments) 04-06 Methodi adverse 00:00: st reaction 00 s to drug Cycloben Propensi Active Seizure [place] zaprine ty to 04-19 Methodi adverse 00:00: st reaction 00 s to drug Sulfa Propensi Active Unknown [place] (Sulfona ty to Reaction 04-19 Method i mide adverse 00:00: st Antibiot reaction 00 ics) s to drug Tetracyc Propensi Active Rash [place] line ty to 04-19 Methodi adverse 00:00: st reaction 00 s to drug Abacavir Propensi Active Other (See "[facility] ty to Comments) 04-19 ized Methodi adverse 00:00: after st reaction 00 used s to first drug dose" Family History Family Member Diagnosis Comments Start Date Stop Date Source Maternal grandmother Diabetes [place]ational Natural mother Cervical cancer [place] Natural mother Diabetes type II [place] Natural son Diabetes Strong [place] dist Social History Social Habit Start Date Stop Date Quantity Comments Source History of Cigarette Smoker [place] tobacco use Denominational Sex Assigned At [place] Denominational Exposure to Unable to assess [place] SARS-CoV-2 Denominational (event) Cigarettes smoked 2020-05-26 2020-05-26 [place] current (pack per 00:00:00 00:00:[address] day) - Reported Cigarette 2020-05-26 2020-05-26 [place] pack-years 00:00:00 00:00:00 Denominational Alcohol intake 2020-05-26 2020-05-26 Ex-drinker (finding) [place] 00:00:00 00:00:00 Denominational Tobacco Comment 2020-04-15 2020-04-15 havs not smoked in [place] 00:00:00 00:00:00 4-5 weeks Denominational Alcohol Comment 2017-04-19 2017-04-19 occassionally [place] 00:00:00 00:00:00 Denominational Smoking Status Start Date Stop Date Source Current every day smoker 2020-05-26 00:00:00 Cynthia Barriga Medications Ordered Filled Start Stop Current Ordering Indication Dosage Frequency Signature Comments Components Source Medication Medication Date Date Medication? Clinician (SIG) Name Name sertraline Yes 200mg QD Take 2 [place] (ZOLOFT) 06-27 tablets Methodi 100 MG 00:00: ([address] tablet 00 total) by mouth daily. sertraline 2019- No 200mg QD Take 200 [place] (ZOLOFT) 06-23 mg by Methodi 100 MG 10:32: 00:[address] tablet 33 :00 daily. apixaban Yes 5mg Q.5D Take 1 Strong (Eliquis) 5 06-23 tablet (5 Met hodi mg tablet 00:00: mg total) st 00 by mouth 2 (two) times a day. sertraline 2020- No 200mg QD Take 2 Cynthia stomarivel (ZOLOFT) 9-06-27 tablets Methodi 100 MG 00:00: 18:51 ([address] tablet 00 :03 total) by mouth daily. furosemide Yes Edema, TAKE 1 Cynthia ston (LASIX) 20 - unspecified TABLET BY Methodi mg tablet 00:00: type MOUTH st 00 EVERY DAY atazanavir 2019- No 300mg QD Take 300 [place] (Reyataz) 06-02 mg by Methodi 300 MG 14:11: 00:[address] capsule 44 :00 daily with breakfast. emtricitabi 2019- No 1{tbl} QD Take 1 [place] ne-tenofovi 06-02 tablet by Wy Tylr Mobileodi r DF 14:11: 00:[address] (TRUVADA) 44 :00 daily. 200-300 mg per tablet potassium 2019- No Hypokalemia 20meq Q.[id number] Strong chloride 20 06-02 [id number] M ethodi mEq in 100 11:00: 11:[address] mL IVPB 00 :00 (FOR CENTRAL LINE ONLY) furosemide Yes 40mg QD Take 1 [place] (Lasix) 40 06-02 tablet (40 Met hodi mg tablet 00:00: mg total) st 00 by mouth daily. SITagliptin 2020- Yes Type 2 1{tbl} Q.5D Take 1 Strong -metformin 06-02 diabetes tablet by Methodi (Janumet) 00:00: 23:[address] 50-500 mg 00 :00 without (two) per tablet complicatio times a n, with day with long-term meals. current use of insulin (HCC) atazanavir 2019- Yes 300mg QD Take 1 Cynthia ston (Reyataz) 06-02 capsule Method i 300 MG 00:00: 23:59 ([address] capsule 00 :00 total) by mouth daily with breakfast for 90 days. emtricitabi 2019- Yes 1{tbl} QD Take 1 [place] ne-tenofovi 06-02 tablet by Wy Tylr Mobileodi r DF 00:00: 23:[address] (TRUVADA) 00 :00 daily for 200-300 mg 90 days. per tablet HYDROcodone 2020- Yes chronic 1{tbl} Q6H Take 1 Strong -acetaminop 06-02 0910 pain tablet by Me martin holliday ([place]) 00:00: 23:[address] 10-325 mg 00 :00 every 6 per tablet (six) hours as needed for moderate pain for up to 30 days .chronic pain. Max Daily Amount: 4 tablets potassium 2019-2020- Yes Edema, 20meq Q.5D Take 1 [place] chloride 05-27 unspecified tablet (20 Methodi (K-DUR) 20 00:00: 23:59 type mEq total) st MEQ CR 00 :00 by mouth 2 tablet (two) times a day. furosemide 2019-2019- No Edema, 20mg QD Take 1 [place] (Lasix) 20 05-27 unspecified tablet (20 Methodi mg tablet 00:00: 00:00 type mg total) st 00 :00 by mouth daily. SITagliptin 2019- 2020- No 1{tbl} Q.5D Take 1 [facility] -metformin 05-26 tablet by Met rangel (Janumet) 11:59: 00:[address] 50-1,000 mg 31 :00 (two) per tablet times a day with meals. ritonavir 2020-0 Yes 100mg QD Take 100 Cynthia ston (NORVIR) 8-04 mg by Methodi 100 mg 10:51: mouth st tablet 39 daily. multivitami 2020-0 Yes 1{tbl} QD Take 1 [place] 8-04 tablet by Methodi (THERAGRAN) 10:51: mouth st tablet 39 daily. potassium 2020-2019- No QD Take by [place] chloride 05-26- mouth Methodi (KAYCIEL) 09:03: 00:[address] 20 mEq/15 45 :00 mL solution insulin 2019-0 Yes Type 2 18U QD Inject 18 Cynthia ston detemir 8-04 diabetes Units Methodi U-100 00:00: mellitus under the st (LEVEMIR) 00 without skin every 100 unit/mL complicatio morning. injection n, with long-term current use of insulin (HCC) SITagliptin 2019-0 2020- No Type 2 1{tbl} Q.5D Take 1 [place] -metformin 05-26 diabetes tablet by Methodi (Janumet) 00:00: 00:[address] 50-500 mg 00 :00 without (two) per tablet complicatio times a n, with day with long-term meals. current use of insulin (HCC) furosemide 2019-2019- No 20mg QD Take 1 [place] (Lasix) 20 05-26- tablet (20 Me thodi mg tablet 00:00: 00:00 mg total) st 00 :00 by mouth daily. potassium 2019-2019- No 20meq Q.5D Take 1 [place] chloride 05-26 tablet (20 Meth zackery (K-DUR) 20 00:00: 00:00 mEq total) st MEQ CR 00 :00 by mouth 2 tablet (two) times a day. linaCLOtide 2019-2019- No 145ug QD Take 145 Strong (LINZESS) 05-19 mcg by Methodi 145 mcg 13:03: 00:[address] capsule 41 :00 daily before breakfast. megestroL 2019- No 20mg QD Take 20 mg [place] (MEGACE) 20 05-19 by mouth Met hodi MG tablet 13:03: 00:[address] 18 :00 tiZANidine 2019-2019- No 2mg Q8H Take 2 mg [place] (ZANAFLEX) 05-19 by mouth Meth zackery 2 MG tablet 12:58: 00:[address] 12 :00 (eight) hours as needed for muscle spasms. potassium 2019-2019- No Malignant 20meq [place] chloride 05-19 neoplasm of Met hodi (K-DUR) CR 12:45: 13:17 pancreas, s t tablet 20 00 :00 unspecified mEq location of malignancy (HCC) pancrelipas 2020- Yes 1{capsu Q.[id number] Take 1 Strong e, 05-19 le} [id number] capsule by Me salazar lipase-prot 00:00: 23:[address] ease-amylas 00 :00 (three) e, (Creon) times a 24,000-76,0 day with 00 -120,000 meals. unit capsule,del ayed release(DR/ EC) capsule tiZANidine 2020-0 2020- No 4mg Q8H Take 1 [place] (Zanaflex) 05-19-27 tablet (4 Met hodi 4 MG tablet 00:00: 23:59 mg total) st 00 :00 by mouth every 8 (eight) hours as needed for muscle spasms for up to 30 days. tiZANidine 2019-0 2020- No 2mg Q8H Take 1 [place] (ZANAFLEX) 05-19-28 tablet (2 Met hodi 2 MG tablet 00:00: 00:00 mg total) st 00 :00 by mouth every 8 (eight) hours as needed for muscle spasms. lidocaine 2019- 2020- No 1{patch Q24H Place 1 [place] (LIDODERM) 05-10 } patch on Meth zackery 5 % 00:00: 00:[address] 00 :00 daily for 30 days. Remove & Discard patch within 12 hours or as directed by amoxicillin 2019-2019- No 250mg Q.[id number] Take 250 Strong (AMOXIL) 05-09 [id number] mg by Met hodi 250 MG 16:42: 00:[address] capsule 56 :00 (three) times a day. insulin 2019- 2020- No 30U QD Inject 30 [place] detemir 05-09- Units Methodi U-100 13:04: 00:[address] (LEVEMIR) 53 :00 skin every 100 unit/mL morning. injection pantoprazol 2019- Yes 40mg Q.5D Take 1 [place] e -18 tablet (40 Methodi (Protonix) 00:00: mg total) st 40 MG EC 00 by mouth 2 tablet (two) times a day. apixaban 2019- 2020- No follow [place] (Eliquis 05-09 package Methodi DVT-PE 00:00: 00:[address] Treat 30D 00 :00 ns Start) 5 mg (74 tabs) tablets,dos e pack QUEtiapine 2019- 2020- No 25mg QD Take 1 [place] (SEROqueL) 05-09-17 tablet (25 Me thodi 25 MG 00:00: 23:59 mg total) st tablet 00 :00 by mouth nightly for 30 days. insulin 2020-0 2020- No 25U QD Inject 25 [place] detemir 7-18 08-04 Units Methodi U-100 00:00: 00:[address] (LEVEMIR) 00 :00 skin every 100 unit/mL morning injection for 30 days. HYDROcodone 2019- 2020- No chronic 1{tbl} Q6H Take 1 Strong -acetaminop 626 08-11 pain tablet by Wy martin hen ([place]) 00:00: 00:[address] 10-325 mg 00 :00 every 6 per tablet (six) hours as needed for moderate pain for up to 30 days .chronic pain. Max Daily Amount: 4 tablets amitriptyli 2019- 2020- No 100mg QD Take 100 Strong ne (ELAVIL) 6- 06-25 mg by Method i 50 MG 22:43: 00:[address] tablet 41 :00 daily. gabapentin 2019-0 Yes 100mg QD Take 1 [place] (Neurontin) 6-25 capsule Metho di 100 mg 00:00: ([address] capsule 00 total) by mouth nightly. amitriptyli 2019-0 2019- No 100mg QD Take 2 [place] (ELAVIL) 6 07-18 tablets Meth zackery 50 MG 00:00: 00:00 ([address] tablet 00 :00 total) by mouth nightly as needed for sleep for up to 30 days. aspirin 2019-0 2020- No 81mg QD Take 1 Strong (ECOTRIN) 04-15-18 tablet (81 Met hodi 81 MG 00:00: 00:00 mg total) st enteric 00 :00 by mouth coated daily for tablet 30 days. clopidogreL 2019- 2020- No 75mg QD Take 1 Cynthia ston (PLAVIX) 75 04-15-18 tablet (75 M ethodi mg tablet 00:00: 00:00 mg total) st 00 :00 by mouth daily for 30 days. insulin 2019-0 Yes Inject 6 [place] ASPART 6-12 units tid Methodi (NovoLOG 00:00: with meals st Flexpen 00 U-100 Insulin) 100 unit/mL (3 mL) insulin pen pen needle, 2019-0 Yes Inject 4 [place] diabetic 32 6-12 times a Metho di gauge x 00:00: day st " 00 needle morPHINE 2020-0 2020- No acute pain 15mg Q4H Take 1 Strong immediate-r 04-03 tablet (15 M ethodi elease 15 00:00: 00:00 mg total) st MG tablet 00 :00 by mouth every 4 (four) hours as needed for severe pain for up to 30 days .acute pain. Max Daily Amount: 90 mg morPHINE 2019-2019- No chronic 30mg Q.5D Take 1 Cynthia ston (MS Contin) 04-03 pain tablet (30 M ethodi 30 MG 12 hr 00:00: 00:00 mg total) st tablet 00 :00 by mouth 2 (two) times a day for 30 days .chronic pain. Max Daily Amount: 60 mg ondansetron 2019- No 8mg Q8H Take 1 Cynthia ston (ZOFRAN) 8 04-03 tablet (8 Met hodi MG tablet 00:00: 00:00 mg total) st 00 :00 by mouth every 8 (eight) hours as needed for nausea or vomiting for up to 30 days. promethazin 2019- No 12.5mg Q6H Take 1 [place] e 04-03 tablet Methodi (PHENERGAN) 00:00: 00:00 (12.5 mg s t 12.5 MG 00 :00 total) by tablet mouth every 6 (six) hours as needed for nausea or vomiting for up to 30 days. HYDROcodone 2019- No chronic 1{tbl} Q6H Take 1 Strong -acetaminop 04-03 pain tablet by Me martin holliday ([place]) 00:00: 00:[address] 10-325 mg 00 :00 every 6 per tablet (six) hours as needed for moderate pain for up to 30 days .chronic pain. Max Daily Amount: 4 tablets insulin 2019- 2020- No 0U Q.[id number] Inject 0-7 Strong lispro 04-03 [id number] Units Metho di (HumaLOG) 00:00: 00:[address] 100 unit/mL 00 :00 skin 3 injection (three) times a day with meals for 30 days. sertraline 2019- No 50mg QD Take 50 mg Strong (ZOLOFT) 25 03-25 by mouth Met hodi MG tablet 09:05: 00:[address] 49 :00 sitagliptin 2019- No Q.5D Take by [place] phos/metfor 03-25- mouth 2 Meth zackery min HCl 09:02: 00:00 (two) st (JANUMET 54 :00 times a ORAL) day. amitriptyli 2019- No 10mg QD Take 10 mg Strong ne (ELAVIL) 03-25 by mouth Met hodi 10 MG 09:01: 00:[address] tablet 08 :00 Norvir 100 No TAKE ONE [place] mg tablet 03-10- TABLET BY Meth zackery 00:00: 00:[address] 00 :00 DAILY WITH A MEAL. DO NOT BREAK, CHEW ORCRUSH TABLET. STORE AT ROOM TEMPERATUR E. AVOID HIGH HUMIDITY. Truvada No TAKE ONE [place] 200-300 mg 02-12 TABLET BY Met hodi per tablet 00:00: 00:[address] 00 :00 DAILY WITH OR WITHOUT FOOD. STORE IN ORIGINAL CONTAINER AT ROOM TEMPERATUR E. Reyataz 300 2019- No TAKE 1 Cynthia ston mg capsule 02-12- CAPSULE BY Me thodi 00:00: 00:[address] 00 :00 DAILY WITH BREAKFAST NORVIR 100 2018-10- No 100mg QD Take 1 Cynthia ston mg tablet 12-11- tablet Methodi 00:00: 00:00 ([address] 00 :00 total) by mouth daily for 180 days. REYATAZ 300 2019- No TAKE 1 Cynthia ston mg capsule 02-18 CAPSULE BY Me thodi 00:00: 00:[address] 00 :00 DAILY WITH BREAKFAST TRUVADA No TAKE ONE [place] 200-300 mg -18 02- TABLET BY Met hodi per tablet 00:00: 00:[address] 00 :00 DAILY WITH OR WITHOUT FOOD. STORE IN ORIGINAL CONTAINER AT ROOM TEMPERATUR E. NORVIR 100 No TAKE 1 [place] mg tablet 02-18 TABLET BY Meth zackery 00:00: 00:[address] 00 :00 DAILY Immunizations Ordered Immunization Filled Immunization Date Status Commen ts Source Name Name Influenza, 2016-01-06 Completed [place] Unspecified 00:00:00 [facility] Pneumococcal 2012-12-26 Completed [place] Polysaccharide 00:00:00 Den[facility]ational Influenza, 2009-09-30 Completed [place] Unspecified 00:00:00 Den[facility]ational Influenza, 2008-10-31 Completed [place] Unspecified 00:00:00 Denominational Influenza, 2007-08-20 Completed [place] Unspecified 00:00:00 Den[facility]ational Pneumococcal 2006-11-15 Completed [place] Polysaccharide 00:00:00 Denominational Influenza, 2002-07-23 Completed [place] Unspecified 00:00:00 Denominational Pneumococcal 2002-07-23 Completed [place] Polysaccharide 00:00:00 Denominational Influenza, 1998-08-05 Completed [place] Unspecified 00:00:00 Denominational Pneumococcal 1997-12-21 Completed [place] Polysaccharide 00:00:00 [facility] Vital Signs Vital Name Observation Time Observation Value Comments Source Systolic blood 2020-06-25 12:54:00 98 mm[Hg] Sada[place]o n [facility] pressure Diastolic blood 2020-06-25 12:54:00 53 mm[Hg] [place] on [facility] pressure Heart rate 2020-06-25 12:54:00 108 /min [facility] Body temperature 2020-06-25 12:54:00 36.06 Leidy [place] Respiratory rate 2020-06-25 12:54:00 19 /min [place] Body height 2020-06-25 12:54:00 160 cm [facility] Body weight 2020-06-25 12:54:[address] [facility] Hospital[facility] BMI 2020-06-25 12:54:00 28.01 kg/m2 [facility] Oxygen saturation in 2020-06-25 12:54:00 93 /min [facility] Arterial blood by Pulse oximetry Procedures Procedure Date / Time Performing Source Performed Clinician CANCER ANTIGEN 19-9 2020-06-23 Harmony Alvarado [place] 10:11:00 [place] COMPREHENSIVE METABOLIC PANEL 2020-06-23 Harmony Alvarado [place] 10:11:00 Den[facility] HC COMPLETE BLD COUNT W/AUTO DIFF 2020-06-23 AlvaradoHarmony [place] 10:11:00 [facility]ational MAGNESIUM LEVEL 2020-06-23 [facility] [place] 10:11:00 [facility] ESTIMATED GFR 2020-06-23 AlvaradoHarmony [place] 10:11:00 Denominational TTE COMPLETE, W CONTRAST, W 2020-06-02 Harmony Alvarado ton DOPPLER ([id number]) 16:34:10 [facility] CANCER ANTIGEN 19-9 2020-06-02 Harmony Alvarado [place] 09:05:00 [place] COMPREHENSIVE METABOLIC PANEL 2020-06-02 Harmony Alvarado [place] 09:05:00 Denominational HC COMPLETE BLD COUNT W/AUTO DIFF 2020-06-02 [facility] Denominational MAGNESIUM LEVEL 2020-06-02 [facility] 09:05:00 Denominational ESTIMATED GFR 2020-06-02 AlvaradoMerryHarmony [place] 09:05:00 Den[facility]ational CANCER ANTIGEN 19-9 2020-05-19 [facility] 10:18:00 [facility] COMPREHENSIVE METABOLIC PANEL 2020-05-19 AlvaradoHarmony [place] 10:18:00 Denominational HC COMPLETE BLD COUNT W/AUTO DIFF 2020-05-19 AlvaradoMerryHarmony [place] 10:18:00 Denominational MAGNESIUM LEVEL 2020-05-19 [facility] 10:18:00 Denominational ESTIMATED GFR 2020-05-19 [facility] [place] 10:18:00 Denominational POC GLUCOSE 2020-05-09 Beth Argueta [place] 16:27:00 Denominational POC GLUCOSE 2020-05-09 Beth Argueta [place] 12:40:00 Denominational XR ABDOMEN 1 VW PORTABLE 2020-05-09 Jory Smith [place] 09:38:55 Christi Denominational POC GLUCOSE 2020-05-09 Beth Argueta [place] 08:28:00 Denominational POC GLUCOSE 2020-05-09 Beth Argueta [place] 05:26:00 Denominational POC GLUCOSE 2020-05-09 Beth Argueta [place] 01:50:00 Denominational POC GLUCOSE 2020-05-08 Beth Argueta [place] 21:16:00 Denominational POC GLUCOSE 2020-05-08 Beth Argueta [place] 17:32:00 Denominational POC GLUCOSE 2020-05-08 Beth Argueta [place] 16:28:00 Denominational FL > 1 HOUR 2020[facility]05-08 [facility] [place] 16:17:55 Denominational CA AN ELECTIVE ENDOTRACHEAL AIRWAY 2020-05-08 [facility] 15:43:28 Owen Alvarado Den[facility] ESOPHAGOGASTRODUODENOSCOPY (EGD) 2020-05-08 KatinaHamlet reid [place] 15:02:00 Denominational ERCP WITH FLUORO 2020-05-08 Hamlet Vivar [place] 15:02:00 Denominational POC PANEL 4 2020-05-08 Beth Argueta [place] 14:06:00 Denominational POTASSIUM LEVEL 2020-05-08 Jory Smith [place] 12:40:00 Christi Denominational POC GLUCOSE 2020-05-08 Kendall Beth [place] 12:20:00 Denominational POC GLUCOSE 2020-05-08 Kendall [facility] 08:39:00 Denominational HC COMPLETE BLD COUNT W/AUTO DIFF 2020-05-08 Jory Smith [place] 05:00:00 Christi [facility] COMPREHENSIVE METABOLIC PANEL 2020-05-08 Jory Smith [place] 05:00:00 Christi Denominational PROTHROMBIN TIME WITH INR 2020-05-08 Jory Smithto n 05:00:00 Christi Denominational MAGNESIUM LEVEL 2020-05-08 Jory Smith [place] 05:00:00 Christi Denominational PHOSPHORUS LEVEL 2020-05-08 Jory Smith [place] 05:00:00 Christi Denominational ESTIMATED GFR 2020-05-08 Jory Smith [place] 05:00:00 Christi Denominational POC GLUCOSE 2020-05-07 Beth Argueta [place] 23:59:00 Denominational POC GLUCOSE 2020-05-07 Beth Argueta [place] 22:09:00 Denominational XR ABDOMEN 1 VW PORTABLE 2020-05-07 Beth Argueta [place] 18:12:00 Denominational POC GLUCOSE 2020-05-07 Beth Argueta [place] 16:34:00 Denominational POC GLUCOSE 2020-05-07 Beth Argueta [place] 12:10:00 Denominational POC GLUCOSE 2020-05-07 Beth Argueta [place] 08:12:00 Denominational POC GLUCOSE 2020-05-07 Beth Argueta [place] 06:12:00 Denominational HC COMPLETE BLD COUNT W/AUTO DIFF 2020-05-07 Beth Argueta [place] 06:00:00 Denominational BASIC METABOLIC PANEL 2020-05-07 Beth Argueta [place] 04:00:00 Denominational ESTIMATED GFR 2020-05-07 Beth Argueta [place] 04:00:00 Denominational HEPATIC FUNCTION PANEL 2020-05-07 Beth Argueta [place] 04:00:00 Denominational POC GLUCOSE 2020-05-06 Beth Argueta [place] 23:24:[address] CHEST W CONTRAST ABDOMEN W 2020-05-06 Harmony Alvarado [place] CONTRAST PELVIS W CONTRAST 16:21:38 Metho dist POC GLUCOSE 2020-05-06 Beth Argueta [place] 12:34:00 Denominational URINALYSIS SCREEN AND MICROSCOPY, 2020[facility]05-06 [facility] 11:37:00 [facility]ational URINE CULTURE 2020-05-06 [facility] 11:35:00 Denominational POC GLUCOSE 2020-05-06 [facility] 08:17:00 Denominational HC COMPLETE BLD COUNT W/AUTO DIFF 2020-05-06 Beth Argueta [place] 04:19:00 Denominational BASIC METABOLIC PANEL 2020-05-06 [facility] 04:19:00 Denominational ESTIMATED GFR 2020-05-06 [facility] 04:19:00 Denominational POC GLUCOSE 2020-05-06 [facility] 04:14:00 Denominational POC GLUCOSE 2020-05-06 [facility] 01:30:00 Denominational POC GLUCOSE 2020-05-05 Kendall [facility] 20:06:00 Denominational DKA ELECTROLYTES AND GLUCOSE TEST 2020-05-05 [facility] 19:13:00 Gopi Deleon Denominational BASIC METABOLIC PANEL 2020-05-05 [facility]:13[facility]00 S. Denominational ESTIMATED GFR 2020-05-05 [facility] 19:13[facility]00 S. Denominational POC GLUCOSE 2020-05-05 [facility] 18:41:00 Denominational POC GLUCOSE 2020-05-05 [facility] 17:41:00 Denominational POC GLUCOSE 2020-05-05 Kendall [facility] 16:03:00 Denominational POC GLUCOSE 2020-05-05 [facility] 14:57:00 Denominational POC GLUCOSE 2020-05-05 Kendall [facility] 13:18:00 Denominational BASIC METABOLIC PANEL 2020-05-05 [facility] 12:20:00 Gopi Deleon Denominational ESTIMATED GFR 2020-05-05 [facility] 12:20:00 Denominational POC GLUCOSE 2020-05-05 [facility] 12:06:00 Denominational POC GLUCOSE 2020-05-05 Kendall [facility] 11:21:00 Denominational POC GLUCOSE 2020-05-05 Kendall [facility] 10:05:00 Denominational POC GLUCOSE 2020-05-05 ArguetaBeth [place] 09:18:00 Denominational DKA ELECTROLYTES AND GLUCOSE TEST 2020-05-05 [facility] 08:30:00 Gopi Barriga DKA ELECTROLYTES AND GLUCOSE TEST 2020-05-05 [facility] 08:30:00 Gopi Odonnellist POC GLUCOSE 2020-05-05 ArguetaBeth [place] 08:08:00 Denominational POC GLUCOSE 2020-05-05 Kendall [facility] 06:39:00 Denominational HC COMPLETE BLD COUNT W/AUTO DIFF 2020-05-05 [facility] 05:15:00 Denominational HEPATIC FUNCTION PANEL 2020-05-05 Kendall [facility] 05:15:00 Denominational BASIC METABOLIC PANEL 2020-05-05 [facility] 05:15:00 Gopi Barriga ESTIMATED GFR 2020-05-05 Kendall Beth [place] 05:15:00 Denominational POC GLUCOSE 2020-05-05 Kendall [facility] 05:09:00 Denominational POC GLUCOSE 2020-05-05 Kendall [facility] 04:18:00 Denominational POC GLUCOSE 2020-05-05 Kendall [facility] 03:04:00 Denominational POC GLUCOSE 2020-05-05 Kendall [facility] 01:57:00 Denominational POC GLUCOSE 2020-05-05 Kendall [facility] 00:22:00 Denominational POC GLUCOSE 2020-05-04 [facility] 23:22:00 Denominational POC GLUCOSE 2020-05-04 [facility] 22:25:00 Denominational BASIC METABOLIC PANEL 2020-05-04 Mgbaraho, Jesica [place] 21:25:00 E. Denominational LACTIC ACID LEVEL 2020-05-04 [facility] 21:25:00 Gopi Barriga COMPREHENSIVE METABOLIC PANEL 2020-05-04 [facility] 21:25:00 Gopi Odonnellist MAGNESIUM LEVEL 2020-05-04 [facility] 21:25:00 Gopi Odonnellist PHOSPHORUS LEVEL 2020-05-04 [facility] 21:25:00 Gopi Barriga ESTIMATED GFR 2020-05-04 Kendall Beth [place] 21:25:00 Denominational POC GLUCOSE 2020-05-04 Kendall [facility] 21:19:00 Denominational ARTERIAL BLOOD GAS 2020-05-04 Jesica Trinidad [place] 20:25:00 E. Denominational DKA ELECTROLYTES AND GLUCOSE TEST 2020-05-04 Dev Trinidad ma [place] 20:25:00 E. Denominational POC GLUCOSE 2020-05-04 ArguetaBeth [place] 20:16:00 Denominational POC GLUCOSE 2020-05-04 Argueta Beth [place] 18:18:00 Denominational ECG 12-LEAD 2020-05-04 [facility] 18:05:10 Gopi Deleon Denominational POC GLUCOSE 2020-05-04 Kendall Beth [place] 17:54:00 Denominational XR ABDOMEN 1 VW PORTABLE 2020-05-04 [facility] 17:38:18 Denominational XR CHEST 1 VW PORTABLE 2020-05-04 Kendall Beth [place] 17:37:54 Denominational COVID-19 QUALITATIVE PCR 2020-05-04 Kendall Beth [place] 17:20:00 Denominational POC GLUCOSE 2020-05-04 Kendall Beth [place] 17:11:00 Denominational BASIC METABOLIC PANEL 2020-05-04 [facility] 17:10:00 Gopi Deleon Denominational LACTIC ACID LEVEL 2020-05-04 Everton Agrawal [place] 17:10:00 Bharatkumar Denominational ESTIMATED GFR 2020-05-04 Kendall Beth [place] 17:10:00 Denominational BETA HYDROXYBUTYRATE 2020-05-04 [facility] 17:10:00 Gopi Barriga HEMOGLOBIN A1C 2020-05-04 [facility] 17:10:00 Gopi Deleon Denominational BLOOD CULTURE, AEROBIC & ANAEROBIC 2020-05-04 Argueta Beth [place] 17:00:00 Denominational POC GLUCOSE 2020-05-04 Kendall [facility] 15:09:00 Denominational HC COMPLETE BLD COUNT W/AUTO DIFF 2020-05-04 Merry Alvaradoisha [place] 15:00:00 Denominational COMPREHENSIVE METABOLIC PANEL 2020-05-04 Harmony Alvarado [facility] 15:00:00 Denominational LDH 2020-05-04 Alvarado [facility] 15:00:00 Denominational MAGNESIUM LEVEL 2020-05-04 Christiano [facility] 15:00:00 Denominational PHOSPHORUS LEVEL 2020-05-04 Christiano [facility] 15:00:00 Denominational URIC ACID LEVEL 2020-05-04 AlvaradoHarmony [place] 15:00:00 Denominational BILIRUBIN DIRECT 2020-05-04 [facility] 15:00:00 Denominational ESTIMATED GFR 2020-05-04 [facility] 15:00:00 Denominational CANCER ANTIGEN 19-9 2020-04-27 [facility]adoMerryHarmony[facility] 10:21:00 Denominational COMPREHENSIVE METABOLIC PANEL 2020-04-27 [facility] [place] 10:21:00 Denominational HC COMPLETE BLD COUNT W/AUTO DIFF 2020-04-27 [facility] 10:21:00 Denominational MAGNESIUM LEVEL 2020-04-27 [facility] 10:21:00 Denominational ESTIMATED GFR 2020-04-27 [facility] 10:21:00 Denominational FL > 1 HOUR 2020-04-15 Dax Mendez [place] 14:34:50 Denominational POC GLUCOSE 2020-04-15 Eloise Tyler [facility] 14:30:00 Julian Denominational CA AN ELECTIVE ENDOTRACHEAL AIRWAY 2020-04-15 Nellie Canas 13:30:36 Denominational ERCP WITH FLUORO 2020-04-15 Dax Mendez [place] 13:21:00 Denominational US UPPER GI TRACT, ENDOSCOPIC 2020-04-15 Dax Mendez [place] 13:21:00 Denominational POC GLUCOSE 2020-04-15 Eloise Tyler 12:38:00 Julian Denominational PARTIAL THROMBOPLASTIN TIME (PTT) 2020-04-15 Gracie Julio [place] 04:48:00 Cayden Denominational CBC WITH PLATELET AND DIFFERENTIAL 2020-04-15 Jory Smith [place] 04:48:00 Christi Denominational BASIC METABOLIC PANEL 2020-04-15 Jory Smith [place] 04:48:00 Christi Denominational ESTIMATED GFR 2020-04-15 Jory Smith [place] 04:48:00 Christi Denominational POC GLUCOSE 2020-04-14 Eloise Tyler 20:38:00 Julian Denominational POC GLUCOSE 2020-04-14 Eloise Tyler 16:20:00 Julian Denominational POTASSIUM LEVEL 2020-04-14 Caroline Barriga [place] 13:20:00 Denominational POC GLUCOSE 2020-04-14 Eloise Tyler 12:40:00 Julian Denominational POC GLUCOSE 2020-04-14 Eloise Tyler 08:55:00 Julian Denominational MAGNESIUM LEVEL 2020-04-14 Caroline Barriga [place] 04:37:00 Denominational BASIC METABOLIC PANEL 2020-04-14 Gracie Julio [place] 04:37:00 Cayden Denominational CBC HEMOGRAM 2020-04-14 Gracie Julio [place] 04:37:00 Cayden Denominational ESTIMATED GFR 2020-04-14 Gracie Julio [place] 04:37:00 Cayden Denominational PARTIAL THROMBOPLASTIN TIME (PTT) 2020-04-14 Gracie Julio [place] 04:37:00 Cayden Denominational PARTIAL THROMBOPLASTIN TIME (PTT) 2020-04-13 Susan Bishop i [place] 22:48:00 Denominational URINALYSIS, AUTOMATED WITH 2020-04-13 KimmycricketCaroline [facility] 22:15:00 Denominational POC GLUCOSE 2020-04-13 [facility] 22:08:00 Denominational POC GLUCOSE 2020-04-13 Kerendomingo [facility] 18:04:00 Denominational AMMONIA LEVEL 2020-04-13 Gracie Julio [place] 16:38:00 Cayden Denominational PARTIAL THROMBOPLASTIN TIME (PTT) 2020-04-13 Gracie Julio [place] 16:30:00 Cayden Denominational POC GLUCOSE 2020-04-13 Gracie Julio [place] 12:07:00 Cayden Denominational LACTIC ACID LEVEL 2020-04-13 Gracie Julio [place] 11:31:00 Cayden Denominational POC GLUCOSE 2020-04-13 Gracie Julio [place] 08:25:00 Cayden Denominational CBC HEMOGRAM 2020-04-13 Gracie Julio [place] 08:15:00 Cayden Denominational PARTIAL THROMBOPLASTIN TIME (PTT) 2020-04-13 Gracie Julio [place] 08:15:00 Cay[place] Denominational BASIC METABOLIC PANEL 2020-04-13 Gracie Julio [place] 04:00:00 Cay[place] Denominational ESTIMATED GFR 2020-04-13 Gracie Julio [place] 04:00:00 [place] Denominational PARTIAL THROMBOPLASTIN TIME (PTT) 2020-04-13 Kaylin Juliokha [place] 00:14:00 [place] Denominational POC GLUCOSE 2020-04-12 Gracie Julio [place] 20:48:00 [place] Denominational POC GLUCOSE 2020-04-12 Kaylin Juliokha [place] 17:34:00 Cay[place] Denominational PARTIAL THROMBOPLASTIN TIME (PTT) 2020-04-12 Gracie Julio [place] 16:25:00 [place] Denominational POC GLUCOSE 2020-04-12 Kaylin Juliokha [place] 12:01:00 [place] Denominational POC GLUCOSE 2020-04-12 Kaylin Juliokha [place] 08:38:00 [place] Denominational POC GLUCOSE 2020-04-12 Kaylin Juliokha [place] 07:22:00 [place] Denominational BASIC METABOLIC PANEL 2020-04-12 Kaylin Juliokha [place] 03:46:00 [place] Denominational CBC HEMOGRAM 2020-04-12 Kaylin Juliokha [place] 03:46:00 Cay[place] Denominational MAGNESIUM LEVEL 2020-04-12 AvenattsugarChuyitaCaroline [place] 03:46:00 Denominational ANTI XA, LOW MOLECULAR WEIGHT 2020-04-12 NoriGracie cisneros [place] 03:46:00 [place] Denominational ESTIMATED GFR 2020-04-12 Gracie Julio [place] 03:46:00 [place] Denominational POC GLUCOSE 2020-04-12 Kaylin Juliokha [place] 01:02:00 [place] Denominational POC GLUCOSE 2020-04-11 Kaylin Juliokha [place] 20:54:00 [place] Denominational POC GLUCOSE 2020-04-11 [facility]Kaylin [facility] 18:51:00 [place] Denominational POC GLUCOSE 2020-04-11 [facility] 18:22:00 [place] Denominational POC GLUCOSE 2020-04-11 Kaylin Juliokha [place] 17:41:00 Cay[place] Denominational POC GLUCOSE 2020-04-11 NoriKaylin cisneroskha [place] 12:28:00 Cay[place] Denominational POC GLUCOSE 2020-04-11 Kaylin Juliokha [place] 07:40:00 Cay[place] Denominational POC GLUCOSE 2020-04-10 Kaylin Juliokha [place] 21:13:00 [place] Denominational POC GLUCOSE 2020-04-10 [facility]Kaylin [facility] 17:08:00 Cay[place] Denominational POC GLUCOSE 2020-04-10 Gracie Julio [place] 16:27:00 Cay[place] Denominational POC GLUCOSE 2020-04-10 Kaylin Juliokha [place] 12:15:00 Cay[place] Denominational POC GLUCOSE 2020-04-10 Gracie Julio [place] 04:09:00 Cay[place] Denominational POC GLUCOSE 2020-04-09 Gracie Julio [place] 22:17:00 Cay[place] Denominational POC GLUCOSE 2020-04-09 Gracie Julio [place] 17:04:00 Cay[place] Denominational POC GLUCOSE 2020-04-09 Gracie Julio [place] 14:04:00 [place] Denominational POC GLUCOSE 2020-04-09 Gracie Julio [place] 09:43:00 Cay[place] Denominational BASIC METABOLIC PANEL 2020-04-09 Eloise Tyler [place] 04:26:00 Julian Denominational HC COMPLETE BLD COUNT W/AUTO DIFF 2020-04-09 Víctor Tyler [place] 04:26:00 Ujlian Denominational ESTIMATED GFR 2020-04-09 Eloise Tyler [place] 04:26:00 Julian Denominational POC GLUCOSE 2020-04-08 Eloise Tyler [place] 22:23:00 Julian Denominational POC GLUCOSE 2020-04-08 Eloise Tyler [place] 21:48:00 Julian Denominational POC GLUCOSE 2020-04-08 Eloise Tyler [place] 21:12:00 Julian Denominational POC GLUCOSE 2020-04-08 Eloise Tyler [place] 18:44:00 Julian Denominational POC GLUCOSE 2020-04-08 Eloise Tyler [place] 16:43:[address] ANGIOGRAM ABDOMEN PELVIS W AND 2020-04-08 Víctor Tyler [place] OR WO CONTRAST 16:04:06 Julian Denominational LACTIC ACID LEVEL 2020-04-08 Eloise Tyler [place] 13:44:00 Julian Denominational POC GLUCOSE 2020-04-08 Eloise Tyler [place] 12:14:00 Julian Denominational POC GLUCOSE 2020-04-08 Eloise Tyler [place] 09:04:[address] ABDOMEN PELVIS W CONTRAST 2020-04-08 Christiano Harmony Gonzalezmichael khuory 08:36:39 Denominational CBC WITH PLATELET AND DIFFERENTIAL 2020-04-08 Shyam Thomason [place] 05:08:00 Denominational COMPREHENSIVE METABOLIC PANEL 2020-04-08 Marbyel Thomason [place] 05:08:00 Denominational ESTIMATED GFR 2020-04-08 Marybel Thomason [place] 05:08:00 Denominational POC GLUCOSE 2020-04-07 [facility], Eloise [place] 21:46:00 Julian Denominational POC GLUCOSE 2020-04-07 [facility], Eloise [place] 16:43:00 Julian Denominational POC GLUCOSE 2020-04-07 [facility], Eloise [place] 14:02:00 Julian Denominational POC GLUCOSE 2020-04-07 [facility], Eloise [place] 12:35:00 Julian Denominational POC GLUCOSE 2020-04-07 [facility], Eloise [place] 08:31:00 Julian Denominational POC GLUCOSE 2020-04-07 [facility], Eloise [place] 06:28:00 Julian Denominational CBC WITH PLATELET AND DIFFERENTIAL 2020-04-07 Shyam Thomason [place] 05:25:00 Denominational COMPREHENSIVE METABOLIC PANEL 2020-04-07 Marybel Thomason [place] 05:25:00 Denominational ESTIMATED GFR 2020-04-07 Marybel Thomason [place] 05:25:00 Denominational MANUAL DIFFERENTIAL 2020-04-07 Marybel Thomason [place] 05:25:00 Denominational POC GLUCOSE 2020-04-06 [facility], Eloise [place] 22:49:00 Julian Denominational POC GLUCOSE 2020-04-06 [facility], Eloise [place] 21:42:00 Julian Denominational POC GLUCOSE 2020-04-06 [facility], [facility] 18:08:00 Julian Barriga BLOOD CULTURE, AEROBIC & ANAEROBIC 2020-04-06 Hampshiredon [place] 12:40:00 Mela Barriga BLOOD CULTURE, AEROBIC & ANAEROBIC 2020-04-06 Hampshiredon [place] 12:30:00 Mela Barriga URINE CULTURE 2020-04-06 Hampshiredon [place] 12:18:00 Mela Barriga CLOSTRIDIUM DIFFICILE TOXIN 2020-04-06 [facility] 12:13:00 Mela Barriga URINALYSIS SCREEN AND MICROSCOPY, 2020-04-06 [facility] [place] WITH REFLEX TO CULTURE 12:13:00 Mela Bryant t POC GLUCOSE 2020-04-06 [facility] [place] 11:00:00 Julian Barriga HEMOGLOBIN A1C 2020-04-06 ThomasonMarybelRosalio [place] 10:49:00 Denominational POC GLUCOSE 2020-04-06 Eloise Tyler [place] 08:57:00 Julian Denominational CBC WITH PLATELET AND DIFFERENTIAL 2020-04-06 Shyam Thomason [place] 04:11:00 Denominational MANUAL DIFFERENTIAL 2020-04-06 Marybel Thomason [place] 04:11:00 Denominational COMPREHENSIVE METABOLIC PANEL 2020-04-06 Marybel Thomason [place] 04:00:00 Denominational ESTIMATED GFR 2020-04-06 Marybel Thomason [place] 04:00:00 Denominational COVID-19 QUALITATIVE PCR 2020-04-05 [facility] 23:15:00 Denominational POC GLUCOSE 2020-04-05 Eloise Tyler [place] 22:47:00 Julian Denominational XR CHEST 1 VW PORTABLE 2020-04-05 Marybel Thomason [place] 21:47:21 Denominational CBC WITH PLATELET AND DIFFERENTIAL 2020-04-05 Shyam Thomason [place] 21:36:00 Denominational COMPREHENSIVE METABOLIC PANEL 2020-04-05 Marybel Thomason [place] 21:36:00 Denominational PROTHROMBIN TIME WITH INR 2020-04-05 Marybel Thomason [facility] ton 21:36:00 Denominational PARTIAL THROMBOPLASTIN TIME (PTT) 2020-04-05 Marybel Thomason [place] 21:36:00 Denominational TROPONIN 2020-04-05 Shyam Thomasona Bolivar [place] 21:36:00 Denominational B NATRIURETIC PEPTIDE 2020-04-05 Marybel Thomason [place] 21:36:00 Denominational MYOGLOBIN 2020-04-05 Shyam Thomasona Bolivar [place] 21:36:00 Denominational PROCALCITONIN 2020-04-05 Shyam Thomasona Bolivar [place] 21:36:00 Denominational IGG SUBCLASSES 2020-04-05 Shyam Thomasona Bolivar [place] 21:36:00 Denominational CREATINE KINASE, TOTAL (CPK) 2020-04-05 Shyam Thomasona BetinaRosalio [facility] 21:36:00 Denominational C-REACTIVE PROTEIN 2020-04-05 Thomason Marybel Bolivar [place] 21:36:00 Denominational INTERLEUKIN 6 2020-04-05 Thomason Marybel Bolivar [place] 21:36:00 Denominational FERRITIN LEVEL 2020-04-05 Marybel Thomason [place] 21:36:00 Denominational D-DIMER 2020-04-05 ThomasonMarybel [place] 21:36:00 Denominational LDH 2020-04-05 Marybel Thomason [place] 21:36:00 Denominational TRIGLYCERIDES 2020-04-05 ThomasonMarybel vegas [place] 21:36:00 Denominational LACTATE DEHYDROGENASE (LD) 2020-04-05 [facility]bel [facility] ston ISOENZYMES 21:36:00 Denominational FIBRINOGEN 2020-04-05 GilmantonMarybel [place] 21:36:00 Denominational TYPE AND SCREEN 2020-04-05 Marybel Thomason [place] 21:36:00 Denominational ESTIMATED GFR 2020-04-05 Marybel Thomason [place] 21:36:00 Denominational MANUAL DIFFERENTIAL 2020-04-05 Marybel Thomason [place] 21:36:00 Denominational ECG 12-LEAD 2020-04-05 Marybel Thomason [place] 21:18:20 Denominational POC GLUCOSE 2020-04-03 NoriKaylin cisneroskha [place] 18:05:00 Cayden Denominational POC GLUCOSE 2020-04-03 [facility] 11:47:00 [place] Denominational POC GLUCOSE 2020-04-03 Kaylin [facility] 09:23:00 [place] Denominational HC COMPLETE BLD COUNT W/AUTO DIFF 2020-04-03 [facility] 04:45:00 [place] Denominational BASIC METABOLIC PANEL 2020-04-03 NoriKaylin [facility] 04:45:00 [place] Denominational ESTIMATED GFR 2020-04-03 Kaylin [facility] 04:45:00 [place] Denominational POC GLUCOSE 2020-04-02 [facility]Kaylin [facility] 20:56:00 [place] Denominational POC GLUCOSE 2020-04-02 [facility]Kaylin [facility] 17:02:00 [place] Denominational POC GLUCOSE 2020-04-02 [facility]Kaylin [facility] 12:07:00 [place] Denominational POC GLUCOSE 2020-04-02 Breana Bishop [place] 08:04:00 Denominational POC GLUCOSE 2020-04-02 Breana Bishop [place] 04:50:00 Denominational HC COMPLETE BLD COUNT W/AUTO DIFF 2020-04-02 [facility] 04:45:00 Denominational TYPE AND SCREEN 2020-04-02 [facility] 04:45:00 Denominational BASIC METABOLIC PANEL 2020-04-02 [facility] 04:37:00 Denominational ESTIMATED GFR 2020-04-02 [facility] 04:37:00 Denominational POC GLUCOSE 2020-04-02 [facility] 02:38:00 Denominational POC GLUCOSE 2020-04-02 [facility] 00:39:00 Denominational POC GLUCOSE 2020-04-01 [facility] 22:29:00 Denominational POC GLUCOSE 2020-04-01 [facility] 20:55:00 Denominational POC GLUCOSE 2020-04-01 [facility] 18:58:00 Denominational POC GLUCOSE 2020-04-01 Dwaine Jean [place] 18:37:00 Natvarlal Denominational POC GLUCOSE 2020-04-01 Elina Jeantkendall [place] 16:32:00 Natvarlal Denominational POC GLUCOSE 2020-04-01 Elina Jeantkendall [place] 14:34:00 Natvarlal Denominational POC GLUCOSE 2020-04-01 Brady Amitkumar [place] 11:59:00 Natvarlal Denominational POC GLUCOSE 2020-04-01 Brady Amitkumar [place] 11:23:00 Natvarlal Denominational POC GLUCOSE 2020-04-01 Elina Jeantkumar [place] 10:31:00 Natvarlal Denominational POC GLUCOSE 2020-04-01 Jean Amitkumar [place] 07:24:00 Natvarlal Denominational HC COMPLETE BLD COUNT W/AUTO DIFF 2020-04-01 Nasir Jean 05:15:00 Natvarlal Denominational COMPREHENSIVE METABOLIC PANEL 2020-04-01 [facility] 05:15:00 Natvarlal Denominational ESTIMATED GFR 2020-04-01 Elina Jeantkendall [place] 05:15:00 Natvarlal Denominational POC GLUCOSE 2020-03-31 JeanDwaine marie [place] 21:00:00 Natvarlal Denominational POC GLUCOSE 2020-03-31 JeanAmando [facility]Franc[facility] 17:15:00 Natvarlal Denominational IR PORT PLACEMENT 2020-03-31 Harmony Alvarado [place] 15:49:00 Denominational POC GLUCOSE 2020-03-31 JeanDwaine marie [place] 14:25:00 Natvarlal Denominational POC GLUCOSE 2020-03-31 JeanAmando marieFranciscan Health [facility] 07:56:00 Natvarlal Denominational COMPREHENSIVE METABOLIC PANEL 2020-03-31 Dwaine Jean [facility] 06:14:00 Natvarlal Denominational LIPASE LEVEL 2020-03-31 Dwaine Jean [place] 06:14:00 Natvarlal Denominational ESTIMATED GFR 2020-03-31 Dwaine Jean [place] 06:14:00 Natvarlal Denominational POC GLUCOSE 2020-03-30 Dwaine Jean [place] 20:56:00 Natvarlal Denominational POC GLUCOSE 2020-03-30 Amando [facility]Franc[facility] 18:33:00 Natvarlal Denominational POC GLUCOSE 2020-03-30 Dwaine Jean [place] 12:25:00 Natvarlal Denominational POC GLUCOSE 2020-03-30 Dwaine Jean [place] 08:02:00 Natvarlal Denominational BASIC METABOLIC PANEL 2020-03-30 JacklynCaden hamlin ErenRosalio [place] 04:00:00 Denominational MAGNESIUM LEVEL 2020-03-30 Caden Villasenor Rosalio [place] 04:00:00 Denominational PHOSPHORUS LEVEL 2020-03-30 Jacklyn, Caden [facility] 04:00:00 Denominational ESTIMATED GFR 2020-03-30 Caden Villasenor Rosalio [place] 04:00:00 Denominational POC GLUCOSE 2020-03-29 Amando JeanFranc[facility] 21:21:00 Natvarlal Denominational POC GLUCOSE 2020-03-29 [facility]ando [facility]Franc[facility] 18:36:00 Natvarlal Denominational POC GLUCOSE 2020-03-29 JeanDwaine marie [place] 17:17:00 Natvarlal Denominational POC GLUCOSE 2020-03-29 JeanAmando marieFranciscan Health [facility] 16:38:00 Natvarlal Denominational POC GLUCOSE 2020-03-29 Dwaine Jean [place] 13:10:00 Natvarlal Denominational POC GLUCOSE 2020-03-29 Dwaine Jean [place] 09:48:00 Natvarlal Denominational POC GLUCOSE 2020-03-29 Dwaine Jean [place] 07:38:00 Natvarlal Denominational POC GLUCOSE 2020-03-28 Dwaine Jean [place] 20:55:00 Natvarlal Denominational POC GLUCOSE 2020-03-28 Dwaine Jean [place] 17:56:00 Natvarlal Denominational POC GLUCOSE 2020-03-28 Dwaine Jean [place] 12:09:00 Natvarlal Denominational POC GLUCOSE 2020-03-28 Dwaine Jean [place] 08:11:00 Natvarlal Denominational HC COMPLETE BLD COUNT W/AUTO DIFF 2020-03-28 Nasir Jean [facility] 04:31:00 Natvarlal Denominational COMPREHENSIVE METABOLIC PANEL 2020-03-28 [facility] 04:31:00 Natvarlal Denominational ESTIMATED GFR 2020-03-28 Dwaine Jean [place] 04:31:00 Natvarlal Denominational POC GLUCOSE 2020-03-27 Dwaine Jean [place] 20:46:00 Natvarlal Denominational POC GLUCOSE 2020-03-27 Dwaine Jean [place] 17:42:00 Natvarlal Denominational POC GLUCOSE 2020-03-27 Dwaine Jean [place] 12:52:00 Natvarlal Denominational POC GLUCOSE 2020-03-27 Dwaine Jean [place] 12:50:00 Natvarlal Denominational POC GLUCOSE 2020-03-27 Dwaine Jean [place] 11:09:00 Natvarlal Denominational POC GLUCOSE 2020-03-27 Dwaine Jean [place] 09:13:00 Natvarlal Denominational POC GLUCOSE 2020-03-27 Dwaine Jean [place] 08:05:00 Natvarlal Denominational POC GLUCOSE 2020-03-27 Vaibhav Brown [place] 06:05:00 Denominational HC COMPLETE BLD COUNT W/AUTO DIFF 2020-03-27 Nasir Jean [facility] 05:00:00 Natvarlal Denominational AMYLASE LEVEL 2020-03-27 Kade Luu [place] 05:00:00 Denominational LIPASE LEVEL 2020-03-27 [facility] 05:00:00 Denominational PHOSPHORUS LEVEL 2020-03-27 Caden Villasenor [place] 05:00:00 Denominational MAGNESIUM LEVEL 2020-03-27 Caden Villasenor [place] 05:00:00 Denominational ESTIMATED GFR 2020-03-27 Caden Villasenor [place] 05:00:00 Denominational COMPREHENSIVE METABOLIC PANEL 2020-03-27 Caden Villasenor [facility] 05:00:00 Denominational POC GLUCOSE 2020-03-27 JeanDwaine marie [place] 03:51:00 Natvarlal Denominational POC GLUCOSE 2020-03-27 Dwaine Jaen [place] 02:08:00 Natvarlal Denominational POC GLUCOSE 2020-03-26 Dwaine Jean [place] 23:55:00 Natvarlal Denominational POC GLUCOSE 2020-03-26 [facility] 23:08:00 Natvarlal Denominational POC GLUCOSE 2020-03-26 Dwaine Jean [place] 21:58:00 Natvarlal Denominational POC GLUCOSE 2020-03-26 [facility] 21:05:00 Natvarlal Denominational POC GLUCOSE 2020-03-26 Dwaine Jean [place] 19:48:00 Natvarlal Denominational POC GLUCOSE 2020-03-26 Dwaine Jean [place] 17:34:00 Natvarlal Denominational POC GLUCOSE 2020-03-26 [facility] 16:36:00 Natvarlal Denominational POC GLUCOSE 2020-03-26 Dwaine Jean [place] 15:39:00 Natvarlal Denominational POC GLUCOSE 2020-03-26 [facility] 13:35:00 Natvarlal Denominational POC GLUCOSE 2020-03-26 [facility] 12:38:00 Natvarlal Denominational SURGICAL PATHOLOGY REQUEST 2020-03-26 JeanDwaine marie [facility] ton 11:09:00 Natvarlal Denominational POC GLUCOSE 2020-03-26 [facility] 10:31:00 Natvarlal Denominational POC GLUCOSE 2020-03-26 Dwaine Jean [place] 09:30:00 Natvarlal Denominational POC GLUCOSE 2020-03-26 Dwaine Jean [place] 09:28:00 Natvarlal Denominational FL > 1 HOUR 2020-03-26 Dwaine Jean [place] 09:18:00 Natvarlal Denominational CYTOLOGY (NON-GYNECOLOGICAL) 2020-03-26 Vaibhav Brown REQUEST 09:06:00 Denominational CYTOLOGY (NON-GYNECOLOGICAL) 2020-03-26 Dwaine Jean [place] REQUEST 08:34:00 Natvarlal Denominational POC GLUCOSE 2020-03-26 Dwaine Jean [place] 08:33:00 Natvarlal Denominational CA AN ELECTIVE ENDOTRACHEAL AIRWAY 2020-03-26 Sharron Washington [place] 08:13:16 Loretta Denominational US UPPER GI TRACT, ENDOSCOPIC 2020-03-26 Dax Mendezton 07:53:00 Denominational ERCP WITH STENT PLACEMENT 2020-03-26 Dax Mendez n 07:53:00 Denominational POC GLUCOSE 2020-03-26 JeanAriel mariekendall [place] 07:32:00 Natvarlal Denominational POC GLUCOSE 2020-03-26 Vaibhav Brown [place] 05:33:00 Denominational HC COMPLETE BLD COUNT W/AUTO DIFF 2020-03-[address] [place] 04:15:00 Natvarlal Denominational PROTHROMBIN TIME WITH INR 2020-03-26 Jory Smith n 04:15:00 Christi Denominational VITAMIN D 25 HYDROXY LEVEL 2020-03-26 Stacie Booth 04:00:00 Denominational COMPREHENSIVE METABOLIC PANEL 2020-03-26 BradyElinaslade [place] 04:00:00 Natvarlal Denominational ESTIMATED GFR 2020-03-26 Stacie Booth 04:00:00 Denominational POC GLUCOSE 2020-03-26 Vaibhav Brown 03:41:00 Denominational MRI THORACIC SPINE WO CONTRAST 2020-03-26 Dwaine Jean 03:13:00 Natvarlal Denominational POC GLUCOSE 2020-03-26 Dwaine Jean 02:19:00 Natvarlal Denominational POC GLUCOSE 2020-03-26 Dwaine Jean [place] 00:22:00 Natvarlal Denominational POC GLUCOSE 2020-03-25 Dwaine Jean [place] 22:17:00 Natvarlal Denominational POC GLUCOSE 2020-03-25 [facility] 20:14:00 Natvarlal Denominational POC GLUCOSE 2020-03-25 [facility] 18:28:00 Natvarlal Denominational POC GLUCOSE 2020-03-25 [facility] 17:36:00 Natvarlal Denominational POC GLUCOSE 2020-03-25 [facility] 16:31:00 Natvarlal Denominational POC GLUCOSE 2020-03-25 Dwaine Jean [place] 15:06:00 Natvarlal Denominational POC GLUCOSE 2020-03-25 Vaibhav Brown [place] 14:18:00 Denominational POC GLUCOSE 2020-03-25 Viabhav Brown [place] 13:23:00 Denominational MAGNESIUM LEVEL 2020-03-25 [facility] 12:00:00 Cindy Denominational PHOSPHORUS LEVEL 2020-03-25 [facility] 12:00:00 Cindy Denominational IONIZED CALCIUM 2020-03-25 [facility] 12:00:00 Cindy Denominational POC GLUCOSE 2020-03-25 [facility] 11:51:00 Natvarlal Denominational VITAMIN D 1,25 DIHYDROXY LEVEL, 2020-03-25 [facility] 11:22:00 Natvarlal Denominational HEMOGLOBIN A1C 2020-03-25 [facility] 11:00:00 Natvarlal Denominational POC GLUCOSE 2020-03-25 [facility] 10:55:00 Natvarlal Denominational POC GLUCOSE 2020-03-25 [facility] 10:18:00 Natvarlal Denominational LIPID PANEL 2020-03-25 Dwaine Jean [place] 09:16:00 Natvarlal Denominational POC GLUCOSE 2020-03-25 [facility] 09:02:00 Natvarlal Denominational POC GLUCOSE 2020-03-25 Dwaine Jean [place] 08:29:00 Natvarlal Denominational POC GLUCOSE 2020-03-25 Dwaine Jean [place] 08:01:00 Natvarlal Denominational POC GLUCOSE 2020-03-25 Dwaine Jean [place] 07:27:00 Natvarlal Denominational POC GLUCOSE 2020-03-25 Dwaine Jean [place] 06:42:00 Natvarlal Denominational POC GLUCOSE 2020-03-25 Vaibhav Brown [place] 05:52:00 Denominational VENOUS BLOOD GAS 2020-03-25 [facility] 04:45:00 Chilene Denominational POC GLUCOSE 2020-03-25 Vaibhav Brown [place] 04:40:00 Denominational POC GLUCOSE 2020-03-25 Vaibhav Brown [place] 03:46:00 Denominational HC COMPLETE BLD COUNT W/AUTO DIFF 2020-03-25 [facility] 03:20:00 Olaiya Denominational COMPREHENSIVE METABOLIC PANEL 2020-03-25 [facility] 03:20:00 Olaiya Denominational LACTIC ACID LEVEL 2020-03-25 [facility] 03:20:00 Olaiya Denominational LIPASE LEVEL 2020-03-25 [facility] 03:20:00 Olaiya Denominational AMYLASE LEVEL 2020-03-25 [facility] 03:20:00 Olaiya Denominational CARCINOEMBRYONIC ANTIGEN (CEA) 2020-03-25 Dax Mendez 03:20:00 Denominational CANCER ANTIGEN 19-9 2020-03-25 Dax Mendez [place] 03:20:00 Denominational BETA HYDROXYBUTYRATE 2020-03-25 [facility] 03:20:00 Chilene Denominational MAGNESIUM LEVEL 2020-03-25 [facility] 03:20:00 Chilene Denominational PHOSPHORUS LEVEL 2020-03-25 [facility] 03:20:00 Chilene Denominational ESTIMATED GFR 2020-03-25 [facility] 03:20:00 Olaiya Denominational POC GLUCOSE 2020-03-25 Vaibhav Brown [place] 03:09:00 Denominational POC GLUCOSE 2020-03-25 JeanDwaine [place] 01:47:00 Natvarlal Denominational POC GLUCOSE 2020-03-25 Dwaine Jean [place] 00:38:00 Natvarlal Denominational URINE CULTURE 2020-03-25 Vaibhav Brown 00:25:00 Denominational URINALYSIS SCREEN AND MICROSCOPY, 2020-03-25 Jesus Brown WITH REFLEX TO CULTURE 00:25:00 Denominational POC GLUCOSE 2020-03-24 Dwaine Jean [place] 23:43:00 Natvarlal Denominational BASIC METABOLIC PANEL 2020-03-24 Dwaine Jean [place] 23:28:00 Natvarlal Denominational ESTIMATED GFR 2020-03-24 Dwaine Jean [place] 23:28:00 Natvarlal Denominational POC GLUCOSE 2020-03-24 Vaibhav Brown 22:35:00 Denominational US GALLBLADDER 2020-03-24 Evelyn Andrea 21:30:00 Batool Denominational POC GLUCOSE 2020-03-24 JeanAmando mariereena [place] 21:26:00 Natvarlal Denominational CA CRITICAL CARE, E/M 30-74 2020-03-24 Evelyn Andrea [place] MINUTES 21:19:39 Batoolterry Barriga LACTIC ACID LEVEL, SEPSIS - NOW 2020-03-24 Evelyn Andrea AND REPEAT 2X EVERY 3 HOURS 21:09:00 Batool munoz BASIC METABOLIC PANEL 2020-03-24 Vaibhav Brown 20:13:00 Denominational ESTIMATED GFR 2020-03-24 Vaibhav Brown 20:13:00 Denominational POC GLUCOSE 2020-03-24 BradyElinaarunhernanreena [place] 20:12:00 Natvarlal Denominational POC GLUCOSE 2020-03-24 Vaibhav Brown 19:15:[address] ABDOMEN PELVIS W CONTRAST 2020-03-24 Evelyn Andrea Cynthia ston 18:51:40 Batool Barriga XR CHEST 1 VW PORTABLE 2020-03-24 Evelyn Andrea 17:54:30 Batool Barriga POC GLUCOSE 2020-03-24 Vaibhav Brown 17:43:00 Denominational POC GLUCOSE 2020-03-24 Vaibhav Brown 17:21:00 Denominational LACTIC ACID LEVEL, SEPSIS - NOW 2020-03-24 [facility]X EVERY 3 HOURS 17:17:00 Batool Santana odlexie MAGNESIUM LEVEL 2020-03-24 [facility] 17:17:00 Batool Barriga PHOSPHORUS LEVEL 2020-03-24 [facility] 17:17:00 Batool Barriga HEMOGLOBIN A1C 2020-03-24 [facility] 17:17:00 Batool Barriga BLOOD CULTURE, AEROBIC & ANAEROBIC 2020-03-[address] [facility] 17:00:00 Batool Barriga POC GLUCOSE 2020-03-24 Vaibhav Brown [place] 16:35:00 Denominational LACTIC ACID LEVEL, SEPSIS - NOW 2020-03-24 [facility] AND REPEAT 2X EVERY 3 HOURS 16:31:00 Batool munoz BETA HYDROXYBUTYRATE 2020-03-24 [facility] 16:31[facility]00 Batool Barriga VENOUS BLOOD GAS 2020-03-24 [facility] 16:31:00 Batool Barriga ECG 12-LEAD 2020-03-24 Vaibhav Brown 16:23:40 Denominational HC COMPLETE BLD COUNT W/AUTO DIFF 2020-03-24 Jesus Brown 15:05:00 Denominational COMPREHENSIVE METABOLIC PANEL 2020-03-24 Vaibhav Brown 15:05:00 Denominational LIPASE LEVEL 2020-03-24 Vaibhav Brown 15:05:00 Denominational ESTIMATED GFR 2020-03-24 Vaibhav Brown 15:05:00 Denominational T CELL LYMPHOCYTE SUBSET PANEL 4 2020-03-18 Leoncio Uribe 09:59:00 Denominational CBC WITH PLATELET AND DIFFERENTIAL 2020-03-18 Leoncio Uribe 09:59:00 Denominational COMPREHENSIVE METABOLIC PANEL 2020-03-18 Leoncio Uribe [place] 09:59:00 Denominational HIV 1 RNA, QUANTITATIVE REAL TIME 2020-03-18 Leoncio Uribe PCR 09:59:00 Denominational LIPID PANEL 2020-03-18 Leoncio Uribe [facility] 09:59:00 Denominational Plan of Care Planned Activity Planned Date Details Comments Source Future Scheduled 2023-03-26 Screening for [place] [facility] 00:00:00 malignant neoplasm of cervix (procedure) [code = 893648394] Future Scheduled 2020-07-23 INFLUENZA VACCINE [place] [facility] [facility] 00:00:00 [code = INFLUENZA VACCINE] Future Scheduled 2008 BREAST CANCER [place] [facility] 00:00:00 SCREENING [code = BREAST CANCER SCREENING] Future Scheduled 2008 COLONOSCOPY SCREENING [place] [facility] Test 00:00:00 [code = COLONOSCOPY SCREENING] Future Scheduled 2008 SHINGLES VACCINES [place] [facility] [facility] 00:00:00 (#1) [code = SHINGLES VACCINES (#1)] Future Scheduled 1968 DIABETIC FOOT EXAM [place] [facility] Test 00:00:00 [code = DIABETIC FOOT EXAM] Future Scheduled 1958 DIABETIC RETINAL EYE Cynthia ston [facility] Test 00:00:00 EXAM [code = DIABETIC RETINAL EYE EXAM] Encounters Start End Encounter Admission Attending Care Care Encounter Source Date/Time Date/Time Type Type Clinicians Facility Department ID 2020-06-25 2020-06-25 Outpatient [facility] [id number] [place] 00:00:00 00:00:00 HARMONY 907 [facility] i 2020-06-23 2020-06-23 Outpatient [facility] [id number] 126 [place] 00:00:00 00:00:00 HARMONY 207 [facility] 2020-06-23 2020-06-23 Outpatient [facility] [id number] [place] 00:00:00 00:00:00 HARMONY [address] 2020-06-23 2020-06-23 Outpatient [facility] [id number] [place] 00:00:00 00:00:00 HARMNOY 584 [facility] 2020-06-04 2020-06-04 [facility] [id number] 128 [place] 00:00:00 00:00:00 HARMONY [address] 2020-06-02 2020-06-02 [facility] [id number] [place] 00:00:00 00:00:00 HARMONY [address] 2020-06-02 2020-06-02 Outpatient ALVARADO, [facility] [id number] 405 [place] 00:00:00 00:00:00 HARMONY [address] 2020-06-02 2020-06-02 Outpatient ALVARADO, [facility] [id number] [place] 00:00:00 00:00:00 HARMONY [address] 2020-05-26 2020-05-26 Outpatient OMONIYON, [facility] [id number] [place] 00:00:00 00:00:00 LIZA [address] 2020-05-21 2020-05-21 Outpatient ALVARADO, [facility] [id number] 128 [place] 00:00:00 00:00:00 HARMONY 662 [facility] 2020-05-19 2020-05-19 Outpatient ALVARADO, [facility] [id number] 128 [place] 00:00:00 00:00:00 HARMONY 467 [facility] i 2020-05-19 2020-05-19 [facility] [id number] [place] 00:00:00 00:00:00 HARMONY [address] 2020-05-04 2020-05-09 Inpatient ARGUETA, [facility] [id number] [place] 00:00:00 00:00:00 BETH 760 [facility] 2020-04-30 2020-04-30 Outpatient ALVARADO, [facility] [id number] [place] 00:00:00 00:00:00 HARMONY [address] 2020-04-29 2020-04-29 [facility] [id number] 300 [place] 00:00:00 00:00:00 HARMONY [address] 2020-04-28 2020-04-28 [facility] [id number] [place] 00:00:00 00:00:00 HARMONY [address] 2020-04-27 2020-04-27 Outpatient [facility] [id number] [place] 00:00:00 00:00:00 HARMONY [address] 2020-04-27 2020-04-27 [facility] [id number] 161 [place] 00:00:00 00:00:00 HARMONY [address] 2020-04-05 2020-04-15 [facility] [id number] [place] 00:00:00 00:00:00 ELOISE [address] 2020-04-04 2020-04-04 Outpatient CHRISTIANO, [facility] [id number] [place] 00:00:00 00:00:00 HARMONY [address] 2020-03-24 2020-04-03 Inpatient NORI, [facility] [id number] [place] 00:00:00 00:00:00 GRACIE [address] Results Test Description Test Time Test Comments Results Result Comments Source Cancer antigen 19-9 2020-06-23 12:02:37 Test Item Value Reference Range Interpretation Comme nts CA 19-9 (test code = 1006) 561 U/mL 0-35 H T he Cassi Dominic 8000 CA19-9 immunoassay was used. Results obtained with d ifferent assay methods or kits should not be used interchangeably and may be different. Lab Interpretation (test code = Abnormal 18754-0) [place] [facility] [id number] 10:36:36 Test Item Value Reference Range Interpretation Comments Sodium (test code = 135 135- 148 mEq/L 2951-2) Potassium (test code = 3.9 3.5- 5.0 mEq/L 2823-3) Chloride (test code = 100 98- 112 mEq/L 5-0) CO2 (test code = 2027-9) 27 24- 31 mEq/L Anion gap (test code = 8@ANIO 7- 15 mEq/L 55890-5) BUN (test code = 3094-0) 10 mg/dL 8-23 Creatinine (test code = 0.50 mg/dL 0.5-0.9 2160-0) Glucose (test code = 63 mg/dL 65-99 L 2345-7) Calcium (test code = 8.3 mg/dL 8.8-10.2 L 94734-4) Protein (test code = 5.8 g/dL 6.3-8.3 L -[place] 2885-2) 4.6-7.0 g/dL1 week 4.4-7 .6 g/dL7 months-1y ear 5.1-7 .3 g/dL1-2 years 5.6-7 .5 g/dL>3 years 6.0-8 .0 g/tB03-328 6.3-8 .3 g/dL Albumin (test code = 2.3 g/dL 3.5-5 L 1751-7) A/G ratio (test code = 0.7 0.7-3.8 1759-0) Alkaline phosphatase 385 U/L 35-104 H (test code = 6768-6) AST (test code = 1920-8) 68 U/L 10-35 H ALT (test code = 1742-6) 35 U/L 5-50 Total bilirubin (test 0.3 mg/dL 0-1.2 code = 1974-2) Lab Interpretation (test Abnormal code = 46645-5) [facility] [id number] 10:36:36 Test Item Value Reference Range Interpretation Comments Magnesium (test code = 96645-9) 1.9 mg/dL 1.6-2.4 Strong MethodistEstimated [id number] 10:36:36 Test Item Value Reference Range Interpretation Comments Estimated GFR (test >=90 mL/min/1.73 m2 Caterg ory Units code = 5488) InterpretationG 1 >=90 Normal or highG2 60-89 Mildly hnbmpvxitU5q 45-59 Mildly to mode rately wmkiwoqlaF3t 30-44 Moderately to severely decreasedG4 15-29 Severely decre asedG5 <15 Kidn ey failureThe eGFR was calculated [place] the Chronic Kidney Disease Epidemiology Co llaboration (CKD-EPI) equat ion. Interpretation is based on recommendations of the National Kidney Foundation-Kidn ey Disease Outcomes Qualit y Initiative (NKF-KDOQI) pub lished in 2013. [facility] MethodistCBC with platelet and dsmlhvatvyqw1620-52-93 10:17:15 Test Item Value Reference Range Interpretation Comments WBC (test code = 59588-7) 11.60 4.50- 11.00 k/uL H RBC (test code = 33207-9) 3.57 m/uL 4.2-5.5 L HGB (test code = 718-7) 10.0 g/dL 12-16 L HCT (test code = 4544-3) 31.3 % 37-47 L MCV (test code = 787-2) 87.7 fL 82-100 MCH (test code = 785-6) 28.0 pg 27-34 MCHC (test code = 786-4) 31.9 g/dL 31-37 RDW - SD (test code = 76474-7) 53.6 fL 37-55 MPV (test code = 43530-5) 8.7 fL 8.8-13.2 L Platelet count (test code = 444 150- 400 k/uL H 77385-9) Neutrophils (test code = 90361-9) 71.3 % 39-69 H Lymphocytes (test code = 87742-0) 21.1 % 25-45 L Monocytes (test code = 91401-9) 7.0 % 0-10 Eosinophils (test code = 72581-5) 0.4 % 0-5 Basophils (test code = 00480-1) 0.2 % 0-1 Lab Interpretation (test code = Abnormal 76063-6) [facility], (w Contrast, Strain and 3D if needed)2020-06-03 06:55:00Interface, Radiology Results In - 06/03/2020 6:56 AM CDT Echocardiography Report [id number] [place] [address] Pat.Name: KAREN TORRES Pat.ID: [id number].Date: 06/02/2020 Refer.MD: HARMONY ALVARADO MD Exam Time: 3:05:00 PM Study Type:Routine Echo Height: 63in Weight: 178lb BSA: 1.84 m2 Age: 12 1960,59Y Sex: FEMALE BP: 125/79 HR: 76 bpm Sonogrphr: CONNOR Hi Pat. Stat.:Outpatient Study Status:Final Echo Event ID:[id number] Order ID: [id number] Reason for Study:Abnormal findings on diagnostic imaging of limbs [R93.6 (ICD-10-CM)]; Malignantneoplasm of pancreas, unspecified location of malignancy; Edema,unspecified type Procedures: 2D Echo, Colorflow Doppler, Strain, Intravenous DefinityContrastRace: C SUMMARY: LV EF is normal. Biplane LV ejection fraction= 62%. Normal average LVglobal longitudinal strain at -20%.RV systolic function is normal.LA volume is severely enlarged.Normal diastolicfunction adjusted for age; normal LV fillingpressures. FINDINGS:-- LV: LV size is normal. Biplane LV ejection fraction= 62% Normal average LV global longitudinal strain at -20%. LV EF is normal. Overall wall motion is normal.RV: RV size is normal. RV systolic function is normal.LA: LA volume is severely enlarged.RA: RA volume is normal. A catheter is seen.AO: Aortic root diameter is normal.LISANDRA: No pericardial effusion.AV: Focal calcification of AV leaflets.MV: No structural MV abnormalities noted.PV: No structural PV abnormalities noted.TV: No structural TV abnormalities noted.Anderson: Normal diastolic function adjusted for age; normal LV filling pressures.Other: Insufficient TR jet to estimate PA systolic pressure. MEASUREMENTS: 2DParasternal Long [place] Ao An 2.4 cm LVPWd 0.73 cm Ao Rtd 2.9 cm Index 1.6 cm/m2 LA Ds 4.7 cm IVSd 0.65 cm RWT 0.28 LVIDd 5.2 cm Index 2.8 cm/m2 LV Mass 122 g (87-129) LVIDs 3.2 cm LVM Index 66 g/m2 LV%fs 39 % LVOT 2.1 cm LV EF Biplane LVEDV 125 ml (59-136) Index 68 ml/m2 LV CI 3.3 l/m/m2 LVESV 48 ml Index 26 ml/m2 LV SV 77 ml LV EF 62 % (55-75) HR 79 bpm LV CO 6.1 l/min LA Sng Plane LA Area 26 cm2 (8.8-23.4)* LA Vol 93 ml Index 50 ml/m2 LA LngAx 6.1 cm LVOT LVOT Area 3.5 cm2 DOPPLERLVOT Stroke Vol & Cardiac OutLVOT TVI 20 cm HR 73 bpm LVOT LVOT SV 68 ml LVOT CO 5 l/min SVi 37 ml/m2 LVOT CI 2.7 l/m/m2 Signed 06/03/2020 06:55 AMMoIvone Handley MethodistFL > 1 [id number] 10:43:27Hm Interface, Radiology Results Incoming - 05/11/2020 10:46 AM CDTEXAMINATION: [place] > 1 HOURLOCATION: LAKESHA Vora ENDOSCOPY ROOM 9PROCEDURE: egdSCHEDULED TIME: 1400START TIME: 1505END TIME: 1611FLUORO TIME: 5.7 MINSDOSE (mGy): 163mGy# OF IMAGES: 11IMPRESSION:Fluoroscopy was requested in the Endoscopy Suite. Separate endoscopy report will be issued by the physician performing the procedure.Tae Wilsonood culture, aerobic & anaerobic 2020-05-09 20:03:05 Test Item Value Reference Range Interpretation Comments Blood culture No growth Specimen isolate (test after 5 days InformationSpe [facility] code = 600-7) of Source: BloodS pecimen incubation. Site: Line, por t-a-cath Tae BarrigaPOC [id number] 16:49:35 Test Item Value Reference Range Interpretation Comments POC glucose (test 67 mg/dL 65-99 Personal Lines Appraiser N marissa: Serwaa code = 43637-8) CharityDevic e ID: [id number] able: [facility] Notified JACK BarrigaXR Abdomen 1 Vw [id number] 10:38:50Hm Interface, Radiology Results Incoming - 05/09/2020 10:41 AM CDTAbdomen one view, 05/09/2020Clinical history: Status post duodenal stent placement.Technique: AP abdomenComparison: 05/07/2020Findings:See impression.Impression:1.A metallic common bile duct stent is within the expected location.2.There is no conspicuous duodenal stent.3.The bowel gas pattern is nonobstructive. There is enteric contrast within a normal caliber colon.Tae [id number] 15:43:28Owen Gomez MD 05/08/2020 3:44 PMAirwayDate/Time: 05/08/2020 3:17 PMPerformed by: Owen Gomez MDAuthorized by: Owen Gomez MD Urgency: ElectiveDifficult Airway: No Preoxygenated with 100% O2: Yes C-spine Precautions Maintained Throughout: Yes Mask Ventilation: Not attemptedFinal Airway Type: Endotracheal airwayFinal Endotracheal Airway: ETTCuffed: Yes Technique Used: Direct laryngoscopyBlade Type: MillerLaryngoscope Blade/Videolaryngoscope Blade Size: 2ETT Size (mm): 7.0Cuff at minimum occlusion pressure: Yes Measured from: LipsETT to Lips (cm): 21Placement Verified by: CO2 detection, direct visualization and equal breath sounds Laryngoscopic view: Grade I - full view of glottisRapid Sequence Induction (RSI): Yes Number of Attempts at Approach: [facility]ational Potassium [id number] 14:37:48 Test Item Value Reference Range Interpretation Comments Potassium (test code = 2823-3) 4.1 3.5- 5.0 mEq/L Tae Odonnellacoma[facility] unitPO panel 14:09:54 Test Item Value Reference Range Interpretation Comments POC sodium (test code = 132 mmol/L 135-148 L 2947-0) POC potassium (test 3.8 mmol/L 3.5-5 code = 6298-4) POC hematocrit (test 36 % 37-47 L code = 4544-3) POC glucose (test code 220 mg/dL 65-99 H Opera tor Name: = 2339-0) Cindi Last ice ID: [id number] Lab Interpretation Abnormal (test code = 55012-7) Tae BarrigaPhosphorus [id number] 08:37:42 Test Item Value Reference Range Interpretation Comments Phosphorus (test code = 2777-1) 2.2 mg/dL 2.4-4.5 L Lab Interpretation (test code = Abnormal 03502-1) Tae BarrigaProthrombin time with [id number] 08:12:14 Test Item Value Reference Range Interpretation Comments Prothrombin time (test 14.5 11.5- 14.5 sec code = 5902-2) INR (test code = 1.1 The Interna tional 27885-0) Normalized Rati o (INR) is a therapeutic m onitoring tool for patien ts who are stable on oral anticoagulant t herapy. An INR of 2.0-3.0 is suggested for d eep vein thrombosis/pulm onary embolism. [place] MethodistHepatic function [id number] 13:31:51 Test Item Value Reference Range Interpretation Comments Albumin (test code = 2.2 g/dL 3.5-5 L 1751-7) Total bilirubin (test 1.1 mg/dL 0-1.2 code = 1974-) Bilirubin direct (test 0.3 mg/dL 0-0.3 code = 1967-7) Alkaline phosphatase 341 U/L 35-104 H (test code = 6768-6) Protein (test code = 6.2 g/dL 6.3-8.3 L -[place] 2885-2) 4.6-7. 0 g/dL1 week 4.4-7.6 g/dL7 months-1year 5.1-7.3 g/dL1-2 years 5.6-7.5 g/dL>3 years 6.0-8.0 g/bD09-342 6.3-8.3 g/dL ALT (test code = 93 U/L 5-50 H 1742-6) AST (test code = 95 U/L 10-35 H 1920-8) JOSE (test code = JOSE) LIVER added per Dr. Mo at 05/07/2020 1256 by [facility]. Lab Interpretation Abnormal (test code = 46074-8) [place] [facility] [id number] 07:47:35 Test Item Value Reference Range Interpretation Comments Sodium (test code = 2951-2) 134 135- 148 mEq/L L Potassium (test code = 2823-3) 3.4 3.5- 5.0 mEq/L L Chloride (test code = 5-0) 90 98- 112 mEq/L L CO2 (test code = 2027-9) 27 24- 31 mEq/L Anion gap (test code = 93952-9) 17@ANIO 7- 15 mEq/L H BUN (test code = 3094-0) 12 mg/dL 8-23 Creatinine (test code = 2160-0) 0.48 mg/dL 0.5-0.9 L Glucose (test code = 2345-7) 267 mg/dL 65-99 H Calcium (test code = 94289-4) 8.2 mg/dL 8.8-10.2 L Lab Interpretation (test code = Abnormal 36173-8) [facility], with reflex to culture 2020-05-06 22:43:03 Test Item Value Reference Range Interpretation Comments Specimen site (test code = Clean catch 3036924) Color, UA (test code = 5778-6) Straw Appearance, UA (test code = Clear 5767-9) Specific gravity, UA (test code = 1.010 1.001-1.035 5811-5) pH, UA (test code = 5803-2) 6.0 5.0-8.5 Protein, UA (test code = 71651-1) Negative Negative Glucose, UA (test code = 10919-6) 2+ Negative A Ketones, UA (test code = 2514-8) Trace Negative A Bilirubin, UA (test code = Negative Negative 5770-3) Blood, UA (test code = 5794-3) Negative Negative Nitrite, UA (test code = 5802-4) Negative Negative Urobilinogen, UA (test code = <2.0 <2.0 84178-7) Leukocyte esterase, UA (test code Negative Negative = 5799-2) Epithelial cells, UA (test code = <1 /HPF 5787-7) WBC, UA (test code = 5821-4) 1 0- 4 /HPF RBC, UA (test code = 01630-1) None seen 0- 5 /HPF Bacteria, UA (test code = Few None seen 16618-8) Yeast, UA (test code = 92984-0) None seen Yeast with pseudohyphae, UA (test None seen code = 16696-5) Amorphous crystals (test code = Few 17914-7) Hyaline casts, UA (test code = 8 /LPF 5796-8) Lab Interpretation (test code = Abnormal 43105-4) Tae Russell jkofman9441-03-83 16:59:46 Test Item Value Reference Range Interpretation Comments Urine culture (test SEE COMMENT Bacteriu jeff screen code = 2024184) negative. Tae BarrigaCT Chest W Contrast Abdomen W Contrast Pelvis W Contrast 2020-05-06 16:48:25Hm Interface, Radiology Results 05/06/2020 4:51 PM CDTEXAMINATION: CT CHEST W CONTRAST ABDOMEN W CONTRAST PELVIS W CONTRASTHISTORY: reevaluate pancreatic cancerTECHNIQUE: CT examination ofthe chest, abdomen, and pelvis was performed following intravenous administration of iodinated contrast. Sagittal and coronal computerized reformatted images were obtained. CT imaging was performed with iterative reconstruction techniques and/or automated exposure control to reduce radiation dose. COMPARISON: Prior CTs dating 03/24/2020, 04/08/2020.IMPRESSION:CHEST:Devices: Right IJ central line with tip overlying superior cavoatrial junction.Lungs: New suspicious focal lung lesion. Moderate paraseptal emphysema with more fine areas of subpleural reticulation which may represent additional early emphysema versus fibrosis.Pleura: No pleural effusion or pneumothorax.Mediastinum/Nodes: No lymphadenopathy. Cardiovascular: Heart within normal limits of size. No pericardial effusion. There is severe calcified coronary artery disease. There is extensive aortic annular/valvular calcification. Other: None.ABDOMEN:Liver: There is hepatic steatosis. There is no discrete liver lesion.Gallbladder/Biliary: There is pneumobilia and gas within the gallbladder related to the biliary stent. There is a metallic common bile duct stent in place, in expected position. It measures approximately 5.5 x 3.7 cm, and is in separable from the descending duodenum, partially partially encasing the common bile duct and IVC, completely encasing the SMA, and obliterating the SMV.Spleen: The splenic vein remains patent. Spleen is unremarkable.Pancreas: There is no significant change in the pancreatic head mass, although ill-defined margins precludes accurate measurement. There is upstream pancreatic atrophy and mild pancreatic ductal dilatation.Adrenal: Unremarkable.Kidneys: No change and a few renal cysts measuring up to 1.2 cm at the right interpolar region. No hydronephrosis.Vascular: No aortic aneurysm. 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 The IVC is inseparable from thepancreatic mass.Nodes: No new lymphadenopathy.Bowel: Increasing gaseous distention down to the levelof the descending duodenum, with the pancreatic mass revealed invasive or at least tethering. No evidence of complete bowel obstruction. Distal to this, the bowel is relatively normal. Fluid collections /Other: No ascites or fluid collections. No peritoneal nodularity.PELVIS:Urogenital: Urinary bladderis unremarkable. Uterus is unremarkable. No adnexal mass.Other: No mass, fluid collection or significant adenopathy. MUSCULOSKELETAL: Greater thoracic procedure normal in caliber. The bones are demineralized. There are multiple healed left anterior upper rib fractures. There is transitional lumbosacral anatomy, with lumbarization of S1. Unchanged chronic T12 compression fracture with moderate vertebral body height loss. No new aggressive osseous lesion. SUMMARY:1.No appreciable change in size of thelocally advanced pancreatic head mass, which obliterates the SMV, and encases the SMA and likely common bile duct. 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 just upstream of the port catheter insertion site.5.Increased conspicuity of hepatic steatosis.6.No evidence of new metastat ic disease.[facility]-[id number] electrolytes and glucose test 2020-05-05 19:34:47 Test Item Value Reference Range Interpretation Comments Sodium, whole blood (test code = 133 135- 148 mEq/L L 2947-0) Potassium, whole blood (test code = 3.6 3.5- 5.0 mEq/L 6298-4) Chloride, whole blood (test code = 100 98- 112 mEq/L 2069-3) CO2 calculated, whole blood (test 33 24- 31 mEq/L H code = 09641-0) Anion gap, whole blood (test code = 0 5- 20 mEq/L L 67287-9) Glucose, whole blood (test code = 79 mg/dL 65-99 2339-0) Lab Interpretation (test code = Abnormal 45883-8) [place] [address] tfjv6488-86-57 16:52:56 Test Item Value Reference Range Interpretation Comments Ventricular rate (test 123 code = 253) Atrial rate (test code 123 = 255) CA interval (test code 124 = 266) QRSD interval (test 98 code = 260) QT interval (test code 332 = 264) QTC interval (test code 475 = 265) P axis 1 (test code = 50 267) QRS axis 1 (test code = -2 268) T wave axis (test code 141 = 270) EKG impression (test Sinus tachycardia with code = 273) premature atrial complexes-Possible Left atrial enlargement-Left ventricular hypertrophy ( Maxime product , Romhilt-Rivas )-Nonspecific ST and T wave abnormality-Abnormal ECG-In automated comparison with ECG of 05-APR-2020 21:18,-Significant changes have occurred-Electronicall y Signed By David Liu MD ([id number]) on 05/05/2020 4:52:50 PM Tae BarrigaCOVID-19 qualitative EEW5843-45-05 13:52:21 Test Item Value Reference Range Interpretation Comments Interpretation (test Negative results do code = 4084222) not preclude 2019-nCoV infection and should not be used as the sole basis for treatment or other patient management decisions. Negative results must be combined with clinical observations, patient history, and epidemiological information. COVID-19 qualitative Not-Detected Not-Detected PCR result (test code = 69404-5) COVID-19 qualitative See link below for C ase Number: PCR (test code = PDF Lab Report [id number]) Tae BarrigaHemoglobin [id number] 10:46:16 Test Item Value Reference Range Interpretation Comments Hemoglobin A1C (test 11.4 % 4-5.6 H HbA1c c utoffs for code = 05299-5) diagnosing diabetes:4.0% - 5.6% = normal5. 7% - 6.4% = increa sed risk for diabet es (prediabetes)9> =6. 5% = dabngquw5Gaypt for glycemic contro l (ADA 2016)< 7.0 % Target for non swathi lts with diabetes. More or less stringent targe ts may be appropri ate for individual patients. <7.5% Target for Children and adolescents wit h type 1 diabetes . JOSE (test code = JOSE) K,PHOS results called to and read back by JACQUELYN DELEON/Bridgett(n marissa/location)at 05/04/2020 22:22 (date/time) by JS3. Lab Interpretation Abnormal (test code = 02792-5) [facility] MethodistBeta jgldrkhlbcpfoxm0025-02-44 22:13:06 Test Item Value Reference Range Interpretation Comments Beta hydroxybutyrate (test code = 4.52 mmol/L 0.02-0.27 H 6873-4) Lab Interpretation (test code = Abnormal 02361-3) Tae MethodistLactic acid lfyph0127-37-90 22:09:39 Test Item Value Reference Range Interpretation Comments Lactic acid (test code = 09661-1) 2.2 mmol/L 0.5-2.2 [place] MethodistArterial blood qge7267-76-12 20:42:05 Test Item Value Reference Range Interpretation Comments pH, arterial (test code = 2744-1) 7.46 7.35-7.45 H pCO2, arterial (test code = 29 35- 45 mmHg L 2019-8) pO2, arterial (test code = 70 80- 90 mmHg L 2703-7) Bicarbonate, arterial (test code 20.3 mmol/L 21-28 L = 1960-4) Base excess, arterial (test code -2 -2 - 2 mEq-L = 1925-7) O2 saturation, arterial (test 96 % 95-100 code = 2708-6) Lab Interpretation (test code = Abnormal 48810-4) Tae MethodistXR Chest 1 Vw Cmjqwrho7908-82-05 17:38:20Hm Interface, Radiology Results 05/04/2020 5:41 PM CDTEXAMINATION: XR CHEST 1 VW PORTABLECLINICAL HISTORY: 59 years Female coughCOMPARISON: April 05IMPRESSION:Cardiomediastinal silhouetteis unchanged. The lungs are clear Age related changes in the osseous structures.Support lines are insatisfactory position, and unchanged from prior..Strong MethodistBilirubin gmemrs0907-52-94 15:53:34 Test Item Value Reference Range Interpretation Comments Bilirubin direct (test code = 1968-7) <0.2 0-0.3 [place] EphtgzhjtYQS9280-37-17 15:53:34 Test Item Value Reference Range Interpretation Comments LDH (test code = 73005-2) 255 U/L 87-225 H JOSE (test code = JOSE) CO2,GLU results called to and read back by AUGIE CHANEL/WT14(name/l ocation)at _ 05/04/2020 15:54 (date/time) by JS3. Lab Interpretation (test Abnormal code = 45996-7) [place] MethodistUric acid aftrh1606-93-94 15:53:34 Test Item Value Reference Range Interpretation Comments Uric acid (test code = 7.7 mg/dL 2.4-5.7 H 3084-1) JOSE (test code = JOSE) CO2,GLU results called to and read back by AUGIE CHANEL/WT14(name/l ocation)at _ 05/04/2020 15:54 (date/time) by JS3. Lab Interpretation (test Abnormal code = 17007-0) [place] ThcynqropEuuubx1786-95-40 13:30:36GiKeysha dimas MD 04/15/2020 1:31 PMAirwayDate/Time: 04/15/2020 1:30 PMPerformed [...] THECOVID PANDEMIC. GUMS, TEETH PROTECTED. DENTITION UNCHANGED. [place] MethodistPartial thromboplastin time, mdvpiyved1987-67-61 06:32:29 Test Item Value Reference Range Interpretation Comments PTT (test code = 39.3 23.0- 36.0 sec H PTT thera peutic range 70500-9) for unfractiona haim heparin is61.0- 112.0 seconds which corresponds to Anti-Xa0.3-0.7 U/ml. Lab Interpretation Abnormal (test code = 61950-0) [facility] xegirwok1462-91-34 05:29:25 Test Item Value Reference Range Interpretation Comments WBC (test code = 38731-2) 10.25 4.50- 11.00 k/uL RBC (test code = 94818-6) 3.97 m/uL 4.2-5.5 L HGB (test code = 718-7) 11.6 g/dL 12-16 L HCT (test code = 4544-3) 36.9 % 37-47 L MCV (test code = 787-2) 92.9 fL 82-100 MCH (test code = 785-6) 29.2 pg 27-34 MCHC (test code = 786-4) 31.4 g/dL 31-37 RDW - SD (test code = 00243-1) 46.4 fL 37-55 MPV (test code = 20204-2) 9.1 fL 8.8-13.2 Platelet count (test code = 284 150- 400 k/uL 77524-8) Nucleated RBC (test code = 0.00 /100 WBC 82233-6) Lab Interpretation (test code = Abnormal 48754-3) [facility] HospitalistUrinalysis, automated with ldcfwpfdrx0211-63-40 23:47:36 Test Item Value Reference Range Interpretation Comments Color, UA (test code = 5778-6) Yellow Appearance, UA (test code = 5767-9) Clear Specific gravity, UA (test code = 1.011 1.001-1.035 5811-5) pH, UA (test code = 5803-2) 6.0 5.0-8.5 Protein, UA (test code = 33456-5) Negative Negative Glucose, UA (test code = 20170-9) Negative Negative Ketones, UA (test code = 2514-8) 1+ Negative A Bilirubin, UA (test code = 5770-3) Negative Negative Blood, UA (test code = 5794-3) Negative Negative Nitrite, UA (test code = 5802-4) Negative Negative Urobilinogen, UA (test code = <2.0 <2.0 81130-4) Leukocyte esterase, UA (test code = Negative Negative 5799-2) Epithelial cells, UA (test code = 1 /HPF 5787-7) WBC, UA (test code = 5821-4) 2 0- 4 /HPF RBC, UA (test code = 91367-3) 1 0- 5 /HPF Bacteria, UA (test code = 91774-7) None seen None seen Yeast, UA (test code = 75419-5) None seen Yeast with pseudohyphae, UA (test None seen code = 22321-2) Lab Interpretation (test code = Abnormal 55316-6) [facility] MethodistAmmonia dtfwk2619-92-48 17:57:31 Test Item Value Reference Range Interpretation Comments Ammonia (test code = 1841-6) 29 umol/L 11 Strong MethodistAnti Xa, low molecular ziuuzv6249-31-00 05:04:32 Test Item Value Reference Range Interpretation Comments Heparin name (test Lovenox code = 41420-4) Anti Xa, low molecular 0.92 U/mL 0.6-1 Speci men must be drawn weight (test code = at least 4 hours post 26650-0) dose following aminimum of 3 doses.Therapeut ic Range: 0.60 - 1.00 U/mL [facility] MethodistCTA Abdomen Pelvis W And Or Wo Tupolccf1303-02-06 16:21:06Hm Interface, Radiology Results - 04/08/2020 4:24 PM CDTEXAMINATION: CT ANGIOGRAM ABDOMENPELVIS [...] mesenteric edema likely secondary to SMV occlusion. [facility]-[id number] MethodistCT Abdomen Pelvis W Contrast 2020-04-08 08:56:46Addendum by Barbara Davila MD on 04/08/2020 11:04 AM ADDENDUM #1 Findings ofpossible superior mesenteric artery stenosis or occlusion and recommendation for CT angiogram were discussed by phone with Dr. Alvarado by Dr. Davila at 04/08/2020 11:03 AM. EXAMINATION: CT ABDOMEN PELVIS W CONTRAST CLINICAL HISTORY: 59 yearsFemale Abd pain gastroenteritis or colitis suspected, pancreatic adenocarcinoma. TECHNIQUE: Multiple axial images of the abdomen and pelvis were obtained following i ntravenous administration of iodinated contrast. Oral contrast was administered. Sagittal and coronal computerized reformatted images were also obtained. CT imaging was performed with iterative reconstruction techniques and/or automated exposure control to reduce radiation dose. COMPARISON: CT abdomen pelvis 03/24/2020, 02/03/2005 IMPRESSION: LOWER CHEST:Visualized lower thorax:Lung bases: No significant pleural effusion. Linear atelectasis in the lung bases.Lower mediastinum: Cardiac size is normal. No pericardial effusion. Atherosclerotic coronary calcification. Partially visualized central access catheter at the superior cavoatrial junction. ABDOMEN:Upper abdominal organs: Liver: There is mild focal hypoenhancement in hepatic segment 4B adjacent to the gallbladder fossa, possibly focal fattydeposition, similar to prior. A common bile duct [...] No free intraperitoneal gas. Vasculature: Abdominal aorta isof normal caliber. As previously noted, pancreatic mass [...] No abdominal or retroperitoneal lymphadenopathy. PELVIS:Urinary bladder: No rmal. Lymph nodes: No pelvic lymphadenopathy. MUSCULOSKELETAL: No suspicious lytic or blastic osseous lesions. The superficial soft tissues are unremarkable. Age appropriate degenerative changes of the spine. SUMMARY: 1. Increased encasement and attenuation of the proximal superior mesenteric arteryby pancreatic head/uncinate process mass concerning for severe stenosis or occlusion of the superiormesenteric artery. Increased peripancreatic and mesenteric inflammatory fat stranding may be sequelaof pancreatitis, treatment- related changes, or mesenteric ischemia from superior mesenteric artery st enosis/occlusion. Further evaluation with CT angiogram of the abdomen and pelvis and correlation with serum lactate is recommended, if indicated clinically. Examination added to critical results queue for report receipt tracking. 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 Davila at 04/08/2020 8:45 AM.[id number] MethodistLactate dehydrogenase (LD) seejblfdtl1603-69-47 00:50:01 Test Item Value Reference Range Interpretation Comments LD total (test code = 223 U/L 105-230 [place] [address]-9) Hemolyzed. This may cause the resul ts to be falsely increased. LD-1 (test code = 2536-1) 13 % 14-27 L LD-2 (test code = 2539-5) 27 % 29-42 L LD-3 (test code = 2542-9) 21 % 18-30 LD-4 (test code = 2545-2) 12 % 8-15 LD-5 (test code = 2548-6) 27 % 6-23 H Pe rformed by flatev, [address] , [facility] [place] [id number] www.[employer] , Brandan Jack MD - Lab. Director Lab Interpretation (test Abnormal code = 27556-3) [facility] fmikxagilk5832-40-41 16:01:20 Test Item Value Reference Range Interpretation Comments Immunoglobulin G 397 mg/dL 240-1118 REFERENCE I NTERVAL: subclass 1 (test code Immuno globulin G = 2466-1) Subclass 1Acces s complete set of age- and/or gender-s pecific reference inter vals for this test i n the [employer] Test Directory ([employer]). Immunoglobulin G 175 mg/dL 124-549 REFERENCE I NTERVAL: subclass 2 (test code Immuno globulin G = 2467-9) Subclass 2Acces s complete set of age- and/or gender-s pecific reference inter vals for this test i n the [employer] Test Directory ([employer]). Immunoglobulin G 46 mg/dL 21-134 REFERENCE I NTERVAL: subclass 3 (test code Immuno globulin G = 2468-7) Subclass 3Acces s complete set of age- and/or gender-s pecific reference inter vals for this test i n the [employer] [facility] Test Directory ([employer]). Immunoglobulin G 13 mg/dL 1-123 The total I gG (mg/dL) subclass 4 (test code can be derived by the = 2469-5) sum of the subc lasses IgG1, IgG2, IgG 3 and IgG4 values. Ho wever, a confirmatory and more precise to trev IgG is available by the nephelometric m ethod of total IgG (T est # [id number]).REFER ENCE INTERVAL: Immunoglobulin G Subclass 4Acces s complete set of age- and/or gender-s pecific reference inter vals for this test i n the [employer] Test Directory ([employer]).Dinorah richardson d by flatev,[address], [place] [id number] [email or web address], Brandan Cantu MD, Lab. Direct or [place] MethodistManual tmlmabltfahm3926-87-93 10:08:49 Test Item Value Reference Range Interpretation Comments Manual differential (test code = PERFORMED 94417-9) Neutrophils (test code = 82.0 % 39-69 H 01904-4) Lymphocytes (test code = 13.0 % 25-45 L 11093-5) Monocytes (test code = 75229-8) 4.0 % 0-10 Eosinophils (test code = 1.0 % 0-5 99923-7) Basophils (test code = 52834-4) 0.0 % 0-1 Metamyelocytes (test code = 0 % 740-1) Promyelocytes (test code = 0 % 783-1) Platelet slide review (test code Joanna adequate = 93295-6) Anisocytosis (test code = 702-1) Moderate Lab Interpretation (test code = Abnormal 60489-7) [place] OyfwdziwmDnxwsqaaahufs2666-05-56 08:42:01 Test Item Value Reference Interpretation Comments Range Procalcitonin 0.08 ng/mL <=0.07 H INTERPRETIVE I NFORMATION: (test code = ProcalcitoninPr ocalcitonin > 65963-7) 2.00 ng/mL: Pr ocalcitonin levels above 2. [...] carefully to ta ke into account the spe cific clinical background and condition(s) of the individu al patient.Perform ed at: [facility] [address] [place] [address] Lab Interpretation Abnormal (test code = 31365-0) [place] BlasistC difficile qjzpe2723-79-19 01:02:03 Test Item Value Reference Interpretation Comments Range Clostridium No Clostridium Specimen difficile toxin difficle toxin Informatio nSpecimen (test code = present Source: StoolSp ecimen 1085) Site: Nonpreser alee [place] MethodistInterleukin 97312-88-78 15:42:36 Test Item Value Reference Range Interpretation Comments Interleukin 6 (test 52 pg/mL 0-5 H This jennifer t was developed code = 95525-0) and its perf ormance characteristics determined by arun reyes Department of P athology and Genomic Med ic[facility], [facility]. Inter leukin 6 is tested by [employer] Access 2 by one-step immunoenzymatic assay. It has not been cleared or approved by FDA. The laboratory is r egulated under CLIA as q ualified to perform high-complexity testing. This t est is used for clinic al purposes. It sh ould not be regarded as investigational or for research. Lab Interpretation Abnormal (test code = 28018-5) [place] MethodistType and wiahih5515-27-82 23:09:00 Test Item Value Reference Range Interpretation Comments ABO grouping (test code = 883-9) O Rh type (test code = 09836-4) POS Antibody screen (gel) (test code = NEG 890-4) [place] UdhclkvrbTvyblavph2078-06-09 22:57:36 Test Item Value Reference Range Interpretation Comments Myoglobin (test code = 2639-3) <21 21-72 A Lab Interpretation (test code = Abnormal 50249-4) [place] BlasistB natriuretic zohrmcm8546-12-04 22:52:03 Test Item Value Reference Range Interpretation Comments BNP (test code = 37069-0) 100 pg/mL 0-100 [place] YgsmdbtcyRllcjbyb7303-60-13 22:51:48 Test Item Value Reference Range Interpretation Comments Troponin (test code 0.006 ng/mL 0-0.04 In patie nts suspected = 67101-6) of having a leigh cardial infarction, boo ng with all other appro priate clinical measur [...] decreased by le ss than 0.020 ng/mL [place] MethodistFerritin pkguw7585-10-28 22:50:46 Test Item Value Reference Range Interpretation Comments Ferritin level (test code = 2276-4) 538 ng/mL 13-150 H Lab Interpretation (test code = Abnormal 11303-5) [place] RydzaggbiFxrigjcpskhag2411-54-79 22:43:51 Test Item Value Reference Range Interpretation Comments Triglycerides (test code = 2571-8) 107 mg/dL <150 [place] MethodistC-reactive alzkrlx6864-74-42 22:43:51 Test Item Value Reference Range Interpretation Comments CRP (test code = 1988-5) 4.32 mg/dL 0-0.5 H Lab Interpretation (test code = Abnormal 56683-4) [place] MethodistCreatine kinase, total (CPK)2020-04-05 22:43:49 Test Item Value Reference Range Interpretation Comments Creatine kinase (test code = 2157-6) 76 U/L 26-192 [place] AyidxjdidYuygtcsrjp6828-99-31 22:36:01 Test Item Value Reference Range Interpretation Comments Fibrinogen (test code = 89012-6) 550 mg/dL 200-450 H Lab Interpretation (test code = Abnormal 76019-3) Tae VkbjkulopX-makon2624-65-14 22:34:09 Test Item Value Reference Range Interpretation Comments D-dimer (test code = 0.97 0.00- 0.40 ug/mL H Uni ts are ug/ml 00000-0) FEU Fibrinogen Equivalent Unit .When combined with [...] malignancies. Lab Interpretation Abnormal (test code = 72616-4) [place] MethodistIR Port Oxexsosum2268-94-51 17:17:30Hm Interface, Radiology Results - 03/31/2020 5:20 PM CDTPort catheter placement 03/31/2020Ind ication: ChemotherapyPre-Procedure Diagnosis: Pancreatic cancerPost-procedure Diagnosis: Pancreatic cancerOperator: Martín DuffyMouthpiece Maker: NoneAnesthesia/Sedation:Level of anesthesia: Moderate SedationMedications used: Fentanyl and Versed, 1% LidocaineAnesthesia administration: Pulse oximetry, heart rate, and blood pressure were continuously monitored by a radiology nurse and the performing provider.Duration of intra-service etki-py-dfpo anesthesia/sedation: 25 minutesRadiation Exposure: 3 mGy (ka,r)Estimate blood loss: <5 mL Blood administered: NoneComplications: [...] deployed through a peel-away sheath. Positioning was confirmed with fluoroscopy. The catheter [...] compressibility.Impression:Successful right internal jugular vein port catheter placement.[place] MethodistCytology (non-gynecological) rcbzctp3134-74-78 11:14:45 Test Item Value Reference Range Interpretation Comments Case number (test code = [id number]) Cytology See link below for (non-gynecological) PDF Lab Report report (test code = 1178) Result status (test code This is Final Report = [id number]) for [id number] [place] MethodistLipase krzer0813-15-07 08:13:26 Test Item Value Reference Range Interpretation Comments Lipase (test code = 3040-3) 95 U/L 13-60 H Lab Interpretation (test code = Abnormal 64690-7) [facility] HospitalistSurgical pathology bjakoki2124-32-52 13:58:24 Test Item Value Reference Range Interpretation Comments Case number (test code = [id number]) Surgical pathology See link below for report (test code = PDF Lab Report 2255) Result status (test code This is Final Report = [id number]) for [id number] [facility] HospitalistVitamin D 1,25 dihydroxy level, xjqdn2973-56-56 12:31:13 Test Item Value Reference Range Interpretation Comments Vit D, 53.57 pg/mL This test was d eveloped 1,25-Dihydroxy and its perfo rmance (test code = characteristics determined 63696-9) by the Departid nt of Pathology and [facility] MedicineLisa on [facility] trev. Serum 1,25 Dihydroxy Vitamin D is tested by LC -MS/MS. It has not been cl eared or approved by FDA . The laboratory is r egulated under CLIA as q ualified to perform high-co mplexity testing. This t est is used for clinical pu rposes. It should not be r egarded as investigational or for research. Tae MethodistAmylase [id number] 06:34:37 Test Item Value Reference Range Interpretation Comments Amylase (test code = 1798-8) 30 U/L 28-100 Strong PnwuheuklAjmvci0540-53-01 08:13:16Diamond Washington MD 03/26/2020 8:14 AMAirwayDate/Time: 03/26/2020 8:04 AMPerformed by: Diamond Washington MDAuthorized by: Diamond Washington MD Location: EndoscopyUrgency: ElectiveDifficult Airway: No Anesthesiologist: Diamond Washington, MDPerformed by: anesthesiologistPreoxygenated with 100% O2: Yes [...] RSI: No Number of Attempts at Approach: 1[facility] MethodistMRI Thoracic Spine Wo [id number] 07:39:22Hm Interface, Radiology Results 03/26/2020 7:42 AM [...] unremarkable.IMPRESSION:Chronic compression fracture of the T12 vertebral body.[id number] MethodistVitamin D 25 hydroxy [id number] 06:27:57 Test Item Value Reference Range Interpretation [...] lab for alternative met hods. Tae MethodistIonized [id number] 13:24:10 Test Item Value Reference Range Interpretation Comments pH (test code = 2753-2) 7.44 Ionized calcium (test code = 1.15 mmol/L 1.11-1.32 ) [place] MethodistLipid [id number] 11:45:20 Test Item Value Reference Interpretation Comments Range Cholesterol (test 188 mg/dL <200 code = 2093-3) Triglycerides (test 122 mg/dL <150 code = 2571-8) HDL cholesterol 51 mg/dL >40 (test code = 2085-9) LDL cholesterol 106 mg/dL <100 H Result obtai stevie by direct (test code = 2089-1) LDL juanjo surement Lipid panel SeeBelow Total Cholester ol (mg/dL) interpretation (test < 200 code = 16385-5) Desirable 200-239 Borderline -high >=240 Hi gh [...] mg/dL) Lab Interpretation Abnormal (test code = 74574-9) [place] MethodistVenous blood [id number] 04:51:14 Test Item Value Reference Range Interpretation [...] venous (test code = 23.3 mmol/L 21-28 63635-7) Lab Interpretation (test code = Abnormal 95125-7) [place] MethodistCarcinoembryonic antigen (CEA)2020-03-25 04:22:30 Test Item Value Reference Range Interpretation Comments CEA (test code = 33.3 ng/mL 0-3.8 H Reference r piedad for 2039-03) heavy smokers: 0.0 - 5.5 ng/mLThe RO DMITRI Dominic 8000 CEA immunoassay was used. Results obtaine d with different assay methods or kits should not be used interchangeably and may be differen t. Lab Interpretation Abnormal (test code = 02481-6) Tae BarrigaLactic acid level, SEPSIS - Now and repeat 2x every 3 hours 2020-03-25 04:09:21 Test Item Value Reference Range Interpretation Comments Lactic acid (test code = 22744-6) 1.5 mmol/L 0.5-2.2 Tae BarrigaUS [id number] 21:50:05Hm Interface, Radiology Results 03/24/2020 9:53 PM CDTEXAMINATION: US GALLBLADDERCLINICAL HISTORY: pancreatitisCOMPARISON: None.FINDINGS:Gallbladder: The gallbladder is without evidence of calculi. The gallbladder wall is not thickened and there is no pericholecystic fluid.CBD: 5 mm , within normal limits.Portal vein: The portal vein demonstrates normal hepatopetal flow. The portal vein measures 9 mm.IMPRESSION:Normal gallbladder ultrasound examination.[facility]-[id number] MethodistCRITICAL [id number] 21:19:39Vaibhav Brown DO 03/27/2020 12:20 PMCritical CarePerformed [...] Almaz BarrigaHIV 1 RNA, QUANTITATIVE REAL TIME [id number] 11:16:00 Test Item Value Reference Range Interpretation Comments HIV-1 RNA by PCR, Qn 23 NOT DETECTED H (test code = 35000-4) copies/mL HIV-1 RNA by PCR, Qn 1.36 NOT DETECTED H This t est was (test code = 57556-0) Log copies/mL perfo rmed using Real-Time Polymerase ChainReaction. Reportable Range: 20 copies/mL to 10,000,000 copies/mL(1.30 log copies/mL t o 7.00 log copies/mL). JOSE (test code = JOSE) FASTING:YESFASTING : YES RAC (test code = RAC) Performing Organization Information: Site ID: [id number] Name: [facility] Address: [address] [place] [id number] Director: Dr. Vaibhav Cantor Lab Interpretation Abnormal (test code = 35729-1) Tae Mann cell Lymphocyte Subset Panel [id number] 11:16:00 Test Item Value Reference Range Interpretation Comments CD4% (test code = 26 % 30-61 L 8123-2) CD4 absolute count 607 490- 1,740 (test code = 94932-7) cells/uL CD8% (test code = 53 % 12-42 H 8101-8) CD8 absolute count 1232 180- 1,170 H (test code = 33413-5) cells/uL CD4/CD8 ratio (test 0.49 0.86-5.00 L code = 83764-9) Lymphocytes, absolute 2321 850- 3,900 (test code = 731-0) cells/uL JOSE (test code = JOSE) FASTING:YESFASTING: YES RAC (test code = RAC) Performing Organization Information: Site ID: [id number] Name: [facility] Address: [address] [place] [id number] Director: Dr. Vaibhav Cantor Lab Interpretation Abnormal (test code = 19190-7) Tae Barriga
[2020-07-02] MEDS ORDERED: MAGNE/ALUM HYDROXD 30 ML UCUP ONE (07:33)
[2020-07-02] MEDS ORDERED: ONDANSETRON 4 MG/2 ML VIAL ONE ×2 (07:33→09:01)
[2020-07-02] MEDS ORDERED: MEPERIDINE HCL 50 MG/ML ONE (07:33)
[2020-07-02] MEDS ORDERED: NA CHLORIDE 0.9% 500 ML ONE ×2 (07:33→09:19)
[2020-07-02] MEDS ORDERED: LIDOCAINE VISCOUS 2% SOLN 15 ML UDC ONE (07:33)
[2020-07-02 07:58] LABS: Absolute Lymphocytes (CBC) 1.3 K/uL (0.7-4.9); Basophils % 0.1 % (0-1.3); Lymphocytes % 8.5 % (15.3-44.8); MPV 7.7 fL (7.6-11.3); RBC Red Blood Cell Count 3.92 M/uL (3.86-4.86)
[2020-07-02 08:21] LABS: ALT/SGPT 54 U/L (12-78); AST/SGOT 73 U/L (15-37); Albumin 1.9 g/dL (3.4-5.0); Alkaline Phosphatase 640 U/L (45-117); BUN Blood Urea Nitrogen 11 mg/dL (7-18); Bicarbonate 33 mmol/L (21-32); Bilirubin Direct 0.2 mg/dL (0-0.2); Bilirubin Total 0.5 mg/dL (0.2-1.0); Glucose Level 135 mg/dL (74-106); Lipase 88 U/L (73-393); Protein, Total 6.5 g/dL (6.4-8.2); Sodium Level 139 mmol/L (136-145); Troponin (Emerg Dept Use Only) < 0.02 ng/mL (0.0-0.045)
[2020-07-02 08:30] LABS: Potassium 2.7 mmol/L (3.5-5.1)
[2020-07-02 09:00] LABS: Platelet Estimate INCR; White Blood Cell Scan OK (OK)
[2020-07-02 09:01] LABS: Blood Morphology Comment NOT SEEN (NOT SEEN)
[2020-07-02] MEDS ORDERED: PROMETHAZINE INJ 25 MG/ML AMP ONE ×2 (09:19→09:20)
[2020-07-02] MEDS ORDERED: KCL 20 MEQ/100 mL IVPB 20 MEQ/100 ML BAG IV ONE (09:19)
--- NOTE | 2020-07-02 09:30 | RAD REPORT ---
EXAM DESCRIPTION: CT - Chest For Pe Angio - 07/02/2020 9:18 am CLINICAL HISTORY: Chest pain COMPARISON: March 2020 TECHNIQUE: Dynamically enhanced axial 3 mm thick images of the chest were obtained during administra tion of <100> mL Isovue 370 IV contrast. Coronal and oblique reconstruction images were generated and reviewed. Exam utilizes a protocol for optimal evaluation of pulmonary arterial tree. Maximum intensity projections 3D imaging was utilized All CT scans are performed using dose optimization technique as appropriate and may include automated exposure control or mA/KV adjustment according to patient size. FINDINGS: A pulmonary embolus is not seen. A thoracic aortic aneurysm is not noted. A pleural effusion is not seen. A pericardial effusion is not seen. Mild to moderate bilateral patchy ground-glass opacities within the lungs. Small bilateral pleural ef fusions. Marked thickening of the wall of the entire esophagus. IMPRESSION: Negative for a pulmonary embolism. Mild to moderate bilateral ground-glass opacities within the lungs can be seen with viral pneumonia, pulmonary edema and pneumonitis Marked thickening of the wall of the esophagus may be related to inflammation or infection
--- NOTE | 2020-07-02 09:37 | RAD REPORT ---
EXAM DESCRIPTION: CT - Abdomen Pelvis W Contrast - 07/02/2020 9:18 am CLINICAL HISTORY: Abdominal pain COMPARISON: none. TECHNIQUE: Computed axial tomography of the abdomen pelvis was obtained. 100 cc Isovue-300 was admin istered intravenously. Oral contrast was not requested which limits evaluation of bowel. All CT scans are performed using dose optimization technique as appropriate and may include automated exposure control or mA/KV adjustment according to patient size. FINDINGS: Marked fatty liver. Pneumobilia. Biliary stent in place. Pancreatic head/neck mass again seen. Remainder of the pancreas is atrophic. Moderate gastric dilatation. Spleen and adrenals are unremarkable Small renal cysts. Small amount of ascites. Moderate old compression deformity T12 vertebral body Thickening of the wall of the right colon IMPRESSION: Moderate thickening of the wall of the right colon probably a colitis Moderate gastric dilatation
--- NOTE | 2020-07-02 09:38 | RAD REPORT ---
EXAM DESCRIPTION: Marcelina Single View07/02/2020 7:41 am CLINICAL HISTORY: Chest pain COMPARISON: March 2020 FINDINGS: Cscr-ub-shdqpupg bilateral pulmonary opacities Heart is normal size. Central venous line has its tip in superior vena cava IMPRESSION: Mild to moderate bilateral pulmonary opacities may indicate viral pneumonia, aspiration pneumonia or pneumonitis
[2020-07-02] MEDS ORDERED: CEFTRIAXONE/SWI 1gm 1 GM/10 ML SYR ONE (10:10)
[2020-07-02] MEDS ORDERED: METRONIDAZOLE 500mg IVPB 500 MG/100 ML BAG IV ONE (10:10)
--- NOTE | 2020-07-02 10:36 | EDPHYS ---
Physician Documentation [facility] Name: Alexsandra Mauor Age: 59 yrs Sex: Female : 1960 Arrival Date: 07/02/2020 Time: 06:56 Bed 18 Private MD: ED Physician Nahid Mae HPI: 07/02 07:18 This 59 yrs old Female presents to ER via EMS with complaints of chest and rn abdominal pain. 07:18 The patient or guardian reports chest pain that is located primarily in the substernal rn area, epigastric area. Onset: this morning. The pain does not radiate. Associated signs and symptoms: Pertinent positives: abdominal pain, nausea, vomiting. The chest pain is described as burning. Duration: The patient or guardian reports a single episode, that is still ongoing. Modifying factors: The symptoms are alleviated by nothing. the symptoms are aggravated by palpation of area. Severity of pain: At its worst the pain was moderate in the emergency department the pain has improved. The patient has not experienced similar symptoms in the past. The patient has not recently seen a physician. Reports has pancreatic cancer, just started treatment a few weeks ago, no fever/cough/sob. Reports chest pain, burning, epigastric and substernal, non-radiating, feels similar yet different to her pain from pancreas. No blood in stool. + vomiting. Last chemo last week. No hx of CO or cardiac problems other than "beginning of CHF".. Historical: - Allergies: 07:14 Sulfa (Sulfonamide Antibiotics); vc 07:14 TETRACYCLINES; vc - PMHx: 07:14 Depression; Diabetes - IDDM; HIV; in remission. Wants to keep completely confidential; vc pancreatic cancer; - Immunization history:: Adult Immunizations up to date. - Family history:: not pertinent. - Social history:: Smoking status: Patient reports the use of cigarette tobacco products. - Hospitalizations: : No recent hospitalization is reported. ROS: 07:18 Constitutional: Negative for fever, chills, and weight loss, Eyes: Negative for injury, rn pain, redness, and discharge, Neck: Negative for injury, pain, and swelling, Cardiovascular: Negative for palpitations, and edema, Respiratory: Negative for shortness of breath, cough, wheezing, and pleuritic chest pain, Abdomen/GI: Negative for diarrhea, and constipation, MS/Extremity: Negative for injury and deformity, Skin: Negative for injury, rash, and discoloration, Neuro: Negative for headache, weakness, numbness, tingling, and seizure. Exam: 07:18 Constitutional: Frail appearing woman, holding emesis bag. Head/Face: Normocephalic, rn atraumatic. Cardiovascular: Tachycardic, regular Respiratory: Speaking full sentences. No increased work of breathing, no retractions or nasal flaring. Abdomen/GI: soft, + epigastric abd pain, no rebound Skin: Warm, dry MS/ Extremity: Pulses equal, no cyanosis. Neuro: Awake and alert, GCS 15 Vital Signs: 07:05 BP 138 / 88; Pulse 120; Resp 18; Temp 97.9; Pulse Ox 100% on R/A; vc 07:10 BP 138 / 88; Pulse 120; Resp 18; Temp 97.9; Pulse Ox 100% on R/A; Weight 78.02 kg (R); sg Pain 6/10; 07:52 BP 121 / 60; Pulse 111; Resp 16; Pulse Ox 98% on 2 lpm NC; jr10 08:00 BP 139 / 70; Pulse 116; Resp 20; Pulse Ox 99% ; jr10 09:56 BP 148 / 107; Pulse 118; Resp 20; Pulse Ox 100% on R/A; jr10 11:52 BP 131 / 71; Pulse 113; Resp 20; Pulse Ox 93% on R/A; jr10 13:00 BP 131 / 70; Pulse 112; Resp 20; Pulse Ox 92% on R/A; jr10 14:23 BP 129 / 65; Pulse 116; Resp 20; Pulse Ox 94% on R/A; jr10 16:00 BP 106 / 64; Pulse 112; Resp 17; Temp 98.3(O); Pulse Ox 94% on R/A; jr10 17:00 BP 102 / 48; Pulse 112; Resp 20; Pulse Ox 92% on R/A; jr10 18:00 BP 99 / 82; Pulse 109; Resp 20; Pulse Ox 98% on R/A; Pain 0/10; jr10 19:09 Pulse 108; Resp 20; Pulse Ox 94% on R/A; jr10 MDM: 07:00 Patient medically screened. rn 10:34 ED course: Decision made to admit/transfer a while back, patient unable to decide if rn she wants to stay here or be transferred, wants to talk to , I looked for in lobby and not there. Waiting on her final decision.. 11:15 ED course: Son here, wants to talk to oncologist to see if they prefer transfer to [facility]n [facility].. 15:22 ED course: Pt still waiting on official approval from [facility], told us that their rn system is down and unable to assign bed, has acceptance by physician.. 07/02 07:14 Order name: CBC with Diff; Complete Time: 09:40 rn 07/02 07:14 Order name: Basic Metabolic Panel; Complete Time: 08:45 rn 07/02 07:14 Order name: Hepatic Function; Complete Time: 08:45 rn 07/02 07:14 Order name: Lipase; Complete Time: 08:45 rn 07/02 07:14 Order name: Troponin (emerg Dept Use Only); Complete Time: 08:45 rn 07/02 07:17 Order name: BNP; Complete Time: 08:45 rn 07/02 07:14 Order name: XRAY Chest (1 view); Complete Time: 09:40 rn 07/02 07:55 Order name: CT Chest For PE Angio; Complete Time: 09:40 rn 07/02 07:55 Order name: CT Abd/Pelvis - IV Contrast Only; Complete Time: 09:40 rn 07/02 08:06 Order name: CBC Smear Scan; Complete Time: 09:40 EDLA 07/02 09:42 Order name: COVID-19 rn 07/02 12:33 Order name: SARS-COV-2 RT PCR; Complete Time: 16:34 EDLA 07/02 07:14 Order name: IV Start; Complete Time: 07:56 rn 07/02 07:14 Order name: Labs collected and sent; Complete Time: 07:56 rn 07/02 07:14 Order name: EKG; Complete Time: 07:14 rn 07/02 07:14 Order name: EKG - Nurse/Tech; Complete Time: 09:50 rn Administered Medications: 07:45 Drug: NS 0.9% 500 ml Route: IV; Rate: bolus; Site: right antecubital; 10 08:17 Follow up: Response: No adverse reaction; IV Status: Completed infusion jr10 07:45 Drug: GI Cocktail without - (Maalox Suspension 30 ml, Lidocaine Liquid 2 % 15 jr10 ml) Route: PO; 08:17 Follow up: Response: No adverse reaction jr10 07:45 Drug: Demerol 50 mg Route: IVP; Site: right antecubital; jr10 08:16 Follow up: Response: No adverse reaction; Pain is decreased jr10 07:45 Drug: Zofran (Ondansetron) 4 mg Route: IVP; Site: right antecubital; jr10 08:16 Follow up: Response: No adverse reaction jr10 08:55 Drug: Zofran (Ondansetron) 4 mg Route: IVP; Site: right antecubital; jr10 11:00 Follow up: Response: No adverse reaction jr10 09:10 Drug: Phenergan 12.5 mg Route: IVP; Site: right antecubital; iw 10:47 Follow up: Response: No adverse reaction jr10 10:29 Drug: Potassium Chloride 10 mEq Route: IV; Rate: calculated rate; Site: right jr10 antecubital; 11:49 Follow up: Response: No adverse reaction; IV Status: Completed infusion jr10 10:29 Drug: NS 0.9% 500 ml Route: IV; Rate: bolus; Site: right antecubital; jr10 11:49 Follow up: Response: No adverse reaction; IV Status: Completed infusion jr10 10:29 Drug: Rocephin 1 grams Route: IV; Rate: calculated rate; Site: right antecubital; jr10 11:00 Follow up: Response: No adverse reaction; IV Status: Completed infusion jr10 10:47 Drug: Flagyl 500 mg Volume: 100 ml; Route: IVPB; Rate: 200 ml/hr; Infused Over: 30 jr10 mins; Site: left hand; 11:49 Follow up: Response: No adverse reaction; IV Status: Completed infusion jr10 11:48 Drug: ProTONIX 40 mg Route: IVP; Site: left hand; jr10 13:24 Follow up: Response: No adverse reaction jr10 11:50 Drug: ProTONIX 8 mg/hr Route: IV; Rate: 25 ml/hr; Site: left hand; jr10 19:08 Follow up: IV Status: Infusion continued upon transfer jr10 19:08 Follow up: Response: No adverse reaction jr10 Disposition: 07/02/20 11:50 Transfer ordered to [facility]. Diagnosis are Hematemesis, Pneumonia, unspecified organism, Colitis, Dehydration, Esophagitis. - Reason for transfer: Higher level of care. - Accepting physician is . - Condition is Stable. - Problem is new. - Symptoms have improved. Signatures: Dispatcher [employer] EDMS Belen Epps, RN Nahid Combs MD MD rn Calcote, Vanessa, RN RN vc Rivera, Jessica, RN RN jr10 Corrections: (The following items were deleted from the chart) 11:49 10:35 Hospitalization Ordered by Brayden Solis MD for Inpatient Admission. Preliminary rn diagnosis is Colitis; Pneumonia, unspecified organism; Esophagitis, unspecified. Bed requested for Telemetry/MedSurg (Inpatient). Status is Inpatient Admission. Condition is Stable. Problem is new. Symptoms have improved. rn 11:50 11:50 07/02/2020 11:50 Transfer ordered to [facility]. Diagnosis is Hematemesis; rn Pneumonia, unspecified organism; Colitis; Dehydration. Reason for transfer: Higher level of care. Accepting physician is . Condition is Stable. Problem is new. Symptoms have improved. rn 12:33 09:42 CORONAVIRUS ordered. EDLA EDMS 19:10 11:50 07/02/2020 11:50 Transfer ordered to [facility]. Diagnosis is Hematemesis; jr10 Pneumonia, unspecified organism; Colitis; Dehydration; Esophagitis. Reason for transfer: Higher level of care. Accepting physician is . Condition is Stable. Problem is new. Symptoms have improved. rn
--- NOTE | 2020-07-02 10:36 | ER ---
Nurse's Notes [facility] Name: Alexsandra Mauro Age: 59 yrs Sex: Female : 1960 Arrival Date: 07/02/2020 Time: 06:56 Bed 18 Private MD: Diagnosis: Hematemesis;Pneumonia, unspecified organism;Colitis;Dehydration;Esophagitis Presentation: 07/02 07:05 Chief complaint: EMS states: "Home health nurse called and stated patient was vc experiencing chest pain when patient pointed to where her pain was and she pointed to her diaphragm region, pain rated an 6/10 and an 8/10 while vomiting. BP 140/80, pulse in 80's, Sp02 100% BGL of 170.". Coronavirus screen: vomiting. Client presents with at least one sign or symptom that may indicate coronavirus-19. Standard/surgical mask placed on the client. Ebola Screen: No symptoms or risks identified at this time. Initial Sepsis Screen: Does the patient meet any 2 criteria? No. Patient's initial sepsis screen is negative. Does the patient have a suspected source of infection? No. Patient's initial sepsis screen is negative. Risk Assessment: Do you want to hurt yourself or someone else? Patient reports no desire to harm self or others. Onset of symptoms was July 02, 2020. 07:05 Method Of Arrival: EMS: [facility] vc 07:05 Acuity: BRITTNY 3 vc Historical: - Allergies: 07:14 Sulfa (Sulfonamide Antibiotics); vc 07:14 TETRACYCLINES; vc - PMHx: 07:14 Depression; Diabetes - IDDM; HIV; in remission. Wants to keep completely confidential; vc pancreatic cancer; - Immunization history:: Adult Immunizations up to date. - Family history:: not pertinent. - Social history:: Smoking status: Patient reports the use of cigarette tobacco products. - Hospitalizations: : No recent hospitalization is reported. Screenin:48 Abuse screen: Denies threats or abuse. Denies injuries from another. Nutritional jr10 screening: No deficits noted. Tuberculosis screening: No symptoms or risk factors identified. Fall Risk None identified. Assessment: 07:49 General: Appears uncomfortable, Behavior is appropriate for age. Pain: Complains of jr10 pain in chest and epigastric area across upper abdomen Pain currently is 8 out of 10 on a pain scale. Quality of pain is described as sharp, Is continuous. Neuro: No deficits noted. Cardiovascular: Reports chest pain, nausea, Patient's skin is warm and dry. Pulses are all present. Edema is absent. Rhythm is sinus rhythm. Respiratory: Airway is patent Respiratory effort is even, unlabored, Respiratory pattern is regular, symmetrical. GI: Abdomen is non-distended, Bowel sounds present X 4 quads. Reports nausea, reports hx of pancreatic CA, started chemo 3 months ago, reports that she receives chemo 2x per week. : No deficits noted. No signs and/or symptoms were reported regarding the genitourinary system. EENT: No deficits noted. No signs and/or symptoms were reported regarding the EENT system. Derm: No deficits noted. No signs and/or symptoms reported regarding the dermatologic system. Musculoskeletal: Reports weakness in generalized. 08:17 Reassessment: Pt family contact information: Sal (son) [phone]. jr10 10:00 Reassessment: Patient and/or family updated on plan of care and expected duration. Pain jr10 level reassessed. Patient is alert, oriented x 3, equal unlabored respirations, skin warm/dry/pink. Patient states symptoms have improved. 12:00 Reassessment: Patient and/or family updated on plan of care and expected duration. Pain jr10 level reassessed. Patient is alert, oriented x 3, equal unlabored respirations, skin warm/dry/pink. 14:58 Reassessment: Patient and/or family updated on plan of care and expected duration. Pain jr10 level reassessed. Patient is alert, oriented x 3, equal unlabored respirations, skin warm/dry/pink. 17:00 Reassessment: Patient and/or family updated on plan of care and expected duration. Pain jr10 level reassessed. Patient is alert, oriented x 3, equal unlabored respirations, skin warm/dry/pink. pt brief changed, moderate amt of soft brown stool noted, no dark stools or bloody stools noted; pt updated on POC, continuing to await transfer assignment at this time. Will continue to monitor and assess. 18:31 Reassessment: pt report called to JACK Adames at [facility], pt updated on plan to [facility] transfer. Will await EMS arrival for transport. Pt continues to be without distress, remains tachycardic otherwise vitals stable. will continue to monitor and assess until dispo or transfer of care. 18:33 Reassessment: Patient and/or family updated on plan of care and expected duration. Pain jr10 level reassessed. Patient is alert, oriented x 3, equal unlabored respirations, skin warm/dry/pink. Vital Signs: 07:05 BP 138 / 88; Pulse 120; Resp 18; Temp 97.9; Pulse Ox 100% on R/A; vc 07:10 BP 138 / 88; Pulse 120; Resp 18; Temp 97.9; Pulse Ox 100% on R/A; Weight 78.02 kg (R); sg Pain 6/10; 07:52 BP 121 / 60; Pulse 111; Resp 16; Pulse Ox 98% on 2 lpm NC; jr10 08:00 BP 139 / 70; Pulse 116; Resp 20; Pulse Ox 99% ; jr10 09:56 BP 148 / 107; Pulse 118; Resp 20; Pulse Ox 100% on R/A; jr10 11:52 BP 131 / 71; Pulse 113; Resp 20; Pulse Ox 93% on R/A; jr10 13:00 BP 131 / 70; Pulse 112; Resp 20; Pulse Ox 92% on R/A; jr10 14:23 BP 129 / 65; Pulse 116; Resp 20; Pulse Ox 94% on R/A; jr10 16:00 BP 106 / 64; Pulse 112; Resp 17; Temp 98.3(O); Pulse Ox 94% on R/A; jr10 17:00 BP 102 / 48; Pulse 112; Resp 20; Pulse Ox 92% on R/A; jr10 18:00 BP 99 / 82; Pulse 109; Resp 20; Pulse Ox 98% on R/A; Pain 0/10; jr10 19:09 Pulse 108; Resp 20; Pulse Ox 94% on R/A; jr10 ED Course: 06:56 Patient arrived in ED. vc 06:56 Toña Thornton, JACK is Primary Nurse. vc 07:00 Nahid Mae MD is Attending Physician. rn 07:05 Arm band placed on. jr10 07:13 Triage completed. vc 07:41 XRAY Chest (1 view) In Process Unspecified. EDMS 07:48 No provider procedures requiring assistance completed. Maintain EMS IV. Dressing jr10 intact. Good blood return noted. Site clean \\T\\ dry. Gauge \\T\\ site: 20# to right AC. Flushed. Oxygen administration via nasal cannula \\T\\ 2L/min Response to oxygen therapy: symptoms improved. 07:49 Patient has correct armband on for positive identification. Placed in gown. Bed in low jr10 position. Call light in reach. Side rails up X2. bus driver/monitor on. Pulse ox on. NIBP on. 08:16 Primary Nurse role handed off by Toña Thornton RN jr10 08:16 Evelyn Mckeon, JACK is Primary Nurse. jr10 09:18 CT Chest For PE Angio In Process Unspecified. EDMS 09:18 CT Abd/Pelvis - IV Contrast Only In Process Unspecified. EDMS 10:35 Brayden Solis MD is Hospitalizing Provider. rn 10:48 Inserted saline lock: 22 gauge in left hand, using aseptic technique. IV is patent, is jr10 intact, with good blood return, Flushed. 14:17 initiated transfer to [facility], talked to Kelsey, the computer system is down bd and they are not able to assign any beds at this time, she will call back as soon as system is back up. 15:02 talked to Bao at [facility] transfer [place], system is still down, expected to be back bd up around 1600. 16:23 talked to Kelsey at [facility], bed availability still being assessed, she bd will call me back. 16:41 admin approval given by Kelsey Miguel. Dr Mitul John is accepting dr. velez 19:07 Patient transferred, IV remains in place. intact, No redness/swelling at site. jr10 Administered Medications: 07:45 Drug: NS 0.9% 500 ml Route: IV; Rate: bolus; Site: right antecubital; jr10 08:17 Follow up: Response: No adverse reaction; IV Status: Completed infusion jr10 07:45 Drug: GI Cocktail without - (Maalox Suspension 30 ml, Lidocaine Liquid 2 % 15 jr10 ml) Route: PO; 08:17 Follow up: Response: No adverse reaction jr10 07:45 Drug: Demerol 50 mg Route: IVP; Site: right antecubital; jr10 08:16 Follow up: Response: No adverse reaction; Pain is decreased jr10 07:45 Drug: Zofran (Ondansetron) 4 mg Route: IVP; Site: right antecubital; jr10 08:16 Follow up: Response: No adverse reaction jr10 08:55 Drug: Zofran (Ondansetron) 4 mg Route: IVP; Site: right antecubital; jr10 11:00 Follow up: Response: No adverse reaction jr10 09:10 Drug: Phenergan 12.5 mg Route: IVP; Site: right antecubital; iw 10:47 Follow up: Response: No adverse reaction jr10 10:29 Drug: Potassium Chloride 10 mEq Route: IV; Rate: calculated rate; Site: right jr10 antecubital; 11:49 Follow up: Response: No adverse reaction; IV Status: Completed infusion jr10 10:29 Drug: NS 0.9% 500 ml Route: IV; Rate: bolus; Site: right antecubital; jr10 11:49 Follow up: Response: No adverse reaction; IV Status: Completed infusion jr10 10:29 Drug: Rocephin 1 grams Route: IV; Rate: calculated rate; Site: right antecubital; jr10 11:00 Follow up: Response: No adverse reaction; IV Status: Completed infusion jr10 10:47 Drug: Flagyl 500 mg Volume: 100 ml; Route: IVPB; Rate: 200 ml/hr; Infused Over: 30 jr10 mins; Site: left hand; 11:49 Follow up: Response: No adverse reaction; IV Status: Completed infusion jr10 11:48 Drug: ProTONIX 40 mg Route: IVP; Site: left hand; jr10 13:24 Follow up: Response: No adverse reaction jr10 11:50 Drug: ProTONIX 8 mg/hr Route: IV; Rate: 25 ml/hr; Site: left hand; jr10 19:08 Follow up: IV Status: Infusion continued upon transfer jr10 19:08 Follow up: Response: No adverse reaction jr10 Outcome: 10:35 Decision to Hospitalize by Provider. rn 11:50 ER care complete, transfer ordered by MD. rn 19:07 Transferred by ground EMS to [facility], Transfer form completed. jr10 19:07 Condition: improved 19:07 Instructed on the need for admit, Demonstrated understanding of instructions, called family to update on transfer status 19:10 Patient left the ED. jr10 Signatures: Dispatcher [employer] EDMS Johana Santizo Steven, RN Belen Michele RN Nahid Combs MD MD rn Calcote, Vanessa, RN RN vc Rivera, Jessica, RN RN jr10 Corrections: (The following items were deleted from the chart) 14:25 08:17 Reassessment: Pt family contact information: [phone] jr10 jr10
[2020-07-02] MEDS ORDERED: PANTOPRAZOLE INJ 80 MG in NA CHLORIDE 0.9% 250 ML IV ONE (11:30)
[2020-07-02] MEDS ORDERED: PANTOPRAZOLE 40 MG INJ ONE (11:42)
[2020-07-02 19:55] VITALS: TEMP 98.3
[2020-07-02 19:57] VITALS: BP 99/82
[2020-07-02 19:58] VITALS: O2SAT 94
== END 2020-07-02 19:10 | disposition short-term general hospital (02) ==
LOC: ER 06:52
DX: J18.9 Pneumonia, unspecified organism (principal); Z20.828 Contact with and (suspected) exposure to other viral communicable diseases; K52.9 Noninfective gastroenteritis and colitis, unspecified; E86.0 Dehydration; K20.9 Esophagitis, unspecified; C25.9 Malignant neoplasm of pancreas, unspecified; F17.210 Nicotine dependence, cigarettes, uncomplicated; Z21 Asymptomatic human immunodeficiency virus [HIV] infection status; Z88.1 Allergy status to other antibiotic agents; Z88.2 Allergy status to sulfonamides
CPT/HCPCS: 93005; 85025; 80048; 36415; 80076; 84484; 83690; 83880; 71275; 74177; 71045; 99285; U0003; Q9967; J2550 ×2; C9113 ×2; J3480; J2175; J0696; J7050; J7040 ×2; J2405 ×2

== ENCOUNTER 2020-07-10 10:20 | Emergency (ER) | payer OTHER ==
--- OUTSIDE RECORDS SUMMARY | 2020-07-10 10:22 | XMS REPORT | Continuity of Care Document ---
:1960 Author Organization [facility] Address [address] [place] [address] [address] [place] [address] Care Team Providers Name Role Phone STACIE Attending Clinician Unavailable ISSAC Attending Clinician Unavailable NOLVIA Attending Clinician Unavailable YAEL Attending Clinician Unavailable KAROLINA Attending Clinician Unavailable WILLY Attending Clinician Unavailable JUNE Admitting Clinician Unavailable KAROLINA Admitting Clinician Unavailable BRADY Admitting Clinician Unavailable Problems This patient has no known problems. Allergies, Adverse Reactions, Alerts This patient has no known allergies or adverse reactions. Medications This patient has no known medications. Procedures This patient has no known procedures. Encounters Start End Encounter Admission Attending Care Care Encounter Source Date/Time Date/Time Type Type Clinicians Facility Department ID 2020-07-02 2020-07-09 Inpatient SUNITA QUINONES [facility] [id number] [place] 00:00:00 00:00:[address] 2020-06-25 2020-06-25 Outpatient [facility] [id number] [place] 00:00:00 00:00:00 HARMONY [address] 2020-06-23 2020-06-23 Outpatient [facility] [id number] [place] 00:00:00 00:00:00 HARMONY [address] 2020-06-23 2020-06-23 Outpatient [facility] [id number] [place] 00:00:00 00:00:00 HARMONY [address] 2020-06-23 2020-06-23 Outpatient [facility] [id number] 874 [place] 00:00:00 00:00:00 HARMONY [address] 2020-06-04 2020-06-04 Outpatient [facility] [id number] 128 [place] 00:00:00 00:00:00 HARMONY [address] 2020-06-02 2020-06-02 Outpatient [facility] [id number] 128 [place] 00:00:00 00:00:00 HARMONY [address] 2020-06-02 2020-06-02 Outpatient [facility] [id number] [place] 00:00:00 00:00:00 HARMONY [address] 2020-06-02 2020-06-02 Outpatient [facility] [id number] 772 [place] 00:00:00 00:00:00 HARMONY [address] 2020-05-26 2020-05-26 Outpatient OMONI, [facility] [id number] [place] 00:00:00 00:00:00 LIZA [address] 2020-05-21 2020-05-21 Outpatient [facility] [id number] 128 [place] 00:00:00 00:00:00 HARMONY [address] 2020-05-19 2020-05-19 Outpatient [facility] [id number] [place] 00:00:00 00:00:00 HARMONY [address] [facility] [address] 2020-05-19 2020-05-19 Outpatient [facility] [id number] [place] 00:00:00 00:00:00 HARMONY [address] 2020-05-04 2020-05-09 Inpatient CONLEY, [facility] [id number] [place] 00:00:00 00:00:00 BETH [address] 2020-04-30 2020-04-30 [facility] [id number] [place] 00:00:00 00:00:00 HARMONY [address] 2020-04-29 2020-04-29 [facility] [id number] [place] 00:00:00 00:00:00 HARMONY [address] 2020-04-28 2020-04-28 Outpatient [facility] [id number] [place] 00:00:00 00:00:00 HARMONY [address] 2020-04-27 2020-04-27 [facility] [id number] [place] 00:00:00 00:00:00 HARMONY [address] 2020-04-27 2020-04-27 [facility] [id number] 161 [place] 00:00:00 00:00:00 HARMONY [address] 2020-04-05 2020-04-15 Inpatient MCCARTAN, [facility] [id number] [place] 00:00:00 00:00:00 ELOISE [address] 2020-04-04 2020-04-04 Outpatient DAVENPORT, [facility] [id number] 925 [place] 00:00:00 00:00:00 HARMONY [address] 2020-03-24 2020-04-03 Inpatient WILLY, [facility] [id number] [place] 00:00:00 00:00:00 LENA [address] Results This patient has no known results.
[2020-07-10] MEDS ORDERED: CEFTRIAXONE/SWI 1gm 1 GM/10 ML SYR ONE (11:15)
[2020-07-10 11:18] LABS: Protime INR 1.96
[2020-07-10 11:28] LABS: Albumin 1.5 g/dL (3.4-5.0); Bilirubin Direct 0.3 mg/dL (0-0.2); Bilirubin Total 0.5 mg/dL (0.2-1.0); CKMB Creatine Kinase MB 1.3 ng/mL (0.3-3.6); Potassium 4.1 mmol/L (3.5-5.1); Protein, Total 6.2 g/dL (6.4-8.2); Troponin (Emerg Dept Use Only) 0.12 ng/mL (0.0-0.045)
[2020-07-10 11:40] LABS: Basophils % 0.2 % (0-1.3); Hematocrit 27.9 % (36.0-45.0); Lymphocytes % 15.7 % (15.3-44.8); MPV 7.7 fL (7.6-11.3); RBC Red Blood Cell Count 3.16 M/uL (3.86-4.86)
--- NOTE | 2020-07-10 11:56 | RAD REPORT ---
EXAM DESCRIPTION: RAD - Chest Single View - 07/10/2020 11:16 am CLINICAL HISTORY: code sepsis, weakness, shortness of breath COMPARISON: July 02 TECHNIQUE: AP portable chest image was obtained 07/10/2020 11:16 am . FINDINGS: Lung volumes are low. No dense consolidation seen. There is an interstitial opacification pattern that has increased. There are scattered alveolar opacities with this as well. Right-sided Por t-A-Cath is in place. Heart and vasculature are normal. No measurable pleural effusion and no pneumot horax. No acute bony abnormality seen. No acute aortic findings suspected. IMPRESSION: Bilateral interstitial edema or interstitial infiltrate. Mild scattered alveolar compone nts present as well.
--- NOTE | 2020-07-10 12:24 | EDPHYS ---
Physician Documentation [facility] Name: Alexsandra Mauro Age: 59 yrs Sex: Female : 1960 Arrival Date: 07/10/2020 Time: 10:28 Bed 7 Private MD: ED Physician Rosalio Guerrero HPI: 07/10 17:28 This 59 yrs old Female presents to ER via EMS with complaints of hypotension kdr \T\ hypoxia. 19:43 The patient was discharged from [facility] yesterday and this morning, she began to feel kdr weak and SOB. The is generally awake and alert and is able to answer questions appropriately. She is cachectic appearing but is otherwise stable. Onset: The symptoms/episode began/occurred gradually, this morning. Severity of symptoms: At their worst the symptoms were mild moderate in the emergency department the symptoms are unchanged. It is unknown whether or not the patient has had similar symptoms in the past. The patient has been recently seen by a physician:. EMS noted a SBP of 75 and saturation in the 80% range at home. Historical: - Allergies: 10:45 Sulfa (Sulfonamide Antibiotics); em 10:45 TETRACYCLINES; em - Home Meds: 10:45 amitriptyline 50 mg oral tab 2 tabs [Active]; Talmage 10-325 mg oral tab [Active]; em sertraline 100 mg oral tab 1 tab once daily [Active]; Janumet 50-500 mg oral tab 1 tab [Active]; Eliquis 5 mg oral tab [Active]; furosemide 40 mg Oral tab 1 tab once daily [Active]; Truvada 200-300 mg oral tab 1 tab once daily [Active]; Norvir Soft Gelatin Oral 100 mg [Active]; - PMHx: 10:45 Depression; Diabetes - IDDM; HIV; in remission. Wants to keep completely confidential; em pancreatic cancer; - Immunization history:: Adult Immunizations unknown. - Social history:: Smoking status: unknown. ROS: 19:43 Constitutional: Negative for fever, chills, and weight loss, Eyes: Negative for injury, kdr pain, redness, and discharge, ENT: Negative for injury, pain, and discharge, Neck: Negative for injury, pain, and swelling, Cardiovascular: Negative for chest pain, palpitations, and edema, Back: Negative for injury and pain, : Negative for injury, bleeding, discharge, and swelling, MS/Extremity: Negative for injury and deformity, Skin: Negative for injury, rash, and discoloration, Psych: Negative for depression, anxiety, suicide ideation, homicidal ideation, and hallucinations, Allergy/Immunology: Negative for hives, rash, and allergies, Endocrine: Negative for neck swelling, polydipsia, polyuria, polyphagia, and marked weight changes, Hematologic/Lymphatic: Negative for swollen nodes, abnormal bleeding, and unusual bruising. 19:43 Respiratory: Positive for shortness of breath, at rest. Negative for cough, hemoptysis, orthopnea, pleurisy, sputum production, wheezing. 19:43 Neuro: Positive for weakness. Exam: 19:43 Constitutional: This is a well developed, poorly nourished patient who is awake, kdr somnolent but arouses easily and in no acute distress. Head/Face: Normocephalic, atraumatic. Eyes: Pupils equal round and reactive to light, extra-ocular motions intact. Lids and lashes normal. Conjunctiva and sclera are non-icteric and not injected. Cornea within normal limits. Periorbital areas with no swelling, redness, or edema. Neck: Trachea midline, no thyromegaly or masses palpated, and no cervical lymphadenopathy. Supple, full range of motion without nuchal rigidity, or vertebral point tenderness. No Meningismus. Chest/axilla: Normal chest wall appearance and motion. Nontender with no deformity. No lesions are appreciated. Cardiovascular: Regular rate and rhythm with a normal S1 and S2. No gallops, murmurs, or rubs. Normal PMI, no JVD. No pulse deficits. Respiratory: Lungs have equal breath sounds bilaterally, clear to auscultation and percussion. No rales, rhonchi or wheezes noted. No increased work of breathing, no retractions or nasal flaring. Abdomen/GI: Soft, non-tender, with normal bowel sounds. No distension or tympany. No guarding or rebound. No evidence of tenderness throughout. Back: No spinal tenderness. No costovertebral tenderness. Full range of motion. Skin: Warm, dry with normal turgor. Normal color with no rashes, no lesions, and no evidence of cellulitis. MS/ Extremity: Pulses equal, no cyanosis. Neurovascular intact. Full, normal range of motion. Psych: Awake, alert, with orientation to person, place and time. Behavior, mood, and affect are within normal limits. 19:43 Neuro: Orientation: to person, situation, Not oriented to place, time, Mentation: responsive to voice lucid, slow to respond, Motor: is normal, moves all fours, Sensation: no obvious gross deficits, Gait: not applicable not tested. 20:07 ECG was reviewed by the Attending Physician. kdr Vital Signs: 10:29 BP 77 / 53; Pulse 122; Resp 24; Temp 97.6; Pulse Ox 98% on Nebulizer Mask; em 10:49 Weight 69.4 kg; Height 5 ft. 3 in. (160.02 cm); Pain 0/10; em 11:00 BP 64 / 51; Pulse 114; Resp 22; em 11:15 BP 81 / 41; Pulse 115; Resp 20; Pulse Ox 99% on Non-rebreather mask; em 11:25 BP 84 / 59; Pulse 111; Resp 24; Pulse Ox 99% on Non-rebreather mask; em 11:35 BP 87 / 50; Pulse 114; Resp 26; Pulse Ox 96% ; em 12:10 BP 102 / 50; Pulse 109; Resp 26; Pulse Ox 99% on Non-rebreather mask; em 12:49 BP 85 / 50; Pulse 114; Resp 22; Pulse Ox 98% on Non-rebreather mask; em 13:30 Pulse Ox 60% on 40% Venturi mask; em 14:05 BP 101 / 61; Pulse 106; Resp 21; Pulse Ox 100% on Non-rebreather mask; em 14:38 BP 90 / 52; Pulse 109; Resp 25; Pulse Ox 95% on Non-rebreather mask; em 14:50 BP 109 / 66; Pulse 107; Resp 23; Pulse Ox 100% on Non-rebreather mask; em 15:59 BP 105 / 62; Pulse 106; Resp 23; Pulse Ox 99% on Non-rebreather mask; em 16:10 BP 95 / 69; Pulse 107; Resp 25; Pulse Ox 97% on Non-rebreather mask; em 17:00 BP 105 / 82; Pulse 112; Resp 26; Pulse Ox 98% on Non-rebreather mask; em 10:49 Body Mass Index 27.10 (69.40 kg, 160.02 cm) em 13:30 tried to ween pt to venti mask em MDM: 12:19 ED course: d/w Dr. Patiño - hepatology. Will need to speak with Hospitalist. kdr 12:23 Patient medically screened. kdr 19:43 Data reviewed: vital signs, nurses notes, lab test result(s), radiologic studies. kdr Counseling: I had a detailed discussion with the patient and/or guardian regarding: the historical points, exam findings, and any diagnostic results supporting the discharge/admit diagnosis, lab results, radiology results, the need to transfer to another facility. 07/10 10:49 Order name: Amylase, Serum; Complete Time: 12:14 07/10 10:49 Order name: Basic Metabolic Panel; Complete Time: 12:14 07/10 10:49 Order name: Blood Culture Adult (2) 07/10 10:49 Order name: CBC with Diff; Complete Time: 12:14 07/10 10:49 Order name: Ckmb; Complete Time: 12:14 07/10 10:49 Order name: CPK; Complete Time: 12:14 07/10 10:49 Order name: Lactate; Complete Time: 12:14 07/10 10:49 Order name: LFT's; Complete Time: 12:14 07/10 10:49 Order name: Lipase; Complete Time: 12:14 07/10 10:49 Order name: Procalcitonin; Complete Time: 12:46 07/10 10:49 Order name: Protime (+inr); Complete Time: 12:14 07/10 10:49 Order name: Ptt, Activated; Complete Time: 12:14 07/10 10:49 Order name: Troponin (emerg Dept Use Only); Complete Time: 12:14 07/10 10:49 Order name: Chest Single View XRAY; Complete Time: 12:14 07/10 10:49 Order name: Accucheck; Complete Time: 10:53 07/10 10:49 Order name: Cardiac monitoring; Complete Time: 10:53 07/10 10:49 Order name: EKG - Nurse/Tech; Complete Time: 10:53 07/10 10:49 Order name: IV Saline Lock - Large Bore; Complete Time: 10:53 07/10 13:50 Order name: CT Chest For PE Angio; Complete Time: 14:43 kdr 07/10 13:50 Order name: DD; Complete Time: 14:43 kdr 07/10 14:18 Order name: EKG Electrocardiogram EDMS 07/10 14:36 Order name: Lactate Sepsis 2 HR Follow-up; Complete Time: 14:43 EDMS 07/10 14:45 Order name: BNP kdr 07/10 10:49 Order name: Labs collected and sent; Complete Time: 10:53 iw 07/10 10:49 Order name: O2 Per Protocol; Complete Time: 10:53 iw 07/10 10:49 Order name: O2 Sat Monitoring; Complete Time: 10:53 iw 07/10 14:00 Order name: Labs - recollect needed: Lactate sepsis due; Complete Time: 14:16 iw EC:07 Rate is 114 beats/min. Rhythm is regular, Sinus tachycardia with No ectopy. QRS Garrison is kdr Normal. TX interval is normal. QRS interval is normal. QT interval is normal. Clinical impression: NSR w/ Non-specific ST/T Changes and Sinus tachycardia. Administered Medications: 10:53 Drug: NS 0.9% (30 ml/kg) 30 ml/kg Route: IV; Rate: bolus; Site: right hand; em 11:46 Follow up: IV Status: Completed infusion; IV Intake: 2000ml em 11:06 Drug: Rocephin 1 grams Route: IV; Rate: calculated rate; Site: right hand; em 11:44 Follow up: Response: No adverse reaction; IV Status: Completed infusion; IV Intake: 10mlem 12:46 Drug: vancoMYCIN 1 grams Route: IVPB; Infused Over: 2 hrs; Site: right hand; em 15:09 Follow up: Response: No adverse reaction; IV Status: Completed infusion; IV Intake: em 250ml 13:27 Drug: NS 0.9% 500 ml Route: IV; Rate: bolus; Site: right antecubital; em 15:08 Follow up: IV Status: Completed infusion; IV Intake: 500ml em 14:02 Drug: Lovenox 1 mg/kg Route: Sub-Q; Site: right upper abdomen; em 15:08 Follow up: Response: No adverse reaction em 15:09 Drug: Meropenem 1 grams Route: IV; Rate: calculated rate; Site: right antecubital; em 16:00 Follow up: Response: No adverse reaction; IV Status: Completed infusion; IV Intake: em 100ml Disposition: 07/10/20 12:23 Transfer ordered to [facility]. Diagnosis are Weakness, Hypotension, Dehydration, Pneumonia, unspecified organism. - Reason for transfer: Higher level of care. - Accepting physician is Hospitalist. - Condition is Fair. - Problem is new. - Symptoms have improved. Signatures: Dispatcher [employer] EDRosalio West MD MD [facility] Otto Marin RN RN em Belen Epps RN RN iw Corrections: (The following items were deleted from the chart) 17:53 12:23 07/10/2020 12:23 Transfer ordered to [facility]. Diagnosis is Weakness; em Hypotension; Dehydration; Pneumonia, unspecified organism. Reason for transfer: Higher level of care. Accepting physician is Hospitalist. Condition is Fair. Problem is new. Symptoms have improved. kdr
--- NOTE | 2020-07-10 12:24 | ER ---
Nurse's Notes [facility] Name: Alexsandra Mauro Age: 59 yrs Sex: Female : 1960 Arrival Date: 07/10/2020 Time: 10:28 Bed 7 Private MD: Diagnosis: Weakness;Hypotension;Dehydration;Pneumonia, unspecified organism Presentation: 07/10 10:29 Chief complaint: EMS states: called out for generalized weakness that started this em morning, pt was released from [facility] yesterday after having a left sided stroke, reported to son that she was having SOB, pt was also released with lon. pneumonia and was given a NC to use at home, EMS reports HR 102, BP 75/45. Coronavirus screen: Client denies travel out of the [place] in the last 14 days. Ebola Screen: Patient negative for fever greater than or equal to 101.5 degrees Fahrenheit, and additional compatible Ebola Virus Disease symptoms Patient denies exposure to infectious person. Patient denies travel to an Ebola-affected area in the 21 days before illness onset. No symptoms or risks identified at this time. Initial Sepsis Screen: Does the patient meet any 2 criteria? Temp <36.0*C (96.8*F)) or > 38.3*C (100.9*F). HR > 90 bpm. Does the patient have a suspected source of infection? Yes: Productive cough/pneumonia. Risk Assessment: Do you want to hurt yourself or someone else?. Onset of symptoms was July 10, 2020. 10:29 Method Of Arrival: EMS: [facility] em 10:29 Acuity: BRITTNY 2 em Historical: - Allergies: 10:45 Sulfa (Sulfonamide Antibiotics); em 10:45 TETRACYCLINES; em - Home Meds: 10:45 amitriptyline 50 mg oral tab 2 tabs [Active]; Craig 10-325 mg oral tab [Active]; em sertraline 100 mg oral tab 1 tab once daily [Active]; Janumet 50-500 mg oral tab 1 tab [Active]; Eliquis 5 mg oral tab [Active]; furosemide 40 mg Oral tab 1 tab once daily [Active]; Truvada 200-300 mg oral tab 1 tab once daily [Active]; Norvir Soft Gelatin Oral 100 mg [Active]; - PMHx: 10:45 Depression; Diabetes - IDDM; HIV; in remission. Wants to keep completely confidential; em pancreatic cancer; - Immunization history:: Adult Immunizations unknown. - Social history:: Smoking status: unknown. Screenin:29 Abuse screen: Denies threats or abuse. Nutritional screening: No deficits noted. em Tuberculosis screening: No symptoms or risk factors identified. Fall Risk None identified. Assessment: 10:28 General: Appears ill, Behavior is drowsy, Reports fatigue for Denies fever. Pain: em Denies pain. Neuro: Level of Consciousness is awake, obeys commands, lethargic, Oriented to person, place, time, situation, Appropriate for age Weakness in bilateral arm(s) foot/feet Speech is slurred. Cardiovascular: Denies chest pain, Capillary refill < 3 seconds Patient's skin is warm and dry. Rhythm is sinus tachycardia. Respiratory: Airway is patent Respiratory effort is Respiratory pattern is regular, tachypnea. Derm: Skin is intact, is healthy with good turgor, Skin is pink, warm \T\ dry. Musculoskeletal: Capillary refill < 3 seconds, Range of motion: intact in all extremities. 10:43 General: Dr. Guerrero at bedside. em 10:45 Reassessment: Sal (son) called to check on mother, reports he has POA available at em [phone]. 12:00 Reassessment: Patient appears in no apparent distress at this time. No changes from em previously documented assessment. Patient and/or family updated on plan of care and expected duration. Pain level reassessed. 13:00 Reassessment: Patient appears in no apparent distress at this time. Patient is alert, em oriented x 3, equal unlabored respirations, skin warm/dry/pink. 14:00 Reassessment: wheeled to CT via stretcher. em 15:00 Reassessment: Patient and/or family updated on plan of care and expected duration. Pain em level reassessed. Patient is alert, oriented x 3, equal unlabored respirations, skin warm/dry/pink. Patient states symptoms have improved. 16:00 Reassessment: report given to [facility], pending EMS transportation. em 17:00 Reassessment: Patient appears in no apparent distress at this time. Patient is alert, em oriented x 3, equal unlabored respirations, skin warm/dry/pink. 17:40 Reassessment: report given to Jose with [facility]. em Vital Signs: 10:29 BP 77 / 53; Pulse 122; Resp 24; Temp 97.6; Pulse Ox 98% on Nebulizer Mask; em 10:49 Weight 69.4 kg; Height 5 ft. 3 in. (160.02 cm); Pain 0/10; em 11:00 BP 64 / 51; Pulse 114; Resp 22; em 11:15 BP 81 / 41; Pulse 115; Resp 20; Pulse Ox 99% on Non-rebreather mask; em 11:25 BP 84 / 59; Pulse 111; Resp 24; Pulse Ox 99% on Non-rebreather mask; em 11:35 BP 87 / 50; Pulse 114; Resp 26; Pulse Ox 96% ; em 12:10 BP 102 / 50; Pulse 109; Resp 26; Pulse Ox 99% on Non-rebreather mask; em 12:49 BP 85 / 50; Pulse 114; Resp 22; Pulse Ox 98% on Non-rebreather mask; em 13:30 Pulse Ox 60% on 40% Venturi mask; em 14:05 BP 101 / 61; Pulse 106; Resp 21; Pulse Ox 100% on Non-rebreather mask; em 14:38 BP 90 / 52; Pulse 109; Resp 25; Pulse Ox 95% on Non-rebreather mask; em 14:50 BP 109 / 66; Pulse 107; Resp 23; Pulse Ox 100% on Non-rebreather mask; em 15:59 BP 105 / 62; Pulse 106; Resp 23; Pulse Ox 99% on Non-rebreather mask; em 16:10 BP 95 / 69; Pulse 107; Resp 25; Pulse Ox 97% on Non-rebreather mask; em 17:00 BP 105 / 82; Pulse 112; Resp 26; Pulse Ox 98% on Non-rebreather mask; em 10:49 Body Mass Index 27.10 (69.40 kg, 160.02 cm) em 13:30 tried to ween pt to venti mask em ED Course: 10:28 Patient arrived in ED. em 10:29 Patient has correct armband on for positive identification. Placed in gown. Bed in low em position. Call light in reach. Side rails up X2. night monitor on. Pulse ox on. NIBP on. 10:29 Maintain EMS IV. Dressing intact. Gauge \T\ site: 22 R hand. em 10:38 Triage completed. em 10:40 Rosalio Guerrero MD is Attending Physician. kdr 10:45 Arm band placed on. em 10:46 Otto Marin, RN is Primary Nurse. em 11:16 Chest Single View XRAY In Process Unspecified. EDMS 11:20 Inserted saline lock: 20 gauge in right antecubital area, using aseptic technique. em Blood collected. 11:43 initiated a transfer with [facility]. eb 12:00 Warm blanket given. Pillow given. 5 12:00 EKG done, by ED staff, reviewed by Rosalio Guerrero MD. [facility] 12:14 connected the hospitalist [facility] we[facility] for [facility] with Dr. Guerrero for patient transfer eb consultation. 12:30 administrative approval given by Kelsey Miguel pending a bed/ Kelsey will call back with [facility] the room assignment and report number. 13:[address] Chairez the language translator [facility] with Dr. Guerrero for patient 3 transfer consultation. 13:25 per Kelsey from [facility] the bed the patient is going to is occupied [facility] and she will call when the bed becomes available. 14:17 Turned to right side. 5 14:17 Repeat lab(s) drawn. by me, sent to lab. 5 14:20 CT Chest For PE Angio In Process Unspecified. EDMS 17:38 No provider procedures requiring assistance completed. Patient admitted, IV remains in em place. Administered Medications: 10:53 Drug: NS 0.9% (30 ml/kg) 30 ml/kg Route: IV; Rate: bolus; Site: right hand; em 11:46 Follow up: IV Status: Completed infusion; IV Intake: 2000ml em 11:06 Drug: Rocephin 1 grams Route: IV; Rate: calculated rate; Site: right hand; em 11:44 Follow up: Response: No adverse reaction; IV Status: Completed infusion; IV Intake: 10mlem 12:46 Drug: vancoMYCIN 1 grams Route: IVPB; Infused Over: 2 hrs; Site: right hand; em 15:09 Follow up: Response: No adverse reaction; IV Status: Completed infusion; IV Intake: em 250ml 13:27 Drug: NS 0.9% 500 ml Route: IV; Rate: bolus; Site: right antecubital; em 15:08 Follow up: IV Status: Completed infusion; IV Intake: 500ml em 14:02 Drug: Lovenox 1 mg/kg Route: Sub-Q; Site: right upper abdomen; em 15:08 Follow up: Response: No adverse reaction em 15:09 Drug: Meropenem 1 grams Route: IV; Rate: calculated rate; Site: right antecubital; em 16:00 Follow up: Response: No adverse reaction; IV Status: Completed infusion; IV Intake: em 100ml Intake: 11:44 IV: 10ml; Total: 10ml. em 11:46 IV: 2000ml; Total: 2010ml. em 15:08 IV: 500ml; Total: 2510ml. em 15:09 IV: 250ml; Total: 2760ml. em 16:00 IV: 100ml; Total: 2860ml. em Outcome: 12:23 ER care complete, transfer ordered by . kdr 17:53 Patient left the ED. em Signatures: Dispatcher [employer] Rosalio Leal MD MD kdr Munoz, Edgar, RN RN Teri Trinidad [facility] Esperanza Phillips [facility] Nallely Domingo
[2020-07-10] MEDS ORDERED: VANCOMYCIN/NS 1 gm 1 GM/250 ML BAG IV ONE (12:30)
[2020-07-10] MEDS ORDERED: NA CHLORIDE 0.9% 500 ML ONE (13:39)
[2020-07-10] MEDS ORDERED: ENOXAPARIN 80 MG/0.8 ML SQ ONE (14:06)
--- NOTE | 2020-07-10 14:28 | RAD REPORT ---
EXAM DESCRIPTION: CT - Chest For Pe Angio - 07/10/2020 2:20 pm CLINICAL HISTORY: Chest pain. DYSPNEA COMPARISON: Chest For Pe Angio dated 07/02/2020 TECHNIQUE: CT angiogram of the pulmonary arteries was performed with MIP. All CT scans are performed using dose optimization technique as appropriate and may include automated exposure control or mA/KV adjustment according to patient size. FINDINGS: No evidence of pulmonary thromboembolism. No acute aortic finding demonstrated. Extensive bilateral interstitial and alveolar lung infiltrates are present appearing significantly pr ogressive since 07/02/2020 study and likely representing pneumonia or pulmonary edema. Small bilateral pleural effusions have developed. No concerning bony finding. Advanced fatty liver. IMPRESSION: No evidence of pulmonary thromboembolism. Significant worsening in bilateral pulmonary opacities since comparative study as detailed.
[2020-07-10 20:14] VITALS: TEMP 97.6
[2020-07-10 20:31] VITALS: BP 105/82; O2SAT 98
== END 2020-07-10 17:53 | disposition short-term general hospital (02) ==
LOC: ER 10:20
DX: I95.9 Hypotension, unspecified (principal); E86.0 Dehydration; J18.9 Pneumonia, unspecified organism; E11.9 Type 2 diabetes mellitus without complications; F32.9 Major depressive disorder, single episode, unspecified; Z21 Asymptomatic human immunodeficiency virus [HIV] infection status; Z79.01 Long term (current) use of anticoagulants; Z88.1 Allergy status to other antibiotic agents; Z88.2 Allergy status to sulfonamides; Z85.07 Personal history of malignant neoplasm of pancreas
CPT/HCPCS: 93005; 87040 ×2; 85025; 80048; 36415; 82150; 82550; 85610; 85379; 80076; 83605 ×2; 85730; 84484; 82553; 83690; 84145; 83880; 71275; 71045; 96372; 99285; Q9967; J3370; J0696; J7040